=== PATIENT | female | born 1990 | race Caucasian/White ===

== ENCOUNTER → 2021-01-08 12:33 | Outpatient (BNVA) | payer MEDICAID, SELFPAY | PROVIDERS: PCP Internal Medicine; Visit Provider Physician Assistant | DX: E66.01 Morbid (severe) obesity due to excess calories (principal); Z68.43 Body mass index [BMI] 50.0-59.9, adult | CPT/HCPCS: 99202 ==

== ENCOUNTER 2021-01-19 07:32 | Outpatient (REF) | payer MEDICAID, SELFPAY ==
--- NOTE | ~2021-01-19 | XR_ITS ---
EXAMINATION: XR CHEST CLINICAL INFORMATION: Obesity COMPARISON: None TECHNIQUE: 2 views of the chest were obtained. FINDINGS: No significant abnormality is noted involving the heart, lungs, mediastinum, bony thorax or soft tissues. XR/XR chest 2V IMPRESSION: Unremarkable examination.
[2021-01-19 08:08] LABS: MANUAL DIFF FLAG NO
[2021-01-19 08:18] LABS: Basophils Percent Auto 0.5 % (0-2); Eosinophils Absolute Auto 0.2 X10*3/uL (0.0-0.4); Eosinophils Percent Auto 2.2 % (0-4); Hematocrit 38.5 % (37-47); Hemoglobin 13.9 g/dl (12.0-16.0); Imm Gran Abs Auto 0.05 X10*3/uL (0.00-0.03); Imm Gran Pct Auto 0.6 % (0.0-0.4); Lymphocytes Absolute Auto 2.1 X10*3/uL (1.2-4.9); Lymphocytes Percent Auto 26.3 % (20-40); Mean Corpuscular HGB Conc 36.1 g/dl (31.0-35.0); Mean Corpuscular Hemoglobin 31.6 pg (27.0-33.0); Mean Corpuscular Volume 87.5 fL (80-98); Mean Platelet Volume 10.3 fL (9.4-12.3); Monocytes Percent Auto 11.7 % (2-11); Neutrophils Absolute Auto 4.8 X10*3/uL (2.0-8.3); Neutrophils Percent Auto 58.7 % (45-73); Platelet Count 442 X10*3/uL (160-400); Red Cell Distribution Width 13.1 % (11.0-16.0); White Blood Count 8.1 X10*3/uL (4.8-10.8)
[2021-01-19 08:26] LABS: Estimated Average Glucose 91 mg/dL; Hemoglobin A1c % 4.8 %
[2021-01-19 08:37] LABS: Alanine Aminotransferase 14 U/L (0-31); Alkaline Phosphatase 85 U/L (39-117); Anion Gap 16 (12-20); Aspartate Amino Transferase 13 U/L (5-31); Bilirubin Total 1.4 mg/dL (0.0-1.0); Blood Urea Nitrogen 14 mg/dL (9-16); C Reactive Protein 1.35 mg/dL (< or = 0.50); Carbon Dioxide 22 mmol/L (22-29); Chloride 108 mmol/L (96-108); Cholesterol 129 mg/dL; Estimated Glomerular Filt Rate > 60; Glucose Fasting 99 mg/dL (60-99); HDL Cholesterol 38 mg/dL; Iron 68 mcg/dL (30-160); LDL Cholesterol Calculated 81 mg/dl; Percent Iron Saturation 30 % (15-50); Potassium 4.1 mmol/L (3.3-5.1); Sodium 142 mmol/L (135-145); Total Iron Binding Capacity 227 mcg/dL (228-428); Total Protein 7.1 g/dL (6.5-8.0); Triglycerides 50 mg/dL; Unsaturated Iron Binding 159 ug/dL
[2021-01-19 09:01] LABS: TSH reflex Free T4 1.23 uIU/mL (0.32-4.0); Vitamin D 25-OH Total 20.3 ng/mL (>30)
[2021-01-19 09:33] LABS: Ferritin 94 ng/mL (10-122)
[2021-01-21 09:37] LABS: Folate 14.4 ng/mL (> or = 4.0); Vitamin B12 738 pg/mL (200-900)
[2021-01-22 03:42] LABS: Zinc 88 mcg/dL (60-130)
[2021-01-22 10:27] LABS: Calcium (PTHI) 9.3 mg/dL (8.6-10.2); PTHI 17 pg/mL (14-64)
[2021-01-24 02:27] LABS: Vitamin A 26 mcg/dL (38-98)
[2021-01-24 17:47] LABS: Vitamin B1 8 nmol/L (8-30)
== END 2021-01-19 07:33 | disposition home or self-care (01) ==
LOC: HO.LAB 07:32
PROVIDERS: PCP Internal Medicine; Visit Provider Physician Assistant
DX: R06.02 Shortness of breath (principal); E66.01 Morbid (severe) obesity due to excess calories; Z68.43 Body mass index [BMI] 50.0-59.9, adult
CPT/HCPCS: 36415; 71046; 80053; 80061; 82306; 82607; 82728; 82746; 83036; 83525; 83540; 83970; 84425; 84443; 84590; 84630; 85025; 86140

== ENCOUNTER → 2021-01-31 13:53 | Outpatient (REF) | payer MEDICAID, SELFPAY ==
--- NOTE | 2021-01-31 14:03 | ECG_ITS ---
Test Reason : OBESITY Blood Pressure : / mmHG Vent. Rate : 082 BPM Atrial Rate : 082 BPM P-R Int : 150 ms QRS Dur : 086 ms QT Int : 360 ms P-R-T Axes : 044 048 021 degrees QTc Int : 420 ms Normal sinus rhythm Normal ECG No previous ECGs available Referred By: Zakiya Rendon Electronically Signed By:Dieudonne Kilgore
[2021-02-01 13:41] LABS: H Pylori Breath Test NOT DETECTED (NOT DETECTED)
== END ==
LOC: HO.CARD 13:53
PROVIDERS: PCP Internal Medicine; Visit Provider Physician Assistant
DX: Z01.818 Encounter for other preprocedural examination (principal); E66.01 Morbid (severe) obesity due to excess calories; R06.02 Shortness of breath; E55.9 Vitamin D deficiency, unspecified; Z68.42 Body mass index [BMI] 45.0-49.9, adult; Z71.3 Dietary counseling and surveillance; Z11.0 Encounter for screening for intestinal infectious diseases; Z87.891 Personal history of nicotine dependence; Z88.8 Allergy status to other drugs, medicaments and biological substances; Z79.899 Other long term (current) drug therapy
CPT/HCPCS: 83013; 93005; 99211; 99212

== ENCOUNTER → 2021-02-15 08:12 | Outpatient (BNVA) | payer MEDICAID, SELFPAY | PROVIDERS: PCP Internal Medicine; Visit Provider Dietitian, Registered | DX: E66.01 Morbid (severe) obesity due to excess calories (principal) | CPT/HCPCS: 97802 ==

== ENCOUNTER 2021-02-16 08:47 | Outpatient (REF) | payer MEDICAID, SELFPAY ==
[2021-02-16 10:16] LABS: Vitamin D 25-OH Total 36.1 ng/mL (>30)
[2021-02-20 09:31] LABS: Vitamin A 28 mcg/dL (38-98)
[2021-02-21 20:52] LABS: Cotinine, U <2 ng/mL; Nicotine, U <2 ng/mL
== END 2021-02-16 08:48 | disposition home or self-care (01) ==
LOC: HO.LAB 08:47
PROVIDERS: Physician Assistant; PCP Internal Medicine; Visit Provider Surgery
DX: E55.9 Vitamin D deficiency, unspecified (principal); E66.01 Morbid (severe) obesity due to excess calories; Z87.891 Personal history of nicotine dependence
CPT/HCPCS: 36415; 80323; 82306; 84590

== ENCOUNTER → 2021-02-22 08:01 | Outpatient (BNVA) | payer MEDICAID, SELFPAY | PROVIDERS: PCP Internal Medicine; Visit Provider Physician Assistant | DX: E66.01 Morbid (severe) obesity due to excess calories (principal); Z68.42 Body mass index [BMI] 45.0-49.9, adult; Z87.891 Personal history of nicotine dependence | CPT/HCPCS: 99212 ==

== ENCOUNTER → 2021-03-08 14:48 | Outpatient (BNVA) | payer MEDICAID, SELFPAY | PROVIDERS: PCP Internal Medicine; Visit Provider Surgery | DX: E66.01 Morbid (severe) obesity due to excess calories (principal); Z68.42 Body mass index [BMI] 45.0-49.9, adult | CPT/HCPCS: 99212 ==

== ENCOUNTER → 2021-04-01 13:45 | Outpatient (BNVA) | payer MEDICAID, SELFPAY | PROVIDERS: PCP Internal Medicine; Referring Provider Internal Medicine; Visit Provider Physician Assistant | DX: E66.01 Morbid (severe) obesity due to excess calories (principal); Z68.42 Body mass index [BMI] 45.0-49.9, adult | CPT/HCPCS: 99212 ==

== ENCOUNTER 2021-04-11 11:00 | Outpatient (REF) | payer MEDICAID, SELFPAY ==
--- NOTE | 2021-04-11 12:09 | ECG_ITS ---
Test Reason : R06.02 SOB Blood Pressure : / mmHG Vent. Rate : 073 BPM Atrial Rate : 073 BPM P-R Int : 154 ms QRS Dur : 086 ms QT Int : 388 ms P-R-T Axes : 032 061 025 degrees QTc Int : 427 ms Normal sinus rhythm with sinus arrhythmia Normal ECG When compared with ECG of 31-JAN-2021 14:20, No significant change was found Referred By: Charlene Pearson Electronically Signed By:KAROLINE TORIBIO MD
[2021-04-11 13:10] LABS: MANUAL DIFF FLAG NO
[2021-04-11 13:18] LABS: Prothrombin Time 11.9 SEC (9.9-13.0)
[2021-04-11 13:21] LABS: Basophils Absolute Auto 0.1 X10*3/uL (0.0-0.2); Basophils Percent Auto 0.4 % (0-2); Eosinophils Absolute Auto 0.3 X10*3/uL (0.0-0.4); Eosinophils Percent Auto 2.2 % (0-4); Hematocrit 43.4 % (37-47); Hemoglobin 15.2 g/dl (12.0-16.0); Imm Gran Abs Auto 0.07 X10*3/uL (0.00-0.03); Imm Gran Pct Auto 0.6 % (0.0-0.4); Lymphocytes Absolute Auto 3.3 X10*3/uL (1.2-4.9); Lymphocytes Percent Auto 27.6 % (20-40); Mean Corpuscular Hemoglobin 31.5 pg (27.0-33.0); Mean Corpuscular Volume 89.9 fL (80-98); Mean Platelet Volume 10.8 fL (9.4-12.3); Monocytes Absolute Auto 0.9 X10*3/uL (0.1-1.2); Monocytes Percent Auto 7.5 % (2-11); Neutrophils Absolute Auto 7.5 X10*3/uL (2.0-8.3); Neutrophils Percent Auto 61.7 % (45-73); Partial Thromboplastin Time 36.1 SEC (24.1-38.0); Platelet Count 386 X10*3/uL (160-400); Red Blood Count 4.83 X10*6/uL (4.20-5.50); Red Cell Distribution Width 12.7 % (11.0-16.0); White Blood Count 12.1 X10*3/uL (4.8-10.8)
[2021-04-11 13:32] LABS: Albumin Level 4.6 g/dL (3.5-5.0); Anion Gap 17 (12-20); Blood Urea Nitrogen 18 mg/dL (9-16); Calcium 9.9 mg/dL (8.4-10.2); Carbon Dioxide 21 mmol/L (22-29); Chloride 105 mmol/L (96-108); Estimated Glomerular Filt Rate > 60; Glucose Random 77 mg/dL (60-115); Potassium 4.1 mmol/L (3.3-5.1); Sodium 139 mmol/L (135-145)
[2021-04-11 13:48] LABS: UPreg QC Valid YES; Urine Pregnancy NEGATIVE (NEGATIVE)
[2021-04-11 13:49] LABS: Glucose Urine UA NEG (NEG); Leukocyte Esterase Urine 1+ (NEG); Nitrite Urine NEG (NEG); PH 5.5 (5.0-8.0); UACC Culture Trigger YES; Urine Blood 1+ (NEG); Urine Ketones NEG (NEG); Urine Protein NEG (NEG-TRACE)
[2021-04-11 13:52] LABS: Appearance Urine CLEAR; Color Urine YELLOW
[2021-04-11 13:59] LABS: Bacteria Urine 1+ /LPF; Squamous Epithelial Cell Urine 2+ /LPF
[2021-04-16 18:07] LABS: Vitamin A 42 mcg/dL (38-98)
== END 2021-04-11 11:01 | disposition home or self-care (01) ==
LOC: HO.LAB 11:00
PROVIDERS: PCP Internal Medicine; Visit Provider Surgery
DX: Z01.818 Encounter for other preprocedural examination (principal); E66.01 Morbid (severe) obesity due to excess calories; R06.02 Shortness of breath; E50.9 Vitamin A deficiency, unspecified; Z79.899 Other long term (current) drug therapy; Z87.891 Personal history of nicotine dependence; Z68.42 Body mass index [BMI] 45.0-49.9, adult
CPT/HCPCS: 36415; 80048; 81001; 81025; 82040; 84590; 85025; 85610; 85730; 87086; 93005; 99212

== ENCOUNTER → 2021-04-12 13:24 | Outpatient (BNVA) | payer MEDICAID, SELFPAY | PROVIDERS: PCP Internal Medicine; Visit Provider Physician Assistant ==

== ENCOUNTER 2021-04-19 07:33 | Inpatient (IN) | payer MEDICAID, SELFPAY ==
[2021-04-17 15:19] VITALS: BMI 45.4
--- NOTE | 2021-04-18 08:20 | P.CONAN_ITS ---
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 Hereditary spherocytosis PMFSH Active Problems Active Problems: All Active Problems (Updated 04/11/21 @ 08:52 by Charlene Pearson MD) Major depressive disorder in remission (Acute) Former smoker (Acute) BMI 45.0-49.9, adult (Acute) Vitamin A deficiency (Acute) Preoperative examination (Acute) Shortness of breath (Acute) Morbid obesity (Acute) Vitamin D deficiency (Acute) BMI 50.0-59.9, adult (Acute) Depression (Acute) Hereditary spherocytosis (Acute) Past Medical History Medical History BMI 50.0-59.9, adult Depression Hereditary spherocytosis Morbid obesity Vitamin D deficiency Family History Family History Mother Fibromyalgia Hypertension Migraine Depression Degenerative disk disease Sleep apnea Father Hypertension Sleep apnea Brother Spherocytosis Hyperlipidemia Son No problems noted. Daughter No problems noted. Surgical History Surgical History (Updated 04/17/21 @ 15:17 by Sara Mistry RN) Hx of splenectomy Hx of wisdom tooth extraction Social History Social History Are you a primary children's zoo caretaker to a significant other at home: Yes (2 minor children) Do you presently have visiting nurse or other home services: No Alcohol intake: current Alcohol intake frequency: holidays/special occasions only Patient Tobacco Use Status: Former Tobacco user Quit Date: 01/29/2021 Tobacco use type: Cigarette Have you been hit, kicked, punched, or otherwise hurt by someone within the past year? If so, by whom?: No Are you DNR?: No Advance Directives: No Advance Directives Information Provided: No Advance Directives on File: No Recently lost weight without trying: No Patient : No FDLMP: 04/05/2021 : No Poor oral hygiene: No (lower permanent retainer) Meds Allergies Allergy/AdvReac Type Severity Reaction Status Date / Time cefaclor [From Ceclor] Allergy Severe Rash Verified 04/17/21 15:14 dichloralphenazone Allergy Severe Shortness Verified 04/17/21 15:14 [From Midrin] of Breath isometheptene [From Midrin] Allergy Severe Shortness Verified 04/17/21 15:14 of Breath midodrine Allergy Severe Shortness Verified 04/17/21 15:16 of Breath Home Medications Medication Instructions Recorded Confirmed Last Taken Type vitamin A 10,000 unit capsule 20,000 unit PO DAILY 04/17/21 04/17/21 Unknown History Exam Exam Date and Time: April 18, 2021 0820 Height,Weight and Vital Signs: Height 5 ft 4 in Weight 120.202 kg Pertinent Lab Results Pertinent Lab Results: Laboratory Tests 04/11/21 12:20 Blood Type A Positive Antibody Screen NEGATIVE Laboratory Tests 04/11/21 04/11/21 04/11/21 12:20 12:20 12:20 WBC 12.1 H Hgb 15.2 Hct 43.4 Plt Count 386 PT 11.9 INR 1.0 APTT 36.1 Sodium 139 Potassium 4.1 Chloride 105 Carbon Dioxide 21 L BUN 18 H Creatinine 0.70 Estimated GFR > 60 Random Glucose 77 Calcium 9.9 D Albumin 4.6 Vitamin A 04/11/21 12:20 WBC Hgb Hct Plt Count PT INR APTT Sodium Potassium Chloride Carbon Dioxide BUN Creatinine Estimated GFR Random Glucose Calcium Albumin Vitamin A 42 Narrative Narrative: EKG 03/2021 Vent. Rate : 073 BPM ? ? Atrial Rate : 073 BPM ?? P-R Int : 154 ms? QRS Dur : 086 ms ? ? QT Int : 388 ms ? ? ? P-R-T Axes : 032 061 025 degrees ?? QTc Int : 427 ms ? Normal sinus rhythm with sinus arrhythmia Normal ECG When compared with ECG of 31-JAN-2021 14:20, No significant change was found Assessment and Plan Assessment Anesthesia Assessment: Chart Reviewed Documented by User: Jennie Corona MD 04/19/21 08:02 [facility] Past Medical History Medical History BMI 50.0-59.9, adult Depression Hereditary spherocytosis Morbid obesity Vitamin D deficiency Family History Family History Mother Fibromyalgia Hypertension Migraine Depression Degenerative disk disease Sleep apnea Father Hypertension Sleep apnea Brother Spherocytosis Hyperlipidemia Son No problems noted. Daughter No problems noted. Surgical History Surgical History (Updated 04/17/21 @ 15:17 by Sara Mistry RN) Hx of splenectomy Hx of wisdom tooth extraction Social History Social History Are you a primary children's zoo caretaker to a significant other at home: Yes (2 minor children) Do you presently have visiting nurse or other home services: No Alcohol intake: current Alcohol intake frequency: holidays/special occasions only Patient Tobacco Use Status: Former Tobacco user Quit Date: 01/29/2021 Tobacco use type: Cigarette Have you been hit, kicked, punched, or otherwise hurt by someone within the past year? If so, by whom?: No Are you DNR?: No Advance Directives: No Advance Directives Information Provided: No Advance Directives on File: No Recently lost weight without trying: No Patient : No FDLMP: 04/05/2021 : No Poor oral hygiene: No (lower permanent retainer) Meds Allergies Allergy/AdvReac Type Severity Reaction Status Date / Time cefaclor [From Ceclor] Allergy Severe Rash Verified 04/17/21 15:14 dichloralphenazone Allergy Severe Shortness Verified 04/17/21 15:14 [From Midrin] of Breath isometheptene [From Midrin] Allergy Severe Shortness Verified 04/17/21 15:14 of Breath midodrine Allergy Severe Shortness Verified 04/17/21 15:16 of Breath Home Medications Medication Instructions Recorded Confirmed Last Taken Type vitamin A 10,000 unit capsule 20,000 unit PO DAILY 04/17/21 04/17/21 Unknown History Exam Airway Mallampati Class: II TM Dist: >3cm Neck ROM: Full
[2021-04-19] VITALS (12 sets, daily range): BP systolic 123–161; BP diastolic 60–90; PULSE 68–100; RESP 12–20; TEMP 36.1–36.6; O2SAT 94–99
[2021-04-19 07:53] LABS: UPreg QC Valid YES; Urine Pregnancy NEGATIVE (NEGATIVE)
[2021-04-19 08:08] LABS: COVID-19 Test Negative (Negative)
--- NOTE | 2021-04-19 08:44 | MHC.SHP ---
Pre-Procedural Eval Section A Date of Service: 04/19/21 Section B Chief Complaint: s/p sleeve gastrectomy Allergies: Allergies Allergy/AdvReac Type Severity Reaction Status Date / Time cefaclor [From Ceclor] Allergy Severe Rash Verified 04/17/21 15:14 dichloralphenazone Allergy Severe Shortness Verified 04/17/21 15:14 [From Midrin] of Breath isometheptene [From Midrin] Allergy Severe Shortness Verified 04/17/21 15:14 of Breath midodrine Allergy Severe Shortness Verified 04/17/21 15:16 of Breath Plan I have reviewed the history and physical and performed a pertinent physical examination on my patient. No changes have occurred unless specified.
--- NOTE | 2021-04-19 10:39 | P.BOP_ITS ---
Brief Operative Note Date of Service: 04/19/21 Pre-op diagnosis: Morbid obesity, BMI 46.3 Post-op diagnosis: other (Same and hiatal hernia) Procedure: Laparoscopic sleeve gastrectomy, hiatal hernia repair, Mary block, and intraoperative endoscopy Implants: covidien tahira Surgeon: Charlene Pearson MD Anesthesia: GETA Was an Cdl Bulk Driver used for this Procedure?: Yes Cdl Bulk Driver: Kate Marina Estimated blood loss (mL): 10 Pathology: other Condition: stable Disposition: PACU
--- NOTE | 2021-04-19 10:40 | W.PM.OPN ---
Operative Note Operative Note Date of Service: 04/19/21 Narrative: Patient was brought into the operating room and placed on the operating room table in the supine position. General anesthesia was induced. Normal DVT prophylaxis was instituted and the patient received 900 mg of clindamycin preoperatively. The abdomen was then prepped and draped in the normal sterile fashion. A safety time-out was performed. A mixture of 1% lidocaine with epinephrine and ?% Marcaine plain was used to anesthetize the planned incision site in the left upper quadrant. A #11 scalpel was used to make a 5 mm left upper quadrant transverse incision through which a veress needle was placed. Three pops were heard going through the fascia. A saline drop test was used to confirm that the veress needle was intraabdominal. An optiview technique was then used to place a 5mm port in the left upper quadrant. A 5 mm 30 degree laproscope was then placed through this port and the abdominal cavity was surveyed there were omental adhesions to the left upper abdominal wall. We took these adhesions down with dissection using the LigaSure device. The patient was placed in reverse Trendelenburg positioning. A miesha liver retractor was then placed in the subxyphoid position and it was used to hold up the left lobe of the liver to the abdominal wall. This was secured to the bed using the liver retractor wang. A QUANG block was then performed for pain control on the right side of the abdomen. A 5 mm port was placed in the right upper quadrant near the falciform ligament. A 12 mm port was then placed in the mid epigastrium. One additional 5 mm port was placed in the left upper quadrant just to the left of the placement of the first port. I then performed a QUANG block on the left side of the abdomen. I then removed the epigastric fat pad; there was a small anterior hiatal hernia noted. I reapproximated the left and right crura with a total of 2 stitches of 2-0 ethibond and a laparoscopic knot pusher. There was no residual hiatal hernia. I then opened up the angle of His. We then gained entry into the lesser sac about 4-5 cm from the pylorus. I had anesthesia place a 34 [place] orogastric tube into the distal antrum to use as a sizing tool for gastric pouch size. I divided the short gastric vessels up to the angle of His. We then started the creation of the gastric pouch by firing a 60 mm purple load endostapler up the stomach about 4-5 cm from the pylorus. We completed the creation of the gastric pouch using a total of 4 firings of a 60 mm purple load stapler. We had anesthesia remove the orogastric tube, then we clamped across the distal antrum using a fired 60 mm endostapler. We flattened the patient and then instilled normal saline surrounding the newly created staple line. I then performed an on-table endoscopy. I passed the gastroscopy into the posterior oropharynx and down the esophagus evaluating the esophageal mucosa which was normal. There was no evidence of hiatal hernia. I passed the gastroscope into the gastric pouch and insufflated the gastric pouch. There was healthy pink mucosa and no evidence of active bleeding. There was no evidence of leak on laparoscopy. I desufflated the gastric pouch and removed the endoscope. I removed the endostapler from the abdomen and suctioned the fluid from the left upper quadrant. I then removed the partial gastrectomy specimen through the epigastric 12 mm port site. I reapproximated the 12 mm port using a 0 maxon suture with a laparoscopic suture passer. I instilled local anesthetic into the fascial closure site and tied the suture down at a pressure of 8-10 mm of Hg. There was no residual fascial defect. We removed the liver retractor and the left upper quadrant 5 mm ports under direct visualization. There was no evidence of any active bleeding. I desufflated the abdomen through the last remaining port and removed the laparoscope and 5 mm port. We reapproximated all incisions with a 4-0 monocryl subcuticular stitch. We cleaned and dried the abdominal skin and applied dermabond skin glue. All count were correct at the end of the case. The patient was awake and in stable condition prior to extubation and transfer to the recovery room.
--- NOTE | 2021-04-19 10:41 | PM.PNGS ---
Subjective Subjective Date of Service: 04/20/21 Interval history: This is a 30-year-old lady status post laparoscopic sleeve gastrectomy with hiatal hernia repair doing well on postoperative day 1. Patient is tolerating stage III diet without difficulty. Her vital signs and blood work are within normal limits for postoperative day 1. Patient has been up and ambulating using incentive spirometer. Physical Exam Vital Signs: Vital Signs: Last Vital Signs Temp 97.0 F 04/19/21 10:30 Pulse 100 04/19/21 10:40 Resp 20 04/19/21 10:40 BP 135/84 04/19/21 10:40 Pulse Ox 97 04/19/21 10:40 Body Mass Index 45.4 Const: General: cooperative, healthy appearing, comfortable and no acute distress GI: Other: Abdomen is soft, nondistended, mild appropriate incisional tenderness. Incisions are clean dry intact with Dermabond in place. There is no evidence of infection or drainage or erythema. Extrem: Other: Bilateral lower extremities are warm well-perfused without edema. There is no tenderness to palpation Procedures Date of Service Date of Service: 04/20/21 Progress Note: A&P Assessment and plan (1) Status post laparoscopic sleeve gastrectomy: Status: Acute Assessment and Plan: This is a 30-year-old lady on postoperative day 1. Status post laparoscopic sleeve gastrectomy and hiatal hernia repair doing well. Patient will be discharged home to follow up with me as an outpatient in 2 weeks time frame. (2) History of repair of hiatal hernia: Status: Acute Fall Risk Details Current Medications: Current Medications Generic Name Dose Route Start Last Admin Trade Name Freq PRN Reason Stop Dose Admin Fentanyl 50 mcg 04/19/21 08:02 Fentanyl Citrate/Pf 100 Mcg/2 Ml Vial IVPUSH Q5M PRN Pain, Severe (Pain Scale 7-10) Protocol Hydromorphone HCl 0.5 mg 04/19/21 10:39 Hydromorphone Hcl 0.5 Mg/0.5 Ml Syringe IVPUSH Q5M PRN Pain, Severe (Pain Scale 7-10) Protocol Lactated Ringer's 1,000 mls @ 100 mls/hr 04/19/21 07:45 Lr IVCONT .Q10H SERGE Ondansetron HCl 4 mg 04/19/21 08:02 Ondansetron Hcl 4 Mg/2 Ml Vial IVPUSH ONCE PRN Nausea and Vomiting Time Spent With Patient Time: Total time spent is greater than 50% in coordination of care (as documented) at patient's floor/unit and/or counseling patient: Time with patient: less than 15 minutes Quality Stroke Does the patient have a stroke diagnosis?: No VTE Prior VTE?: No VTE Risk Level:: Surgical - moderate VTE Device Contraindication: N/A - Device Ordered VTE Drug Contraindication: Treatment Not Indicated
--- NOTE | 2021-04-19 10:45 | P.DS_ITS ---
DS: Providers Provider Date of Service: 04/20/21 Date of admission: 04/19/21 07:33 Date of discharge: 04/20/21 Primary care physician: Shadi Vargas MD Admitting clinician: Charlene Pearson Attending physician on admission: Charlene Pearson Attending physician on discharge: Charlene Pearson Discharging clinician: Charlene Pearson DS: Diagnosis Discharge Diagnosis (1) Status post laparoscopic sleeve gastrectomy: Status: Acute (2) History of repair of hiatal hernia: Status: Acute DS: Medications Discharge Medications Home Medications: Previous Rx's Medication Instructions Recorded acetaminophen 500 mg tablet 1,000 mg PO Q6H PRN #30 tab 04/11/21 (Tylenol Extra Strength) docusate sodium 100 mg capsule 100 mg PO BID #30 cap 04/11/21 (Colace) famotidine 20 mg tablet (Pepcid AC) 20 mg PO DAILY #30 tab 04/11/21 ondansetron HCl 4 mg tablet 4 mg PO Q6H PRN #30 tab 04/11/21 (Zofran) simethicone 80 mg chewable tablet 80 mg PO TID-QID PRN #30 tab 04/11/21 (Gas Relief (simethicone)) DS: Summary Hospital Course Hospital Course: Patient was admitted through same day surgery to [facility] and underwent a laparoscopic sleeve gastrectomy with hiatal hernia repair for weight management. Patient did well following surgery and was sent to the surgical floor overnight. She was started on a stage II bariatric diet which she tolerated well. Patient was up and ambulating on day 0. Patient's pain was well controlled. On postoperative day 1. The patient was noted to be doing well, vital signs and laboratory work was within normal limits for postoperative day 1. Patient was advanced to stage III diet which she tolerated well and she was discharged home. Status at Discharge Functional status at discharge: independent ambulation Time Spent with Patient Time attestation: Total time spent providing and/or coordinating discharge services: Discharge coordination time: Less than 30 minutes Quality: Stroke Does the patient have a stroke diagnosis?: No Physical Exam Vital Signs: Vital Signs: Last Vital Signs Temp 97.0 F 04/19/21 10:30 Pulse 100 04/19/21 10:40 Resp 20 04/19/21 10:40 BP 135/84 04/19/21 10:40 Pulse Ox 97 08/20/21 10:40 Body Mass Index 45.4 DS: Data Data Completed and Pending Pending studies at discharge: Pending at discharge 04/19/21 09:42 Surgical [PTH] Routine Labs on day of discharge: Laboratory Results - last 24 hr 04/19/21 04/19/21 07:38 07:41 Urine Test NEGATIVE COVID-19 ([facility]) Negative COVID-19 Clin Com See Note Discharge Plan Discharge Patient Disposition: Home, Self-Care Discharge Diagnosis: Morbid obesity, status post sleeve gastrectomy and hiatal hernia repair Referrals: Shadi Vargas MD [Primary Care Provider] - 1 Week Discharge Medications: Continued acetaminophen [Tylenol Extra Strength] 500 mg tablet 1,000 mg PO Q6H PRN (Reason: pain) Qty: 30 RF: 1 famotidine [Pepcid AC] 20 mg tablet 20 mg PO DAILY Qty: 30 RF: 1 simethicone [Gas Relief (simethicone)] 80 mg tablet,chewable 80 mg PO TID-QID PRN (Reason: abdominal distention) Qty: 30 RF: 1 ondansetron HCl [Zofran] 4 mg tablet 4 mg PO Q6H PRN (Reason: nausea and vomiting) Qty: 30 RF: 1 docusate sodium [Colace] 100 mg capsule 100 mg PO BID Qty: 30 RF: 1 Discontinued vitamin A 10,000 unit capsule 20,000 unit PO DAILY RF: 0 No Action vitamin A 10,000 unit capsule 2 cap PO DAILY RF: 0 Discharge Orders: Discharge Order (Routine); Ordered 04/20/21 Ordered By: Charlene Pearson Diet: other Activity on Discharge: No heavy lifting Stand Alone Forms: Patient Portal Discharge page Activity Restrictions/Additional Instructions: No lifting greater than 5 lbs for the next 4 weeks. No driving within 24 hours of taking narcotic pain medications. If you do not move your bowels in the next 2 days, please take milk of magnesia over the counter or MiraLax. Please follow the post op diet and do not advance your diet until you are seen in the office in about 2 weeks. Please walk around your home every hour or two to prevent blood clots from forming in your legs. You do not need to wake from sleeping to walk. Please sleep in a bed or couch to prevent kinking at the hips and knees. Please take your incentive spirometer (your lung dairy processing equipment operator) home with you and use it for the next few days to prevent pneumonias. You may shower, no hot tubs, baths or swimming pools. Please call the office with any questions or concerns such as increasing abdominal pain, fever, chills, shortness of breath, chest pain, leg pain or swelling, or redness or drainage from your incisions. Please stay on stage 3 diet which includes sugar free clear liquids such as ice pops and jello and broth and crystal light. Avoid all carbonation. Please drink 2-3 protein shakes with at least 20-30 grams of protein daily or 2 of the celebrate 4:1 shakes which can be purchased in our office in addition to 1 other protein shake of your choice. celebrate shakes have all of the bariatric vitamins you need if you consume these shakes. If you are drinking other protein shakes, you will need to order the bariatric vitamin Opurity chewable online, or use the celebrate bariatric vitamin and an additional celebrate calcium daily which will provide all the vitamins you need. You may take the bariatric capsule vitamin in about 1 month. Please make sure you are consuming at least 40- 60 ounces of water in addition to your 2-3 protein shakes daily. You do not need to use the medicine cups to drink year shakes or water following discharge. Just drink slowly in order to ensure that she consume all of your liquids for the day. The medicine cups were only to teach you to drink slowly. They are not required at home. Do not hesitate to contact the office with any questions. Care Plan Goals: Weight loss with a goal of meeting a BMI of 25 Health Concerns: Morbid obesity Plan of Treatment: Patient is status post weight loss surgery Assessment: Patient is doing well status post weight loss surgery
[2021-04-19] MEDS: Famotidine/PF 20 MG/2 ML VIAL IVPUSH ×2 (11:21→20:45)
[2021-04-19] MEDS: Lactated Ringers 1,000 ML 100 ML IVCONT ×2 (11:32→20:45)
[2021-04-19] MEDS: Metoclopramide HCl 10 MG/2 ML VIAL IVPUSH (12:20)
--- NOTE | 2021-04-19 16:34 | PC.NURSE ---
PT ARRIVED ON UNTI AT 1245. ORIENTED TO UNIT. VSS. DROWSY, EASILY AROUSED.. ADB INCISION D&I. VOIDED 400 AT 1400. EDUCATED ON PHASE 2 DIET. PAIN 7/10 TYLENOL HUNG. PT DECLINED STRONGER PAIN.
[2021-04-19] MEDS: ondansetron HCL 4 MG/2 ML VIAL IVPUSH (17:34)
[2021-04-19] MEDS: Clindamycin Phosphate/D5W 900 MG/50 ML PIGGYBACK 50 MG IV (21:04)
[2021-04-19] MEDS: oxyCODONE HCl Immed Release 5 MG TABLET 10 MG PO (21:10)
[2021-04-20] VITALS: BP 147/87; PULSE 65; RESP 16; TEMP 36.4; O2SAT 98
[2021-04-20 04:00] VITALS: BP 153/72; PULSE 63; RESP 16; TEMP 36.8; O2SAT 98
[2021-04-20 06:51] LABS: Anion Gap 13 (12-20); Blood Urea Nitrogen 7 mg/dL (9-16); Carbon Dioxide 23 mmol/L (22-29); Chloride 106 mmol/L (96-108); Creatinine Clr Calc Pharmacy 170.6; Estimated Glomerular Filt Rate > 60; Glucose Random 106 mg/dL (60-115); Potassium 4.2 mmol/L (3.3-5.1); Sodium 138 mmol/L (135-145)
[2021-04-20 06:55] LABS: Hematocrit 36.1 % (37-47); Hemoglobin 12.6 g/dl (12.0-16.0); Mean Corpuscular HGB Conc 34.9 g/dl (31.0-35.0); Mean Corpuscular Hemoglobin 31.3 pg (27.0-33.0); Mean Corpuscular Volume 89.6 fL (80-98); Mean Platelet Volume 10.9 fL (9.4-12.3); Platelet Count 381 X10*3/uL (160-400); Red Blood Count 4.03 X10*6/uL (4.20-5.50); Red Cell Distribution Width 12.5 % (11.0-16.0)
[2021-04-20] MEDS: 0.9 % Sodium Chloride Flush 3 ML SYRINGE IVFLUSH (07:52)
[2021-04-20] MEDS: Famotidine/PF 20 MG/2 ML VIAL IVPUSH (07:52)
[2021-04-20 08:00] VITALS: BP 149/85; PULSE 57; RESP 20; TEMP 36.9; O2SAT 96
[2021-04-20] MEDS: ondansetron HCL 4 MG/2 ML VIAL IVPUSH (08:11)
[2021-04-20] MEDS: Lactated Ringers 1,000 ML 100 ML IVCONT (08:11)
--- NOTE | 2021-04-20 10:27 | MHC.CM.PN ---
PATIENT IS INDEPENDENT WITH ADLS. NO DME OR VNA AND NO NEED FOR SERVICES. PATIENT HAS SELF-ARRANGED FOR TRANSPORT HOME.
[2021-04-20 11:30] VITALS: BP 147/84; PULSE 57; RESP 18; TEMP 36.7; O2SAT 97
--- NOTE | 2021-04-20 19:13 | HO.POSTANES ---
Post Anesthesia Evaluation Post Anesthesia Evaluation Vital Signs: Vital Signs Temp Pulse Resp BP Pulse Ox 04/20/21 11:30 98.1 F 57 18 147/84 H 97 04/20/21 08:00 98.5 F 57 20 149/85 H 96 Anesthesia: General Endotracheal-GETA Mental Status: Awake Pain Control: Satisfactory Nausea/Vomiting: None Hydration: Adequate Anesthesia-Related Issues: No Anes. Related Issues
== END 2021-04-20 12:00 | disposition home or self-care (01) | DRG 403 ==
LOC: HO.SSSA 10:47 → HO.S3 11:44
PROVIDERS: Nurse Practitioner; Admitting Provider Surgery; PCP Internal Medicine; Visit Provider Surgery
PROC: 0DB64Z3 Excision of Stomach, Percutaneous Endoscopic Approach, Vertical (ICD-10-PCS; CPT 43845; principal; 2021-04-19 09:00)
DX: E66.01 Morbid (severe) obesity due to excess calories (principal); D58.0 Hereditary spherocytosis; F32.9 Major depressive disorder, single episode, unspecified; K44.9 Diaphragmatic hernia without obstruction or gangrene; Z20.822 Contact with and (suspected) exposure to COVID-19; Z68.42 Body mass index [BMI] 45.0-49.9, adult; Z87.891 Personal history of nicotine dependence; Z79.899 Other long term (current) drug therapy
CPT/HCPCS: 36415; 80048; 81001; 81025; 82040; 84590; 85025; 85027; 85610; 85730; 86850; 86900; 86901; 87086; 87635; 88307; 88342; 93005; 99024; 99212; C1776; J0131; J1100; J1170; J2250; J2405; J2550; J2765; J3010

== ENCOUNTER 2021-05-01 00:35 | Inpatient (IN) | payer MEDICAID, SELFPAY ==
[2021-05-01] VITALS (15 sets, daily range): BP systolic 124–183; BP diastolic 59–87; PULSE 82–120; RESP 16–20; TEMP 36.4–37.2; O2SAT 97–100; BMI 42.2
--- NOTE | ~2021-05-01 | CT_ITS ---
EXAMINATION: CT ABDOMEN WITHOUT AND WITH CONTRAST CLINICAL INFORMATION: Follow-up SMV thrombus COMPARISON: Previous CT scans most recent 05/02/2021 TECHNIQUE: Contiguous axial thin section helical images of the abdomen were performed before and after the administration of oral contrast and 85 mL of Omnipaque 350 intravenous contrast. The data set was reformatted in the coronal and sagittal planes and reviewed on an independent workstation. This CT examination was performed using dose optimization techniques as appropriate, variously including the following: *Automated exposure control *Adjustment of mA and/or kV according to patient size (this includes techniques or standardized protocols for targeted exams where dose is matched to indication/reason for exam; i.e. extremities or head) *Use of iterative reconstruction technique DLP: 1230 mGy-cm FINDINGS: LUNG BASES: There is minimal dependent atelectasis seen at the lung bases, left greater than right. There are trace pleural effusions. LIVER, GALLBLADDER, AND BILIARY TREE: Unremarkable PANCREAS: Unremarkable SPLEEN: Surgically removed ADRENAL GLANDS AND KIDNEYS: Unremarkable BOWEL LOOPS: There are postsurgical changes following gastric sleeve procedure. There is a small amount of fluid seen adjacent to the proximal stomach. There is no evidence of free air. There is interval improvement in the appearance of the small bowel. Small bowel loops in the left abdomen no longer demonstrate wall thickening and wall edema. No dilated loops of bowel are seen. There is interval decrease in ascites. There is interval decrease in edema in the small bowel mesentery. LYMPH NODES: There are small small bowel mesentery and retroperitoneal lymph nodes that appear unchanged. VASCULAR: There is still high attenuation seen in the portal vein and SMV on noncontrast exam. There is still nonenhancement of the SMV and portal vein following contrast enhancement. BONES: Unremarkable CT/CT abdomen wo/w con IMPRESSION: There is improved appearance of the small bowel. Small bowel wall thickening and edema is no longer seen. There is still increased attenuation on noncontrast sequences and lack of enhancement postcontrast of the SMV and portal veins suggestive of thrombus. Interval decrease in ascites. Postoperative changes following gastric sleeve procedure. There is a small amount of fluid seen surrounding the stomach. There is no free air.
--- NOTE | ~2021-05-01 | FL_ITS ---
EXAMINATION: LIMITED GASTROGRAFIN UPPER GI EXAMINATION. CLINICAL INFORMATION: Postop day 11 of the gastric sleeve biopsy. Intractable nausea and vomiting. Rule out leak. COMPARISON: None TECHNIQUE: Gastrografin examination. FINDINGS: Patient was only able to take two swallows of Gastrografin due to nausea and vomiting. No extravasation of Gastrografin was identified. Contrast filled the duodenum and small bowel. There is some narrowing in the region of the first portion of the duodenum but which is not causing dilatation of bowel proximal to this and for which no definite hematoma or other concentric mass causing narrowing seen on the recently done CT scan. FL/FL upper GI w gastrografin IMPRESSION: No definite extravasation of contrast identified. Region of narrowing involving the first and second portions of the duodenum which may be related to edema.
--- NOTE | ~2021-05-01 | CT_ITS ---
EXAMINATION: CTA CHEST CT ABDOMEN AND PELVIS WITH CONTRAST CLINICAL INFORMATION: Postoperative shortness of breath. Status post sleeve gastrectomy with abdomen pain. COMPARISON: None. TECHNIQUE: A noncontrast localizer was performed, followed by the administration of 65 mL Omnipaque [address] of the chest was then performed. Coronal and sagittal reformatted and 3-D technique MIP images of the chest were completed at the CT scanner and reviewed on the PACS workstation. No adverse effects were reported. Images were then performed through the abdomen and pelvis. Coronal and sagittal reformatted images performed at CT scanner by technologist. [This CT examination was performed using dose optimization techniques as appropriate, variously including the following: *Automated exposure control *Adjustment of mA and/or kV according to patient size (this includes techniques or standardized protocols for targeted exams where dose is matched to indication/reason for exam; i.e. extremities or head) *Use of iterative reconstruction technique] DLP: 1356 mGy-cm. FINDINGS: CTA CHEST Vascular: The main pulmonary artery, secondary and tertiary branches of the pulmonary artery are normally opacified with no evidence of pulmonary embolism. The aorta and great vessels are unremarkable. Mediastinum: No mediastinal mass. No significant lymphadenopathy. There is no pericardial effusion. Lungs: The lungs are clear. No nodule or infiltrate. Central bronchial airways open. Fluid: There is no pericardial effusion. There is no pleural effusion. Axilla: No significant lymphadenopathy. CT SCAN ABDOMEN/PELVIS: Liver, Gallbladder and Biliary Tree: The liver is normal in size, shape, and attenuation. No focal hepatic lesion or biliary ductal dilatation is present. The gallbladder is unremarkable with no evidence of radiopaque gallstones, gallbladder wall thickening, or obvious pericholecystic inflammatory changes. Pancreas: Unremarkable. Spleen: Spleen is absent. Adrenal Glands: Unremarkable. Kidneys and Ureters: The kidneys are normal in size, shape, and attenuation. No hydronephrosis, hydroureter, or calculi seen. No perinephric stranding. Bladder: Unremarkable. Gastrointestinal Tract: Status post sleeve gastrectomy. There is no acute abnormality of the bowel. No bowel obstruction. No bowel wall thickening or edema. Moderate volume of stool scattered throughout the colon. The appendix is nonvisualized. There is no inflammation the mesentery in the right lower quadrant. Abdominal Wall: No significant hernia is appreciated. MESENTERY/Lymph Nodes: Multiple small shotty lymph nodes in the retroperitoneum and root of mesentery but there is no bulky lymphadenopathy. There is mild haziness of the mid mesentery consistent with recent surgery. No abscess, no free air or free fluid. Vascular: Unremarkable. Pelvic Viscera: Unremarkable. Osseous Structures: Unremarkable. CT/CT angio chest PE protocol IMPRESSION: 1. No evidence of pulmonary embolism. No acute change of chest. 2. Status post sleeve gastrectomy. There is no acute abnormality of the bowel. 3. Mild haziness at the root of the mesentery with subcentimeter lymph nodes in the mesentery and retroperitoneum. No abscess or free fluid. 4. Spleen is absent.
--- NOTE | ~2021-05-01 | IR_ITS ---
PROCEDURE: IR INSERTION OF PICC IR ULTRASOUND-GUIDED VENOUS ACCESS CLINICAL INFORMATION: On heparin drip for SMV thrombus. Requires frequent blood draws. COMPARISON: None TECHNIQUE: Procedure and risks and benefits including bleeding, infection and blood clot were discussed with the patient, and informed consent was obtained. All elements of maximal sterile barrier technique followed including use of cap, mask, sterile gown, sterile gloves, a sterile full body drape and hand hygiene. Also followed skin preparation with 2% chlorhexidine for cutaneous antisepsis, and sterile ultrasound preparation with sterile gel and probe cover when applicable. The right upper arm was prepped and draped in the usual sterile fashion. The skin and soft tissues were anesthetized with 1% lidocaine plain. Using ultrasound guidance, right basilic vein access was obtained. Over an .018 wire and through a peel-away sheath, a 5-Tamazight double-lumen PICC line was positioned. Catheter length is 42 cm. Catheter tip projects over the SVC. Real-time ultrasound guidance was used to document vein patency and for needle entry. A formal ultrasound picture was recorded. Inadvertently, no fluoroscopic image was saved. Fluoroscopy time: 0.2 minutes. Patient dose: 105 cGy-cm2. FINDINGS: There is a right upper extremity PICC line with tip projecting over the cavoatrial junction. IR/IR us guide venous access IMPRESSION: Right upper extremity PICC line placement.
--- NOTE | ~2021-05-01 | US_ITS ---
EXAMINATION: US ABDOMEN LIMITED CLINICAL INFORMATION: Right upper quadrant abdominal pain. Postoperative day 11 status post sleeve gastrectomy.. COMPARISON: CT abdomen of May 01, 2021 TECHNIQUE: Real-time imaging of the right upper quadrant abdominal viscera. FINDINGS: PANCREAS: Obscured by overlying bowel gas. LIVER: Normal. The liver is normal in size. The liver contour is normal. Parenchymal echogenicity is normal. No focal hepatic lesion. There is no intrahepatic biliary duct dilatation seen. GALLBLADDER: There is layering sludge seen within the gallbladder. No gallbladder wall thickening is identified. No pericholecystic fluid is noted. No tenderness to palpation was elicited over the gallbladder fossa scanning. COMMON BILE DUCT: Normal in caliber measuring 0.6 cm in diameter. RIGHT KIDNEY: There is mild upper collecting system prominence but without definite hydronephrosis. No renal calculi or focal parenchymal lesions. The kidney measures 10.3 cm in maximum dimension. FREE FLUID: None. US/US abdomen limited IMPRESSION: Gallbladder sludge without evidence to suggest acute cholecystitis.
--- NOTE | ~2021-05-01 | CT_ITS ---
EXAMINATION: CT ABDOMEN AND PELVIS WITHOUT AND WITH CONTRAST CLINICAL INFORMATION: Abdominal pain. Rule out mesenteric venous thrombosis. COMPARISON: Previous CT scan of the abdomen and pelvis, upper GI and limited abdominal ultrasound from yesterday. TECHNIQUE: Multidetector volumetric imaging was performed of the abdomen and pelvis before and after the IV administration of 85 mL of Omnipaque 350 intravenous contrast. Sagittal and coronal reformatted images were obtained on the technologist's workstation. This CT examination was performed using dose optimization techniques as appropriate, variously including the following: *Automated exposure control *Adjustment of mA and/or kV according to patient size (this includes techniques or standardized protocols for targeted exams where dose is matched to indication/reason for exam; i.e. extremities or head) *Use of iterative reconstruction technique DLP: 1521 mGy-cm FINDINGS: LUNG BASES: The visualized lung bases are unremarkable. LIVER, GALLBLADDER, AND BILIARY TREE: The liver is normal in size, shape, and attenuation. No focal hepatic lesion or biliary ductal dilatation is present. The gallbladder is upper normal in size. No gallstones are seen. There is no biliary duct dilatation. PANCREAS: Unremarkable. SPLEEN: Absent and presumably surgically removed. ADRENAL GLANDS: Unremarkable. KIDNEYS AND URETERS: The kidneys are normal in size, shape, and attenuation. No hydronephrosis, hydroureter, or calculi seen. No perinephric stranding. BLADDER: Unremarkable. GASTROINTESTINAL TRACT: There are new thickened edematous loops of small bowel in the left mid abdomen. There is stranding or edema of the small bowel mesentery. There is new ascites. There are postsurgical changes to the stomach following gastric sleeve procedure. There is some increased fluid seen adjacent to the stomach. No intraluminal air, free air or extravasated contrast is seen. The appendix is not identified. ABDOMINAL WALL: There are postsurgical changes to the abdominal wall. No hernia is seen. LYMPH NODES: There is shotty retroperitoneal and small bowel mesentery lymphadenopathy. VASCULAR: There is decreased enhancement in the SMV and portal veins suggestive of thrombus. Vascular structures are otherwise unremarkable. The renal veins and IVC and IMV are patent. PELVIC VISCERA: Unremarkable. OSSEOUS STRUCTURES: Unremarkable. CT/CT abdomen pelvis wo/w con IMPRESSION: New small bowel wall thickening and edema in the left abdomen, edema or engorgement of the small bowel mesentery and [id number] amount of ascites. There is decreased enhancement of the SMV and portal veins compared to other venous structures suggestive of thrombus. Postoperative change following gastric sleeve procedure. There is new fluid seen adjacent to the stomach. No extraluminal air or contrast to confirm a leak, and this may be related to generalized ascites. Absent spleen. Findings were communicated to Johnnie Vasques by telephone on 05/02/2021 at 12:25pm
--- NOTE | ~2021-05-01 | IR_ITS ---
PROCEDURE: IR INSERTION OF PICC IR ULTRASOUND-GUIDED VENOUS ACCESS CLINICAL INFORMATION: On heparin drip for SMV thrombus. Requires frequent blood draws. COMPARISON: None TECHNIQUE: Procedure and risks and benefits including bleeding, infection and blood clot were discussed with the patient, and informed consent was obtained. All elements of maximal sterile barrier technique followed including use of cap, mask, sterile gown, sterile gloves, a sterile full body drape and hand hygiene. Also followed skin preparation with 2% chlorhexidine for cutaneous antisepsis, and sterile ultrasound preparation with sterile gel and probe cover when applicable. The right upper arm was prepped and draped in the usual sterile fashion. The skin and soft tissues were anesthetized with 1% lidocaine plain. Using ultrasound guidance, right basilic vein access was obtained. Over an .018 wire and through a peel-away sheath, a 5-Bulgarian double-lumen PICC line was positioned. Catheter length is 42 cm. Catheter tip projects over the SVC. Real-time ultrasound guidance was used to document vein patency and for needle entry. A formal ultrasound picture was recorded. Inadvertently, no fluoroscopic image was saved. Fluoroscopy time: 0.2 minutes. Patient dose: 105 cGy-cm2. FINDINGS: There is a right upper extremity PICC line with tip projecting over the cavoatrial junction. IR/IR cvc insert peripheral IMPRESSION: Right upper extremity PICC line placement.
--- NOTE | ~2021-05-01 | US_ITS ---
EXAMINATION: US VENOUS ULTRASOUND WITH DOPPLER LOWER EXTREMITY, BILATERAL CLINICAL INFORMATION: Elevated d-dimer COMPARISON: None TECHNIQUE: Ultrasound of the deep veins is performed from the hip to the calf with compression sonography and color and pulse Doppler assessment. Spectral analysis with color-flow imaging is performed. FINDINGS: RIGHT: There is normal venous compression and respiratory variation and augmented flow. The visualized common femoral vein, superficial femoral vein, profunda femoral vein, popliteal vein, and the trifurcation region shows no evidence of deep venous thrombosis. There is no significant popliteal fossa cyst. LEFT: There is normal venous compression and respiratory variation and augmented flow. The visualized common femoral vein, superficial femoral vein, profunda femoral vein, popliteal vein, and the trifurcation region shows no evidence of deep venous thrombosis. There is no significant popliteal fossa cyst. US/US venous duplex LE BI IMPRESSION: No DVT demonstrated in the bilateral lower extremities.
[2021-05-01] MEDS: 0.9 % Sodium Chloride 1,000 ML 999 ML IVCONT (01:15)
[2021-05-01 01:19] LABS: Hematocrit 39.4 % (37-47); Hemoglobin 14.1 g/dl (12.0-16.0); Mean Corpuscular HGB Conc 35.8 g/dl (31.0-35.0); Mean Corpuscular Hemoglobin 30.9 pg (27.0-33.0); Mean Corpuscular Volume 86.4 fL (80-98); Mean Platelet Volume 11.1 fL (9.4-12.3); Platelet Count 282 X10*3/uL (160-400); Red Blood Count 4.56 X10*6/uL (4.20-5.50); Red Cell Distribution Width 12.9 % (11.0-16.0); WBC ABN SCTR FOR CBC 1
--- NOTE | 2021-05-01 01:21 | ED.GENADULT ---
HPI - General Adult General Chief complaint: Nausea/Vomiting/Diarrhea Stated complaint: Abd pain Time Seen by Provider: 05/01/21 00:42 Source: patient Mode of arrival: ambulatory Limitations: no limitations History of Present Illness HPI narrative: 30-year-old female came in for evaluation of abdominal pain. Patient status post laparoscopic sleeve gastrectomy on 04/19/2021 with hiatal hernia repair for weight management. Patient was discharged home same day after surgery doing okay at home until 2 days ago when started to have intractable vomiting and upper abdominal pain, + normal bowel movement, + passing flatus. Patient also been having burning sensation over her right scapular area radiating down to the epigastric area, but declined shortness of breath or feeling palpitation. Related Data Previous Rx's Medication Instructions Recorded acetaminophen 500 mg tablet 1,000 mg PO Q6H PRN #30 tab 04/11/21 (Tylenol Extra Strength) docusate sodium 100 mg capsule 100 mg PO BID #30 cap 04/11/21 (Colace) famotidine 20 mg tablet (Pepcid AC) 20 mg PO DAILY #30 tab 04/11/21 ondansetron HCl 4 mg tablet 4 mg PO Q6H PRN #30 tab 04/11/21 (Zofran) simethicone 80 mg chewable tablet 80 mg PO TID-QID PRN #30 tab 04/11/21 (Gas Relief (simethicone)) Allergies Allergy/AdvReac Type Severity Reaction Status Date / Time cefaclor [From Ceclor] Allergy Severe Rash Verified 05/01/21 00:41 dichloralphenazone Allergy Severe Shortness Verified 05/01/21 00:41 [From Midrin] of Breath isometheptene [From Midrin] Allergy Severe Shortness Verified 05/01/21 00:41 of Breath midodrine Allergy Severe Shortness Verified 05/01/21 00:41 of Breath Review of Systems Review of Systems: All other systems are reviewed and are negative Constitutional: Reports as per HPI and Reports no additional constitutional complaints Eyes: Reports as per HPI and Reports no additional eye complaints Reports system reviewed and no additional complaints, except as documented Cardiovascular: Reports as per HPI and Reports no additional cardiovascular complaints Respiratory: Reports as per HPI and Reports no additional respiratory complaints Gastrointestinal: Reports as per HPI and Reports no additional gastrointestinal complaints Genitourinary: Reports no additional female genitourinary complaints Musculoskeletal: Reports no additional musculoskeletal complaints Skin/Breast: Reports system reviewed and no additional complaints, except as docu Psychiatric: Reports no additional psychiatric complaints Endocrine: Reports no additional endocrine complaints Hematologic/Lymphatic: Reports no additional hematologic/lymphatic complaints Allergic/Immunologic: Reports no additional allergic/immunologic complaints Reports system reviewed and no additional complaints, except as documented and Reports Abnormal speech present PMFSH Past Medical History Medical History BMI 50.0-59.9, adult Depression Hereditary spherocytosis Morbid obesity Vitamin D deficiency Surgical History History of repair of hiatal hernia Hx of splenectomy Hx of wisdom tooth extraction Status post laparoscopic sleeve gastrectomy Family History Family History Mother Fibromyalgia Hypertension Migraine Depression Degenerative disk disease Sleep apnea Father Hypertension Sleep apnea Brother Spherocytosis Hyperlipidemia Son No problems noted. Daughter No problems noted. 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 (2 minor children) Do you presently have visiting nurse or other home services: No Alcohol intake: never Patient Tobacco Use Status: Former Tobacco user Quit Date: 01/29/2021 Tobacco use type: Cigarette Use of substances other than those prescribed or required for medical reasons: No Advance Directives: No Advance Directives Information Provided: No service: No Current occupational status: employed Physical Exam Vital Signs: Vital Signs: Last Vital Signs Temp 97.8 F 05/01/21 00:41 Pulse 98 05/01/21 04:59 Resp 20 05/01/21 04:59 BP 135/73 05/01/21 04:59 Pulse Ox 99 05/01/21 04:59 Body Mass Index 42.2 Vital signs have been reviewed as appeared to be correct. Blood pressure normal. Heart rate elevated. Respiration rate normal. Temperature normal. Oxygen saturation normal. Appearance: Alert. Oriented X3. No acute distress. Head: Normal external exam. Normocephalic. Atraumatic. No Mcwilliams signs noted. No raccoon eyes noted Eyes: PERRLA. EOMI. Conjunctiva and sclera normal. Eyelids normal. ENT: TM's Normal. Pharynx normal. Uvula midline. Moist mucous membranes. No trismus noted. No drooling noted. No muffled voice noted. Neck: Normal inspection. Neck supple. FROM. No adenopathy. Thyroid Normal. No meningeal signs. No neck mass noted. CVS: Normal heart rate and rhythm. Heart sound normal. No murmurs noted. Pulses normal throughout. Respiratory: No respiratory distress. Painless inspiration. Breath sounds normal. No wheezes/rales/rhonchi noted. Chest nontender. No accessory muscle usage noted or decreased air movement noted. Abdomen: Soft, incision superior dry and clean and intact, mild tenderness in the epigastric area. No rebound tenderness, no guarding. Bowel sounds normal in all 4 quadrants. No distention noted. No organomegaly noted. No visible injury noted. Back: No CVA tenderness. Full range of motion noted. Skin: Skin warm and dry. Normal skin color. Normal skin turgor. No rashes/lesions/lacerations noted. Extremities: No lower extremity edema. Extremities exhibit normal range of motion. Extremities nontender. Neuro: Oriented X 3. Cranial nerve exam: II-XII are grossly intact No motor deficit. No sensory deficit. Reflexes normal. Course Course Course Narrative: Assessment and plan. 30-year-old female status post sleeve gastrectomy 10 days ago, patient presented today with severe abdominal pain and intractable vomiting. Because the elevated D-dimer patient had a CTA of the chest which showed no PE. CT of the abdomen and pelvis with contrast showed no complication from surgery. Improvement of leukocytosis. Patient with elevated anion gap and low bicarb patient will need IV hydration and anti emetic medication will admit the patient. Will consult bariatric surgery case discussed with Vu. Medical Decision Making Lab Data Lab results reviewed: Yes I reviewed the patient's lab results. Result diagrams: 05/01/21 01:12 05/01/21 01:11 Labs: Lab Results 05/01/21 05/01/21 05/01/21 Range/Units 01:11 01:12 02:37 WBC 16.8 H (4.8-10.8) X10*3/uL RBC 4.56 (4.20-5.50) X10*6/uL Hgb 14.1 (12.0-16.0) g/dl Hct 39.4 (37-47) % MCV 86.4 (80-98) fL MCH 30.9 (27.0-33.0) pg MCHC 35.8 H (31.0-35.0) g/dl RDW 12.9 (11.0-16.0) % Plt Count 282 D (160-400) X10*3/uL MPV 11.1 (9.4-12.3) fL Immature Gran % (Auto) Cancelled Neut % (Auto) Cancelled Lymph % (Auto) Cancelled [place] % (Auto) Cancelled Eos % (Auto) Cancelled Baso % (Auto) Cancelled Lymph # (Auto) Cancelled [place] # (Auto) Cancelled Eos # (Auto) Cancelled Baso # (Auto) Cancelled Abs Immat Gran (auto) Cancelled Absolute Neuts (auto) Cancelled Absolute Nucleated RBC 0.000 (0.0-0.012) X10*3/uL Nucleated RBC % (auto) 0.0 (0.0-0.2) /100WBC Neutrophils % (Manual) 74 H (45-73) % Band Neutrophils % 5 (3-5) % Lymphocytes % (Manual) 10 L (20-40) % Monocytes % (Manual) 11 (2-11) % Abs Neuts (Manual) 13.3 H (2.2-7.9) X10*3/uL Lymphocytes # (Manual) 1.7 (0.6-4.8) X10*3/uL Monocytes # (Manual) 1.8 H (0.0-1.2) X10*3/uL Platelet Estimate NORMAL (NORMAL) Large Platelets PRESENT Plt Morphology Comment NOTED RBC Morphology NOTED Spherocytes 3+ (>5) /OIF [place] Bodies PRESENT D-Dimer 4930 NG/ML Sodium 139 (135-145) mmol/L Potassium 3.6 (3.3-5.1) mmol/L Chloride 102 (96-108) mmol/L Carbon Dioxide 13 L (22-29) mmol/L Anion Gap 28 H (12-20) BUN 10 (9-16) mg/dL Creatinine 0.68 (0.5-1.4) mg/dL Estim Creat Clear Calc 146.5 Estimated GFR > 60 Random Glucose 99 (60-115) mg/dL Calcium 9.6 D (8.4-10.2) mg/dL Magnesium 2.1 (1.6-2.6) mg/dL Total Bilirubin 1.6 H (0.0-1.0) mg/dL Direct Bilirubin 0.6 H (0.0-0.5) mg/dL AST 15 (5-31) U/L ALT 13 (0-31) U/L Alkaline Phosphatase 103 D (39-117) U/L Total Protein 7.9 (6.5-8.0) g/dL Albumin 4.3 (3.5-5.0) g/dL Lipase 23 (8-78) U/L Urine Color Urine Appearance Urine pH (5.0-8.0) Ur Specific [place] (1.005-1.025) Urine Protein (NEG-TRACE) MG/DL Urine Glucose (UA) (NEG) MG/DL Urine Ketones (NEG) MG/DL Urine Blood (NEG) Urine Nitrite (NEG) Ur Leukocyte Esterase (NEG) Urine RBC (0) /HPF Urine WBC (0-4) /HPF Ur Squamous Epith Cells /LPF Amorphous Sediment /LPF Urine Bacteria /LPF Granular Casts /LPF Urine Mucus /LPF 05/01/21 Range/Units 02:39 WBC (4.8-10.8) X10*3/uL RBC (4.20-5.50) X10*6/uL Hgb (12.0-16.0) g/dl Hct (37-47) % MCV (80-98) fL MCH (27.0-33.0) pg MCHC (31.0-35.0) g/dl RDW (11.0-16.0) % Plt Count (160-400) X10*3/uL MPV (9.4-12.3) fL Immature Gran % (Auto) Neut % (Auto) Lymph % (Auto) Gibson % (Auto) Eos % (Auto) Baso % (Auto) Lymph # (Auto) [place] # (Auto) Eos # (Auto) Baso # (Auto) Abs Immat Gran (auto) Absolute Neuts (auto) Absolute Nucleated RBC (0.0-0.012) X10*3/uL Nucleated RBC % (auto) (0.0-0.2) /100WBC Neutrophils % (Manual) (45-73) % Band Neutrophils % (3-5) % Lymphocytes % (Manual) (20-40) % Monocytes % (Manual) (2-11) % Abs Neuts (Manual) (2.2-7.9) X10*3/uL Lymphocytes # (Manual) (0.6-4.8) X10*3/uL Monocytes # (Manual) (0.0-1.2) X10*3/uL Platelet Estimate (NORMAL) Large Platelets Plt Morphology Comment RBC Morphology Spherocytes /OIF [place] Bodies D-Dimer NG/ML Sodium (135-145) mmol/L Potassium (3.3-5.1) mmol/L Chloride (96-108) mmol/L Carbon Dioxide (22-29) mmol/L Anion Gap (12-20) BUN (9-16) mg/dL Creatinine (0.5-1.4) mg/dL Estim Creat Clear Calc Estimated GFR Random Glucose (60-115) mg/dL Calcium (8.4-10.2) mg/dL Magnesium (1.6-2.6) mg/dL Total Bilirubin (0.0-1.0) mg/dL Direct Bilirubin (0.0-0.5) mg/dL AST (5-31) U/L ALT (0-31) U/L Alkaline Phosphatase (39-117) U/L Total Protein (6.5-8.0) g/dL Albumin (3.5-5.0) g/dL Lipase (8-78) U/L Urine Color DARK YELLOW Urine Appearance CLEAR Urine pH 6.0 (5.0-8.0) Ur Specific [place] >= 1.030 H (1.005-1.025) Urine Protein 2+ H (NEG-TRACE) MG/DL Urine Glucose (UA) NEG (NEG) MG/DL Urine Ketones >=80 (NEG) MG/DL Urine Blood NEG (NEG) Urine Nitrite NEG (NEG) Ur Leukocyte Esterase NEG (NEG) Urine RBC 0-2 (0) /HPF Urine WBC 0-2 (0-4) /HPF Ur Squamous Epith Cells NONE /LPF Amorphous Sediment 1+ /LPF Urine Bacteria NONE /LPF Granular Casts 0-2 /LPF Urine Mucus 2+ /LPF Imaging Data CT angiogram of the chest/abdomen and pelvis.: Radiologist's impression: 1. No evidence of pulmonary embolism. No acute change of chest. 2. Status post sleeve gastrectomy. There is no acute abnormality of the bowel. 3. Mild haziness at the root of the mesentery with subcentimeter lymph nodes in the mesentery and retroperitoneum. No abscess or free fluid. 4. Spleen is absent. ? Discharge Plan Discharge Clinical Impression: Intractable vomiting, Abdominal pain Patient Disposition: Admitted As Inpatient
[2021-05-01 01:51] LABS: Alanine Aminotransferase 13 U/L (0-31); Albumin Level 4.3 g/dL (3.5-5.0); Alkaline Phosphatase 103 U/L (39-117); Anion Gap 28 (12-20); Aspartate Amino Transferase 15 U/L (5-31); Bilirubin Direct 0.6 mg/dL (0.0-0.5); Bilirubin Total 1.6 mg/dL (0.0-1.0); Blood Urea Nitrogen 10 mg/dL (9-16); Calcium 9.6 mg/dL (8.4-10.2); Carbon Dioxide 13 mmol/L (22-29); Chloride 102 mmol/L (96-108); Creatinine Clr Calc Pharmacy 146.5; Estimated Glomerular Filt Rate > 60; Glucose Random 99 mg/dL (60-115); Lipase 23 U/L (8-78); Magnesium 2.1 mg/dL (1.6-2.6); Potassium 3.6 mmol/L (3.3-5.1); Sodium 139 mmol/L (135-145); Total Protein 7.9 g/dL (6.5-8.0)
[2021-05-01 01:51] LABS: White Blood Count 16.8 X10*3/uL (4.8-10.8)
[2021-05-01 01:57] LABS: Band Neutrophils Percent 5 % (3-5); Howell Jolly Bodies PRESENT; Lymphocytes Absolute Manual 1.7 X10*3/uL (0.6-4.8); Lymphocytes Percent Manual 10 % (20-40); Monocytes Absolute Manual 1.8 X10*3/uL (0.0-1.2); Monocytes Percent Manual 11 % (2-11); Neutrophils Absolute Manual 13.3 X10*3/uL (2.2-7.9); Neutrophils Percent Manual 74 % (45-73); RBC Morphology NOTED
[2021-05-01 01:58] LABS: Spherocytes 3+ (>5) /OIF
[2021-05-01] MEDS: ondansetron HCL 4 MG/2 ML VIAL IVPUSH ×2 (01:58→04:55)
[2021-05-01 01:59] LABS: Large Platelet PRESENT; Platelet Estimate NORMAL (NORMAL); Platelet Morphology Comment NOTED
[2021-05-01 02:50] LABS: Glucose Urine UA NEG (NEG); Leukocyte Esterase Urine NEG (NEG); Nitrite Urine NEG (NEG); Specific Gravity - Urine >= 1.030 (1.005-1.025); UACC Culture Trigger NO; Urine Blood NEG (NEG); Urine Ketones >=80 MG/DL (NEG); Urine Protein 2+ MG/DL (NEG-TRACE)
[2021-05-01 02:52] LABS: Appearance Urine CLEAR; Color Urine DARK YELLOW
[2021-05-01 02:56] LABS: RBC Urine 0-2 /HPF (0); WBC Urine 0-2 /HPF (0-4)
[2021-05-01 02:57] LABS: Amorphous Sediment Urine 1+ /LPF; Granular Casts Urine 0-2 /LPF; Mucus Urine 2+ /LPF
[2021-05-01 03:03] LABS: D Dimer 4930 NG/ML
[2021-05-01] MEDS: iohexoL 350 MG/ML 100 ML INFUS..BTL 65 ML IV (03:54)
--- NOTE | 2021-05-01 04:53 | PM.IMHP ---
History of Present Illness Date of Service: 05/01/21 Chief Complaint: Nausea and vomiting 30-year-old female with a past medical history of anxiety, depression, head at rest parasite doses, obesity, vitamin-D deficiency, history hiatal hernia status post repair, history of laparoscopic gastric sleeve surgery presented to the hospital with a chief complaint nausea vomiting and abdominal discomfort. Patient reported of breath couple issues been having nausea and vomiting unable to keep anything down. Denies any diarrhea. Denies any chest pain palpitations lightheadedness or dizziness. Denies any fever chills cough. Denies any urinary symptoms. Denies any illicit drug use. Review of all other systems is negative except mentioned above ER course: Per ER team patient noted to have mildly dry, lab showed elevated anion gap; given IV fluid; D-dimer was elevated-CT chest showed no evidence of PE; CT abdomen showed no acute intra-abdominal pathology. As patient unable to tolerate p.o. admitted to the hospital for further management. FORMERLY [facility], [facility] Medical History BMI 50.0-59.9, adult Depression Hereditary spherocytosis Morbid obesity Vitamin D deficiency Family History Mother Fibromyalgia Hypertension Migraine Depression Degenerative disk disease Sleep apnea Father Hypertension Sleep apnea Brother Spherocytosis Hyperlipidemia Son No problems noted. Daughter No problems noted. 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 (2 minor children) Do you presently have visiting nurse or other home services: No Alcohol intake: never Patient Tobacco Use Status: Former Tobacco user Quit Date: 01/29/2021 Tobacco use type: Cigarette Use of substances other than those prescribed or required for medical reasons: No Advance Directives: No Advance Directives Information Provided: No service: No Current occupational status: employed Meds Allergies Allergy/AdvReac Type Severity Reaction Status Date / Time cefaclor [From Ceclor] Allergy Severe Rash Verified 05/01/21 00:41 dichloralphenazone Allergy Severe Shortness Verified 05/01/21 00:41 [From Midrin] of Breath isometheptene [From Midrin] Allergy Severe Shortness Verified 05/01/21 00:41 of Breath midodrine Allergy Severe Shortness Verified 05/01/21 00:41 of Breath Active Medications: Current Medications Generic Name Dose Route Start Last Admin Trade Name Freq PRN Reason Stop Dose Admin Acetaminophen 650 mg 05/01/21 04:50 Acetaminophen 325 Mg Tablet PO Q6H PRN Pain, Mild (Pain Scale 1-3) Hydromorphone HCl 0.5 mg 05/01/21 04:50 Hydromorphone Hcl 0.5 Mg/0.5 Ml Syringe IVPUSH Q4H PRN Pain, Severe (Pain Scale 7-10) Protocol Dextrose/Sodium Chloride 1,000 mls @ 100 mls/hr 05/01/21 05:00 D5ns IVCONT .Q10H [facility] Melatonin 6 mg 05/01/21 04:50 Melatonin 3 Mg Tablet PO BEDTIME PRN Insomnia Ondansetron HCl 4 mg 05/01/21 04:50 Ondansetron Hcl 4 Mg/2 Ml Vial IVPUSH Q8H PRN Nausea and Vomiting Sodium Chloride 3 ml 05/01/21 08:00 0.9 % Sodium Chloride Flush 3 Ml Syringe IVFLUSH QSHIFT [facility] Home Medications Medication Instructions Recorded Confirmed Last Taken Type vitamin A 10,000 unit capsule 2 cap PO DAILY 04/19/21 04/19/21 04/18/21 History Physical Exam Vital Signs and Narrative: Vital Signs: Last Vital Signs Temp 97.8 F 05/01/21 00:41 Pulse 103 H 05/01/21 04:00 Resp 20 05/01/21 04:00 BP 124/59 L 05/01/21 04:00 Pulse Ox 99 05/01/21 04:00 Body Mass Index 42.2 Gen: Appears be in no acute distress HEENT: NCAT, Moist mucosa. Pulmonary: Vesicular breath sounds, fair air entry CVS: Normal S1-S2 Abdomen: BS+, Soft, Nontender Extremities: Warm well perfused Neuro: Alert and awake. Results Labs CBC and Chem 7: 05/01/21 01:12 05/01/21 01:11 Labs: Laboratory Results - last 24 hr 05/01/21 05/01/21 05/01/21 01:11 01:12 02:37 MCV 86.4 MCH 30.9 MCHC 35.8 H RDW 12.9 Plt Count 282 D MPV 11.1 Immature Gran % (Auto) Cancelled Neut % (Auto) Cancelled Lymph % (Auto) Cancelled [place] % (Auto) Cancelled Eos % (Auto) Cancelled Baso % (Auto) Cancelled Lymph # (Auto) Cancelled [place] # (Auto) Cancelled Eos # (Auto) Cancelled Baso # (Auto) Cancelled Abs Immat Gran (auto) Cancelled Absolute Neuts (auto) Cancelled Absolute Nucleated RBC 0.000 Nucleated RBC % (auto) 0.0 Neutrophils % (Manual) 74 H Band Neutrophils % 5 Lymphocytes % (Manual) 10 L Monocytes % (Manual) 11 Abs Neuts (Manual) 13.3 H Lymphocytes # (Manual) 1.7 Monocytes # (Manual) 1.8 H Platelet Estimate NORMAL Large Platelets PRESENT Plt Morphology Comment NOTED RBC Morphology NOTED Spherocytes 3+ (>5) [place] Bodies PRESENT D-Dimer 4930 Anion Gap 28 H Estim Creat Clear Calc 146.5 Estimated GFR > 60 Random Glucose 99 Calcium 9.6 D Magnesium 2.1 Total Bilirubin 1.6 H Direct Bilirubin 0.6 H AST 15 ALT 13 Alkaline Phosphatase 103 D Total Protein 7.9 Albumin 4.3 Lipase 23 Urine Color Urine Appearance Urine pH Ur Specific [place] Urine Protein Urine Glucose (UA) Urine Ketones Urine Blood Urine Nitrite Ur Leukocyte Esterase Urine RBC Urine WBC Ur Squamous Epith Cells Amorphous Sediment Urine Bacteria Granular Casts Urine Mucus 05/01/21 02:39 MCV MCH MCHC RDW Plt Count MPV Immature Gran % (Auto) Neut % (Auto) Lymph % (Auto) [place] % (Auto) Eos % (Auto) Baso % (Auto) Lymph # (Auto) [place] # (Auto) Eos # (Auto) Baso # (Auto) Abs Immat Gran (auto) Absolute Neuts (auto) Absolute Nucleated RBC Nucleated RBC % (auto) Neutrophils % (Manual) Band Neutrophils % Lymphocytes % (Manual) Monocytes % (Manual) Abs Neuts (Manual) Lymphocytes # (Manual) Monocytes # (Manual) Platelet Estimate Large Platelets Plt Morphology Comment RBC Morphology Spherocytes [place] Bodies D-Dimer Anion Gap Estim Creat Clear Calc Estimated GFR Random Glucose Calcium Magnesium Total Bilirubin Direct Bilirubin AST ALT Alkaline Phosphatase Total Protein Albumin Lipase Urine Color DARK YELLOW Urine Appearance CLEAR Urine pH 6.0 Ur Specific [place] >= 1.030 H Urine Protein 2+ H Urine Glucose (UA) NEG Urine Ketones >=80 Urine Blood NEG Urine Nitrite NEG Ur Leukocyte Esterase NEG Urine RBC 0-2 Urine WBC 0-2 Ur Squamous Epith Cells NONE Amorphous Sediment 1+ Urine Bacteria NONE Granular Casts 0-2 Urine Mucus 2+ Imaging Radiologist's Impressions: Impressions Abdomen/Pelvis CT 05/01/21 00:50 IMPRESSION: 1. No evidence of pulmonary embolism. No acute change of chest. 2. Status post sleeve gastrectomy. There is no acute abnormality of the bowel. 3. Mild haziness at the root of the mesentery with subcentimeter lymph nodes in the mesentery and retroperitoneum. No abscess or free fluid. 4. Spleen is absent. Chest CTA 05/01/21 01:37 IMPRESSION: 1. No evidence of pulmonary embolism. No acute change of chest. 2. Status post sleeve gastrectomy. There is no acute abnormality of the bowel. 3. Mild haziness at the root of the mesentery with subcentimeter lymph nodes in the mesentery and retroperitoneum. No abscess or free fluid. 4. Spleen is absent. Assessment and Plan (1) Nausea & vomiting: Status: Acute 30-year-old female with a past medical history of anxiety, depression, obesity, vitamin-D deficiency, history of hiatal hernia status post repair, laparoscopic gastric sleeve surgery, former smoker , history of splenectomy presented to the hospital with a chief complaint of nausea vomiting and abdominal discomfort. Nausea/vomiting: Likely gastroenteritis. Patient denies any diarrhea. Passing gas. CT abdomen showed no acute intra-abdominal pathology. Supportive care. IV fluids. Zofran p.r.n.. Clear liquid diet-advanced diet as tolerated. U tox pending to check for cannabis. HCG qualitative pending to check for . Elevated D-dimer: CT chest showed no evidence of PE. Will also obtain venous duplex reviewed GI prophylaxis: Pepcid DVT prophylaxis: SCD boots Code status: Full code Quality Stroke Does the patient have a stroke diagnosis?: No VTE Prior VTE?: No VTE Risk Level:: Medical - moderate - high VTE Device Contraindication: N/A - Device Ordered VTE Drug Contraindication: Treatment Not Indicated
[2021-05-01] MEDS: Morphine Sulfate 2 MG/ML CARTRIDGE 1 MG IVPUSH ×2 (04:55→13:47)
--- NOTE | 2021-05-01 04:59 | PC.NURSE ---
pt medicated to abd pain and n/v. plan is to admit pt and pt is ok with this.
[2021-05-01 05:06] LABS: UPreg QC Valid YES; Urine Pregnancy NEGATIVE (NEGATIVE)
[2021-05-01 05:15] LABS: Amphetamine Screen Urine Not Detected (Not Detect); Barbiturates, Urine Not Detected (Not Detect); Benzodiazepines Screen Urine Not Detected (Not Detect); Cannabinoid Screen Urine Not Detected (Not Detect); Cocaine Screen Urine Not Detected (Not Detect); Fentanyl, urine Not Detected (Not Detect); Opiate Screen Urine Not Detected (Not Detect); Phencyclidine Screen Urine Not Detected (Not Detect)
[2021-05-01] MEDS: Dextrose 5 % and 0.9 % NaCl 1,000 ML 100 ML IVCONT ×2 (05:15→09:53)
[2021-05-01 07:02] LABS: COVID-19 Test Negative (Negative); IDNOW Serial# 9DD0AD1C
[2021-05-01 08:18] LABS: Hematocrit 39.1 % (37-47); Hemoglobin 14.2 g/dl (12.0-16.0); Mean Corpuscular HGB Conc 36.3 g/dl (31.0-35.0); Mean Corpuscular Hemoglobin 31.5 pg (27.0-33.0); Mean Corpuscular Volume 86.7 fL (80-98); Mean Platelet Volume 11.4 fL (9.4-12.3); Platelet Count 273 X10*3/uL (160-400); Red Blood Count 4.51 X10*6/uL (4.20-5.50)
--- NOTE | 2021-05-01 08:25 | PM.HPGS ---
History of Present Illness History of Present Illness Date of Service: 05/01/21 <MARTA Sosa - Last Filed: 05/01/21 16:46> 05/02/21 <Claudio Mcginnis MD - Last Filed: 05/02/21 20:26> Narrative: Alida Delgadillo is a 30 year old female, POD #12, S/P LSG and repair of hiatal hernia with Dr Pearson. Surgery was uneventful and she was progressing well until 3 days ago. She began to experience intolerance to her protein shakes as she felt full . She awoke early Thursday morning to pain in the right upper back and scapular area as well as right flank pain without associated urinary symptoms although she did report nausea without vomiting. She walked aropund and applied a heating pad with relief. Throughout Thursday and into Thursday her pain persisted despite tylenol. She began Zofran with intermittent relief of nausea. She reports her last bowel movement was yesterday at approximately 3:00 p.m. and it was normal. She continued intolerance to protein shakes although was able to tolerate some water. She called the office yesterday and encouraged to increase ambulation and continue zofran as well as to call if condition deteriorates. She called the service early this morning and was encouraged to go to the ER due to worsening condition with intractable vomiting and worsening pain in the right flank and RUQ of the abdomen. In the ER she was found to have elevated D Dimer (4930) and leukocytosis (16.8) with mild left shift. Chemistry significant for slightly elevated total and direct bili. Imaging negative for PE or intra-abdominal pathology by contrast enhancing CT. CXR negative and US of BLE ordered. She was additionally started on IVF and she is going to be admitted for further care and work-up. <MARTA Sosa - Last Filed: 05/01/21 16:46> Review of Systems Review of Systems: Yes all other systems are reviewed and are negative <MARTA Sosa - Last Filed: 05/01/21 16:46> Constitutional: Constitutional: Reports as per HPI, Reports anorexia and Reports poor appetite <MARTA Sosa - Last Filed: 05/01/21 16:46> Comments: Generally feeling unwell <MARTA Sosa - Last Filed: 05/01/21 16:46> Gastrointestinal: Gastrointestinal: Reports as per HPI, Reports abdominal pain (Right upper quadrant), Reports nausea and Reports vomiting <MARTA Sosa Last Filed: 05/01/21 16:46> Musculoskeletal: Musculoskeletal: Reports back pain (Right upper back and right flank) <MARTA Sosa Last Filed: 05/01/21 16:46> PMFSH Past Medical History Medical History: Medical History BMI 50.0-59.9, adult Depression Hereditary spherocytosis Morbid obesity Vitamin D deficiency <MARTA Sosa Last Filed: 05/01/21 16:46> Family History Family History: Family History Mother Fibromyalgia Hypertension Migraine Depression Degenerative disk disease Sleep apnea Father Hypertension Sleep apnea Brother Spherocytosis Hyperlipidemia Son No problems noted. Daughter No problems noted. <MARTA Sosa Last Filed: 05/01/21 16:46> Surgical History Surgical History: Surgical History History of repair of hiatal hernia Hx of splenectomy Hx of wisdom tooth extraction Status post laparoscopic sleeve gastrectomy <MARTA Sosa Last Filed: 05/01/21 16:46> Social History Social History: Social History Household Members: Family Housing: Apartment Are you a primary health care marketing specialist to a significant other at home: Yes (2 minor children) Do you presently have visiting nurse or other home services: No Alcohol intake: never Patient Tobacco Use Status: Former Tobacco user Quit Date: 01/29/2021 Tobacco use type: Cigarette Use of substances other than those prescribed or required for medical reasons: No Currently Displaying Signs/Symptoms of Drug Intoxication Withdrawal: No Have you been hit, kicked, punched, or otherwise hurt by someone within the past year? If so, by whom?: No Do you feel safe in your current relationship?: Yes Is there a partner from a previous relationship who is making you feel unsafe now?: No Are you made to feel afraid or neglected: No Advance Directives: No Advance Directives Information Provided: No Do you have thoughts of harming others: None Do you have a plan to hurt others: No Plan Recently lost weight without trying: No Eating poorly because of decreased appetite: Yes Patient : No : No Poor oral hygiene: No service: No Current occupational status: employed <MARTA Sosa - Last Filed: 05/01/21 16:46> Meds Allergies/Adverse reactions: Allergies Allergy/AdvReac Type Severity Reaction Status Date / Time cefaclor [From Ceclor] Allergy Severe Rash Verified 05/01/21 00:41 dichloralphenazone Allergy Severe Shortness Verified 05/01/21 00:41 [From Midrin] of Breath isometheptene [From Midrin] Allergy Severe Shortness Verified 05/01/21 00:41 of Breath midodrine Allergy Severe Shortness Verified 05/01/21 00:41 of Breath <MARTA Sosa - Last Filed: 05/01/21 16:46> Active Medications: Current Medications Generic Name Dose Route Start Last Admin Trade Name Freq PRN Reason Stop Dose Admin Acetaminophen 650 mg 05/01/21 04:50 Acetaminophen 325 Mg Tablet PO Q6H PRN Pain, Mild (Pain Scale 1-3) Famotidine 20 mg 05/01/21 09:00 Famotidine/Pf 20 Mg/2 Ml Vial IVPUSH BID SERGE Hydromorphone HCl 0.5 mg 05/01/21 04:50 Hydromorphone Hcl 0.5 Mg/0.5 Ml Syringe IVPUSH Q4H PRN Pain, Severe (Pain Scale 7-10) Protocol Dextrose/Sodium Chloride 1,000 mls @ 100 mls/hr 05/01/21 05:00 05/01/21 05:15 D5ns IVCONT 100 mls/hr .Q10H SERGE Administration Melatonin 6 mg 05/01/21 04:50 Melatonin 3 Mg Tablet PO BEDTIME PRN Insomnia Non-Formulary Medication 1,000 ml 05/01/21 09:00 Banana Bag IV DAILY SERGE Ondansetron HCl 4 mg 05/01/21 04:50 Ondansetron Hcl 4 Mg/2 Ml Vial IVPUSH Q8H PRN Nausea and Vomiting Sodium Chloride 3 ml 05/01/21 08:00 0.9 % Sodium Chloride Flush 3 Ml Syringe IVFLUSH QSHIFT SERGE Sodium Chloride 3 ml 05/01/21 08:00 0.9 % Sodium Chloride Flush 3 Ml Syringe IVFLUSH QSHIFT SERGE Sodium Chloride 3 ml 05/01/21 08:00 0.9 % Sodium Chloride Flush 3 Ml [facility] <MARTA Sosa Last Filed: 05/01/21 16:46> Home medications: Home Medications Medication Instructions Recorded Confirmed Last Taken Type vitamin A 10,000 unit capsule 2 cap PO DAILY 05/01/21 05/01/21 Unknown History <MARTA Sosa Last Filed: 05/01/21 16:46> Physical Exam Vital Signs: Vital Signs: Last Vital Signs Temp 97.8 F 05/01/21 00:41 Pulse 96 05/01/21 05:51 Resp 16 05/01/21 05:51 BP 146/86 H 05/01/21 05:51 Pulse Ox 99 05/01/21 04:59 Body Mass Index 42.2 <MARTA Sosa Last Filed: 05/01/21 16:46> Const: General: cooperative, well developed, alert, awake and ill appearing (In obvious discomfort) <MARTA Sosa Last Filed: 05/01/21 16:46> Nutritional Appearance: obese <MARTA Sosa Last Filed: 05/01/21 16:46> Orientation/consciousness: patient oriented x3 <MARTA Sosa Last Filed: 05/01/21 16:46> Limitations: no limitations <MARTA Sosa Last Filed: 05/01/21 16:46> HENMT: Head: Yes normal to inspection <MARTA Sosa Last Filed: 05/01/21 16:46> Neck: Neck: Yes normal visual inspection and Yes full ROM <MARTA Sosa Last Filed: 05/01/21 16:46> Resp: Effort & Inspection: abnormal respiratory pattern (And expiratory pain in abdomen) <MARTA Sosa Last Filed: 05/01/21 16:46> Auscultation: clear to auscultation bilaterally <MARTA Sosa Last Filed: 05/01/21 16:46> Cardio: Rate: regular rate <MARTA Sosa Last Filed: 05/01/21 16:46> Rhythm: regular rhythm <MARTA Sosa Last Filed: 05/01/21 16:46> Heart sounds: S1 normal heart sound present and S2 normal heart sound present <MARTA Sosa Last Filed: 05/01/21 16:46> GI: Inspection: Yes incision (Normal healing, glue intact. No evidence of infection.) and Yes Abdominal panniculus present <MARTA Sosa Last Filed: 05/01/21 16:46> Palpation (GI): Soft to palpation and Tenderness to palpation present (GI) (Right upper quadrant) Bassett's sign positive <MARTA Sosa Last Filed: 05/01/21 16:46> Auscultation: Hypoactive bowel sounds present <Johnnie Vasques MARTA Orourke Filed: 05/01/21 16:46> Skin: General skin exam: no rashes or lesions noted <MARTA Sosa Last Filed: 05/01/21 16:46> Neuro: General: patient oriented x3 <Johnnie Vasques MARTA Filed: 05/01/21 16:46> Cognition (Neuro): normal cognition <MARTA Sosa Last Filed: 05/01/21 16:46> Extrem: General: Yes normal to inspection, Yes no pedal edema and Yes no calf tenderness <MARTA Sosa Filed: 05/01/21 16:46> Psych: Appearance: grossly normal <MARTA Sosa Filed: 05/01/21 16:46> Mental Status: mental status grossly normal <Johnnie Vasques MARTA Orourke Last Filed: 05/01/21 16:46> Speech and movement: Normal speech and movement present <Johnnie Vasques MARTA Orourke Last Filed: 05/01/21 16:46> Results Results Labs: Short CBC 05/01/21 Range/Units 01:12 WBC 16.8 H (4.8-10.8) X10*3/uL Hgb 14.1 (12.0-16.0) g/dl Hct 39.4 (37-47) % Plt Count 282 D (160-400) X10*3/uL BMP 05/01/21 01:11 Sodium 139 Potassium 3.6 Chloride 102 Carbon Dioxide 13 L BUN 10 Creatinine 0.68 Calcium 9.6 D Liver Function 05/01/21 Range/Units 01:11 Total Bilirubin 1.6 H (0.0-1.0) mg/dL Direct Bilirubin 0.6 H (0.0-0.5) mg/dL AST 15 (5-31) U/L ALT 13 (0-31) U/L Alkaline Phosphatase 103 D (39-117) U/L Albumin 4.3 (3.5-5.0) g/dL Urine 05/01/21 05/01/21 Range/Units 02:39 02:39 Urine Color DARK YELLOW Urine Appearance CLEAR Urine pH 6.0 (5.0-8.0) Ur Specific [place] >= 1.030 H (1.005-1.025) Urine Protein 2+ H (NEG-TRACE) MG/DL Urine Glucose (UA) NEG (NEG) MG/DL Urine Test NEGATIVE (NEGATIVE) Impressions Abdomen/Pelvis CT 05/01/21 00:50 IMPRESSION: 1. No evidence of pulmonary embolism. No acute change of chest. 2. Status post sleeve gastrectomy. There is no acute abnormality of the bowel. 3. Mild haziness at the root of the mesentery with subcentimeter lymph nodes in the mesentery and retroperitoneum. No abscess or free fluid. 4. Spleen is absent. Chest CTA 05/01/21 01:37 IMPRESSION: 1. No evidence of pulmonary embolism. No acute change of chest. 2. Status post sleeve gastrectomy. There is no acute abnormality of the bowel. 3. Mild haziness at the root of the mesentery with subcentimeter lymph nodes in the mesentery and retroperitoneum. No abscess or free fluid. 4. Spleen is absent. Venous Duplex 05/01/21 08:30 IMPRESSION: No DVT demonstrated in the bilateral lower extremities. Gastrografin Study 05/01/21 09:35 IMPRESSION: No definite extravasation of contrast identified. Region of narrowing involving the first and second portions of the duodenum which may be related to edema. Last Vital Signs Temp 97.8 F 05/01/21 00:41 Pulse 96 05/01/21 05:51 Resp 16 05/01/21 05:51 BP 146/86 H 05/01/21 05:51 Pulse Ox 99 05/01/21 04:59 Allergies cefaclor [From Ceclor] Allergy (Severe, Verified 05/01/21 00:41) Rash full body rash as a a child dichloralphenazone [From Midrin] Allergy (Severe, Verified 05/01/21 00:41) Shortness of Breath SOB, heart palpitations isometheptene [From Midrin] Allergy (Severe, Verified 05/01/21 00:41) Shortness of Breath SOB, heart palpitations midodrine Allergy (Severe, Verified 05/01/21 00:41) Shortness of Breath Active Medications Acetaminophen (Acetaminophen 325 Mg Tablet) 650 mg PO Q6H PRN PRN Reason: Pain, Mild (Pain Scale 1-3) Famotidine (Famotidine/Pf 20 Mg/2 Ml Vial) 20 mg IVPUSH BID SERGE Hydromorphone HCl (Hydromorphone Hcl 0.5 Mg/0.5 Ml Syringe) 0.5 mg IVPUSH Q4H PRN; Protocol PRN Reason: Pain, Severe (Pain Scale 7-10) Dextrose/Sodium Chloride (D5ns) 1,000 mls @ 100 mls/hr IVCONT .Q10H [facility] Last Admin: 05/01/21 05:15 Dose: 100 mls/hr Documented by: Melatonin (Melatonin 3 Mg Tablet) 6 mg PO BEDTIME PRN PRN Reason: Insomnia Ondansetron HCl (Ondansetron Hcl 4 Mg/2 Ml Vial) 4 mg IVPUSH Q8H PRN PRN Reason: Nausea and Vomiting Sodium Chloride (0.9 % Sodium Chloride Flush 3 Ml Syringe) 3 ml IVFLUSH QSHIFT [facility] Sodium Chloride (0.9 % Sodium Chloride Flush 3 Ml Syringe) 3 ml IVFLUSH QSHIFT [facility] Sodium Chloride (0.9 % Sodium Chloride Flush 3 Ml Syringe) 3 ml IVFLUSH QSHIFT [facility] Intake & Output 05/01/21 05/02/21 06:59 06:59 Intake Total 1000 / 1000 Balance 1000 / 1000 Weight 246 lb Orders 05/01/21 FL upper GI series Stat <MARTA Sosa - Last Filed: 05/01/21 16:46> Assessment and Plan (1) History of repair of hiatal hernia: Status: Acute <MARTA Sosa - Last Filed: 05/01/21 16:46> 30-year-old female, postop day 12., status post laparoscopic sleeve gastrectomy and hiatal hernia repair, with additional 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 <MARTA Sosa - Last Filed: 05/01/21 16:46> (2) Status post laparoscopic sleeve gastrectomy: Status: Acute <MARTA Sosa Last Filed: 05/01/21 16:46> Upper GI series ordered to rule out leak. Continue NPO. <MARTA Sosa - Last Filed: 05/01/21 16:46> (3) Nausea & vomiting: Status: Acute <MARTA Sosa Last Filed: 05/01/21 16:46> Continue supportive care with IV fluids, IV antiemetics. Follow labs and adjust fluids as needed. Continue NPO until resolved. <MARTA Sosa - Last Filed: 05/01/21 16:46> (4) D-dimer, elevated: Status: Acute <MARTA Sosa Last Filed: 05/01/21 16:46> Unclear etiology. Ruled out for PE by CTA and lower extremity DVT by bilateral venous duplex ultrasound. <MARTA Sosa - Last Filed: 05/01/21 16:46> (5) RUQ abdominal pain: Status: Acute <MARTA Sosa Last Filed: 05/01/21 16:46> Differential would include gallbladder pathology given slight elevation in bilirubin, will order right upper quadrant abdominal ultrasound to rule out cholecystitis. <MARTA Sosa Last Filed: 05/01/21 16:46> Discussed with attending physician Dr Mcginnis <MARTA Sosa - Last Filed: 05/01/21 16:46> Discussed with attending physician Dr Mcignnis Patient was seen and examined. Above note was reviewed and I agree with its content. <Claudio Mcginnis MD - Last Filed: 05/02/21 20:26> Quality Stroke Does the patient have a stroke diagnosis?: No <MARTA Sosa Last Filed: 05/01/21 16:46> VTE Prior VTE?: No <MARTA Sosa Last Filed: 05/01/21 16:46> VTE Risk Level:: Medical - moderate - high <MARTA Sosa Last Filed: 05/01/21 16:46> VTE Device Contraindication: N/A - Device Ordered <MARTA Sosa - Last Filed: 05/01/21 16:46> VTE Drug Contraindication: Treatment Not Indicated <MARTA Sosa - Last Filed: 05/01/21 16:46> Procedures Date of Service Date of Service: 05/01/21 <MARTA Sosa - Last Filed: 05/01/21 16:46>
[2021-05-01 08:43] LABS: WBC ABN SCTR FOR CBC 1
[2021-05-01 08:49] LABS: Band Neutrophils Percent 7 % (3-5); Basophils Percent Manual 1 % (0-1); Lymphocytes Percent Manual 4 % (20-40); Monocytes Percent Manual 11 % (2-11); Neutrophils Percent Manual 77 % (45-73)
[2021-05-01 08:52] LABS: Acanthocytes 1+ (0-2) /OIF; Burr Cells 2+ (3-5) /OIF; Howell Jolly Bodies PRESENT; RBC Morphology NOTED; Spherocytes 2+ (3-5) /OIF
[2021-05-01 08:53] LABS: Basophils Abs Manual 0.2 X10*3/uL (0.0-0.3); Large Platelet PRESENT; Lymphocytes Absolute Manual 0.7 X10*3/uL (0.6-4.8); Neutrophils Absolute Manual 15.2 X10*3/uL (2.2-7.9); Platelet Estimate NORMAL (NORMAL); Platelet Morphology Comment NOTED; White Blood Count 18.1 X10*3/uL (4.8-10.8)
[2021-05-01 08:54] LABS: Anion Gap 24 (12-20); Blood Urea Nitrogen 7 mg/dL (9-16); Calcium 9.2 mg/dL (8.4-10.2); Carbon Dioxide 13 mmol/L (22-29); Chloride 106 mmol/L (96-108); Estimated Glomerular Filt Rate > 60; Glucose Random 124 mg/dL (60-115); Magnesium 2.1 mg/dL (1.6-2.6); Potassium 3.5 mmol/L (3.3-5.1); Sodium 139 mmol/L (135-145)
[2021-05-01] MEDS: Diatrizoate Meglumine, Sodium 120 ML SOLUTION PO (09:41)
[2021-05-01] MEDS: Famotidine/PF 20 MG/2 ML VIAL IVPUSH (10:15)
[2021-05-01] MEDS: HYDROmorphone HCl 0.5 MG/0.5 ML SYRINGE IVPUSH (10:15)
--- NOTE | 2021-05-01 10:28 | PC.NURSE ---
report given to raghav jones
[2021-05-01 11:16] LABS: Bilirubin Direct 0.5 mg/dL (0.0-0.5); Bilirubin Total 1.3 mg/dL (0.0-1.0)
[2021-05-01] MEDS: Pantoprazole Sodium 40 MG/10 ML VIAL IVPUSH ×2 (11:55→17:17)
[2021-05-01] MEDS: Folic Acid 1 MG in 0.9 % Sodium Chloride 50 ML 100.4 MG IV (11:58)
[2021-05-01] MEDS: Thiamine HCL 100 MG in 0.9 % Sodium Chloride 100 ML 202 MG IV (12:03)
[2021-05-01 12:19] LABS: D Dimer 3234 NG/ML
[2021-05-01] MEDS: Lactated Ringers 1,000 ML 125 ML IVCONT ×2 (12:39→20:10)
[2021-05-01 14:09] LABS: Lactic Acid 1.1 mmol/L (0.5-2.0)
[2021-05-01] MEDS: Metoclopramide HCl 10 MG/2 ML VIAL IVPUSH ×2 (15:04→20:57)
[2021-05-01] MEDS: Morphine Sulfate 2 MG/ML CARTRIDGE IVPUSH ×2 (17:19→21:03)
[2021-05-01] MEDS: Lactated Ringers 1,000 ML 999 ML IV (19:10)
[2021-05-01] MEDS: 0.9 % Sodium Chloride Flush 3 ML SYRINGE IVFLUSH (21:04)
[2021-05-02] VITALS (8 sets, daily range): BP systolic 140–165; BP diastolic 73–87; PULSE 78–125; RESP 16–22; TEMP 36.4–37.2; O2SAT 93–99
[2021-05-02] MEDS: Morphine Sulfate 2 MG/ML CARTRIDGE IVPUSH ×5 (00:01→17:19)
[2021-05-02] MEDS: Metoclopramide HCl 10 MG/2 ML VIAL IVPUSH ×3 (02:35→19:12)
[2021-05-02] MEDS: Lactated Ringers 1,000 ML 150 ML IVCONT ×2 (02:37→22:11)
[2021-05-02] MEDS: ondansetron HCL 4 MG/2 ML VIAL IVPUSH ×2 (03:32→20:17)
[2021-05-02] MEDS: Pantoprazole Sodium 40 MG/10 ML VIAL IVPUSH ×2 (06:05→15:41)
[2021-05-02] MEDS: HYDROmorphone HCl 0.5 MG/0.5 ML SYRINGE 0.25 MG IVPUSH ×3 (06:05→22:22)
[2021-05-02] MEDS: Folic Acid 1 MG in 0.9 % Sodium Chloride 50 ML 100.4 MG IV (07:03)
[2021-05-02] MEDS: Thiamine HCL 100 MG in 0.9 % Sodium Chloride 100 ML 202 MG IV (07:03)
--- NOTE | 2021-05-02 07:49 | PM.PNGS ---
Subjective Subjective Date of Service: 05/02/21 <MARTA Sosa - Last Filed: 05/02/21 12:55> 05/02/21 <Claudio Mcginnis MD - Last Filed: 05/02/21 20:29> Patient reports: still having pain, voiding w/o difficulty, no flatus, nausea and other (New pain developed overnight in the left upper abdomen as well as left pleuritic pain. She reports that she is urinating more and the urine is less concentrated. She denies any abnormal urinary symptoms) <MARTA Sosa - Last Filed: 05/02/21 12:55> Interval history: 30 yo female POD 13 S/P LSG with hiatal hernia repair, admitted yesterday with RUQ abd pain, nausea and vomiting. W/U thus far inconclusive. Started on Arixtra yesterday due to elevated D Dimer as a precaution for mesenteric venous thrombus. Ruled out for PE and DVT. No obvious staple line leak although could only tolerate 2 sips of gastrograffin. <MARTA Sosa Last Filed: 05/02/21 12:55> Physical Exam Vital Signs: Vital Signs: Last Vital Signs Temp 97.7 F 05/02/21 07:40 Pulse 78 05/02/21 07:40 Resp 19 05/02/21 07:40 BP 140/76 H 05/02/21 07:40 Pulse Ox 98 05/02/21 07:40 Body Mass Index 42.2 <MARTA Sosa Last Filed: 05/02/21 12:55> Const: General: alert, awake and ill appearing <MARTA Sosa Last Filed: 05/02/21 12:55> Orientation/consciousness: patient oriented x3 <MARTA Sosa Last Filed: 05/02/21 12:55> Resp: Effort & Inspection: normal respiratory effort <MARTA Sosa Last Filed: 05/02/21 12:55> Auscultation: clear to auscultation bilaterally <MARTA Sosa Last Filed: 05/02/21 12:55> Cardio: Rate: regular rate <MARTA Sosa Last Filed: 05/02/21 12:55> Rhythm: regular rhythm <MARTA Sosa Last Filed: 05/02/21 12:55> GI: Inspection: Yes normal to inspection and Yes incision (C/D/I) <MARTA Sosa - Last Filed: 05/02/21 12:55> Palpation (GI): Soft to palpation and Tenderness to palpation present (GI) (upper abdomen, R=L) <MARTA Sosa - Last Filed: 05/02/21 12:55> Auscultation: Hypoactive bowel sounds present <MARTA Sosa - Last Filed: 05/02/21 12:55> Neuro: General: patient oriented x3 <MARTA Sosa - Last Filed: 05/02/21 12:55> Extrem: General: Yes normal to inspection and Yes no calf tenderness <AMRTA Sosa Sharad Last Filed: 05/02/21 12:55> Procedures Date of Service Date of Service: 05/02/21 <MARTA Sosa - Last Filed: 05/02/21 12:55> Progress Note: A&P Assessment and plan (1) RUQ abdominal pain: Status: Acute <MARTA Sosa - Last Filed: 05/02/21 12:55> Assessment and Plan: Now with LUQ pain as well, Repeat of CT+ today with specific attention to the portal venous phase r/o mesentary thrombus. Additionally will look again at GB. AM labs pending, No clear indication for abx. <MARTA Sosa - Last Filed: 05/02/21 12:55> (2) Abdominal pain, left upper quadrant: Status: Acute <MARTA Sosa Last Filed: 05/02/21 12:55> Assessment and Plan: Added on ABELINO/LIP r/o any pancreatic involvement as well as plan as above. <MARTA Sosa - Last Filed: 05/02/21 12:55> (3) Nausea & vomiting: Status: Acute <MARTA Sosa Last Filed: 05/02/21 12:55> Assessment and Plan: No clear pathology identified yet. Continue NPO, IVF, supportive care, anti-emetics, analgesics <MARTA Sosa Last Filed: 05/02/21 12:55> (4) D-dimer, elevated: Status: Acute <MARTA Sosa - Last Filed: 05/02/21 12:55> Assessment and Plan: labs today pending. Remains on precautionary arixtra. CT(+) portal venous phase eval for mesentary thrombus <MARTA Sosa - Last Filed: 05/02/21 12:55> (5) Status post laparoscopic sleeve gastrectomy: Status: Acute <MARTA oSsa - Last Filed: 05/02/21 12:55> Assessment and Plan: POD 13 LSG with hiatal hernia repair. Incisions clean and dry. No clear evidence of leak. Continue supportive care <MARTA Sosa - Last Filed: 05/02/21 12:55> (6) History of repair of hiatal hernia: Status: Acute <MARTA Sosa - Last Filed: 05/02/21 12:55> Assessment and Plan: as above <MARTA Sosa - Last Filed: 05/02/21 12:55> Patient was seen and examined. Above note was reviewed and I agree with its content. SMV and Portal vein thrombosis. Start IV heparin protocol. Lactate 1.0 to 1.5 Serial lactate levels GI/Hematology input appreciated. <Claudio Mcginnis MD - Last Filed: 05/02/21 20:29> Fall Risk Details Current Medications: Current Medications Generic Name Dose Route Start Last Admin Trade Name Tomasq PRN Reason Stop Dose Admin Fondaparinux 5 mg 05/01/21 15:00 05/01/21 17:45 Fondaparinux Sodium 5 Mg/0.4 Ml Syringe SUBCUT 5 mg Q24H SERGE Administration Folic Acid 1 mg/ Sodium 50.2 mls @ 100.4 mls/hr 05/01/21 11:00 05/02/21 07:44 Chloride IV 05/03/21 09:29 Infused DAILY SERGE Infusion Thiamine HCl 100 mg/ Sodium 101 mls @ 202 mls/hr 05/01/21 11:00 05/02/21 07:44 Chloride IV Infused DAILY SERGE Infusion Multivitamins 10 ml/ Sodium 1,010 mls @ 42.083 mls/hr 05/01/21 11:00 05/01/21 12:25 Chloride IV 05/04/21 10:16 42.08 mls/hr .Q24H SERGE Administration Lactated Ringer's 1,000 mls @ 150 mls/hr 05/01/21 10:30 05/02/21 02:37 Lr IVCONT 150 mls/hr .Q6H40M SERGE Administration Metoclopramide HCl 10 mg 05/01/21 11:09 05/02/21 02:35 Metoclopramide Hcl 10 Mg/2 Ml Vial IVPUSH 10 mg Q6H PRN Administration Nausea Morphine Sulfate 2 mg 05/01/21 16:34 05/02/21 03:31 Morphine Sulfate 2 Mg/Ml Cartridge IVPUSH 2 mg Q3H PRN Administration Pain, Moderate (Pain Scale 4-6 Protocol Ondansetron HCl 4 mg 05/02/21 03:27 05/02/21 03:32 Ondansetron Hcl 4 Mg/2 Ml Vial IVPUSH 4 mg Q8H PRN Administration Nausea Pantoprazole Sodium 40 mg 05/01/21 11:30 05/02/21 06:05 Pantoprazole Sodium 40 Mg/10 Ml Vial IVPUSH 40 mg BID@0630,1630 SERGE Administration Sodium Chloride 3 ml 05/01/21 11:09 05/02/21 06:59 0.9 % Sodium Chloride Flush 3 Ml Syringe IVFLUSH Not Given QSHIFT SERGE <MARTA Sosa - Last Filed: 05/02/21 12:55> Time Spent With Patient Time: Total time spent is greater than 50% in coordination of care (as documented) at patient's floor/unit and/or counseling patient: <MARTA Sosa - Last Filed: 05/02/21 12:55> Time with patient: 15 - 24 minutes <MARTA Ssoa - Last Filed: 05/02/21 12:55> Quality Stroke Does the patient have a stroke diagnosis?: No <MARTA Sosa - Last Filed: 05/02/21 12:55> VTE Prior VTE?: No <MARTA Sosa Last Filed: 05/02/21 12:55> VTE Risk Level:: Medical - moderate - high <MARTA Sosa Last Filed: 05/02/21 12:55> VTE Device Contraindication: N/A - Device Ordered <MARTA Sosa Last Filed: 05/02/21 12:55> VTE Drug Contraindication: Treatment Not Indicated <MARTA Sosa Last Filed: 05/02/21 12:55>
[2021-05-02 07:58] LABS: Hematocrit 35.9 % (37-47); Hemoglobin 12.9 g/dl (12.0-16.0); Mean Corpuscular HGB Conc 35.9 g/dl (31.0-35.0); Mean Corpuscular Hemoglobin 31.2 pg (27.0-33.0); Mean Corpuscular Volume 86.9 fL (80-98); Mean Platelet Volume 11.5 fL (9.4-12.3); Platelet Count 239 X10*3/uL (160-400); Red Blood Count 4.13 X10*6/uL (4.20-5.50)
[2021-05-02 07:59] LABS: WBC ABN SCTR FOR CBC 1
[2021-05-02 08:15] LABS: D Dimer 1786 NG/ML
[2021-05-02 08:18] LABS: Band Neutrophils Percent 8 % (3-5); Lymphocytes Percent Manual 9 % (20-40); Monocytes Percent Manual 5 % (2-11); Neutrophils Percent Manual 78 % (45-73); Platelet Estimate NORMAL (NORMAL); Platelet Morphology Comment NORMAL; RBC Morphology NORMAL
[2021-05-02 08:19] LABS: Lymphocytes Absolute Manual 2.4 X10*3/uL (0.6-4.8); Monocytes Absolute Manual 1.3 X10*3/uL (0.0-1.2); White Blood Count 26.7 X10*3/uL (4.8-10.8)
[2021-05-02 08:34] LABS: Alanine Aminotransferase 11 U/L (0-31); Albumin Level 3.4 g/dL (3.5-5.0); Alkaline Phosphatase 89 U/L (39-117); Amylase 21 U/L (28-100); Anion Gap 14 (12-20); Aspartate Amino Transferase 9 U/L (5-31); Bilirubin Direct 0.6 mg/dL (0.0-0.5); Bilirubin Total 1.5 mg/dL (0.0-1.0); Blood Urea Nitrogen 4 mg/dL (9-16); Calcium 8.9 mg/dL (8.4-10.2); Carbon Dioxide 17 mmol/L (22-29); Chloride 111 mmol/L (96-108); Creatinine Clr Calc Pharmacy 171.8; Estimated Glomerular Filt Rate > 60; Glucose Random 123 mg/dL (60-115); Lipase 9 U/L (8-78); Potassium 3.3 mmol/L (3.3-5.1); Sodium 139 mmol/L (135-145); Total Protein 6.3 g/dL (6.5-8.0)
[2021-05-02] MEDS: LORazepam 2 MG/ML VIAL 0.25 MG IVPUSH ×2 (09:15→16:14)
[2021-05-02] MEDS: Potassium Chloride/H20 10 MEQ/100 ML PIGGYBACK 100 MEQ IV ×2 (09:20→10:12)
[2021-05-02] MEDS: metroNIDAZOLE/NS 500 MG/100 ML PIGGYBACK 100 MG IV ×2 (09:46→16:07)
[2021-05-02] MEDS: levoFLOXacin/D5W 750 MG/150 ML PIGGYBACK 100 MG IV (10:47)
--- NOTE | 2021-05-02 11:41 | MHC.CM.PN ---
EMR REVIEWED, PT ADMITTED W/VOMITNG S/P SLEEVE GASRECTOMY LAST MONTH, PER RECORD 04/19/21, CM MET W/PT WHO REPORTS SHE LIVES W/ AND CHILDREN, PT INDEPENDENT, NO DME AND NO HOME SERVICES, PT VERIFIES PCP MIK NEGRO AND HER JEAN MARIE [phone] MARKY HER HCP, COPY REQUESTED. D/C PLAN: HOME SELF-CARE, [facility] TRANSPORT.
[2021-05-02] MEDS: iohexoL 350 MG/ML 100 ML INFUS..BTL IV (11:59)
[2021-05-02 13:23] LABS: INTERNATIONAL NORM RATIO 1.4 (0.9-1.1); Prothrombin Time 15.7 SEC (9.9-13.0)
[2021-05-02 13:26] LABS: PTT Heparin Drip 30.8 SEC (53-77.9)
[2021-05-02] MEDS: Heparin Sodium,Porcine/1/2NS 25,000 UNIT/250 ML IV.SOLN 15.62 UNIT IVCONT (13:33)
[2021-05-02] MEDS: Heparin Sodium,Porcine 5,000 UNIT/ML VIAL 8900 UNIT IVPUSH (13:34)
--- NOTE | 2021-05-02 15:35 | PM.HEMONCCN ---
Subjective - Subjective Chief complaint: Abdominal pain, nausea and emesis Consult date: 05/02/21 Requesting Physician: Dr. Mcginnis Primary Care Provider: Shadi Vargas MD HPI - Consult Narrative Reason for consult: SMV/portal vein thrombosis Narrative: Alida Delgadillo is a 30 year old female who is admitted with complaints of right upper quadrant abdominal pain, nausea and emesis a few days postoperatively. She underwent sleeve gastrectomy about 10 days ago, she did well in the immediate postoperative period and was discharged home. However from the start of this week she experienced abdominal pain, nausea and emesis. Evaluation in the ED on 05/01/2021 revealed elevated D-dimer and leukocytosis. She was started empirically on Arixtra. CT abdomen and pelvis with contrast revealed SMV and portal vein thrombus. She was started on unfractionated heparin for anticoagulation. 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 She has no prior history of thrombosis or family history of thromboembolism. She did have 3 miscarriages before her 1st . Review of Systems - Constitutional Reports as per HPI, Reports no additional constitutional complaints PMFSH Medical History: Medical History (Last Reviewed 05/01/21 @ 01:24 by Laura Barney MD) BMI 50.0-59.9, adult Depression Hereditary spherocytosis Morbid obesity Vitamin D deficiency Family History: Family History (Last Reviewed 05/01/21 @ 01:24 by Laura Barney MD) Mother Fibromyalgia Hypertension Migraine Depression Degenerative disk disease Sleep apnea Father Hypertension Sleep apnea Brother Spherocytosis Hyperlipidemia Son No problems noted. Daughter No problems noted. Surgical History: Surgical History (Last Reviewed 05/01/21 @ 01:24 by Laura Barney MD) History of repair of hiatal hernia Hx of splenectomy Hx of wisdom tooth extraction Status post laparoscopic sleeve gastrectomy Social History: Social History (Last Reviewed 05/01/21 @ 01:24 by Laura Barney MD) Living Situation History: Household Members: Family Housing: Apartment Are you a primary nursing care partner to a significant other at home: Yes Are you a primary nursing care partner to a significant other at home comment: 2 minor children Do you presently have visiting nurse or other home services: No Alcohol History: Alcohol intake: never Alcohol History Details: Alcohol intake frequency: holiday/special occasion Tobacco History: Patient Tobacco Use Status: Former Tobacco user Tobacco use type: Cigarette Smoke Quit Date: 01/29/2021 Substance Use History: Use of substances other than those prescribed or required for medical reasons: No Currently Displaying Signs/Symptoms of Drug Intoxication Withdrawal: No Domestic Abuse History: Have you been hit, kicked, punched, or otherwise hurt by someone within the past year? If so, by whom?: No Do you feel safe in your current relationship?: Yes Is there a partner from a previous relationship who is making you feel unsafe now?: No Are you made to feel afraid or neglected: No Advance Directives: Advance Directives: No Advance Directives Information Provided: No Homicidal Assessment: Do you have thoughts of harming others: None Do you have a plan to hurt others: No Plan Nutrition Assessment: Recently lost weight without trying: No Eating poorly because of decreased appetite: Yes Patient : No : No Poor oral hygiene: No Occupation Assessmet: service: No Current occupational status: employed Home Medications and Allergies Current Medications: Current Medications Generic Name Dose Route Start Last Admin Trade Name Freq PRN Reason Stop Dose Admin Heparin Sodium (Porcine) 4,500 unit 05/02/21 12:47 Heparin Sodium,Porcine 5,000 Unit/Ml Vial 40 unit/kg (4500 unit) IVPUSH PROTOCOL BOLUS PRN 40 unit/kg - Heparin Protocol Protocol Heparin Sodium (Porcine) 8,900 unit 05/02/21 12:47 Heparin Sodium,Porcine 5,000 Unit/Ml Vial 80 unit/kg (8900 unit) IVPUSH PROTOCOL BOLUS PRN 80 unit/kg - Heparin Protocol Protocol Folic Acid 1 mg/ Sodium 50.2 mls @ 100.4 mls/hr 05/01/21 11:00 05/02/21 07:44 Chloride IV 05/03/21 09:29 Infused DAILY SERGE Infusion Thiamine HCl 100 mg/ Sodium 101 mls @ 202 mls/hr 05/01/21 11:00 05/02/21 07:44 Chloride IV Infused DAILY SERGE Infusion Multivitamins 10 ml/ Sodium 1,010 mls @ 42.083 mls/hr 05/01/21 11:00 05/02/21 12:37 Chloride IV 05/04/21 10:16 42.08 mls/hr .Q24H SERGE Administration Lactated Ringer's 1,000 mls @ 150 mls/hr 05/01/21 10:30 05/02/21 14:22 Lr IVCONT Not Given .Q6H40M SERGE Levofloxacin 750 mg in 150 mls @ 100 mls/hr 05/02/21 09:00 05/02/21 12:37 Levaquin IV Infused Q24H SERGE Infusion Metronidazole 500 mg in 100 mls @ 100 mls/hr 05/02/21 09:00 05/02/21 10:51 Flagyl IV Infused Q8H SERGE Infusion Heparin Sodium/Sodium Chloride 25,000 unit in 250 mls @ 0 mls/hr 05/02/21 13:00 05/02/21 13:33 IVCONT 14 units/kg/hr .Q0M SERGE 15.62 mls/hr Administration Protocol Per Protocol Lorazepam 0.25 mg 05/02/21 09:08 05/02/21 09:15 Lorazepam 2 Mg/Ml Vial IVPUSH 0.25 mg Q6H PRN Administration Anxiety Metoclopramide HCl 10 mg 05/01/21 11:09 05/02/21 08:49 Metoclopramide Hcl 10 Mg/2 Ml Vial IVPUSH 10 mg Q6H PRN Administration Nausea Morphine Sulfate 2 mg 05/01/21 16:34 05/02/21 13:39 Morphine Sulfate 2 Mg/Ml Cartridge IVPUSH 2 mg Q3H PRN Administration Pain, Moderate (Pain Scale 4-6 Protocol Pantoprazole Sodium 40 mg 05/01/21 11:30 05/02/21 06:05 Pantoprazole Sodium 40 Mg/10 Ml Vial IVPUSH 40 mg BID@0630,1630 [facility] Administration Sodium Chloride 3 ml 05/01/21 11:09 05/02/21 15:12 0.9 % Sodium Chloride Flush 3 Ml Syringe IVFLUSH Not Given QSHIFT [facility] Home Medications Medication Instructions Recorded Confirmed Type vitamin A 10,000 unit capsule 2 cap PO DAILY 05/01/21 05/01/21 History Allergies Allergy/AdvReac Type Severity Reaction Status Date / Time cefaclor [From Ceclor] Allergy Severe Rash Verified 05/01/21 00:41 dichloralphenazone Allergy Severe Shortness Verified 05/01/21 00:41 [From Midrin] of Breath isometheptene [From Midrin] Allergy Severe Shortness Verified 05/01/21 00:41 of Breath midodrine Allergy Severe Shortness Verified 05/01/21 00:41 of Breath Physical Exam Vital signs: Vital Signs Temp 98.9 F 05/02/21 11:51 Pulse 81 05/02/21 11:51 Resp 18 05/02/21 11:51 BP 149/76 H 05/02/21 11:51 Pulse Ox 98 05/02/21 11:51 Intake & Output 05/01/21 05/02/21 05/02/21 18:59 06:59 18:59 Intake Total 847.866 / 3593.699 2745.833 / 3593.699 2597.867 / 2597.867 Output Total 300 / 1150 850 / 1150 550 / 550 Balance 547.866 / 2443.699 1895.833 / 2443.699 2047.867 / 2047.867 Urine Output (Average ml/kg/hr) 0.22 0.63 0.41 Intake: Intake, IV Amount 847.866 / 3593.699 2745.833 / 3593.699 2597.867 / 2597.867 Folic Acid 1 mg In 0.9 % Sodium 50.2 / 50.2 50.2 / 50.2 Chloride 50 ml @ 100.4 mls/hr IV DAILY SERGE Rx#:[id number] Lactated Ringers 1,000 ml @ 999 1000 / 1000 mls/hr IV .Q1H1M SERGE Rx#: [id number] MVI, Adult 10 ml In 0.9 % 1010 / 1010 Sodium Chloride 1,000 ml @ 42. 083 mls/hr IV .Q24H SERGE Rx#: [id number] Potassium Chloride/H20 10 meq 186.667 / 186.667 In 100 ml @ 100 mls/hr IV Q1H SERGE Rx#:[id number] Thiamine HCL 100 mg In 0.9 % 101 / 101 101 / 101 Sodium Chloride 100 ml @ 202 mls/hr IV DAILY SERGE Rx#: [id number] levoFLOXacin/D5W 750 mg In 150 150 / 150 ml @ 100 mls/hr IV Q24H SERGE Rx# :[id number] metroNIDAZOLE/NS 500 mg In 100 100 / 100 ml @ 100 mls/hr IV Q8H SERGE Rx#: [id number] Dextrose 5 % and 0.9 % NaCl 1, 696.666 / 696.666 000 ml @ 100 mls/hr IVCONT . Q10H SERGE Rx#:[id number] Lactated Ringers 1,000 ml @ 150 1745.833 / 1355.889 7407 / 1000 mls/hr IVCONT .Q6H40M SERGE Rx#: [id number] Output: Output, Urine Amount 300 / 1150 850 / 1150 550 / 550 Other: Meal Refused No NPO Yes Number of Unmeasured Voids 1 Urine Bathroom Bathroom Bathroom Urine Color Concentrated Concentrated Yellow Last Bowel Movement 04/30/21 04/30/21 04/30/21 Weight 111.584 kg - Constitutional Present: mild distress - Routine HEENT Exam Eye: Present: EOMI, conjunctivae pale - Routine Neck Exam Present: supple - Routine Respiratory Exam Present: decreased breath sounds. Absent: accessory muscle use - Routine Cardiovascular Exam Cardiovascular: Present: S1, S2, tachycardia - Routine Abdominal Exam Present: tenderness - Routine Extremities Exam Absent: pedal edema Hem/Onc Consult Result - Labs CBC & Chem 7: 05/02/21 07:40 05/02/21 07:40 Labs: Short CBC 05/02/21 Range/Units 07:40 WBC 26.7 H (4.8-10.8) X10*3/uL Hgb 12.9 (12.0-16.0) g/dl Hct 35.9 L (37-47) % Plt Count 239 (160-400) X10*3/uL BMP 05/02/21 07:40 Sodium 139 Potassium 3.3 Chloride 111 H Carbon Dioxide 17 L BUN 4 L Creatinine 0.58 Calcium 8.9 Liver Function 05/02/21 Range/Units 07:40 Total Bilirubin 1.5 H (0.0-1.0) mg/dL Direct Bilirubin 0.6 H (0.0-0.5) mg/dL AST 9 (5-31) U/L ALT 11 (0-31) U/L Alkaline Phosphatase 89 (39-117) U/L Albumin 3.4 L D (3.5-5.0) g/dL Assessment and Plan Patient Active problem list reviewed?: Yes (1) Portal vein thrombosis Status: Acute Assessment and plan: 1. This is a 30-year-old woman who developed SMV and portal vein thrombosis after laparoscopic gastric sleeve surgery. Her significant past medical history is splenectomy for Hereditary spherocytosis which is a hypercoagulable state. Venous thromboembolic complications including pulmonary emboli, splenic, portal vein thrombosis and thrombosis of unusual sites is common in patients with HS who undergo splenectomy rather than those patients who do not. However, there is no specific recommendation for thromboprophylaxis for such patients other than standard prophylaxis depending on surgery. Other causes for portal vein thrombosis such as infection/abdominal sepsis should be ruled out. Since there is no family history and this is patient's 1st episode of thrombosis, tests for inherited thrombophilia will be deferred at this time. I agree with starting patient on unfractionated heparin. I would keep the patient on warfarin for extended anticoagulation for at least 6 months. Goal INR between 2-3. DOAC's may also be used but given the patient's weight it is perhaps prudent to use warfarin at this time. I thank you very much for this consultation. - Time Spent With Patient Time Spent with Patient (in minutes): 25
--- NOTE | 2021-05-02 16:17 | PC.NURSE ---
Heparin drip started , Dr. 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
[2021-05-02 16:44] LABS: PTT Heparin Drip 144.8 SEC (53-77.9)
--- NOTE | 2021-05-02 18:30 | PC.NURSE ---
1600 PTT HD 144.8 2 hours post start of infusion , aware of result , will await 1930 result of PTT HD .
--- NOTE | 2021-05-02 18:42 | PC.NURSE ---
pt noted to have increased pain at this time , pt states pain in all of abdomen , bp 165/87 HR 125 temp 98.8 o2 99 room air , RR 22. DR Laura made aware of pt condition , dr. carson at bedside for constult .
--- NOTE | 2021-05-02 19:09 | PM.EVENT ---
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 She appears to have small bowel wall edema with some intraabdominal fluid on this AM's CT which was new compared to a CT scan from 10 hours prior. She is having ongoing significant abdominal pain despite analgesics, has a diffuse abdominal tenderness despite a fairly soft abdomen, diminished bowel sounds, and a new leukocytosis as compared to admission labs. She was started on IV Heparin infusion earlier today after Hematology consultation. My main concern is that of continued vascular compromise of the mesnteric circulation with risk for bowel ischemia and infarct. Rec: Agree with anticoagulation as per Dr. Toure. Follow abdominal exam closely, low threshold for repeat CT in AM 05/03, follow for any signs of worsening bowel ischemia with Lactate levels/Amylase/WBC count. Vascular surgery consult. Low threshold for transfer to tertiary center for advanced IR capabilities to allow for thrombolytic therapy if the situation persists or worsens. D/W MARTA Chicas and MARTA Hugo over the course of the past 6 hours. They have communicated my concerns to Dr. Mcginnis. Thanks
[2021-05-02 19:30] LABS: Lactic Acid 1.5 mmol/L (0.5-2.0)
[2021-05-02 19:41] LABS: PTT Heparin Drip 117.5 SEC (53-77.9)
--- NOTE | 2021-05-02 20:10 | PC.NURSE ---
ptt-hd came back at 117.5, spoke with Dr. Zelaya and he wants to keep the heparin drip running and to check the ptt-hd again at 2200, he also wants another lactic acid at 2200.
[2021-05-02 22:06] LABS: PTT Heparin Drip 93.4 SEC (53-77.9)
[2021-05-02] MEDS: 0.9 % Sodium Chloride Flush 3 ML SYRINGE IVFLUSH (22:22)
[2021-05-02 22:36] LABS: Lactic Acid 1.2 mmol/L (0.5-2.0)
--- NOTE | 2021-05-02 22:45 | PC.NURSE ---
ptt-hd at 2200 was 93.4, spoke with Dr. Mcginnis and he ordered to increase the drip from 14/unit/kg/hr to 15 units/kg/hr. Increased heparin rate with Annalise Glover RN. Dr. Mcginnis wants the next ptt-hd to be drawn at 0500 on 05/03/21.
[2021-05-03] MEDS: LORazepam 2 MG/ML VIAL 0.25 MG IVPUSH ×2 (00:06→17:47)
[2021-05-03] MEDS: HYDROmorphone HCl 0.5 MG/0.5 ML SYRINGE 0.25 MG IVPUSH ×4 (00:37→17:41)
[2021-05-03] MEDS: metroNIDAZOLE/NS 500 MG/100 ML PIGGYBACK 100 MG IV ×3 (00:42→16:54)
--- NOTE | 2021-05-03 01:41 | CONS_ITS ---
DATE OF SERVICE: 05/02/2021 REASON FOR CONSULTATION: Abdominal pain and mesenteric venous thrombosis. HISTORY OF PRESENT ILLNESS: The patient is a 30-year-old female, who underwent a bariatric surgery with Dr. Pearson on April 19 consisting of laparoscopic sleeve gastrectomy and hiatal hernia repair. This apparently went uneventfully and she was discharged the following day. She reports that she was doing fairly well at home up until about 4 days ago. Since then, she has had some progressive pain, which initially began in her back and radiated to the right shoulder, but eventually has become predominantly involving her abdomen rather diffusely. She did have some nausea and vomiting, but without any bleeding. She denies any diarrhea. There is no hematochezia nor melena. She did not notice any jaundice nor any definitive fevers. Due to the ongoing and worsening pain, she came to the ER for evaluation and was admitted to the hospital. Since admission, her abdominal pain has persisted and at times has worsened despite treatment with analgesics. She has been afebrile here in the hospital. She denies any preceding history of similar pain in the past. She denies any chronic GI complaints in general. She denies any known family history of ulcer disease or GI malignancy. MEDICATIONS: At home included acetaminophen, Colace, Zofran, simethicone, vitamin A. Medications here in the hospital include folic acid, IV heparin, Dilaudid p.r.n., levofloxacin q.24 hours, lorazepam p.r.n., IV Flagyl q.8 hours, IV pantoprazole, and thiamine. PAST MEDICAL HISTORY: Hereditary spherocytosis, status post splenectomy. Appendectomy. Laparoscopic gastric sleeve surgery and hiatal hernia repair on April 19, 2021. She denies any history of ND, diabetes, stroke, lung disease, nor kidney disease. SOCIAL HISTORY: She does not smoke nor use any significant amounts of alcohol. FAMILY HISTORY: Noncontributory. REVIEW OF SYSTEMS: Up until the past several days, she was recuperating home from the surgery and was doing fairly well in that regard. SKIN: No rash. No pruritus. CARDIAC: No chest pain. PULMONARY: No cough. No hemoptysis. GASTROINTESTINAL: As above. PHYSICAL EXAMINATION: GENERAL: The patient is a young, healthy appearing female, but in some moderate distress in relation to abdominal pain. SKIN: Warm and dry. HEENT: Anicteric sclerae. NECK: Supple. ABDOMEN: Soft and not particularly distended. Bowel sounds were diminished. She does have diffuse tenderness with some guarding. There was no definitive rebound. DIAGNOSTIC DATA: Her initial CAT scan when she got to the ER at around midnight yesterday revealed postoperative changes in relation to the sleeve gastrectomy without any acute abnormalities involving the bowel. There did not appear to be any inflammation in the mesentery. There were some minimal lymph nodes in the mesentery and retroperitoneum. A CT angiogram of the chest was negative for pulmonary embolism. She had a followup CT scan of the abdomen today that now describes new changes with thickened and edematous loops of small bowel in the left mid abdomen with some stranding in the small bowel mesentery. There is also some new ascites. There was decreased enhancement of the superior mesenteric vein and portal veins compared to the surrounding venous structures and this has raised a suspicion of thrombosis in those vessels. There was no sign of any free air nor any sign of leaking contrast from the intestine. Her notable laboratories have included a rising white count from 16.8 on admission to 26.7 this morning. Hemoglobin 12.9, platelets 239,000. PT was 15.7 this morning with INR of 1.4. Sodium 139, potassium 3.3, chloride 111, CO2 of 17, BUN 4, creatinine 0.6, total bilirubin is 1.5, AST 9, ALT 11, alkaline phosphatase 89, albumin 3.4, amylase 21. Lactic acid levels have been in the normal range between 1.1 to the most recent one at 1.2 this evening. Maximal lactic acid level is 1.5 earlier this evening as well. COVID test was negative. 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 At this time, she continues with significant pain and some abdominal tenderness to palpation. However, she is not showing any signs of rebound. However, of concern is the significantly elevated white blood cell count. At this point, she was started on heparin earlier today after being seen by Dr. Toure from Hematology. However, thus far, she is still having the same pain as she was earlier. It is concerning that she is having ongoing pain in an association with some significant leukocytosis as compared to the admission labs. The main concern at the present time is that of continued vascular compromise of the mesenteric circulation with potential risk of bowel ischemia and infarct. At this point, I would agree with anticoagulation as per Dr. Toure. Her abdominal exam will need to be followed very closely and I would have a low threshold for another CT scan tomorrow morning for further assessment. I would continue to follow the laboratories including lactate levels, amylase, lipase, and white blood cell count in regard to potential bowel ischemia and infarct. I would recommend a vascular surgery consult to get their opinion regarding the mesenteric vein thrombosis involving the superior mesenteric vein and portal vein. I would have a low threshold for transfer to a tertiary center where advanced Interventional Radiology would be available to allow for other potential treatments of this issue with directed thrombolysis or other IR modalities. However, hopefully if the situation stabilizes and improves with the heparin, she would not need to be transferred. However, this will need to be carefully watched for. I have communicated all of my concerns and thoughts to physician assistants Johnnie Vasques and Jessica Womack. I have communicated my concerns and thoughts to Dr. Mcginnis as well via his PA staff.. Thank you for this consultation. MD MITRA Natarajan/FAM / [id number] MTDDeshawn
[2021-05-03] MEDS: ondansetron HCL 4 MG/2 ML VIAL IVPUSH ×4 (01:58→20:01)
[2021-05-03 04:00] VITALS: BP 140/72; PULSE 95; RESP 16; TEMP 36.6; O2SAT 96
[2021-05-03 05:09] LABS: Hematocrit 32.1 % (37-47); Hemoglobin 11.6 g/dl (12.0-16.0); Mean Corpuscular HGB Conc 36.1 g/dl (31.0-35.0); Mean Corpuscular Hemoglobin 31.4 pg (27.0-33.0); Mean Corpuscular Volume 86.8 fL (80-98); Mean Platelet Volume 11.6 fL (9.4-12.3); Platelet Count 240 X10*3/uL (160-400); Red Cell Distribution Width 13.2 % (11.0-16.0)
[2021-05-03] MEDS: Heparin Sodium,Porcine/1/2NS 25,000 UNIT/250 ML IV.SOLN 16.74 UNIT IVCONT ×2 (05:13→19:59)
[2021-05-03 05:15] LABS: INTERNATIONAL NORM RATIO 1.6 (0.9-1.1); Prothrombin Time 17.9 SEC (9.9-13.0)
[2021-05-03 05:17] LABS: PTT Heparin Drip 100.4 SEC (53-77.9)
[2021-05-03 05:18] LABS: WBC ABN SCTR FOR CBC 1
--- NOTE | 2021-05-03 05:19 | PC.NURSE ---
heparin bag changed at 0513 with Annalise Glover RN.
[2021-05-03 06:10] LABS: Alanine Aminotransferase 6 U/L (0-31); Albumin Level 2.9 g/dL (3.5-5.0); Alkaline Phosphatase 84 U/L (39-117); Amylase 18 U/L (28-100); Anion Gap 14 (12-20); Aspartate Amino Transferase 10 U/L (5-31); Bilirubin Direct 0.6 mg/dL (0.0-0.5); Bilirubin Total 1.5 mg/dL (0.0-1.0); Blood Urea Nitrogen 4 mg/dL (9-16); Calcium 7.5 mg/dL (8.4-10.2); Carbon Dioxide 20 mmol/L (22-29); Chloride 110 mmol/L (96-108); Creatinine Clr Calc Pharmacy 199.3; Estimated Glomerular Filt Rate > 60; Glucose Random 111 mg/dL (60-115); Lipase 83 U/L (8-78); Sodium 141 mmol/L (135-145); Total Protein 5.4 g/dL (6.5-8.0)
[2021-05-03] MEDS: Lactated Ringers 1,000 ML 150 ML IVCONT (06:26)
[2021-05-03] MEDS: Pantoprazole Sodium 40 MG/10 ML VIAL IVPUSH ×2 (06:26→16:23)
--- NOTE | 2021-05-03 07:19 | PC.NURSE ---
pt's PTT-HD was 100.4 at 0500. I spoke with MARTA Chicas and he stated to keep the rate of the heparin drip at 15 units/kg/hr.
[2021-05-03 07:40] VITALS: BP 125/73; PULSE 81; RESP 17; TEMP 36.8; O2SAT 98
--- NOTE | 2021-05-03 08:25 | PM.PNGS ---
Subjective Subjective Date of Service: 05/03/21 <MARTA Sosa - Last Filed: 05/03/21 15:16> 05/07/21 <Claudio Mcginnis MD - Last Filed: 05/07/21 10:19> Patient reports: feels better, still having pain, pain is less, voiding w/o difficulty, no flatus and no bowel movement <MARTA Sosa - Last Filed: 05/03/21 15:16> Interval history: 30-year-old female, postop day 14, status post LSG. Found to have smv and portal vein thrombosis on CT scan yesterday. Started on heparin drip, seen by hematomatology and GI. Subjective in objective data this morning indicates improvement with decreasing white blood cell count, normal lactate, and less pain. No fevers overnight although remains intermittently tachycardic with activity. <MARTA Sosa Last Filed: 05/03/21 15:16> Physical Exam Vital Signs: Vital Signs: Last Vital Signs Temp 98.3 F 05/03/21 07:40 Pulse 81 05/03/21 07:40 Resp 17 05/03/21 07:40 BP 125/73 05/03/21 07:40 Pulse Ox 98 05/03/21 07:40 Body Mass Index 42.2 <MARTA Sosa Last Filed: 05/03/21 15:16> Const: General: cooperative, comfortable and no acute distress <MARTA Sosa - Last Filed: 05/03/21 15:16> Orientation/consciousness: patient oriented x3 <MARTA Sosa Last Filed: 05/03/21 15:16> Resp: Effort & Inspection: normal respiratory effort <MARTA Sosa Last Filed: 05/03/21 15:16> Auscultation: clear to auscultation bilaterally <MARTA Sosa Last Filed: 05/03/21 15:16> Cardio: Rate: regular rate <MARTA Sosa Last Filed: 05/03/21 15:16> Rhythm: regular rhythm <MARTA Sosa Last Filed: 05/03/21 15:16> Heart sounds: S1 normal heart sound present and S2 normal heart sound present <MARTA Sosa Last Filed: 05/03/21 15:16> GI: Inspection: Yes incision (Healing well) <MARTA Sosa - Last Filed: 05/03/21 15:16> Palpation (GI): Soft to palpation and Tenderness to palpation present (GI) (Less than yesterday) <MARTA Sosa - Last Filed: 05/03/21 15:16> Auscultation: Hypoactive bowel sounds present <MARTA Sosa - Last Filed: 05/03/21 15:16> Neuro: Other: Somewhat anxious however improved after further explanation of ongoing medical issues <MARTA Sosa - Last Filed: 05/03/21 15:16> General: patient oriented x3 <MARTA Sosa Last Filed: 05/03/21 15:16> Procedures Date of Service Date of Service: 05/03/21 <MARTA Sosa - Last Filed: 05/03/21 15:16> Progress Note: A&P Assessment and plan (1) Portal vein thrombosis: Status: Acute <MARTA Sosa Last Filed: 05/03/21 15:16> Assessment and Plan: Continue heparin drip with high goals given severity of thrombosis. Repeat PTT at noon and again at 6:00 p.m. adjusting dosage is accordingly. Consult with hematology and GI appreciated. Condition remains tenuous however objective data is reassuring. Repeat CT of the abdomen possibly Thursday, sooner and urgently should there be any clinical decline. Diagnosis, prognosis and plan of care discussed in depth with the patient. She expressed understanding and had no further questions. Will need 6 months of anticoagulation orally upon discharge and followup with hematology as an outpt. Follows serial labs and clinical assessments. PICC line ordered and she will remain NPO. May require TPN. Change IV fluids to D 5 normal saline. <MARTA Sosa - Last Filed: 05/03/21 15:16> Continue heparin drip with high goals given severity of thrombosis. Repeat PTT at noon and again at 6:00 p.m. adjusting dosage is accordingly. Consult with hematology and GI appreciated. Condition remains tenuous however objective data is reassuring. Repeat CT of the abdomen possibly Thursday, sooner and urgently should there be any clinical decline. Diagnosis, prognosis and plan of care discussed in depth with the patient. She expressed understanding and had no further questions. Will need 6 months of anticoagulation orally upon discharge and followup with hematology as an outpt. Follows serial labs and clinical assessments. PICC line ordered and she will remain NPO. May require TPN. Change IV fluids to D 5 normal saline. Note reviewed. All work-up was reviewed. PTT and heparin protocol was managed by nd <Claudio Mcginnis MD - Last Filed: 05/07/21 10:19> (2) Superior mesenteric vein thrombosis: Status: Acute <MARTA Sosa - Last Filed: 05/03/21 15:16> Assessment and Plan: Treatment plan as above. <MARTA Sosa - Last Filed: 05/03/21 15:16> (3) Nausea & vomiting: Status: Acute <MARTA Sosa - Last Filed: 05/03/21 15:16> Assessment and Plan: Overall improving. No further vomiting. Continue Zofran. <MARTA Sosa - Last Filed: 05/03/21 15:16> (4) Status post laparoscopic sleeve gastrectomy: Status: Acute <MARTA Sosa - Last Filed: 05/03/21 15:16> Assessment and Plan: Postop day 14. No evidence of gastrectomy leak. Continue NPO for the above diagnosis of thrombosis and to rest the bowels. <MARTA Sosa - Last Filed: 05/03/21 15:16> (5) Hypokalemia: Status: Acute <MARTA Sosa - Last Filed: 05/03/21 15:16> Assessment and Plan: Replace with IV potassium chloride, followup labs in the morning. <MARTA Sosa - Last Filed: 05/03/21 15:16> (6) Abdominal pain, left upper quadrant: Status: Acute <MARTA Sosa Last Filed: 05/03/21 15:16> Assessment and Plan: Responding well to IV analgesics. Continue p.r.n. Dilaudid. <MARTA Sosa - Last Filed: 05/03/21 15:16> Assessment and Plan: Patient examined with and case discussed in its entirety with attending physician, Dr Mcginnis <MARTA Sosa Last Filed: 05/03/21 15:16> Fall Risk Details Current Medications: Current Medications Generic Name Dose Route Start Last Admin Trade Name Freq PRN Reason Stop Dose Admin Heparin Sodium (Porcine) 4,500 unit 05/02/21 12:47 Heparin Sodium,Porcine 5,000 Unit/Ml Vial 40 unit/kg (4500 unit) IVPUSH PROTOCOL BOLUS PRN 40 unit/kg - Heparin Protocol Protocol Heparin Sodium (Porcine) 8,900 unit 05/02/21 12:47 Heparin Sodium,Porcine 5,000 Unit/Ml Vial 80 unit/kg (8900 unit) IVPUSH PROTOCOL BOLUS PRN 80 unit/kg - Heparin Protocol Protocol Hydromorphone HCl 0.25 mg 05/02/21 20:02 05/03/21 05:18 Hydromorphone Hcl 0.5 Mg/0.5 Ml Syringe IVPUSH 0.25 mg Q2H PRN Administration Pain, Severe (Pain Scale 7-10) Protocol Folic Acid 1 mg/ Sodium 50.2 mls @ 100.4 mls/hr 05/01/21 11:00 05/02/21 07:44 Chloride IV 05/03/21 09:29 Infused DAILY SERGE Infusion Thiamine HCl 100 mg/ Sodium 101 mls @ 202 mls/hr 05/01/21 11:00 05/02/21 07:44 Chloride IV Infused DAILY SERGE Infusion Multivitamins 10 ml/ Sodium 1,010 mls @ 42.083 mls/hr 05/01/21 11:00 05/02/21 12:37 Chloride IV 05/04/21 10:16 42.08 mls/hr .Q24H SERGE Administration Levofloxacin 750 mg in 150 mls @ 100 mls/hr 05/02/21 09:00 05/02/21 12:37 Levaquin IV Infused Q24H SERGE Infusion Metronidazole 500 mg in 100 mls @ 100 mls/hr 05/02/21 09:00 05/03/21 01:44 Flagyl IV Infused Q8H SERGE Infusion Heparin Sodium/Sodium Chloride 25,000 unit in 250 mls @ 0 mls/hr 05/02/21 13:00 05/03/21 05:13 IVCONT 15 units/kg/hr .Q0M SERGE 16.74 mls/hr Administration Protocol Per Protocol Dextrose/Sodium Chloride 1,000 mls @ 125 mls/hr 05/03/21 08:30 D5ns IVCONT .Q8H SERGE Lorazepam 0.25 mg 05/02/21 09:08 05/03/21 00:06 Lorazepam 2 Mg/Ml Vial IVPUSH 0.25 mg Q6H PRN Administration Anxiety Metoclopramide HCl 10 mg 05/01/21 11:09 05/02/21 19:12 Metoclopramide Hcl 10 Mg/2 Ml Vial IVPUSH 10 mg Q6H PRN Administration Nausea Ondansetron HCl 4 mg 05/02/21 20:00 05/03/21 01:58 Ondansetron Hcl 4 Mg/2 Ml Vial IVPUSH 4 mg Q6H SERGE Administration Pantoprazole Sodium 40 mg 05/01/21 11:30 05/03/21 06:26 Pantoprazole Sodium 40 Mg/10 Ml Vial IVPUSH 40 mg BID@0630,1630 SERGE Administration Sodium Chloride 3 ml 05/01/21 11:09 05/03/21 08:19 0.9 % Sodium Chloride Flush 3 Ml Syringe IVFLUSH Not Given QSHIFT SERGE <MARTA Sosa - Last Filed: 05/03/21 15:16> Time Spent With Patient Time: Total time spent is greater than 50% in coordination of care (as documented) at patient's floor/unit and/or counseling patient: <MARTA Sosa Last Filed: 05/03/21 15:16> Time with patient: 25 - 35 minutes <MARTA Sosa - Last Filed: 05/03/21 15:16> Quality Stroke Does the patient have a stroke diagnosis?: No <MARTA Sosa Last Filed: 05/03/21 15:16> VTE Prior VTE?: No <MARTA Sosa Last Filed: 05/03/21 15:16> VTE Risk Level:: Medical - moderate - high <AMRTA Sosa Last Filed: 05/03/21 15:16> VTE Device Contraindication: N/A - Device Ordered <MARTA Sosa Last Filed: 05/03/21 15:16> VTE Drug Contraindication: Treatment Not Indicated <MARTA Sosa Last Filed: 05/03/21 15:16> Results Laboratory Findings 24 Hour Meds: : 05/07/21 04:43 05/07/21 04:42 <MARTA Sosa Last Filed: 05/03/21 15:16> Labs: Laboratory Results - last 24 hr 05/02/21 05/02/21 05/02/21 13:10 15:50 19:13 WBC RBC Hgb Hct MCV MCH MCHC RDW Plt Count MPV Absolute Nucleated RBC Nucleated RBC % (auto) PT 15.7 H D INR 1.4 H PTT (Heparin Protocol) 30.8 L 144.8 H* D 117.5 H* Sodium Potassium Chloride Carbon Dioxide Anion Gap BUN Creatinine Estim Creat Clear Calc Estimated GFR Random Glucose Lactic Acid Calcium Total Bilirubin Direct Bilirubin AST ALT Alkaline Phosphatase Total Protein Albumin Amylase Lipase 05/02/21 05/02/21 05/02/21 19:13 21:52 21:52 WBC RBC Hgb Hct MCV MCH MCHC RDW Plt Count MPV Absolute Nucleated RBC Nucleated RBC % (auto) PT INR PTT (Heparin Protocol) 93.4 H D Sodium Potassium Chloride Carbon Dioxide Anion Gap BUN Creatinine Estim Creat Clear Calc Estimated GFR Random Glucose Lactic Acid 1.5 1.2 Calcium Total Bilirubin Direct Bilirubin AST ALT Alkaline Phosphatase Total Protein Albumin Amylase Lipase 05/03/21 05/03/21 05/03/21 04:57 04:57 04:57 WBC RBC Hgb Hct MCV MCH MCHC RDW Plt Count MPV Absolute Nucleated RBC Nucleated RBC % (auto) PT 17.9 H INR 1.6 H PTT (Heparin Protocol) 100.4 H Sodium 141 Potassium 3.0 L Chloride 110 H Carbon Dioxide 20 L Anion Gap 14 BUN 4 L Creatinine 0.50 Estim Creat Clear Calc 199.3 Estimated GFR > 60 Random Glucose 111 Lactic Acid 1.0 Calcium 7.5 L D Total Bilirubin 1.5 H Direct Bilirubin 0.6 H AST 10 ALT 6 Alkaline Phosphatase 84 Total Protein 5.4 L Albumin 2.9 L Amylase 18 L Lipase 83 H 05/03/21 04:57 WBC 21.0 H RBC 3.70 L Hgb 11.6 L Hct 32.1 L MCV 86.8 MCH 31.4 MCHC 36.1 H RDW 13.2 Plt Count 240 MPV 11.6 Absolute Nucleated RBC 0.000 Nucleated RBC % (auto) 0.0 PT INR PTT (Heparin Protocol) Sodium Potassium Chloride Carbon Dioxide Anion Gap BUN Creatinine Estim Creat Clear Calc Estimated GFR Random Glucose Lactic Acid Calcium Total Bilirubin Direct Bilirubin AST ALT Alkaline Phosphatase Total Protein Albumin Amylase Lipase <Johnnie L MARTA Vasques - Last Filed: 05/03/21 15:16>
[2021-05-03] MEDS: Dextrose 5 % and 0.9 % NaCl 1,000 ML 125 ML IVCONT (08:36)
[2021-05-03] MEDS: Thiamine HCL 100 MG in 0.9 % Sodium Chloride 100 ML 202 MG IV (08:46)
[2021-05-03] MEDS: levoFLOXacin/D5W 750 MG/150 ML PIGGYBACK 100 MG IV (08:49)
--- NOTE | 2021-05-03 09:06 | P.PNHO_ITS ---
Medical Summary - Medical Summary Date of Service: 05/03/21 Chief complaint: Abdominal pain Interval History Interval history: Patient is sitting up in bed. Feeling better this morning. No nausea or emesis and abdominal pain has improved since yesterday. Review of Systems - Constitutional Denies chills, Denies fever(s) [facility] Medical History: Medical History (Last Reviewed 05/01/21 @ 01:24 by Laura Barney MD) BMI 50.0-59.9, adult Depression Hereditary spherocytosis Morbid obesity Vitamin D deficiency Family History: Family History (Last Reviewed 05/01/21 @ 01:24 by Laura Barney MD) Mother Fibromyalgia Hypertension Migraine Depression Degenerative disk disease Sleep apnea Father Hypertension Sleep apnea Brother Spherocytosis Hyperlipidemia Son No problems noted. Daughter No problems noted. Surgical History: Surgical History (Last Reviewed 05/01/21 @ 01:24 by Laura Barney MD) History of repair of hiatal hernia Hx of splenectomy Hx of wisdom tooth extraction Status post laparoscopic sleeve gastrectomy Social History: Social History (Last Reviewed 05/01/21 @ 01:24 by Laura Barney MD) Living Situation History: Household Members: Family Housing: Apartment Are you a primary care director rn to a significant other at home: Yes Are you a primary care director rn to a significant other at home comment: 2 minor children Do you presently have visiting nurse or other home services: No Alcohol History: Alcohol intake: never Alcohol History Details: Alcohol intake frequency: holiday/special occasion Tobacco History: Patient Tobacco Use Status: Former Tobacco user Tobacco use type: Cigarette Smoke Quit Date: 01/29/2021 Substance Use History: Use of substances other than those prescribed or required for medical reasons : No Currently Displaying Signs/Symptoms of Drug Intoxication Withdrawal: No Domestic Abuse History: Have you been hit, kicked, punched, or otherwise hurt by someone within the past year? If so, by whom?: No Do you feel safe in your current relationship?: Yes Is there a partner from a previous relationship who is making you feel unsafe now?: No Are you made to feel afraid or neglected: No Advance Directives: Advance Directives: No Advance Directives Information Provided: No Homicidal Assessment: Do you have thoughts of harming others: None Do you have a plan to hurt others: No Plan Nutrition Assessment: Recently lost weight without trying: No Eating poorly because of decreased appetite: Yes Patient : No : No Poor oral hygiene: No Occupation Assessmet: service: No Current occupational status: employed Home Medications and Allergies Current Medications: Current Medications Generic Name Dose Route Start Last Admin Trade Name Freq PRN Reason Stop Dose Admin Heparin Sodium (Porcine) 4,500 unit 05/02/21 12:47 Heparin Sodium,Porcine 5,000 Unit/Ml Vial 40 unit/kg (4500 unit) IVPUSH PROTOCOL BOLUS PRN 40 unit/kg - Heparin Protocol Protocol Heparin Sodium (Porcine) 8,900 unit 05/02/21 12:47 Heparin Sodium,Porcine 5,000 Unit/Ml Vial 80 unit/kg (8900 unit) IVPUSH PROTOCOL BOLUS PRN 80 unit/kg - Heparin Protocol Protocol Hydromorphone HCl 0.25 mg 05/02/21 20:02 05/03/21 05:18 Hydromorphone Hcl 0.5 Mg/0.5 Ml Syringe IVPUSH 0.25 mg Q2H PRN Administration Pain, Severe (Pain Scale 7-10) Protocol Folic Acid 1 mg/ Sodium 50.2 mls @ 100.4 mls/hr 05/01/21 11:00 05/02/21 07:44 Chloride IV 05/03/21 09:29 Infused DAILY SERGE Infusion Thiamine HCl 100 mg/ Sodium 101 mls @ 202 mls/hr 05/01/21 11:00 05/03/21 0 8:46 Chloride IV 202 mls/hr DAILY SERGE Administration Multivitamins 10 ml/ Sodium 1,010 mls @ 42.083 mls/hr 05/01/21 11:00 05/02/21 12:37 Chloride IV 05/04/21 10:16 42.08 mls/hr .Q24H SERGE Administration Levofloxacin 750 mg in 150 mls @ 100 mls/hr 05/02/21 09:00 05/03/21 08:49 Levaquin IV 100 mls/hr Q24H SERGE Administration Metronidazole 500 mg in 100 mls @ 100 mls/hr 05/02/21 09:00 05/03/21 01:44 Flagyl IV Infused Q8H SERGE Infusion Heparin Sodium/Sodium Chloride 25,000 unit in 250 mls @ 0 mls/hr 05/02/21 13:00 05/03/21 05:13 IVCONT 15 units/kg/hr .Q0M SERGE 16.74 mls/hr Administration Protocol Per Protocol Dextrose/Sodium Chloride 1,000 mls @ 125 mls/hr 05/03/21 08:30 05/03/21 08:36 D5ns IVCONT 125 mls/hr .Q8H SERGE Administration Lorazepam 0.25 mg 05/02/21 09:08 05/03/21 00:06 Lorazepam 2 Mg/Ml Vial IVPUSH 0.25 mg Q6H PRN Administration Anxiety Metoclopramide HCl 10 mg 05/01/21 11:09 05/02/21 19:12 Metoclopramide Hcl 10 Mg/2 Ml Vial IVPUSH 10 mg Q6H PRN Administration Nausea Ondansetron HCl 4 mg 05/02/21 20:00 05/03/21 08:44 Ondansetron Hcl 4 Mg/2 Ml Vial IVPUSH 4 mg Q6H SERGE Administration Pantoprazole Sodium 40 mg 05/01/21 11:30 05/03/21 06:26 Pantoprazole Sodium 40 Mg/10 Ml Vial IVPUSH 40 mg BID@0630,1630 [facility] Administration Sodium Chloride 3 ml 05/01/21 11:09 05/03/21 08:19 0.9 % Sodium Chloride Flush 3 Ml Syringe IVFLUSH Not Given QSHIFT [facility] Home Medications Medication Instructions Recorded Confirmed Type vitamin A 10,000 unit capsule 2 cap PO DAILY 05/01/21 05/01/21 History Allergies Allergy/AdvReac Type Severity Reaction Status Date / Time cefaclor [From [facility]] Allergy Severe Rash Verified 05/01/21 00:41 dichloralphenazone Allergy Severe Shortness Verified 05/01/21 00:41 [From Midrin] of Breath isometheptene [From Midrin] Allergy Severe Shortness Verified 05/01/21 00:41 of Breath midodrine Allergy Severe Shortness Verified 05/01/21 00:41 of Breath Exam Vital signs: Vital Signs Temp 98.3 F 05/03/21 07:40 Pulse 81 05/03/21 07:40 Resp 17 05/03/21 07:40 BP 125/73 05/03/21 07:40 Pulse Ox 98 05/03/21 07:40 Intake & Output 05/02/21 05/03/21 05/03/21 18:59 06:59 18:59 Intake Total 2697.867 / 4047.867 1350.000 / 4047.867 372.5 / 372.5 Output Total 550 / 1500 950 / 1500 Balance 2147.867 / 2547.867 400.000 / 2547.867 372.5 / 372.5 Urine Output (Average ml/kg/hr) 0.41 0.71 0.71 Intake: Intake, Oral Amount 0 / 0 Intake, IV Amount 2697.867 / 4047.867 1350.000 / 4047.867 372.5 / 372.5 Folic Acid 1 mg In 0.9 % Sodium 50.2 / 50.2 Chloride 50 ml @ 100.4 mls/hr IV DAILY SERGE Rx#:[id number] MVI, Adult 10 ml In 0.9 % 1010 / 1010 Sodium Chloride 1,000 ml @ 42. 083 mls/hr IV .Q24H SERGE Rx#: [id number] Potassium Chloride/H20 10 meq 186.667 / 186.667 In 100 ml @ 100 mls/hr IV Q1H SERGE Rx#:[id number] Thiamine HCL 100 mg In 0.9 % 101 / 101 Sodium Chloride 100 ml @ 202 mls/hr IV DAILY SERGE Rx#: [id number] levoFLOXacin/D5W 750 mg In 150 150 / 150 ml @ 100 mls/hr IV Q24H SERGE Rx# :[id number] metroNIDAZOLE/NS 500 mg In 100 200 / 300 100 / 300 ml @ 100 mls/hr IV Q8H SERGE Rx#: [id number] Heparin Sodium,Porcine/1/2NS 25 250.000 / 250.000 ,000 unit In 250 ml @ Per Protocol IVCONT .Q0M SERGE Rx#: [id number] Lactated Ringers 1,000 ml @ 150 1000 / 2000 1000 / 2000 372.5 / 372.5 mls/hr IVCONT .Q6H40M SERGE Rx#: [id number] Output: Output, Urine Amount 550 / 1500 950 / 1500 Other: Meal Refused No NPO Yes Yes Urine Bathroom Bathroom Urine Color Yellow Concentrated Last Bowel Movement 04/30/21 04/30/21 Weight 111.584 kg Body Mass Index 42.2 Narrative: Appears comfortable today. - Constitutional Present: no acute distress - Routine Respiratory Exam Present: decreased breath sounds. Absent: accessory muscle use - Routine Cardiovascular Exam Cardiovascular: Present: S1, S2, tachycardia - Routine Abdominal Exam Present: tenderness - Routine Extremities Exam Absent: pedal edema Data - Labs CBC & Chem 7: 05/03/21 04:57 05/03/21 04:57 Labs: 05/01/21 [place] upper GI w gastrografin Stat US venous duplex LE BI Routine 05/01/21 00:50 CT abdomen pelvis w con Stat 05/01/21 01:00 0.9 % Sodium Chloride [Ns] 1,000 ml IVCONT 999 mls/hr 05/01/21 01:11 Basic Metabolic Panel Stat Lipase Stat Liver Panel Stat Magnesium Stat 05/01/21 01:12 Complete Blood Count Man Dif Stat 05/01/21 01:37 CT angio chest PE protocol Stat 05/01/21 01:52 ondansetron HCL [Zofran] 4 mg IVPUSH ONCE ONE 05/01/21 02:37 D Dimer Stat 05/01/21 02:39 Drug Screen Urine Stat Ur Preg Test Stat 05/01/21 03:54 iohexoL 350 MG/ML [Omnipaque 350 MG/ML] 65 ml IV ONCE ONE 05/01/21 04:46 Morphine Sulfate 1 mg IVPUSH ONCE ONE ondansetron HCL [Zofran] 4 mg IVPUSH ONCE ONE 05/01/21 04:50 HYDROmorphone HCl [Dilaudid] 0.5 mg IVPUSH Q4H PRN 05/01/21 04:51 NPO Diet 05/01/21 04:56 Add Laboratory Test Stat 05/01/21 05:00 Dextrose 5 % and 0.9 % NaCl [D5ns] 1,000 ml IVCONT 100 mls/hr 05/01/21 05:01 Add Laboratory Test Stat 05/01/21 05:20 Transfer Order Routine 05/01/21 06:43 COVID-19 ID NOW (Aggarwal) Stat 05/01/21 08:00 Basic Metabolic Panel AM Bilirubin Direct Routine Bilirubin Total Routine Complete Blood Count Man Dif Routine Magnesium Routine 0.9 % Sodium Chloride Flush [NS Flush] 3 ml IVFLUSH QSHIFT 0.9 % Sodium Chloride Flush [NS Flush] 3 ml IVFLUSH QSHIFT 0.9 % Sodium Chloride Flush [NS Flush] 3 ml IVFLUSH QSHIFT 05/01/21 09:00 Famotidine/PF [Pepcid/PF] 20 mg IVPUSH BID 05/01/21 09:39 Diatrizoate Meglumine, Sodium [Gastrografin 66-10] 120 ml PO ONCE ONE 05/01/21 10:30 Lactated Ringers [Lr] 1,000 ml IVCONT 150 mls/hr 05/01/21 10:51 Add Laboratory Test Urgent 05/01/21 11:09 Compression Therapy QSHIFT US abdomen limited Urgent 05/01/21 11:30 D Dimer Urgent 05/01/21 13:30 Morphine Sulfate 1 mg IVPUSH Q3H PRN 05/01/21 13:48 Lactic Acid Stat 05/01/21 15:00 Fondaparinux Sodium [Arixtra] 5 mg SUBCUT Q24H 05/01/21 16:34 Morphine Sulfate 2 mg IVPUSH Q3H PRN 05/01/21 18:45 Lactated Ringers [Lr] 1,000 ml IV 999 mls/hr 05/02/21 03:27 ondansetron HCL [Zofran] 4 mg IVPUSH Q8H PRN 05/02/21 03:29 ondansetron HCL [Zofran] 4 mg .ROUTE .STK-MED ONE 05/02/21 05:48 HYDROmorphone HCl [Dilaudid] 0.25 mg IVPUSH ONCE ONE 05/02/21 07:40 Amylase Routine Basic Metabolic Panel DAILY@0500 Complete Blood Count Man Dif Routine D Dimer Routine Lactic Acid Routine Lipase Routine Liver Panel Routine 05/02/21 08:05 Add Laboratory Test Stat 05/02/21 09:00 Potassium Chloride/H20 10 meq in 100 ml IV Q1H 05/02/21 10:42 CT abdomen pelvis wo/w con Stat 05/02/21 11:58 iohexoL 350 MG/ML [Omnipaque 350 MG/ML] 100 ml IV ONCE ONE 05/02/21 12:47 Heparin Sodium,Porcine 8,900 unit IVPUSH ONCE ONE 05/02/21 13:10 PTT Heparin Drip Stat Prothrombin Time INR Stat 05/02/21 15:50 PTT Heparin Drip Stat 05/02/21 19:13 Lactic Acid Stat PTT Heparin Drip Stat 05/02/21 21:52 Lactic Acid Stat PTT Heparin Drip Stat 05/03/21 04:57 Amylase Routine Basic Metabolic Panel Routine Complete Blood Count no Diff Routine Lactic Acid Routine Lipase Routine Liver Panel Routine PTT Heparin Drip Stat Prothrombin Time INR Stat 05/03/21 08:25 Thiamine HCL 200 mg .ROUTE .STK-MED ONE Laboratory Last Values WBC 21.0 X10*3/uL (4.8-10.8) H 05/03/21 04:57 RBC 3.70 X10*6/uL (4.20-5.50) L 05/03/21 04:57 Hgb 11.6 g/dl (12.0-16.0) L 05/03/21 04:57 Hct 32.1 % (37-47) L 05/03/21 04:57 MCV 86.8 fL (80-98) 05/03/21 04:57 MCH 31.4 pg (27.0-33.0) 05/03/21 04:57 MCHC 36.1 g/dl (31.0-35.0) H 05/03/21 04:57 RDW 13.2 % (11.0-16.0) 05/03/21 04:57 Plt Count 240 X10*3/uL (160-400) 05/03/21 04:57 MPV 11.6 fL (9.4-12.3) 05/03/21 04:57 Immature Gran % (Auto) Cancelled 05/02/21 07:40 Neut % (Auto) Cancelled 05/02/21 07:40 Lymph % (Auto) Cancelled 05/02/21 07:40 [place] % (Auto) Cancelled 05/02/21 07:40 Eos % (Auto) Cancelled 05/02/21 07:40 Baso % (Auto) Cancelled 05/02/21 07:40 Lymph # (Auto) Cancelled 05/02/21 07:40 [place] # (Auto) Cancelled 05/02/21 07:40 Eos # (Auto) Cancelled 05/02/21 07:40 Baso # (Auto) Cancelled 05/02/21 07:40 Abs Immat Gran (auto) Cancelled 05/02/21 07:40 Absolute Neuts (auto) Cancelled 05/02/21 07:40 Absolute Nucleated RBC 0.000 X10*3/uL (0.0-0.012) 05/03/21 04:57 Nucleated RBC % (auto) 0.0 /100WBC (0.0-0.2) 05/03/21 04:57 Neutrophils % (Manual) 78 % (45-73) H 05/02/21 07:40 Band Neutrophils % 8 % (3-5) H 05/02/21 07:40 Lymphocytes % (Manual) 9 % (20-40) L 05/02/21 07:40 Monocytes % (Manual) 5 % (2-11) 05/02/21 07:40 Basophils % (Manual) 1 % (0-1) 05/01/21 08:00 Abs Neuts (Manual) 23.0 X10*3/uL (2.2-7.9) H 05/02/21 07:40 Lymphocytes # (Manual) 2.4 X10*3/uL (0.6-4.8) 05/02/21 07:40 Monocytes # (Manual) 1.3 X10*3/uL (0.0-1.2) H 05/02/21 07:40 Basophils # (Manual) 0.2 X10*3/uL (0.0-0.3) 05/01/21 08:00 Platelet Estimate NORMAL (NORMAL) 05/02/21 07:40 Large Platelets PRESENT 05/01/21 08:00 Plt Morphology Comment NORMAL 05/02/21 07:40 RBC Morphology NORMAL 05/02/21 07:40 Spherocytes 2+ (3-5) /OIF 05/01/21 08:00 [place] Bodies PRESENT 05/01/21 08:00 [place] Cells 2+ (3-5) /OIF 05/01/21 08:00 Acanthocytes (Spur) 1+ (0-2) /OIF 05/01/21 08:00 PT 17.9 SEC (9.9-13.0) H 05/03/21 04:57 INR 1.6 (0.9-1.1) H 05/03/21 04:57 PTT (Heparin Protocol) 100.4 SEC (53-77.9) H 05/03/21 04:57 D-Dimer 1786 NG/ML 05/02/21 07:40 Sodium 141 mmol/L (135-145) 05/03/21 04:57 Potassium 3.0 mmol/L (3.3-5.1) L 05/03/21 04:57 Chloride 110 mmol/L (96-108) H 05/03/21 04:57 Carbon Dioxide 20 mmol/L (22-29) L 05/03/21 04:57 Anion Gap 14 (12-20) 05/03/21 04:57 BUN 4 mg/dL (9-16) L 05/03/21 04:57 Creatinine 0.50 mg/dL (0.5-1.4) 05/03/21 04:57 Estim Creat Clear Calc 199.3 05/03/21 04:57 Estimated GFR > 60 05/03/21 04:57 Random Glucose 111 mg/dL (60-115) 05/03/21 04:57 Lactic Acid 1.0 mmol/L (0.5-2.0) 05/03/21 04:57 Calcium 7.5 mg/dL (8.4-10.2) L D 05/03/21 04:57 Magnesium 2.1 mg/dL (1.6-2.6) 05/01/21 08:00 Total Bilirubin 1.5 mg/dL (0.0-1.0) H 05/03/21 04:57 Direct Bilirubin 0.6 mg/dL (0.0-0.5) H 05/03/21 04:57 AST 10 U/L (5-31) 05/03/21 04:57 ALT 6 U/L (0-31) 05/03/21 04:57 Alkaline Phosphatase 84 U/L (39-117) 05/03/21 04:57 Total Protein 5.4 g/dL (6.5-8.0) L 05/03/21 04:57 Albumin 2.9 g/dL (3.5-5.0) L 05/03/21 04:57 Amylase 18 U/L (28-100) L 05/03/21 04:57 Lipase 83 U/L (8-78) H 05/03/21 04:57 Urine Color DARK YELLOW 05/01/21 02:39 Urine Appearance CLEAR 05/01/21 02:39 Urine pH 6.0 (5.0-8.0) 05/01/21 02:39 Ur Specific [place] >= 1.030 (1.005-1.025) H 05/01/21 02:39 Urine Protein 2+ MG/DL (NEG-TRACE) H 05/01/21 02:39 Urine Glucose (UA) NEG MG/DL (NEG) 05/01/21 02:39 Urine Ketones >=80 MG/DL (NEG) 05/01/21 02:39 Urine Blood NEG (NEG) 05/01/21 02:39 Urine Nitrite NEG (NEG) 05/01/21 02:39 Ur Leukocyte Esterase NEG (NEG) 05/01/21 02:39 Urine RBC 0-2 /HPF (0) 05/01/21 02:39 Urine WBC 0-2 /HPF (0-4) 05/01/21 02:39 Ur Squamous Epith Cells NONE /LPF 05/01/21 02:39 Amorphous Sediment 1+ /LPF 05/01/21 02:39 Urine Bacteria NONE /LPF 05/01/21 02:39 Granular Casts 0-2 /LPF 05/01/21 02:39 Urine Mucus 2+ /LPF 05/01/21 02:39 Urine Test NEGATIVE (NEGATIVE) 05/01/21 02:39 Urine Opiates Screen Not Detected (Not Detect) 05/01/21 02:39 Urine Fentanyl Screen Not Detected (Not Detect) 05/01/21 02:39 Ur Barbiturates Screen Not Detected (Not Detect) 05/01/21 02:39 Ur Phencyclidine Scrn Not Detected (Not Detect) 05/01/21 02:39 Ur Amphetamines Screen Not Detected (Not Detect) 05/01/21 02:39 U Benzodiazepines Scrn Not Detected (Not Detect) 05/01/21 02:39 Urine Cocaine Screen Not Detected (Not Detect) 05/01/21 02:39 U Marijuana (THC) Screen Not Detected (Not Detect) 05/01/21 02:39 COVID-19 ([place]) Negative (Negative) 05/01/21 06:43 COVID-19 Clin Com See Note 05/01/21 06:43 - Imaging Radiologist's impression: ITS Impressions Abdomen/Pelvis CT 05/01/21 00:50 IMPRESSION: 1. No evidence of pulmonary embolism. No acute change of chest. 2. Status post sleeve gastrectomy. There is no acute abnormality of the bowel. 3. Mild haziness at the root of the mesentery with subcentimeter lymph nodes in the mesentery and retroperitoneum. No abscess or free fluid. 4. Spleen is absent. Chest CTA 05/01/21 01:37 IMPRESSION: 1. No evidence of pulmonary embolism. No acute change of chest. 2. Status post sleeve gastrectomy. There is no acute abnormality of the bowel. 3. Mild haziness at the root of the mesentery with subcentimeter lymph nodes in the mesentery and retroperitoneum. No abscess or free fluid. 4. Spleen is absent. Venous Duplex 05/01/21 08:30 IMPRESSION: No DVT demonstrated in the bilateral lower extremities. Gastrografin Study 05/01/21 09:35 IMPRESSION: No definite extravasation of contrast identified. Region of narrowing involving the first and second portions of the duodenum which may be related to edema. Abdomen Ultrasound 05/01/21 11:09 IMPRESSION: Gallbladder sludge without evidence to suggest acute cholecystitis. Abdomen/Pelvis CT 05/02/21 10:42 IMPRESSION: New small bowel wall thickening and edema in the left abdomen, edema or engorgement of the small bowel mesentery and [id number] amount of ascites. There is decreased enhancement of the SMV and portal veins compared to other venous structures suggestive of thrombus. Postoperative change following gastric sleeve procedure. There is new fluid seen adjacent to the stomach. No extraluminal air or contrast to confirm a leak, and this may be related to generalized ascites. Absent spleen. Findings were communicated to Johnnie Vasques by telephone on 05/02/2021 at 12:25pm Assessment and Plan Patient Active problem list reviewed?: Yes (1) Portal vein thrombosis Status: Acute Assessment and plan: 1. This is a 30-year-old woman who developed SMV and portal vein thrombosis after laparoscopic gastric sleeve surgery. Her significant past medical history is splenectomy for Hereditary spherocytosis which is a hypercoagulable state. Venous thromboembolic complications including pulmonary emboli, splenic, portal vein thrombosis and thrombosis of unusual sites is common in patients with HS who undergo splenectomy rather than those patients who do not. However, there is no specific recommendation for thromboprophylaxis for such patients other than standard prophylaxis depending on surgery. Today patient is feeling better. Her abdominal pain has improved. Leukocytosis is coming down. She is therapeutic on heparin. I do not see an indication for thrombolysis at this time. Thank you. - Time Spent With Patient Time Spent with Patient (in minutes): 10
[2021-05-03] MEDS: Folic Acid 1 MG in 0.9 % Sodium Chloride 50 ML 100 MG IV (09:46)
--- NOTE | 2021-05-03 09:56 | PC.NURSE ---
Per Dr Mcginnis, Heparin drip is not to be changed unless order by himself. Heparinn currently infusing at 15u/kg/hr (16.72 ml/hr) Next PTT-HD to be drawn at noon today.
[2021-05-03] MEDS: KCl 40 mEq in 5% Dex/0.9% Sod 40 MEQ/1,000 ML IV.SOLN 125 MEQ IVCONT (10:03)
--- NOTE | 2021-05-03 10:04 | MHC.CLN ---
NUTRITION CONSULT FOR POSSIBLE TPN IF PICC PLACED AND TPN STARTED, RECOMMEND D15AA5% AT MAX GOAL RATE OF 50 ML/HOUR. ESTIMATED ENERGY MVWJJ=2338 KCAL (23 KCAL/KG IBW). ESTIMATED PROTEIN NEEDS=60 G (1.1 G/KG IBW). DAY 1: D15AA5% AT 30 ML/HOUR; 720 KCAL, 36 G PROTEIN REPLETE LYTES NEEDED. DAY 2: D15AA5% AT 50 ML/HOUR MAX GOAL RATE; 1200 KCAL, 60 G PROTEIN REPLETE LYTES NEEDED. MAX GOAL RATE MEETS 100% OF ESTIMATED ENERGY AND PROTEIN NEEDS. RD TO FOLLOW PLAN FOR PICC/TPN.
[2021-05-03 13:02] LABS: PTT Heparin Drip 94.9 SEC (53-77.9)
[2021-05-03 13:25] LABS: Magnesium 1.7 mg/dL (1.6-2.6)
[2021-05-03] MEDS: bisacodyL 10 MG SUPP.RECT PR (13:39)
[2021-05-03] MEDS: Magnesium Sulfate/D5W 1 GM/100 ML PIGGYBACK IV (13:55)
[2021-05-03] MEDS: 0.9 % Sodium Chloride Flush 3 ML SYRINGE IVFLUSH (13:56)
--- NOTE | 2021-05-03 14:12 | MHC.CLN ---
NUTRITION CONSULT PER CONVERSATION WITH MD MARTA WOULD LIKE TPN WITH 100 G PROTEIN, 2138-7849 KCAL AND LOWER CARBOHYDRATES. IF PICC LINE PLACED, RECOMMEND TPN D15AA5% WITH MAX GOAL RATE OF 83.33 ML PER HOUR. PROVIDES 100 G PROTEIN (1.83 G/KG IBW), 1420 KCAL (26 KCAL/KG IBW) DAY 1: D15AA5% AT 45 ML PER HOUR; 54 G PROTEIN, 767 KCAL REPLETE LYTES NEEDED. DAY 2: D15AA5% AT 65 ML PER HOUR; 78 G PROTEIN, 1108 KCAL REPLETE LYTES NEEDED. DAY 3: D15AA5% AT MAX GOAL RATE 83.33 ML PER HOUR; 100 G PROTEIN; 1420 KCAL REPLETE LYTES NEEDED.
[2021-05-03 15:30] VITALS: BP 124/72; PULSE 82; RESP 18; TEMP 36.8; O2SAT 98
--- NOTE | 2021-05-03 16:23 | MHC.CM.PN ---
PER EMR, PT WILL BE STARTED ON TPN THIS EVENING. REFERRAL MADE TO [facility] IN THE EVENT PT IS DISCHARGED ON THIS. REFERRAL ALSO MADE TO MULTIPLE VN AGENCIES MANY ARE NOT ABLE TO MANAGE TPN.
[2021-05-03 18:21] LABS: PTT Heparin Drip 96.2 SEC (53-77.9)
[2021-05-03 18:24] LABS: Lactic Acid 1.4 mmol/L (0.5-2.0)
--- NOTE | 2021-05-03 18:25 | PC.NURSE ---
Late entry Tiger[employer] received from Una Smith at 0943 regarding PICC insertion, heparin infusion and WBC. Message forwarded to Johnnie Vasques. Johnnie Vasques informed this nurse that he would call IR. Pt down for PICC via stretcher at approximatley 1025. Pt returned from PICC insertion at 1210. Phlebotomy called to come draw stat PTT-HD. Talon Vasques notified at 1230 that lab draw was late due to pt not on uit. PTT-HD 94.9 and reported to Johnnie Vasques at 1310. Also reported to him, pt started her menses. Per Johnnie Vasques, continue Heparin at current rate of 15u/kg/hr and recheck at 1800. Pt instructed tonote if menses heavier than usual, pt verbalized understanding and stated it is photo colorer than usual. Dulcolax suppository given to pt per order with pending effect. Pt allowed to take shower with heparin and tele monitor dcd for 20 minutes only. Staff assisted with shower and did not leave pt unaccompanied. Pt placed back on tele monitor and heparin resumed per previous rate. Pt ambulated in li.
--- NOTE | 2021-05-03 18:40 | PC.NURSE ---
PTT-HD 96.2 reported to Johnnie Vasques. Instructed to continue Heparin at current rate of 15u/kg/hr. Will repeat PTT-HD at 0500 tomorrow
[2021-05-03 19:21] VITALS: BP 119/65; PULSE 93; RESP 18; TEMP 37.2; O2SAT 96
[2021-05-03 23:02] VITALS: BP 128/67; PULSE 94; RESP 16; TEMP 36.8; O2SAT 96
[2021-05-04] MEDS: metroNIDAZOLE/NS 500 MG/100 ML PIGGYBACK 100 MG IV ×3 (00:44→18:33)
[2021-05-04] MEDS: HYDROmorphone HCl 0.5 MG/0.5 ML SYRINGE 0.25 MG IVPUSH (01:04)
[2021-05-04] MEDS: ondansetron HCL 4 MG/2 ML VIAL IVPUSH ×4 (02:04→19:54)
[2021-05-04 04:00] VITALS: BP 107/59; PULSE 86; RESP 16; TEMP 36.3; O2SAT 94
[2021-05-04] MEDS: KCl 40 mEq in 5% Dex/0.9% Sod 40 MEQ/1,000 ML IV.SOLN 75 MEQ IVCONT ×2 (04:51→19:47)
[2021-05-04 04:54] LABS: Hematocrit 28.6 % (37-47); Hemoglobin 10.4 g/dl (12.0-16.0); Mean Corpuscular HGB Conc 36.4 g/dl (31.0-35.0); Mean Corpuscular Hemoglobin 31.4 pg (27.0-33.0); Mean Corpuscular Volume 86.4 fL (80-98); Mean Platelet Volume 11.6 fL (9.4-12.3); Platelet Count 251 X10*3/uL (160-400); Red Blood Count 3.31 X10*6/uL (4.20-5.50); Red Cell Distribution Width 13.2 % (11.0-16.0); WBC ABN SCTR FOR CBC 1
[2021-05-04 04:58] LABS: White Blood Count 13.3 X10*3/uL (4.8-10.8)
[2021-05-04 05:07] LABS: Lactic Acid 1.1 mmol/L (0.5-2.0)
[2021-05-04 05:19] LABS: PTT Heparin Drip 125.9 SEC (53-77.9)
[2021-05-04 05:21] LABS: Magnesium 2.1 mg/dL (1.6-2.6); Triglycerides 58 mg/dL
[2021-05-04 05:26] LABS: Anion Gap 10 (12-20); Blood Urea Nitrogen 5 mg/dL (9-16); Calcium 7.5 mg/dL (8.4-10.2); Carbon Dioxide 27 mmol/L (22-29); Chloride 109 mmol/L (96-108); Creatinine Clr Calc Pharmacy 199.3; Estimated Glomerular Filt Rate > 60; Glucose Random 132 mg/dL (60-115); Phosphorus 1.5 mg/dL (2.7-4.5); Potassium 2.7 mmol/L (3.3-5.1); Sodium 143 mmol/L (135-145)
[2021-05-04 05:28] LABS: Band Neutrophils Percent 2 % (3-5); Basophils Abs Manual 0.1 X10*3/uL (0.0-0.3); Basophils Percent Manual 1 % (0-1); Burr Cells 3+ (>5) /OIF; Eosinophils Absolute Manual 0.5 X10*3/UL (0.0-0.8); Eosinophils Percent Manual 4 % (0-4); Howell Jolly Bodies PRESENT; Large Platelet PRESENT; Lymphocytes Percent Manual 30 % (20-40); Monocytes Absolute Manual 1.5 X10*3/uL (0.0-1.2); Monocytes Percent Manual 11 % (2-11); Neutrophils Absolute Manual 7.2 X10*3/uL (2.2-7.9); Neutrophils Percent Manual 52 % (45-73); Platelet Estimate NORMAL (NORMAL); Platelet Morphology Comment NOTED; RBC Morphology NOTED; Spherocytes 3+ (>5) /OIF
[2021-05-04] MEDS: Pantoprazole Sodium 40 MG/10 ML VIAL IVPUSH ×2 (06:14→16:12)
[2021-05-04 07:59] VITALS: BP 116/59; PULSE 82; RESP 18; TEMP 37; O2SAT 95
[2021-05-04] MEDS: Potassium Phosphate 30 MMOL in 0.9 % Sodium Chloride 500 ML 85 MMOL IV (09:05)
[2021-05-04 09:07] LABS: Albumin Level 2.6 g/dL (3.5-5.0)
[2021-05-04] MEDS: 0.9 % Sodium Chloride Flush 3 ML SYRINGE IVFLUSH (09:08)
--- NOTE | 2021-05-04 09:29 | P.PNGS_ITS ---
Subjective Subjective Date of Service: 05/04/21 <MARTA Sosa - Last Filed: 05/04/21 19:45> 05/07/21 <Claudio Mcginnis MD - Last Filed: 05/07/21 10:19> Patient reports: feels better, pain is less, bowel movement and afebrile <MARTA Sosa Last Filed: 05/04/21 19:45> Interval history: 30 yo female, POD #15 LSG 04/19/21, HD #4, ABX day 3, (levofloxacin 750 mg daily and Metronidazole 500mg q 8). Remains on heparin gtt without adverse effects. Overnight reports doing well. Only required Dilaudid x 1. Walked in the li yesterday and + small BM. Reports feeling some abdominal soreness but not significantly painful. No further nausea and no vomiting. In good spirits this morning. <MARTA Sosa Last Filed: 05/04/21 19:45> Physical Exam Vital Signs: Vital Signs: Last Vital Signs Temp 98.6 F 05/04/21 07:59 Pulse 82 05/04/21 07:59 Resp 18 05/04/21 07:59 BP 116/59 L 05/04/21 07:59 Pulse Ox 95 05/04/21 07:59 Body Mass Index 42.2 <MARTA Sosa Last Filed: 05/04/21 19:45> Const: General: cooperative, comfortable and no acute distress <MARTA Sosa Last Filed: 05/04/21 19:45> Orientation/consciousness: patient oriented x3 <MARTA Sosa Last Filed: 05/04/21 19:45> Resp: Auscultation: clear to auscultation bilaterally <MARTA Sosa Last Filed: 05/04/21 19:45> Cardio: Other: No longer tachycardic <MARTA Sosa Last Filed: 05/04/21 19:45> Rate: regular rate <MARTA Sosa Last Filed: 05/04/21 19:45> Rhythm: regular rhythm <MARTA Sosa Last Filed: 05/04/21 19:45> Heart sounds: S1 normal heart sound present and S2 normal heart sound present <MARTA Sosa Last Filed: 05/04/21 19:45> GI: Inspection: Yes incision (C/D/I, healing well) <MARTA Sosa Last Filed: 05/04/21 19:45> Palpation (GI): Soft to palpation and Other GI palpation findings present (no further tenderness to palpation) <MARTA Sosa Last Filed: 05/04/21 19:45> Auscultation: Hypoactive bowel sounds present (improved from yesterday) <MARTA Sosa Last Filed: 05/04/21 19:45> Neuro: General: patient oriented x3 <MARTA Sosa Last Filed: 05/04/21 19:45> Extrem: General: Yes no pedal edema and Yes no calf tenderness <MARTA Sosa Last Filed: 05/04/21 19:45> Procedures Date of Service Date of Service: 05/04/21 <MARTA Sosa - Last Filed: 05/04/21 19:45> Progress Note: A&P Assessment and plan (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 PTT elevated this morning and heparin held x 1 hr and dose then reduced from 15 u/kg/hr to 13 u/kg/hr. Repeat PTT at 0930 hrs pending with goal 90-100. Futher PTT testing TBD based on value at 0930 hrs. Leukocytosis improving significantly. Continue current abx. Overall clini valarie improving. Will continue NPO and IVF, TPN to allow bowel rest. Repeat CT + Thursday or Thursday to track previously noted small bowel edema. Continues to be at risk for bowel ischemia and potential stricture as well as portal HTN given location of thrombus. Heme consult appreciated and she will need 6 months of anticoagulation. Recommendation is for coumadin with goal INR 2-3 and lovenox bridge 1 mg/kg q 12 hrs if subtherapeutic. Discusssed current medical issues and prognosis and potential risks. All questions answered to her satisfaction. Encouraged to continue to ambulate as she is able. <MARTA Sosa Last Filed: 05/04/21 19:45> Remains on heparin gtt. PTT elevated this morning and heparin held x 1 hr and dose then reduced from 15 u/kg/hr to 13 u/kg/hr. Repeat PTT at 0930 hrs pending with goal 90-100. Futher PTT testing TBD based on value at 0930 hrs. Leukocytosis improving significantly. Continue current abx. Overall clinically improving. Will continue NPO and IVF, TPN to allow bowel rest. Repeat CT + Thursday or Thursday to track previously noted small bowel edema. Cont inues to be at risk for bowel ischemia and potential stricture as well as portal HTN given location of thrombus. Heme consult appreciated and she will need 6 months of anticoagulation. Recommendation is for coumadin with goal INR 2-3 and lovenox bridge 1 mg/kg q 12 hrs if subtherapeutic. Discusssed current medical issues and prognosis and potential risks. All questions answered to her satisfaction. Encouraged to continue to ambulate as she is able. Note reviewed. All work-up was reviewed. PTT and heparin protocol was managed by [place] <Claudio Mcginnis MD - Last Filed: 05/07/21 10:19> (2) Portal vein thrombosis: Status: Acute <MARTA Sosa - Last Filed: 05/04/21 19:45> Assessment and Plan: Treatment plan as above <MARTA Sosa - Last Filed: 05/04/21 19:45> (3) Hypokalemia: Status: Acute <MARTA Sosa - Last Filed: 05/04/21 19:45> Assessment and Plan: K+ remains low. Continues D5 with 40 KCl. K+ in TPN. Should get approx 47 MEQ from TPN, 44 from KPhos and 72 from IVF. Should increase by 1.7 tomorrow. Follow labs in AM <MARTA Sosa - Last Filed: 05/04/21 19:45> (4) Hypophosphatemia: Status: Acute <MARTA Sosa Last Filed: 05/04/21 19:45> Assessment and Plan: Phos low. Added KPhos 30 mmol, TPN will provide another 15 mmol, repeat labs in AM Mag normal <MARTA Sosa Last Filed: 05/04/21 19:45> (5) Abdominal pain, left upper quadrant: Status: Acute <MARTA Sosa - Last Filed: 05/04/21 19:45> Assessment and Plan: Significantly improved. This morning complained of some soreness although more likely attributable to increased activity and not worsening mesenteric thrombosis based on all other measures. <MARTA Sosa - Last Filed: 05/04/21 19:45> (6) Status post laparoscopic sleeve gastrectomy: Status: Acute <MARTA Sosa - Last Filed: 05/04/21 19:45> Assessment and Plan: POD #15. Continue supportive care. Previously scheduled f/u with Dr Pearson this week will be rescheduled and she will continued to be followed daily while hospitalized. <MARTA Sosa - Last Filed: 05/04/21 19:45> Assessment and Plan: Case discussed in full with attending physician, Dr. Mcginnis <MARTA Jang - Last Filed: 05/04/21 19:45> Fall Risk Details Current Medications: Current Medications Generic Name Dose Route Start Last Admin Trade Name Freq PRN Reason Stop Dose Admin Bisacodyl 10 mg 05/03/21 13:11 Bisacodyl 10 Mg Supp.Rect HI DAILY PRN Constipation Heparin Sodium (Porcine) 4,500 unit 05/02/21 12:47 Heparin Sodium,Porcine 5,000 Unit/Ml Vial 40 unit/kg (4500 unit) IVPUSH PROTOCOL BOLUS PRN 40 unit/kg - Heparin Protocol Protocol Heparin Sodium (Porcine) 8,900 unit 05/02/21 12:47 Heparin Sodium,Porcine 5,000 Unit/Ml Vial 80 unit/kg (8900 unit) IVPUSH PROTOCOL BOLUS PRN 80 unit/kg - Heparin Protocol Protocol Hydromorphone HCl 0.25 mg 05/02/21 20:02 05/04/21 01:04 Hydromorphone Hcl 0.5 Mg/0.5 Ml Syringe IVPUSH 0.25 mg Q2H PRN Administration Pain, Severe (Pain Scale 7-10) Protocol Thiamine HCl 100 mg/ Sodium 101 mls @ 202 mls/hr 05/01/21 11:00 05/03/21 09:16 Chloride IV Infused DAILY SERGE Infusion Levofloxacin 750 mg in 150 mls @ 100 mls/hr 05/02/21 09:00 05/03/21 10:19 Levaquin IV Infused Q24H SERGE Infusion Metronidazole 500 mg in 100 mls @ 100 mls/hr 05/02/21 09:00 05/04/21 09:06 Flagyl IV 100 mls/hr Q8H SERGE Administration Heparin Sodium/Sodium Chloride 25,000 unit in 250 mls @ 0 mls/hr 05/02/21 13:00 05/04/21 06:31 IVCONT 13 units/kg/hr .Q0M SERGE 14.51 mls/hr Titration Protocol Per Protocol Potassium Chloride/Dextrose/Sod Cl 40 meq in 1,000 mls @ 75 mls/hr 05/03/21 09:45 05/04/21 09:08 IVCONT Not Given .[id number] SERGE Folic Acid 1 mg/ Sodium 50.2 mls @ 100.4 mls/hr 05/04/21 09:00 Chloride IV DAILY SERGE Multivitamins 17 ml/ Trace 1,200 mls @ 50 mls/hr 05/03/21 18:15 05/03/21 18:17 Metals 1.7 ml/ Amino Acids/ IV 05/04/21 17:59 50 mls/hr Electrolytes DAILY@1800 SERGE Administration Potassium Phosphate 30 mmol/ 510 mls @ 85 mls/hr 05/04/21 07:19 05/04/21 09:05 Sodium Chloride IV 05/04/21 13:18 85 mls/hr ONCE ONE Administration Lorazepam 0.25 mg 05/02/21 09:08 05/03/21 17:47 Lorazepam 2 Mg/Ml Vial IVPUSH 0.25 mg Q6H PRN Administration Anxiety Metoclopramide HCl 10 mg 05/01/21 11:09 05/02/21 19:12 Metoclopramide Hcl 10 Mg/2 Ml Vial IVPUSH 10 mg Q6H PRN Administration Nausea Ondansetron HCl 4 mg 05/02/21 20:00 05/04/21 09:07 Ondansetron Hcl 4 Mg/2 Ml Vial IVPUSH 4 mg Q6H SERGE Administration Pantoprazole Sodium 40 mg 05/01/21 11:30 05/04/21 06:14 Pantoprazole Sodium 40 Mg/10 Ml Vial IVPUSH 40 mg BID@0630,1630 SERGE Administration Sodium Chloride 3 ml 05/01/21 11:09 05/04/21 09:08 0.9 % Sodium Chloride Flush 3 Ml Syringe IVFLUSH 3 ml QSHIFT SERGE Administration <MARTA Sosa - Last Filed: 05/04/21 19:45> Time Spent With Patient Time: Total time spent is greater than 50% in coordination of care (as documented) at patient's floor/unit and/or counseling patient: <MARTA Sosa - Last Filed: 05/04/21 19:45> Time with patient: 15 - 24 minutes <MARTA Sosa - Last Filed: 05/04/21 19:45> Quality Stroke Does the patient have a stroke diagnosis?: No <MARTA Sosa - Last Filed: 05/04/21 19:45> VTE Prior VTE?: No <MARTA Sosa - Last Filed: 05/04/21 19:45> VTE Risk Level:: Medical - moderate - high <MARTA Sosa - Last Filed: 05/04/21 19:45> VTE Device Contraindication: N/A - Device Ordered <MARTA Sosa - Last Filed: 05/04/21 19:45> VTE Drug Contraindication: Treatment Not Indicated <MARTA Sosa - Last Filed: 05/04/21 19:45> Results Laboratory Findings 24 Hour Meds: : 05/07/21 04:43 05/07/21 04:42 <MARTA Sosa - Last Filed: 05/04/21 19:45> Labs: Laboratory Results - last 24 hr 05/03/21 05/03/21 05/03/21 12:40 12:40 18:04 WBC RBC Hgb Hct MCV MCH MCHC RDW Plt Count MPV Immature Gran % (Auto) Neut % (Auto) Lymph % (Auto) [place] % (Auto) Eos % (Auto) Baso % (Auto) Lymph # (Auto) [place] # (Auto) Eos # (Auto) Baso # (Auto) Abs Immat Gran (auto) Absolute Neuts (auto) Absolute Nucleated RBC Nucleated RBC % (auto) Neutrophils % (Manual) Band Neutrophils % Lymphocytes % (Manual) Monocytes % (Manual) Eosinophils % (Manual) Basophils % (Manual) Abs Neuts (Manual) Lymphocytes # (Manual) Monocytes # (Manual) Eosinophils # (Manual) Basophils # (Manual) Platelet Estimate Large Platelets Plt Morphology Comment RBC Morphology Spherocytes [place] Bodies [place] Cells PTT (Heparin Protocol) 94.9 H 96.2 H Sodium Potassium Chloride Carbon Dioxide Anion Gap BUN Creatinine Estim Creat Clear Calc Estimated GFR Random Glucose Lactic Acid Calcium Phosphorus Magnesium 1.7 Albumin Triglycerides 05/03/21 05/04/21 05/04/21 18:04 04:45 04:46 WBC 13.3 H RBC 3.31 L Hgb 10.4 L Hct 28.6 L MCV 86.4 MCH 31.4 MCHC 36.4 H RDW 13.2 Plt Count 251 MPV 11.6 Immature Gran % (Auto) Cancelled Neut % (Auto) Cancelled Lymph % (Auto) Cancelled [place] % (Auto) Cancelled Eos % (Auto) Cancelled Baso % (Auto) Cancelled Lymph # (Auto) Cancelled [place] # (Auto) Cancelled Eos # (Auto) Cancelled Baso # (Auto) Cancelled Abs Immat Gran (auto) Cancelled Absolute Neuts (auto) Cancelled Absolute Nucleated RBC 0.000 Nucleated RBC % (auto) 0.0 Neutrophils % (Manual) 52 Band Neutrophils % 2 L Lymphocytes % (Manual) 30 Monocytes % (Manual) 11 Eosinophils % (Manual) 4 Basophils % (Manual) 1 Abs Neuts (Manual) 7.2 Lymphocytes # (Manual) 4.0 Monocytes # (Manual) 1.5 H Eosinophils # (Manual) 0.5 Basophils # (Manual) 0.1 Platelet Estimate NORMAL Large Platelets PRESENT Plt Morphology Comment NOTED RBC Morphology NOTED Spherocytes 3+ (>5) [place] Bodies PRESENT [place] Cells 3+ (>5) PTT (Heparin Protocol) Sodium Potassium Chloride Carbon Dioxide Anion Gap BUN Creatinine Estim Creat Clear Calc Estimated GFR Random Glucose Lactic Acid 1.4 1.1 Calcium Phosphorus Magnesium Albumin Triglycerides 05/04/21 05/04/21 05/04/21 04:46 04:46 04:46 WBC RBC Hgb Hct MCV MCH MCHC RDW Plt Count MPV Immature Gran % (Auto) Neut % (Auto) Lymph % (Auto) [place] % (Auto) Eos % (Auto) Baso % (Auto) Lymph # (Auto) [place] # (Auto) Eos # (Auto) Baso # (Auto) Abs Immat Gran (auto) Absolute Neuts (auto) Absolute Nucleated RBC Nucleated RBC % (auto) Neutrophils % (Manual) Band Neutrophils % Lymphocytes % (Manual) Monocytes % (Manual) Eosinophils % (Manual) Basophils % (Manual) Abs Neuts (Manual) Lymphocytes # (Manual) Monocytes # (Manual) Eosinophils # (Manual) Basophils # (Manual) Platelet Estimate Large Platelets Plt Morphology Comment RBC Morphology Spherocytes [place] Bodies [place] Cells PTT (Heparin Protocol) 125.9 H* D Sodium 143 Potassium 2.7 L Chloride 109 H Carbon Dioxide 27 Anion Gap 10 L BUN 5 L Creatinine 0.50 Estim Creat Clear Calc 199.3 Estimated GFR > 60 Random Glucose 132 H Lactic Acid Calcium 7.5 L Phosphorus 1.5 L Magnesium 2.1 Albumin 2.6 L Triglycerides 58 <Johnnie L MARTA Vasques - Last Filed: 05/04/21 19:45>
[2021-05-04 09:47] LABS: PTT Heparin Drip 71.1 SEC (53-77.9)
[2021-05-04] MEDS: Thiamine HCL 100 MG in 0.9 % Sodium Chloride 100 ML 202 MG IV (10:55)
[2021-05-04] MEDS: Folic Acid 1 MG in 0.9 % Sodium Chloride 50 ML 100.4 MG IV (10:56)
[2021-05-04 11:36] VITALS: BP 122/70; PULSE 82; RESP 16; TEMP 36.6; O2SAT 97
[2021-05-04] MEDS: Heparin Sodium,Porcine/1/2NS 25,000 UNIT/250 ML IV.SOLN 14.51 UNIT IVCONT (12:18)
--- NOTE | 2021-05-04 12:24 | PC.NURSE ---
Per pharmacy flagyl compatible with K Phos, Thiamine compatible with KCl 40 mEq D5 NS, folic acid compatible with heparin.
[2021-05-04 13:15] LABS: PTT Heparin Drip 51.8 SEC (53-77.9)
[2021-05-04] MEDS: Heparin Sodium,Porcine 5,000 UNIT/ML VIAL 3000 UNIT IVPUSH (14:12)
[2021-05-04 15:10] VITALS: BP 133/77; PULSE 98; RESP 16; TEMP 37.1; O2SAT 97
[2021-05-04] MEDS: levoFLOXacin/D5W 750 MG/150 ML PIGGYBACK 100 MG IV (15:14)
[2021-05-04 18:52] LABS: PTT Heparin Drip 117.3 SEC (53-77.9)
[2021-05-04 19:09] VITALS: BP 113/59; PULSE 77; RESP 15; TEMP 36.5; O2SAT 97
[2021-05-04 23:35] VITALS: BP 116/64; PULSE 76; RESP 16; TEMP 36.1; O2SAT 95
[2021-05-05] MEDS: Metoclopramide HCl 10 MG/2 ML VIAL IVPUSH (00:16)
[2021-05-05] MEDS: metroNIDAZOLE/NS 500 MG/100 ML PIGGYBACK 100 MG IV ×3 (01:13→17:04)
[2021-05-05] MEDS: ondansetron HCL 4 MG/2 ML VIAL IVPUSH ×4 (02:09→19:55)
[2021-05-05 04:00] VITALS: BP 109/75; PULSE 98; RESP 16; TEMP 36.8; O2SAT 97
[2021-05-05] MEDS: Heparin Sodium,Porcine/1/2NS 25,000 UNIT/250 ML IV.SOLN 15.62 UNIT IVCONT ×2 (04:31→20:18)
[2021-05-05 05:11] LABS: Lactic Acid 1.3 mmol/L (0.5-2.0)
[2021-05-05 05:12] LABS: Hematocrit 30.3 % (37-47); Hemoglobin 10.7 g/dl (12.0-16.0); Mean Corpuscular HGB Conc 35.3 g/dl (31.0-35.0); Mean Corpuscular Hemoglobin 30.8 pg (27.0-33.0); Mean Corpuscular Volume 87.3 fL (80-98); Mean Platelet Volume 11.7 fL (9.4-12.3); Platelet Count 290 X10*3/uL (160-400); Red Blood Count 3.47 X10*6/uL (4.20-5.50); Red Cell Distribution Width 13.5 % (11.0-16.0)
[2021-05-05 05:14] LABS: WBC ABN SCTR FOR CBC 1; White Blood Count 12.4 X10*3/uL (4.8-10.8)
[2021-05-05 05:22] LABS: PTT Heparin Drip 89.9 SEC (53-77.9)
[2021-05-05 05:23] LABS: Anion Gap 12 (12-20); Blood Urea Nitrogen 3 mg/dL (9-16); Calcium 7.9 mg/dL (8.4-10.2); Carbon Dioxide 27 mmol/L (22-29); Chloride 107 mmol/L (96-108); Creatinine Clr Calc Pharmacy 199.3; Estimated Glomerular Filt Rate > 60; Glucose Random 114 mg/dL (60-115); Magnesium 1.9 mg/dL (1.6-2.6); Phosphorus 2.9 mg/dL (2.7-4.5); Potassium 2.9 mmol/L (3.3-5.1); Sodium 143 mmol/L (135-145)
[2021-05-05 05:31] LABS: Band Neutrophils Percent 3 % (3-5); Basophils Abs Manual 0.1 X10*3/uL (0.0-0.3); Basophils Percent Manual 1 % (0-1); Eosinophils Absolute Manual 0.4 X10*3/UL (0.0-0.8); Eosinophils Percent Manual 3 % (0-4); Lymphocytes Absolute Manual 4.2 X10*3/uL (0.6-4.8); Lymphocytes Percent Manual 34 % (20-40); Monocytes Absolute Manual 1.7 X10*3/uL (0.0-1.2); Monocytes Percent Manual 14 % (2-11); Neutrophils Percent Manual 45 % (45-73)
[2021-05-05 05:33] LABS: Acanthocytes 1+ (0-2) /OIF; Burr Cells 1+ (0-2) /OIF; Spherocytes 1+ (0-2) /OIF
[2021-05-05 05:34] LABS: Howell Jolly Bodies PRESENT; Polychromasia 1+ (0-2) /OIF; Toxic Vacuolation PRESENT
[2021-05-05 05:35] LABS: Large Platelet PRESENT; Platelet Estimate NORMAL (NORMAL); Platelet Morphology Comment NORMAL; RBC Morphology NOTED
[2021-05-05] MEDS: Pantoprazole Sodium 40 MG/10 ML VIAL IVPUSH ×2 (06:06→15:34)
[2021-05-05 07:44] VITALS: BP 121/61; PULSE 90; RESP 18; TEMP 36.7; O2SAT 95
[2021-05-05] MEDS: 0.9 % Sodium Chloride Flush 3 ML SYRINGE IVFLUSH ×2 (07:55→15:34)
[2021-05-05] MEDS: Folic Acid 1 MG in 0.9 % Sodium Chloride 50 ML 100.4 MG IV (07:56)
[2021-05-05] MEDS: KCl 40 mEq in 5% Dex/0.9% Sod 40 MEQ/1,000 ML IV.SOLN 75 MEQ IVCONT (08:05)
--- NOTE | 2021-05-05 09:35 | PM.PNGS ---
Subjective Subjective Date of Service: 05/05/21 <MARTA Sosa - Last Filed: 05/05/21 18:26> 05/07/21 <Claudio Mcginnis MD - Last Filed: 05/07/21 10:18> Patient reports: feels better, pain is less and flatus <MARTA Ssoa - Last Filed: 05/05/21 18:26> Interval history: 30 yo female continue to undergo treatment for mesenteric thrombosis. POD # 16, HD # 4, ABX day 4. Mild transient RUQ pain last evening and 1 episode of nausea. Pain did not require IV analgesia and nausea resolved with 1 dose of reglan. Feeling well this morning. <MARTA Sosa Last Filed: 05/05/21 18:26> Physical Exam Vital Signs: Vital Signs: Last Vital Signs Temp 98.1 F 05/05/21 07:44 Pulse 90 05/05/21 07:44 Resp 18 05/05/21 07:44 BP 121/61 05/05/21 07:44 Pulse Ox 95 05/05/21 07:44 Body Mass Index 42.2 <MARTA Sosa - Last Filed: 05/05/21 18:26> Const: General: healthy appearing, comfortable and no acute distress <MARTA Sosa Last Filed: 05/05/21 18:26> Orientation/consciousness: patient oriented x3 <MARTA Sosa - Last Filed: 05/05/21 18:26> Resp: Auscultation: clear to auscultation bilaterally <MARTA Sosa Last Filed: 05/05/21 18:26> Cardio: Rate: regular rate <MARTA Sosa Last Filed: 05/05/21 18:26> Rhythm: regular rhythm <MARTA Sosa Last Filed: 05/05/21 18:26> Heart sounds: S1 normal heart sound present and S2 normal heart sound present <MARTA Sosa Last Filed: 05/05/21 18:26> GI: Inspection: No distended <MARTA Sosa Last Filed: 05/05/21 18:26> Palpation (GI): Soft to palpation and nontender <MARTA Sosa Last Filed: 05/05/21 18:26> Auscultation: normal bowel sounds <MARTA Sosa - Last Filed: 05/05/21 18:26> Neuro: General: patient oriented x3 <MARTA Sosa - Last Filed: 05/05/21 18:26> Extrem: General: Yes no pedal edema <MARTA Sosa - Last Filed: 05/05/21 18:26> Procedures Date of Service Date of Service: 05/05/21 <MARTA Sosa - Last Filed: 05/05/21 18:26> Progress Note: A&P Assessment and plan (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 PTT 89.9. linette increase dose to 15 u/kg/hr from 14 given significant drop from last evenings value of 117.3. Repeat PTT at 1700 hrs[address] Will order repeat CT+ of abdomen tomorrow (venous phase) for followup. Continue IVF, TPN, NPO, supportive care. Follow labs in AM tomorrow. Encourage ambulation. Pt demonstrated good use of incentive spirometry and encouraged to continue. Again discussed ongoing medical treatment plans and goals. All questions answered to her satisfaction. <MARTA Sosa - Last Filed: 05/05/21 18:26> (2) Portal vein thrombosis: Status: Acute <MARTA Sosa - Last Filed: 05/05/21 18:26> Assessment and Plan: Tx plan as above <MARTA Sosa Last Filed: 05/05/21 18:26> (3) Hypokalemia: Status: Acute <MARTA Sosa - Last Filed: 05/05/21 18:26> Assessment and Plan: Trending upward, slight increase in IV that has K added (incr in K by 24 meq), also now goal of TPN at 83.33 ml/hr will give her an additional 60 meq today. Discussed with pharmacy as well. Will repeat C7 in am <MARTA Sosa Last Filed: 05/05/21 18:26> (4) Hypophosphatemia: Status: Acute <MARTA Sosa Last Filed: 05/05/21 18:26> Assessment and Plan: Resolved <MARTA Sosa Last Filed: 05/05/21 18:26> (5) Status post laparoscopic sleeve gastrectomy: Status: Acute <MARTA Sosa - Last Filed: 05/05/21 18:26> Assessment and Plan: POD #16, remains NPO due to above dx. Continue TPN, providing 100 gm of protein and 1420 evelyne/day. Continue IVF, D5NS w 40 meq KCl. <MARTA Sosa - Last Filed: 05/05/21 18:26> Assessment and Plan: Case discussed in full with attending physician, Dr. Mcginnis <MARTA Sosa - Last Filed: 05/05/21 18:26> Fall Risk Details Current Medications: Current Medications Generic Name Dose Route Start Last Admin Trade Name Freq PRN Reason Stop Dose Admin Bisacodyl 10 mg 05/03/21 13:11 Bisacodyl 10 Mg Supp.Rect [place] DAILY PRN Constipation Heparin Sodium (Porcine) 4,500 unit 05/02/21 12:47 Heparin Sodium,Porcine 5,000 Unit/Ml Vial 40 unit/kg (4500 unit) IVPUSH PROTOCOL BOLUS PRN 40 unit/kg - Heparin Protocol Protocol Heparin Sodium (Porcine) 8,900 unit 05/02/21 12:47 Heparin Sodium,Porcine 5,000 Unit/Ml Vial 80 unit/kg (8900 unit) IVPUSH PROTOCOL BOLUS PRN 80 unit/kg - Heparin Protocol Protocol Hydromorphone HCl 0.25 mg 05/02/21 20:02 05/04/21 01:04 Hydromorphone Hcl 0.5 Mg/0.5 Ml Syringe IVPUSH 0.25 mg Q2H PRN Administration Pain, Severe (Pain Scale 7-10) Protocol Thiamine HCl 100 mg/ Sodium 101 mls @ 202 mls/hr 05/01/21 11:00 05/04/21 12:10 Chloride IV Infused DAILY SERGE Infusion Metronidazole 500 mg in 100 mls @ 100 mls/hr 05/02/21 09:00 05/05/21 08:35 Flagyl IV 100 mls/hr Q8H SERGE Administration Heparin Sodium/Sodium Chloride 25,000 unit in 250 mls @ 0 mls/hr 05/02/21 13:00 05/05/21 04:31 IVCONT 14 units/kg/hr .Q0M SERGE 15.62 mls/hr Administration Protocol Per Protocol Potassium Chloride/Dextrose/Sod Cl 40 meq in 1,000 mls @ 100 mls/hr 05/03/21 09:45 05/05/21 08:05 IVCONT 75 mls/hr .Q10H SERGE Administration Folic Acid 1 mg/ Sodium 50.2 mls @ 100.4 mls/hr 05/04/21 09:00 05/05/21 08:26 Chloride IV Infused DAILY SERGE Infusion Levofloxacin 750 mg in 150 mls @ 100 mls/hr 05/04/21 14:00 05/04/21 17:31 Levaquin IV Infused Q24H SERGE Infusion Multivitamins 12.8 ml/ Trace 1,560 mls @ 65 mls/hr 05/04/21 18:00 05/04/21 19:13 Metals 1.3 ml/ Amino Acids/ IV 05/05/21 17:59 65 mls/hr Electrolytes DAILY@1800 SERGE Administration Lorazepam 0.25 mg 05/02/21 09:08 05/03/21 17:47 Lorazepam 2 Mg/Ml Vial IVPUSH 0.25 mg Q6H PRN Administration Anxiety Metoclopramide HCl 10 mg 05/01/21 11:09 05/05/21 00:16 Metoclopramide Hcl 10 Mg/2 Ml Vial IVPUSH 10 mg Q6H PRN Administration Nausea Ondansetron HCl 4 mg 05/02/21 20:00 05/05/21 07:55 Ondansetron Hcl 4 Mg/2 Ml Vial IVPUSH 4 mg Q6H SERGE Administration Pantoprazole Sodium 40 mg 05/01/21 11:30 05/05/21 06:06 Pantoprazole Sodium 40 Mg/10 Ml Vial IVPUSH 40 mg BID@0630,1630 ESRGE Administration Sodium Chloride 3 ml 05/01/21 11:09 05/05/21 07:55 0.9 % Sodium Chloride Flush 3 Ml Syringe IVFLUSH 3 ml QSHIFT SERGE Administration <MARTA Sosa - Last Filed: 05/05/21 18:26> Time Spent With Patient Time: Total time spent is greater than 50% in coordination of care (as documented) at patient's floor/unit and/or counseling patient: <MARTA Sosa - Last Filed: 05/05/21 18:26> Time with patient: 15 - 24 minutes <MARTA Sosa - Last Filed: 05/05/21 18:26> Quality Stroke Does the patient have a stroke diagnosis?: No <MARTA Sosa - Last Filed: 05/05/21 18:26> VTE Prior VTE?: No <MARTA Sosa - Last Filed: 05/05/21 18:26> VTE Risk Level:: Medical - moderate - high <MARTA Sosa - Last Filed: 05/05/21 18:26> VTE Device Contraindication: N/A - Device Ordered <MARTA Sosa - Last Filed: 05/05/21 18:26> VTE Drug Contraindication: Treatment Not Indicated <MARTA Sosa - Last Filed: 05/05/21 18:26> Results Labs Result diagrams: : 05/07/21 04:43 05/07/21 04:42 <MARTA Sosa - Last Filed: 05/05/21 18:26> Labs: Abnormal lab results 05/04/21 05/04/21 05/05/21 Range/Units 12:44 17:59 04:44 WBC (4.8-10.8) X10*3/uL RBC (4.20-5.50) X10*6/uL Hgb (12.0-16.0) g/dl Hct (37-47) % MCHC (31.0-35.0) g/dl Monocytes % (Manual) (2-11) % Monocytes # (Manual) (0.0-1.2) X10*3/uL PTT (Heparin Protocol) 51.8 L D 117.3 H* D 89.9 H D (53-77.9) SEC Potassium (3.3-5.1) mmol/L BUN (9-16) mg/dL Calcium (8.4-10.2) mg/dL 05/05/21 05/05/21 Range/Units 04:44 04:45 WBC 12.4 H (4.8-10.8) X10*3/uL RBC 3.47 L (4.20-5.50) X10*6/uL Hgb 10.7 L (12.0-16.0) g/dl Hct 30.3 L (37-47) % MCHC 35.3 H (31.0-35.0) g/dl Monocytes % (Manual) 14 H (2-11) % Monocytes # (Manual) 1.7 H (0.0-1.2) X10*3/uL PTT (Heparin Protocol) (53-77.9) SEC Potassium 2.9 L (3.3-5.1) mmol/L BUN 3 L (9-16) mg/dL Calcium 7.9 L (8.4-10.2) mg/dL Short CBC 05/05/21 Range/Units 04:45 WBC 12.4 H (4.8-10.8) X10*3/uL Hgb 10.7 L (12.0-16.0) g/dl Hct 30.3 L (37-47) % Plt Count 290 (160-400) X10*3/uL BMP 05/05/21 04:44 Sodium 143 Potassium 2.9 L Chloride 107 Carbon Dioxide 27 BUN 3 L Creatinine 0.50 Calcium 7.9 L All other labs normal. <Johnnie L MARTA Vasques - Last Filed: 05/05/21 18:26>
[2021-05-05 11:27] VITALS: BP 135/84; PULSE 87; RESP 17; TEMP 36.9; O2SAT 99
[2021-05-05] MEDS: Thiamine HCL 100 MG in 0.9 % Sodium Chloride 100 ML 202 MG IV (11:53)
[2021-05-05] MEDS: levoFLOXacin/D5W 750 MG/150 ML PIGGYBACK 100 MG IV (13:35)
[2021-05-05 15:40] VITALS: BP 129/71; PULSE 76; RESP 16; TEMP 36.5; O2SAT 98
[2021-05-05 17:47] LABS: PTT Heparin Drip 126.4 SEC (53-77.9)
[2021-05-05] MEDS: KCl 40 mEq in 5% Dex/0.9% Sod 40 MEQ/1,000 ML IV.SOLN 100 MEQ IVCONT (18:21)
[2021-05-05 19:28] VITALS: BP 127/72; PULSE 70; RESP 16; TEMP 36.3; O2SAT 100
[2021-05-05 23:30] LABS: PTT Heparin Drip 99.7 SEC (53-77.9)
[2021-05-05 23:54] VITALS: BP 120/67; PULSE 84; RESP 16; TEMP 36.4; O2SAT 97
[2021-05-06] MEDS: metroNIDAZOLE/NS 500 MG/100 ML PIGGYBACK 100 MG IV ×3 (01:04→17:28)
[2021-05-06] MEDS: ondansetron HCL 4 MG/2 ML VIAL IVPUSH ×4 (02:04→19:49)
[2021-05-06] MEDS: KCl 40 mEq in 5% Dex/0.9% Sod 40 MEQ/1,000 ML IV.SOLN 100 MEQ IVCONT (03:49)
[2021-05-06 04:00] VITALS: BP 115/70; PULSE 82; RESP 16; TEMP 36.2; O2SAT 97
[2021-05-06] MEDS: Pantoprazole Sodium 40 MG/10 ML VIAL IVPUSH (06:14)
[2021-05-06 06:18] LABS: Hematocrit 31.6 % (37-47); Mean Corpuscular HGB Conc 34.8 g/dl (31.0-35.0); Mean Corpuscular Hemoglobin 31.1 pg (27.0-33.0); Mean Corpuscular Volume 89.3 fL (80-98); Mean Platelet Volume 11.1 fL (9.4-12.3); Platelet Count 335 X10*3/uL (160-400); Red Blood Count 3.54 X10*6/uL (4.20-5.50); Red Cell Distribution Width 13.8 % (11.0-16.0)
[2021-05-06 06:22] LABS: WBC ABN SCTR FOR CBC 1; White Blood Count 10.2 X10*3/uL (4.8-10.8)
[2021-05-06 06:37] LABS: Anion Gap 11 (12-20); Blood Urea Nitrogen 5 mg/dL (9-16); Calcium 8.2 mg/dL (8.4-10.2); Carbon Dioxide 25 mmol/L (22-29); Chloride 109 mmol/L (96-108); Creatinine Clr Calc Pharmacy 184.5; Estimated Glomerular Filt Rate > 60; Glucose Random 135 mg/dL (60-115); Potassium 3.6 mmol/L (3.3-5.1); Sodium 141 mmol/L (135-145)
[2021-05-06 06:56] LABS: PTT Heparin Drip 138.3 SEC (53-77.9)
[2021-05-06 07:24] VITALS: BP 131/74; PULSE 83; RESP 17; TEMP 36.7; O2SAT 98
[2021-05-06] MEDS: Folic Acid 1 MG in 0.9 % Sodium Chloride 50 ML 100.4 MG IV (08:30)
[2021-05-06] MEDS: KCl 20 mEq in 0.45% Sod 20 MEQ/1,000 ML IV.SOLN 100 MEQ IVCONT (09:20)
[2021-05-06] MEDS: Thiamine HCL 100 MG in 0.9 % Sodium Chloride 100 ML 202 MG IV (09:20)
[2021-05-06] MEDS: iohexoL 350 MG/ML 100 ML INFUS..BTL IV (09:46)
--- NOTE | 2021-05-06 11:04 | PM.PNGS ---
Subjective Subjective Date of Service: 05/06/21 Patient reports: no new complaints, feels better and flatus Interval history: 30 yo female continue to undergo treatment for mesenteric thrombosis.? POD # 17, HD # 5, ABX day 5.? No further abdominal pain. Continues with flatus, no BM. No nausea. CT this morning. Continues to ambulate in the hallway. Physical Exam Vital Signs: Vital Signs: Last Vital Signs Temp 98.1 F 05/06/21 07:24 Pulse 83 05/06/21 07:24 Resp 17 05/06/21 07:24 BP 131/74 05/06/21 07:24 Pulse Ox 98 05/06/21 07:24 Body Mass Index 42.2 Const: General: healthy appearing, comfortable and no acute distress Orientation/consciousness: patient oriented x3 Resp: Effort & Inspection: normal respiratory effort Auscultation: clear to auscultation bilaterally Cardio: Rate: regular rate Rhythm: regular rhythm Heart sounds: S1 normal heart sound present and S2 normal heart sound present GI: Inspection: Yes normal to inspection Palpation (GI): Soft to palpation and nontender Auscultation: normal bowel sounds Neuro: General: patient oriented x3 Extrem: General: Yes other (mild general edema) Procedures Date of Service Date of Service: 05/06/21 Progress Note: A&P Assessment and plan (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 PTT last evening 99.7, continued at 15 u/kg/hr and this morning elevated at 138.3. Rate reduced to 14 u/kg/hr and will recheck this afternoon at 1700 hrs. No adverse effect from elevated PTT.? CT+ of abdomen with interval improvement in bowel. Clot burden still noted.? Continue IVF, TPN, NPO, supportive care.? Follow labs in AM tomorrow.? D/C tele. Encourage ambulation.? Will discuss with hematology about transition to coumadin. Also if continues improvement, consider trial of sips of clears possibly tomorrow. Pt demonstrated good use of incentive spirometry and encouraged to continue.? Again discussed ongoing medical treatment plans and goals.? All questions answered to her satisfaction. (2) Portal vein thrombosis: Status: Acute Assessment and Plan: treatment plan as above (3) Hypokalemia: Status: Acute Assessment and Plan: Normalized. Change IVF to 1/2NS with 20 KCl at 75 mL/hr. Repeat C7 in am. (4) Hypophosphatemia: Status: Acute Assessment and Plan: Resolved with Phos repletion. Repeat Phos and Mg today normal. Continue current TPN Assessment and Plan: Case discussed in full with attending physician, Dr. Mcginnis Fall Risk Details Current Medications: Current Medications Generic Name Dose Route Start Last Admin Trade Name Freq PRN Reason Stop Dose Admin Bisacodyl 10 mg 05/03/21 13:11 Bisacodyl 10 Mg Supp.Rect OH DAILY PRN Constipation Heparin Sodium (Porcine) 4,500 unit 05/02/21 12:47 Heparin Sodium,Porcine 5,000 Unit/Ml Vial 40 unit/kg (4500 unit) IVPUSH PROTOCOL BOLUS PRN 40 unit/kg - Heparin Protocol Protocol Heparin Sodium (Porcine) 8,900 unit 05/02/21 12:47 Heparin Sodium,Porcine 5,000 Unit/Ml Vial 80 unit/kg (8900 unit) IVPUSH PROTOCOL BOLUS PRN 80 unit/kg - Heparin Protocol Protocol Hydromorphone HCl 0.25 mg 05/02/21 20:02 05/04/21 01:04 Hydromorphone Hcl 0.5 Mg/0.5 Ml Syringe IVPUSH 0.25 mg Q2H PRN Administration Pain, Severe (Pain Scale 7-10) Protocol Metronidazole 500 mg in 100 mls @ 100 mls/hr 05/02/21 09:00 05/06/21 10:33 Flagyl IV Infused Q8H SERGE Infusion Heparin Sodium/Sodium Chloride 25,000 unit in 250 mls @ 0 mls/hr 05/02/21 13:00 05/06/21 06:59 IVCONT 14 units/kg/hr .Q0M SERGE 15.62 mls/hr Titration Protocol Per Protocol Folic Acid 1 mg/ Sodium 50.2 mls @ 100.4 mls/hr 05/04/21 09:00 05/06/21 09:19 Chloride IV Infused DAILY SERGE Infusion Levofloxacin 750 mg in 150 mls @ 100 mls/hr 05/04/21 14:00 05/05/21 15:05 Levaquin IV Infused Q24H SERGE Infusion Thiamine HCl 100 mg/ Sodium 101 mls @ 202 mls/hr 05/05/21 11:00 05/06/21 09:56 Chloride IV Infused DAILY SERGE Infusion Multivitamins 10 ml/ Trace 1,999.92 mls @ 83.33 mls/hr 05/05/21 18:00 05/05/21 18:21 Metals 1 ml/ Amino Acids/ IV 05/06/21 17:59 83.33 mls/hr Electrolytes DAILY@1800 SERGE Administration Potassium Chloride/Sodium Chloride 20 meq in 1,000 mls @ 75 mls/hr 05/06/21 09:00 05/06/21 09:20 IVCONT 100 mls/hr .[id number] SERGE Administration Lorazepam 0.25 mg 05/02/21 09:08 05/03/21 17:47 Lorazepam 2 Mg/Ml Vial IVPUSH 0.25 mg Q6H PRN Administration Anxiety Metoclopramide HCl 10 mg 05/01/21 11:09 05/05/21 00:16 Metoclopramide Hcl 10 Mg/2 Ml Vial IVPUSH 10 mg Q6H PRN Administration Nausea Ondansetron HCl 4 mg 05/02/21 20:00 05/06/21 08:35 Ondansetron Hcl 4 Mg/2 Ml Vial IVPUSH 4 mg Q6H SERGE Administration Pantoprazole Sodium 40 mg 05/01/21 11:30 05/06/21 06:14 Pantoprazole Sodium 40 Mg/10 Ml Vial IVPUSH 40 mg BID@0630,1630 SERGE Administration Sodium Chloride 3 ml 05/01/21 11:09 05/06/21 08:30 0.9 % Sodium Chloride Flush 3 Ml Syringe IVFLUSH Not Given QSHIFT SERGE Time Spent With Patient Time: Total time spent is greater than 50% in coordination of care (as documented) at patient's floor/unit and/or counseling patient: Time with patient: 25 - 35 minutes Quality Stroke Does the patient have a stroke diagnosis?: No VTE Prior VTE?: No VTE Risk Level:: Medical - moderate - high VTE Device Contraindication: N/A - Device Ordered VTE Drug Contraindication: Treatment Not Indicated
[2021-05-06 11:13] LABS: Albumin Level 2.7 g/dL (3.5-5.0); Magnesium 2.1 mg/dL (1.6-2.6); Phosphorus 3.5 mg/dL (2.7-4.5)
[2021-05-06 11:18] VITALS: BP 121/78; PULSE 69; RESP 18; TEMP 36.3; O2SAT 99
[2021-05-06] MEDS: Heparin Sodium,Porcine/1/2NS 25,000 UNIT/250 ML IV.SOLN 15.62 UNIT IVCONT (11:52)
[2021-05-06] MEDS: levoFLOXacin/D5W 750 MG/150 ML PIGGYBACK 100 MG IV (14:13)
[2021-05-06 15:29] VITALS: BP 122/80; PULSE 80; RESP 18; TEMP 36.4; O2SAT 98
[2021-05-06] MEDS: 0.9 % Sodium Chloride Flush 3 ML SYRINGE IVFLUSH ×2 (17:28→19:51)
[2021-05-06 18:15] LABS: PTT Heparin Drip 137.6 SEC (53-77.9)
--- NOTE | 2021-05-06 18:47 | PC.NURSE ---
PTT HD 137.6 , Johnnie LOZANO was notified . Keep heparin drip at 14 units and will check PTT HD at 22:00 today
[2021-05-06] MEDS: KCl 20 mEq in 0.45% Sod 20 MEQ/1,000 ML IV.SOLN 75 MEQ IVCONT (19:28)
[2021-05-06 19:40] VITALS: BP 122/68; PULSE 88; RESP 15; TEMP 36.1; O2SAT 100
[2021-05-06 22:13] LABS: PTT Heparin Drip 107.4 SEC (53-77.9)
[2021-05-06 23:48] VITALS: BP 96/50; PULSE 82; RESP 16; TEMP 36.5; O2SAT 97
[2021-05-07] MEDS: ondansetron HCL 4 MG/2 ML VIAL IVPUSH ×4 (00:26→19:40)
[2021-05-07] MEDS: metroNIDAZOLE/NS 500 MG/100 ML PIGGYBACK 100 MG IV ×4 (00:26→23:08)
[2021-05-07] MEDS: 0.9 % Sodium Chloride Flush 3 ML SYRINGE IVFLUSH ×4 (00:30→23:08)
[2021-05-07] MEDS: Heparin Sodium,Porcine/1/2NS 25,000 UNIT/250 ML IV.SOLN 15.62 UNIT IVCONT (03:09)
[2021-05-07 03:14] VITALS: BP 123/77; PULSE 81; RESP 16; TEMP 37; O2SAT 95
[2021-05-07 04:53] LABS: Hematocrit 31.3 % (37-47); Hemoglobin 10.9 g/dl (12.0-16.0); Mean Corpuscular HGB Conc 34.8 g/dl (31.0-35.0); Mean Corpuscular Hemoglobin 31.8 pg (27.0-33.0); Mean Corpuscular Volume 91.3 fL (80-98); Mean Platelet Volume 11.2 fL (9.4-12.3); Platelet Count 334 X10*3/uL (160-400); Red Blood Count 3.43 X10*6/uL (4.20-5.50)
[2021-05-07 04:54] LABS: WBC ABN SCTR FOR CBC 1
[2021-05-07 05:15] LABS: Anion Gap 11 (12-20); Blood Urea Nitrogen 7 mg/dL (9-16); Calcium 8.3 mg/dL (8.4-10.2); Carbon Dioxide 24 mmol/L (22-29); Chloride 110 mmol/L (96-108); Creatinine Clr Calc Pharmacy 181.1; Estimated Glomerular Filt Rate > 60; Glucose Random 110 mg/dL (60-115); Potassium 4.1 mmol/L (3.3-5.1); Sodium 141 mmol/L (135-145)
[2021-05-07 05:24] LABS: White Blood Count 12.1 X10*3/uL (4.8-10.8)
[2021-05-07 05:46] LABS: PTT Heparin Drip 139.6 SEC (53-77.9)
[2021-05-07 07:43] VITALS: BP 124/74; PULSE 78; RESP 17; TEMP 36.3; O2SAT 96
--- NOTE | 2021-05-07 07:46 | PM.PNGS ---
Subjective Subjective Date of Service: 05/07/21 <MARTA Sosa - Last Filed: 05/07/21 09:43> 05/07/21 <Charlene Saba MD - Last Filed: 05/07/21 17:17> Patient reports: no new complaints, feels better, flatus and no bowel movement <MARTA Sosa - Last Filed: 05/07/21 09:43> Interval history: 30 yo female continue to undergo treatment for mesenteric thrombosis.? POD # 18, HD # 6, ABX day 6 (Levofloxacin 750 mg and Metronidazole 500 mg q 8 h).? Slept well overnight and generally feels better than yesterday. Remains NPO. Continues IVF and TPN. PTT resulted this morning at 139.6 despite a constant rate of 14 for approximately 36 hrs. Rate decreased to 13. <MARTA Sosa - Last Filed: 05/07/21 09:43> 30 yo female continue to undergo treatment for mesenteric thrombosis.? POD # 18, HD # 6, ABX day 6 (Levofloxacin 750 mg and Metronidazole 500 mg q 8 h).? Slept well overnight and generally feels better than yesterday. Remains NPO. Continues IVF and TPN. PTT resulted this morning at 139.6 despite a constant rate of 14 for approximately 36 hrs. Rate decreased to 13. Patient seen with the physician pharmacy technician assistant and agree with his assessment and plan. I appreciate hematology consultation and input. I have reviewed all CT scans and radiologic studies since patient was admitted 05/01/2021. Most recent CT scan performed yesterday showed significant improvement in mesenteric stranding an almost complete resolution small bowel wall thickening. Patient clinically feels better and denies any abdominal pain nausea or vomiting. White blood cell count is 12.1 which is up from 10 yesterday but down from 12.4 2 days ago. All other laboratory values are within normal limits. On the most recent CT scan of the abdomen and pelvis there appears to still be a small fluid collection near the GE junction although there has been no documentation of extravasation of contrast or evidence of air within this fluid collection. On exam patient is well appearing she is in no apparent distress vital signs are within normal limits. Examination abdomen shows a soft nondistended nontender abdomen. Laparoscopic incisions are well healing without any evidence of erythema or drainage. <Charlene Saba MD - Last Filed: 05/07/21 17:17> Physical Exam Vital Signs: Vital Signs: Last Vital Signs Temp 97.4 F 05/07/21 07:43 Pulse 78 05/07/21 07:43 Resp 17 05/07/21 07:43 BP 124/74 05/07/21 07:43 Pulse Ox 96 05/07/21 07:43 Body Mass Index 42.2 <MARTA Sosa - Last Filed: 05/07/21 09:43> Const: General: healthy appearing and no acute distress <MARTA Sosa - Last Filed: 05/07/21 09:43> Orientation/consciousness: patient oriented x3 <MARTA Sosa - Last Filed: 05/07/21 09:43> Resp: Auscultation: clear to auscultation bilaterally <MARTA Sosa - Last Filed: 05/07/21 09:43> Cardio: Rate: regular rate <MARTA Sosa - Last Filed: 05/07/21 09:43> Rhythm: regular rhythm <MARTA Sosa - Last Filed: 05/07/21 09:43> Heart sounds: S1 normal heart sound present and S2 normal heart sound present <MARTA Sosa - Last Filed: 05/07/21 09:43> GI: Inspection: No distended <MARTA Sosa - Last Filed: 05/07/21 09:43> Palpation (GI): Soft to palpation and nontender <MARTA Sosa - Last Filed: 05/07/21 09:43> Auscultation: normal bowel sounds <MARTA Sosa - Last Filed: 05/07/21 09:43> Neuro: General: patient oriented x3 <MARTA Sosa - Last Filed: 05/07/21 09:43> Extrem: General: Yes edema (less than yesterday) <MARTA Sosa - Last Filed: 05/07/21 09:43> Psych: Mental Status: mental status grossly normal <MARTA Sosa - Last Filed: 05/07/21 09:43> Procedures Date of Service Date of Service: 05/07/21 <MARTA Sosa - Last Filed: 05/07/21 09:43> Progress Note: A&P Assessment and plan (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 PTT last evening 137.6 and repea at 2200 hrs was 107.4, continued at 14 u/kg/hr and this morning elevated at 139.6.? Rate reduced to 13 u/kg/hr and will recheck this afternoon at 1700 hrs.? No adverse effect from elevated PTT.? CT+ of abdomen yesterday with interval improvement in bowel.? Clot burden still noted.? Mild fluid around stomach. Continue IVF, TPN, NPO, supportive care.? CBC with mild leukocytosis (12.1) up from 10.2 yesterday although [facility] has no evidence of clinical deterioration. She does state that she has had fluctuating WBC in the past due to her spherocytosis, this may also account for the fluctuating PTT.? Encourage ambulation.? Discussed with hematology about transition to coumadin/Lovenox, recommend transition today to Lovenox 1 mg/kg BID and Warfarin 5 mg po daily. Will discuss with Dr Saba if ok for any PO intake (Coumadin w sip of water)?? Pt demonstrated good use of incentive spirometry and encouraged to continue.? Again discussed ongoing medical treatment plans and goals. <MARTA Sosa - Last Filed: 05/07/21 09:43> Remains on heparing gtt.? PTT last evening 137.6 and repea at 2200 hrs was 107.4, continued at 14 u/kg/hr and this morning elevated at 139.6.? Rate reduced to 13 u/kg/hr and will recheck this afternoon at 1700 hrs.? No adverse effect from elevated PTT.? CT+ of abdomen yesterday with interval improvement in bowel.? Clot burden still noted.? Mild fluid around stomach. Continue IVF, TPN, NPO, supportive care.? CBC with mild leukocytosis (12.1) up from 10.2 yesterday although miguel has no evidence of clinical deterioration. She does state that she has had fluctuating WBC in the past due to her spherocytosis, this may also account for the fluctuating PTT.? Encourage ambulation.? Discussed with hematology about transition to coumadin/Lovenox, recommend transition today to Lovenox 1 mg/kg BID and Warfarin 5 mg po daily. Will discuss with Dr Saba if ok for any PO intake (Coumadin w sip of water)?? Pt demonstrated good use of incentive spirometry and encouraged to continue.? Again discussed ongoing medical treatment plans and goals. As recommended by a hematology we will discontinue the heparin drip and start the patient on full dose Lovenox which will be 110 mg subcutaneously twice daily. Given that the patient has a diagnosis of mesenteric thrombosis and there is a possibility that there is a small gastric given the fluid collection at the GE junction although 1 has not been documented I will avoid starting the patient on a p.o. diet. We will continue with Lovenox b.i.d. subcutaneously only for now without adding Coumadin in order to allow the stomach to heal from the edema that it likely experienced related to the mesenteric thrombosis. Patient will continue on TPN for another 2 weeks. We will plan to perform a CT scan abdomen pelvis with p.o. and IV contrast in about 2 weeks time frame and all hopes of documenting that the mesenteric vessels are patent. Once the mesenteric vessels are documented as being patent we will likely start the patient on a p.o. diet. I have discussed this at length with the patient. The plan will likely be to discharge the patient home at the end of the week on TPN with a plan to follow up with a outpatient CT scan in 2 weeks from now. <Charlene Saba MD - Last Filed: 05/07/21 17:17> (2) Portal vein thrombosis: Status: Acute <MARTA Sosa - Last Filed: 05/07/21 09:43> Assessment and Plan: treatment plans as above <MARTA Sosa - Last Filed: 05/07/21 09:43> (3) Hypokalemia: Status: Acute <MARTA Sosa - Last Filed: 05/07/21 09:43> Assessment and Plan: K now normal x 2 days, Will d/c additional K supplement in IVF, continue TPN <MARTA Sosa - Last Filed: 05/07/21 09:43> Assessment and Plan: Case discussed in full with attending physician, Dr. Saba <MARTA Sosa - Last Filed: 05/07/21 09:43> Fall Risk Details Current Medications: Current Medications Generic Name Dose Route Start Last Admin Trade Name Freq PRN Reason Stop Dose Admin Bisacodyl 10 mg 05/03/21 13:11 Bisacodyl 10 Mg Supp.Rect [place] DAILY PRN Constipation Heparin Sodium (Porcine) 4,500 unit 05/02/21 12:47 Heparin Sodium,Porcine 5,000 Unit/Ml Vial 40 unit/kg (4500 unit) IVPUSH PROTOCOL BOLUS PRN 40 unit/kg - Heparin Protocol Protocol Heparin Sodium (Porcine) 8,900 unit 05/02/21 12:47 Heparin Sodium,Porcine 5,000 Unit/Ml Vial 80 unit/kg (8900 unit) IVPUSH PROTOCOL BOLUS PRN 80 unit/kg - Heparin Protocol Protocol Hydromorphone HCl 0.25 mg 05/06/21 12:15 Hydromorphone Hcl 1 Mg/Ml Syringe IVPUSH Q2H PRN Pain, Severe (Pain Scale 7-10) Protocol Metronidazole 500 mg in 100 mls @ 100 mls/hr 05/02/21 09:00 05/07/21 01:31 Flagyl IV Infused Q8H SERGE Infusion Heparin Sodium/Sodium Chloride 25,000 unit in 250 mls @ 0 mls/hr 05/02/21 13:00 05/07/21 05:56 IVCONT 13 units/kg/hr .Q0M SERGE 14.51 mls/hr Titration Protocol Per Protocol Folic Acid 1 mg/ Sodium 50.2 mls @ 100.4 mls/hr 05/04/21 09:00 05/06/21 09:19 Chloride IV Infused DAILY SERGE Infusion Levofloxacin 750 mg in 150 mls @ 100 mls/hr 05/04/21 14:00 05/06/21 16:23 Levaquin IV Infused Q24H SERGE Infusion Thiamine HCl 100 mg/ Sodium 101 mls @ 202 mls/hr 05/05/21 11:00 05/06/21 09:56 Chloride IV Infused DAILY SERGE Infusion Potassium Chloride/Sodium Chloride 20 meq in 1,000 mls @ 75 mls/hr 05/06/21 09:00 05/06/21 19:28 IVCONT 75 mls/hr .[id number] SERGE Administration Multivitamins 10 ml/ Trace 1,999.92 mls @ 83.33 mls/hr 05/06/21 18:00 05/06/21 19:04 Metals 1 ml/ Amino Acids/ IV 05/07/21 17:59 83.33 mls/hr Electrolytes DAILY@1800 SERGE Administration Lorazepam 0.25 mg 05/02/21 09:08 05/03/21 17:47 Lorazepam 2 Mg/Ml Vial IVPUSH 0.25 mg Q6H PRN Administration Anxiety Metoclopramide HCl 10 mg 05/01/21 11:09 05/05/21 00:16 Metoclopramide Hcl 10 Mg/2 Ml Vial IVPUSH 10 mg Q6H PRN Administration Nausea Ondansetron HCl 4 mg 05/02/21 20:00 05/07/21 00:26 Ondansetron Hcl 4 Mg/2 Ml Vial IVPUSH 4 mg Q6H SERGE Administration Sodium Chloride 3 ml 05/01/21 11:09 05/07/21 00:30 0.9 % Sodium Chloride Flush 3 Ml Syringe IVFLUSH 3 ml QSHIFT SERGE Administration <MARTA Sosa - Last Filed: 05/07/21 09:43> Time Spent With Patient Time: Total time spent is greater than 50% in coordination of care (as documented) at patient's floor/unit and/or counseling patient: <MARTA Sosa - Last Filed: 05/07/21 09:43> Time with patient: 15 - 24 minutes <MARTA Sosa - Last Filed: 05/07/21 09:43> Quality Stroke Does the patient have a stroke diagnosis?: No <MARTA Sosa - Last Filed: 05/07/21 09:43> VTE Prior VTE?: No <MARTA Sosa Last Filed: 05/07/21 09:43> VTE Risk Level:: Medical - moderate - high <MARTA Sosa Last Filed: 05/07/21 09:43> VTE Device Contraindication: N/A - Device Ordered <MARTA Sosa Last Filed: 05/07/21 09:43> VTE Drug Contraindication: Treatment Not Indicated <MARTA Sosa Last Filed: 05/07/21 09:43> Results Laboratory Findings 24 Hour Meds: : 05/07/21 10:12 05/07/21 04:42 <MARTA Sosa Last Filed: 05/07/21 09:43> Labs: Laboratory Results - last 24 hr 05/06/21 05/06/21 05/06/21 06:07 17:39 21:55 WBC RBC Hgb Hct MCV MCH MCHC RDW Plt Count MPV Absolute Nucleated RBC Nucleated RBC % (auto) PTT (Heparin Protocol) 137.6 H* 107.4 H* D Sodium Potassium Chloride Carbon Dioxide Anion Gap BUN Creatinine Estim Creat Clear Calc Estimated GFR Random Glucose Calcium Phosphorus 3.5 Magnesium 2.1 Albumin 2.7 L 05/07/21 05/07/21 05/07/21 04:42 04:42 04:43 WBC 12.1 H RBC 3.43 L Hgb 10.9 L Hct 31.3 L MCV 91.3 MCH 31.8 MCHC 34.8 RDW 14.0 Plt Count 334 MPV 11.2 Absolute Nucleated RBC 0.000 Nucleated RBC % (auto) 0.0 PTT (Heparin Protocol) 139.6 H* D Sodium 141 Potassium 4.1 Chloride 110 H Carbon Dioxide 24 Anion Gap 11 L BUN 7 L Creatinine 0.55 Estim Creat Clear Calc 181.1 Estimated GFR > 60 Random Glucose 110 Calcium 8.3 L Phosphorus Magnesium Albumin <Johnnie L MARTA Vasques - Last Filed: 05/07/21 09:43>
[2021-05-07] MEDS: Folic Acid 1 MG in 0.9 % Sodium Chloride 50 ML 100.4 MG IV (08:37)
[2021-05-07 08:40] LABS: Albumin Level 2.8 g/dL (3.5-5.0); Magnesium 2.2 mg/dL (1.6-2.6); Phosphorus 4.2 mg/dL (2.7-4.5)
[2021-05-07] MEDS: Thiamine HCL 100 MG in 0.9 % Sodium Chloride 100 ML 202 MG IV (09:48)
[2021-05-07] MEDS: Sodium Chloride 0.45 % 1,000 ML 75 ML IVCONT ×2 (09:49→19:43)
--- NOTE | 2021-05-07 09:52 | MHC.CM.PN ---
CM MET W/SURGICAL REGARDING PT AND REPORTED SHE WILL NEED TO GO HOME ON TPN, REFERRAL TO [facility] PREVIOUSLY DONE, CM SPOKE W/[facility] LIAISON AT 9:35AM AND LIAISON REPORTED SHE WILL BE IN TODAY TO DO A TEACH WITH PT, CM STILL ATTEMPTING TO OBTAIN [facility] FOR PT, [facility] REPORTS THEY ARE AT FULL CAPACITY, CM STILL WAITING ON [facility] OTHER [facility] IS KNOWN TO DO TPN, PT ALSO WILL BE DISCHARGING HOME ON LOVENOX AND WILL BE RECEIVING TEACHING FROM [facility] AND [facility] ONCE HOME. D/C PLAN: HOME W/[facility] AND [facility] FOR TPN, FAMILY FOR TRANSPORT.
--- NOTE | 2021-05-07 09:59 | P.PNHO_ITS ---
Medical Summary - Medical Summary Date of Service: 05/07/21 Chief complaint: None today Interval History Interval history: Patient is doing well. Her abdominal pain has resolved. She had a bowel movement on Thursday and is moving gas. She has not eaten anything by mouth yet. Review of Systems - Constitutional Reports as per HPI, Reports no additional constitutional complaints [facility] Medical History: Medical History (Last Reviewed 05/01/21 @ 01:24 by Laura Barney MD) BMI 50.0-59.9, adult Depression Hereditary spherocytosis Morbid obesity Vitamin D deficiency Family History: Family History (Last Reviewed 05/01/21 @ 01:24 by Laura Barney MD) Mother Fibromyalgia Hypertension Migraine Depression Degenerative disk disease Sleep apnea Father Hypertension Sleep apnea Brother Spherocytosis Hyperlipidemia Son No problems noted. Daughter No problems noted. 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: Yes Are you a primary critical care transport nurse to a significant other at home comment: 2 minor children Do you presently have visiting nurse or other home services: No Alcohol History: Alcohol intake: never Alcohol History Details: Alcohol intake frequency: holiday/special occasion Tobacco History: Patient Tobacco Use Status: Former Tobacco user Tobacco use type: Cigarette Smoke Quit Date: 01/29/2021 Substance Use History: Use of substances other than those prescribed or required for medical reasons : No Currently Displaying Signs/Symptoms of Drug Intoxication Withdrawal: No Domestic Abuse History: Have you been hit, kicked, punched, or otherwise hurt by someone within the past year? If so, by whom?: No Do you feel safe in your current relationship?: Yes Is there a partner from a previous relationship who is making you feel unsafe now?: No Are you made to feel afraid or neglected: No Advance Directives: Advance Directives: No Advance Directives Information Provided: No Homicidal Assessment: Do you have thoughts of harming others: None Do you have a plan to hurt others: No Plan Nutrition Assessment: Recently lost weight without trying: No Eating poorly because of decreased appetite: Yes Patient : No : No Poor oral hygiene: No Occupation Assessmet: service: No Current occupational status: employed Home Medications and Allergies Current Medications: Current Medications Generic Name Dose Route Start Last Admin Trade Name Freq PRN Reason Stop Dose Admin Bisacodyl 10 mg 05/03/21 13:11 Bisacodyl 10 Mg Supp.Rect ID DAILY PRN Constipation Enoxaparin Sodium 110 mg 05/07/21 09:45 Enoxaparin Sodium 120 Mg/0.8 Ml Syringe 1 mg/kg (110 mg) SUBCUT Q12H SERGE Hydromorphone HCl 0.25 mg 05/06/21 12:15 Hydromorphone Hcl 1 Mg/Ml Syringe IVPUSH Q2H PRN Pain, Severe (Pain Scale 7-10) Protocol Metronidazole 500 mg in 100 mls @ 100 mls/hr 05/02/21 09:00 05/07/21 08:37 Flagyl IV 100 mls/hr Q8H SERGE Administration Folic Acid 1 mg/ Sodium 50.2 mls @ 100.4 mls/hr 05/04/21 09:00 05/07/21 09:16 Chloride IV Infused DAILY SERGE Infusion Levofloxacin 750 mg in 150 mls @ 100 mls/hr 05/04/21 14:00 05/06/21 16:23 Levaquin IV Infused Q24H SERGE Infusion Thiamine HCl 100 mg/ Sodium 101 mls @ 202 mls/hr 05/05/21 11:00 05/07/21 09:48 Chloride IV 202 mls/hr DAILY SERGE Administration Multivitamins 10 ml/ Trace 1,999.92 mls @ 83.33 mls/hr 05/06/21 18:00 05/06/21 19:04 Metals 1 ml/ Amino Acids/ IV 05/07/21 17:59 83.33 mls/hr Electrolytes DAILY@1800 SERGE Administration Sodium Chloride 1,000 mls @ 75 mls/hr 05/07/21 08:15 05/07/21 09:49 IVCONT 75 mls/hr .[id number] SERGE Administration Lorazepam 0.25 mg 05/02/21 09:08 05/03/21 17:47 Lorazepam 2 Mg/Ml Vial IVPUSH 0.25 mg Q6H PRN Administration Anxiety Metoclopramide HCl 10 mg 05/01/21 11:09 05/05/21 00:16 Metoclopramide Hcl 10 Mg/2 Ml Vial IVPUSH 10 mg Q6H PRN Administration Nausea Ondansetron HCl 4 mg 05/02/21 20:00 05/07/21 08:37 Ondansetron Hcl 4 Mg/2 Ml Vial IVPUSH 4 mg Q6H SERGE Administration Sodium Chloride 3 ml 05/01/21 11:09 05/07/21 08:37 0.9 % Sodium Chloride Flush 3 Ml Syringe IVFLUSH 3 ml QSHIFT SERGE Administration Home Medications Medication Instructions Recorded Confirmed Type vitamin A 10,000 unit capsule 2 cap PO DAILY 05/01/21 05/01/21 History Allergies Allergy/AdvReac Type Severity Reaction Status Date / Time cefaclor [From Ceclor] Allergy Severe Rash Verified 05/01/21 00:41 dichloralphenazone Allergy Severe Shortness Verified 05/01/21 00:41 [From Midrin] of Breath isometheptene [From Midrin] Allergy Severe Shortness Verified 05/01/21 00:41 of Breath midodrine Allergy Severe Shortness Verified 05/01/21 00:41 of Breath Exam Vital signs: Vital Signs Temp 97.4 F 05/07/21 07:43 Pulse 78 05/07/21 07:43 Resp 17 05/07/21 07:43 BP 124/74 05/07/21 07:43 Pulse Ox 96 05/07/21 07:43 Intake & Output 05/06/21 05/07/21 05/07/21 18:59 06:59 18:59 Intake Total 1104.735 / 4479.599 3374.864 / 4479.599 1089.854 / 1089.854 Output Total 600 / 1500 900 / 1500 700 / 700 Balance 504.735 / 2979.599 2474.864 / 2979.599 389.854 / 389.854 Urine Output (Average ml/kg/hr) 0.45 0.67 0.52 Intake: Intake, Oral Amount 0 / 0 Intake, IV Amount 1104.735 / 4479.599 3374.864 / 4479.599 1089.854 / 1089.854 Folic Acid 1 mg In 0.9 % Sodium 50.2 / 50.2 50.2 / 50.2 Chloride 50 ml @ 100.4 mls/hr IV DAILY [facility] Rx#:[id number] AA 5 %/Calcium/Lytes/Dext 15 % / 2,000 ml @ 83.33 mls/hr IV DAILY@1800 SERGE with MVI, Adult 10 ml with Trace Elements w/o chromium 1 ml Rx#:[id number] Thiamine HCL 100 mg In 0.9 % 101 / 101 Sodium Chloride 100 ml @ 202 mls/hr IV DAILY [facility] Rx#: [id number] levoFLOXacin/D5W 750 mg In 150 150 / 150 ml @ 100 mls/hr IV Q24H [facility] Rx# :[id number] metroNIDAZOLE/NS 500 mg In 100 100 / 300 200 / 300 ml @ 100 mls/hr IV Q8H [facility] Rx#: [id number] Heparin Sodium,Porcine/1/2NS 25 183.535 / 358.479 174.944 / 358.479 54.654 / 54.654 ,000 unit In 250 ml @ Per Protocol IVCONT .Q0M [facility] Rx#: [id number] KCl 20 mEq in 0.45% Sod 20 meq 1000.000 / 1000.000 985 / 985 In 1,000 ml @ 75 mls/hr IVCONT .[id number] [facility] Rx#:[id number] KCl 40 mEq in 5% Dex/0.9% Sod 520 / 520 40 meq In 1,000 ml @ 100 mls/hr IVCONT .Q10H [facility] Rx#: [id number] Output: Output, Urine Amount 600 / 1500 900 / 1500 700 / 700 Other: Meal Refused No NPO Yes Yes Yes Urine Bathroom Bathroom Bathroom Urine Color Yellow Tea Yellow Weight 111.584 kg Body Mass Index 42.2 - Constitutional Present: no acute distress - Routine Respiratory Exam Present: decreased breath sounds. Absent: accessory muscle use - Routine Cardiovascular Exam Cardiovascular: Present: S1, S2, tachycardia - Routine Abdominal Exam Present: tenderness - Routine Extremities Exam Absent: pedal edema Data - Labs CBC & Chem 7: 05/07/21 04:43 05/07/21 04:42 Labs: 05/01/21 [place] upper GI w gastrografin Stat US venous duplex LE BI Routine 05/01/21 00:50 CT abdomen pelvis w con Stat 05/01/21 01:00 0.9 % Sodium Chloride [Ns] 1,000 ml IVCONT 999 mls/hr 05/01/21 01:11 Basic Metabolic Panel Stat Lipase Stat Liver Panel Stat Magnesium Stat 05/01/21 01:12 Complete Blood Count Man Dif Stat 05/01/21 01:37 CT angio chest PE protocol Stat 05/01/21 01:52 ondansetron HCL [Zofran] 4 mg IVPUSH ONCE ONE 05/01/21 02:37 D Dimer Stat 05/01/21 02:39 Drug Screen Urine Stat Ur Preg Test Stat 05/01/21 03:54 iohexoL 350 MG/ML [Omnipaque 350 MG/ML] 65 ml IV ONCE ONE 05/01/21 04:46 Morphine Sulfate 1 mg IVPUSH ONCE ONE ondansetron HCL [Zofran] 4 mg IVPUSH ONCE ONE 05/01/21 04:50 HYDROmorphone HCl [Dilaudid] 0.5 mg IVPUSH Q4H PRN 05/01/21 04:51 NPO Diet 05/01/21 04:56 Add Laboratory Test Stat 05/01/21 05:00 Dextrose 5 % and 0.9 % NaCl [D5ns] 1,000 ml IVCONT 100 mls/hr 05/01/21 05:01 Add Laboratory Test Stat 05/01/21 05:20 Transfer Order Routine 05/01/21 06:43 COVID-19 ID NOW (Aggarwal) Stat 05/01/21 08:00 Basic Metabolic Panel AM Bilirubin Direct Routine Bilirubin Total Routine Complete Blood Count Man Dif Routine Magnesium Routine 0.9 % Sodium Chloride Flush [NS Flush] 3 ml IVFLUSH QSHIFT 0.9 % Sodium Chloride Flush [NS Flush] 3 ml IVFLUSH QSHIFT 0.9 % Sodium Chloride Flush [NS Flush] 3 ml IVFLUSH QSHIFT 05/01/21 09:00 Famotidine/PF [Pepcid/PF] 20 mg IVPUSH BID 05/01/21 09:39 Diatrizoate Meglumine, Sodium [Gastrografin 66-10] 120 ml PO ONCE ONE 05/01/21 10:30 Lactated Ringers [Lr] 1,000 ml IVCONT 150 mls/hr 05/01/21 10:51 Add Laboratory Test Urgent 05/01/21 11:09 Compression Therapy QSHIFT US abdomen limited Urgent 05/01/21 11:30 D Dimer Urgent 05/01/21 13:30 Morphine Sulfate 1 mg IVPUSH Q3H PRN 05/01/21 13:48 Lactic Acid Stat 05/01/21 15:00 Fondaparinux Sodium [Arixtra] 5 mg SUBCUT Q24H 05/01/21 16:34 Morphine Sulfate 2 mg IVPUSH Q3H PRN 05/01/21 18:45 Lactated Ringers [Lr] 1,000 ml IV 999 mls/hr 05/02/21 03:27 ondansetron HCL [Zofran] 4 mg IVPUSH Q8H PRN 05/02/21 03:29 ondansetron HCL [Zofran] 4 mg .ROUTE .STK-MED ONE 05/02/21 05:48 HYDROmorphone HCl [Dilaudid] 0.25 mg IVPUSH ONCE ONE 05/02/21 07:40 Amylase Routine Basic Metabolic Panel DAILY@0500 Complete Blood Count Man Dif Routine D Dimer Routine Lactic Acid Routine Lipase Routine Liver Panel Routine 05/02/21 08:05 Add Laboratory Test Stat 05/02/21 09:00 Potassium Chloride/H20 10 meq in 100 ml IV Q1H 05/02/21 10:42 CT abdomen pelvis wo/w con Stat 05/02/21 11:58 iohexoL 350 MG/ML [Omnipaque 350 MG/ML] 100 ml IV ONCE ONE 05/02/21 12:47 Heparin Sodium,Porcine 8,900 unit IVPUSH ONCE ONE 05/02/21 13:10 PTT Heparin Drip Stat Prothrombin Time INR Stat 05/02/21 15:50 PTT Heparin Drip Stat 05/02/21 19:13 Lactic Acid Stat PTT Heparin Drip Stat 05/02/21 21:52 Lactic Acid Stat PTT Heparin Drip Stat 05/03/21 04:57 Amylase Routine Basic Metabolic Panel Routine Complete Blood Count no Diff Routine Lactic Acid Routine Lipase Routine Liver Panel Routine PTT Heparin Drip Stat Prothrombin Time INR Stat 05/03/21 08:25 Thiamine HCL 200 mg .ROUTE .STK-MED ONE Laboratory Last Values WBC 21.0 X10*3/uL (4.8-10.8) H 05/03/21 04:57 RBC 3.70 X10*6/uL (4.20-5.50) L 05/03/21 04:57 Hgb 11.6 g/dl (12.0-16.0) L 05/03/21 04:57 Hct 32.1 % (37-47) L 05/03/21 04:57 MCV 86.8 fL (80-98) 05/03/21 04:57 MCH 31.4 pg (27.0-33.0) 05/03/21 04:57 MCHC 36.1 g/dl (31.0-35.0) H 05/03/21 04:57 RDW 13.2 % (11.0-16.0) 05/03/21 04:57 Plt Count 240 X10*3/uL (160-400) 05/03/21 04:57 MPV 11.6 fL (9.4-12.3) 05/03/21 04:57 Immature Gran % (Auto) Cancelled 05/02/21 07:40 Neut % (Auto) Cancelled 05/02/21 07:40 Lymph % (Auto) Cancelled 05/02/21 07:40 [place] % (Auto) Cancelled 05/02/21 07:40 Eos % (Auto) Cancelled 05/02/21 07:40 Baso % (Auto) Cancelled 05/02/21 07:40 Lymph # (Auto) Cancelled 05/02/21 07:40 [place] # (Auto) Cancelled 05/02/21 07:40 Eos # (Auto) Cancelled 05/02/21 07:40 Baso # (Auto) Cancelled 05/02/21 07:40 Abs Immat Gran (auto) Cancelled 05/02/21 07:40 Absolute Neuts (auto) Cancelled 05/02/21 07:40 Absolute Nucleated RBC 0.000 X10*3/uL (0.0-0.012) 05/03/21 04:57 Nucleated RBC % (auto) 0.0 /100WBC (0.0-0.2) 05/03/21 04:57 Neutrophils % (Manual) 78 % (45-73) H 05/02/21 07:40 Band Neutrophils % 8 % (3-5) H 05/02/21 07:40 Lymphocytes % (Manual) 9 % (20-40) L 05/02/21 07:40 Monocytes % (Manual) 5 % (2-11) 05/02/21 07:40 Basophils % (Manual) 1 % (0-1) 05/01/21 08:00 Abs Neuts (Manual) 23.0 X10*3/uL (2.2-7.9) H 05/02/21 07:40 Lymphocytes # (Manual) 2.4 X10*3/uL (0.6-4.8) 05/02/21 07:40 Monocytes # (Manual) 1.3 X10*3/uL (0.0-1.2) H 05/02/21 07:40 Basophils # (Manual) 0.2 X10*3/uL (0.0-0.3) 05/01/21 08:00 Platelet Estimate NORMAL (NORMAL) 05/02/21 07:40 Large Platelets PRESENT 05/01/21 08:00 Plt Morphology Comment NORMAL 05/02/21 07:40 RBC Morphology NORMAL 05/02/21 07:40 Spherocytes 2+ (3-5) /OIF 05/01/21 08:00 [place]-Tiro Bodies PRESENT 05/01/21 08:00 [place] Cells 2+ (3-5) /OIF 05/01/21 08:00 Acanthocytes (Spur) 1+ (0-2) /OIF 05/01/21 08:00 PT 17.9 SEC (9.9-13.0) H 05/03/21 04:57 INR 1.6 (0.9-1.1) H 05/03/21 04:57 PTT (Heparin Protocol) 100.4 SEC (53-77.9) H 05/03/21 04:57 D-Dimer 1786 NG/ML 05/02/21 07:40 Sodium 141 mmol/L (135-145) 05/03/21 04:57 Potassium 3.0 mmol/L (3.3-5.1) L 05/03/21 04:57 Chloride 110 mmol/L (96-108) H 05/03/21 04:57 Carbon Dioxide 20 mmol/L (22-29) L 05/03/21 04:57 Anion Gap 14 (12-20) 05/03/21 04:57 BUN 4 mg/dL (9-16) L 05/03/21 04:57 Creatinine 0.50 mg/dL (0.5-1.4) 05/03/21 04:57 Estim Creat Clear Calc 199.3 05/03/21 04:57 Estimated GFR > 60 05/03/21 04:57 Random Glucose 111 mg/dL (60-115) 05/03/21 04:57 Lactic Acid 1.0 mmol/L (0.5-2.0) 05/03/21 04:57 Calcium 7.5 mg/dL (8.4-10.2) L D 05/03/21 04:57 Magnesium 2.1 mg/dL (1.6-2.6) 05/01/21 08:00 Total Bilirubin 1.5 mg/dL (0.0-1.0) H 05/03/21 04:57 Direct Bilirubin 0.6 mg/dL (0.0-0.5) H 05/03/21 04:57 AST 10 U/L (5-31) 05/03/21 04:57 ALT 6 U/L (0-31) 05/03/21 04:57 Alkaline Phosphatase 84 U/L (39-117) 05/03/21 04:57 Total Protein 5.4 g/dL (6.5-8.0) L 05/03/21 04:57 Albumin 2.9 g/dL (3.5-5.0) L 05/03/21 04:57 Amylase 18 U/L (28-100) L 05/03/21 04:57 Lipase 83 U/L (8-78) H 05/03/21 04:57 Urine Color DARK YELLOW 05/01/21 02:39 Urine Appearance CLEAR 05/01/21 02:39 Urine pH 6.0 (5.0-8.0) 05/01/21 02:39 Ur Specific [place] >= 1.030 (1.005-1.025) H 05/01/21 02:39 Urine Protein 2+ MG/DL (NEG-TRACE) H 05/01/21 02:39 Urine Glucose (UA) NEG MG/DL (NEG) 05/01/21 02:39 Urine Ketones >=80 MG/DL (NEG) 05/01/21 02:39 Urine Blood NEG (NEG) 05/01/21 02:39 Urine Nitrite NEG (NEG) 05/01/21 02:39 Ur Leukocyte Esterase NEG (NEG) 05/01/21 02:39 Urine RBC 0-2 /HPF (0) 05/01/21 02:39 Urine WBC 0-2 /HPF (0-4) 05/01/21 02:39 Ur Squamous Epith Cells NONE /LPF 05/01/21 02:39 Amorphous Sediment 1+ /LPF 05/01/21 02:39 Urine Bacteria NONE /LPF 05/01/21 02:39 Granular Casts 0-2 /LPF 05/01/21 02:39 Urine Mucus 2+ /LPF 05/01/21 02:39 Urine Test NEGATIVE (NEGATIVE) 05/01/21 02:39 Urine Opiates Screen Not Detected (Not Detect) 05/01/21 02:39 Urine Fentanyl Screen Not Detected (Not Detect) 05/01/21 02:39 Ur Barbiturates Screen Not Detected (Not Detect) 05/01/21 02:39 Ur Phencyclidine Scrn Not Detected (Not Detect) 05/01/21 02:39 Ur Amphetamines Screen Not Detected (Not Detect) 05/01/21 02:39 U Benzodiazepines Scrn Not Detected (Not Detect) 05/01/21 02:39 Urine Cocaine Screen Not Detected (Not Detect) 05/01/21 02:39 U Marijuana (THC) Screen Not Detected (Not Detect) 05/01/21 02:39 COVID-19 ([facility]) Negative (Negative) 05/01/21 06:43 COVID-19 Clin Com See Note 05/01/21 06:43 - Imaging Radiologist's impression: ITS Impressions Abdomen/Pelvis CT 05/01/21 00:50 IMPRESSION: 1. No evidence of pulmonary embolism. No acute change of chest. 2. Status post sleeve gastrectomy. There is no acute abnormality of the bowel. 3. Mild haziness at the root of the mesentery with subcentimeter lymph nodes in the mesentery and retroperitoneum. No abscess or free fluid. 4. Spleen is absent. Chest CTA 05/01/21 01:37 IMPRESSION: 1. No evidence of pulmonary embolism. No acute change of chest. 2. Status post sleeve gastrectomy. There is no acute abnormality of the bowel. 3. Mild haziness at the root of the mesentery with subcentimeter lymph nodes in the mesentery and retroperitoneum. No abscess or free fluid. 4. Spleen is absent. Venous Duplex 05/01/21 08:30 IMPRESSION: No DVT demonstrated in the bilateral lower extremities. Gastrografin Study 05/01/21 09:35 IMPRESSION: No definite extravasation of contrast identified. Region of narrowing involving the first and second portions of the duodenum which may be related to edema. Abdomen Ultrasound 05/01/21 11:09 IMPRESSION: Gallbladder sludge without evidence to suggest acute cholecystitis. Abdomen/Pelvis CT 05/02/21 10:42 IMPRESSION: New small bowel wall thickening and edema in the left abdomen, edema or engorgement of the small bowel mesentery and [id number] amount of ascites. There is decreased enhancement of the SMV and portal veins compared to other venous structures suggestive of thrombus. Postoperative change following gastric sleeve procedure. There is new fluid seen adjacent to the stomach. No extraluminal air or contrast to confirm a leak, and this may be related to generalized ascites. Absent spleen. Findings were communicated to Johnnie Vasques by telephone on 05/02/2021 at 12:25pm PICC Line Insertion 05/02/21 12:15 IMPRESSION: Right upper extremity PICC line placement. Guidance Ultrasound 05/03/21 12:15 IMPRESSION: Right upper extremity PICC line placement. Abdomen CT 05/06/21 08:00 IMPRESSION: There is improved appearance of the small bowel. Small bowel wall thickening and edema is no longer seen. There is still increased attenuation on noncontrast sequences and lack of enhancement postcontrast of the SMV and portal veins suggestive of thrombus. Interval decrease in ascites. Postoperative changes following gastric sleeve procedure. There is a small amount of fluid seen surrounding the stomach. There is no free air. Assessment and Plan Patient Active problem list reviewed?: Yes (1) Portal vein thrombosis Status: Acute Assessment and plan: 1. This is a 30-year-old woman who developed SMV and portal vein thrombosis after laparoscopic gastric sleeve surgery. Her significant past medical history is splenectomy for Hereditary spherocytosis which is a hypercoagulable state. Venous thromboembolic complications including pulmonary emboli, splenic, portal vein thrombosis and thrombosis of unusual sites is common in patients with HS who undergo splenectomy rather than those patients who do not. However, there is no specific recommendation for thromboprophylaxis for such patients other than standard prophylaxis depending on surgery. Today patient is feeling better. Her abdominal pain has improved. Leukocytosis is coming down. She is on heparin. She can be switched to Lovenox 1 mg/kg b.i.d.. Start warfarin when cleared by surgery. Follow-up with [facility] for INR monitoring and hematology clinic. Thank you. - Time Spent With Patient Time Spent with Patient (in minutes): 10
[2021-05-07 10:37] LABS: Hematocrit 34.5 % (37-47); Hemoglobin 11.7 g/dl (12.0-16.0); Mean Corpuscular HGB Conc 33.9 g/dl (31.0-35.0); Mean Corpuscular Hemoglobin 31.2 pg (27.0-33.0); Mean Platelet Volume 11.4 fL (9.4-12.3); Platelet Count 363 X10*3/uL (160-400); Red Blood Count 3.75 X10*6/uL (4.20-5.50); Red Cell Distribution Width 14.1 % (11.0-16.0); White Blood Count 11.6 X10*3/uL (4.8-10.8)
[2021-05-07 10:43] LABS: INTERNATIONAL NORM RATIO 1.4 (0.9-1.1); Prothrombin Time 16.5 SEC (9.9-13.0)
[2021-05-07 10:59] LABS: Partial Thromboplastin Time 72.7 SEC (24.1-38.0)
[2021-05-07 11:30] VITALS: BP 125/74; PULSE 84; RESP 18; TEMP 36.1; O2SAT 98
[2021-05-07 11:33] VITALS: BMI 42.2
[2021-05-07] MEDS: Enoxaparin Sodium 120 MG/0.8 ML SYRINGE 110 MG SUBCUT ×2 (11:38→23:04)
[2021-05-07] MEDS: levoFLOXacin/D5W 750 MG/150 ML PIGGYBACK 100 MG IV (13:46)
--- NOTE | 2021-05-07 15:12 | MHC.CM.PN ---
CM CONTACTED [facility] TO OBTAIN INFO REGARDING VNA'S WHO WORK WITH TPN DUE TO [facility] AND [facility] NOT BEING ABLE TO ACCEPT PT, PER [facility] THEY ARE CURRENTLY NOT WORKING W/TPN PT'S D/T STAFFING SHORTAGE, 24 REFERRALS PLACED AND NO OFFERS TO ACCEPT PT, PER [facility]IA[facility] CHRISTEN SHE WILL ASSIST W/OBTAINNG VNA FOR PT AND WILL BE IN TOMORROW MORNING FOR TEACH NO TODAY.
[2021-05-07 15:48] VITALS: BP 126/77; PULSE 88; RESP 17; TEMP 36.2; O2SAT 100
[2021-05-07 19:44] VITALS: BP 112/60; PULSE 75; RESP 17; TEMP 36.1; O2SAT 99
[2021-05-07 23:38] VITALS: BP 112/61; PULSE 72; RESP 16; TEMP 36.4; O2SAT 98
[2021-05-08] MEDS: ondansetron HCL 4 MG/2 ML VIAL IVPUSH ×4 (00:16→21:16)
[2021-05-08] MEDS: HYDROmorphone HCl 1 MG/ML SYRINGE 0.25 MG IVPUSH (02:34)
--- NOTE | 2021-05-08 02:40 | MHC.PIE ---
p; pt c/o pain to upper abd, knot like discomfort. note; pt has been c/o this discomfort since 9 am shift. i; prn dilaudid given e; will cont to monitor
[2021-05-08 04:00] VITALS: BP 115/58; PULSE 68; RESP 16; TEMP 36.3; O2SAT 98
[2021-05-08 06:52] LABS: Hematocrit 31.1 % (37-47); Hemoglobin 10.4 g/dl (12.0-16.0); Mean Corpuscular HGB Conc 33.4 g/dl (31.0-35.0); Mean Corpuscular Hemoglobin 31.4 pg (27.0-33.0); Mean Platelet Volume 11.8 fL (9.4-12.3); Platelet Count 339 X10*3/uL (160-400); Red Blood Count 3.31 X10*6/uL (4.20-5.50); Red Cell Distribution Width 14.4 % (11.0-16.0); White Blood Count 11.7 X10*3/uL (4.8-10.8)
[2021-05-08 07:44] VITALS: BP 109/67; PULSE 78; RESP 20; TEMP 36.9; O2SAT 95
[2021-05-08] MEDS: Enoxaparin Sodium 120 MG/0.8 ML SYRINGE 110 MG SUBCUT ×2 (08:57→21:16)
[2021-05-08] MEDS: Sodium Chloride 0.45 % 1,000 ML 75 ML IVCONT ×2 (08:58→21:16)
[2021-05-08] MEDS: 0.9 % Sodium Chloride Flush 3 ML SYRINGE IVFLUSH ×2 (08:58→14:58)
[2021-05-08] MEDS: metroNIDAZOLE/NS 500 MG/100 ML PIGGYBACK 100 MG IV ×2 (08:58→18:15)
[2021-05-08 10:21] LABS: Albumin Level 2.7 g/dL (3.5-5.0); Anion Gap 9 (12-20); Blood Urea Nitrogen 10 mg/dL (9-16); Calcium 8.2 mg/dL (8.4-10.2); Carbon Dioxide 25 mmol/L (22-29); Chloride 109 mmol/L (96-108); Creatinine Clr Calc Pharmacy 168.9; Estimated Glomerular Filt Rate > 60; Glucose Random 114 mg/dL (60-115); Magnesium 2.4 mg/dL (1.6-2.6); Phosphorus 4.6 mg/dL (2.7-4.5); Potassium 4.3 mmol/L (3.3-5.1); Sodium 139 mmol/L (135-145); Triglycerides 43 mg/dL
--- NOTE | 2021-05-08 10:21 | PM.PNGS ---
Subjective Subjective Date of Service: 05/08/21 Interval history: HD # 6 for 30 yo woman with portal vein thrombosis after LSG and remote history of splenectomy. Pt states she is feeling very well now. No nausea or emesis. Last night had a tender area in RUQ which has resolved. SHe is asking about plan for discharge and states that she is giving herself lovenox injectiions without any issues. She wants to know if her home TPN can be cycled so she can move freely during the day. No new complaints. No labs drawn today. 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 She will transition to coumadin therapy once she is able to restart po diet. She will have outpatient CT abd 2 weeks from last study. (2) Portal vein thrombosis: Status: Acute Assessment and Plan: As above (3) Status post laparoscopic sleeve gastrectomy: Status: Acute Assessment and Plan: Pt to remain NPO utnil thrombi resolved. Continue TPN per RD recommendations. Will order nutrition labs for tomorrow morning and discuss changing to 12 hour TPN infusion with XIAO and Dr Pearson. Fall Risk Details Current Medications: Current Medications Generic Name Dose Route Start Last Admin Trade Name Freq PRN Reason Stop Dose Admin Bisacodyl 10 mg 05/03/21 13:11 Bisacodyl 10 Mg Supp.Rect OH DAILY PRN Constipation Enoxaparin Sodium 110 mg 05/07/21 09:45 05/08/21 08:57 Enoxaparin Sodium 120 Mg/0.8 Ml Syringe 1 mg/kg (110 mg) 110 mg SUBCUT Administration Q12H SERGE Hydromorphone HCl 0.25 mg 05/06/21 12:15 05/08/21 02:34 Hydromorphone Hcl 1 Mg/Ml Syringe IVPUSH 0.25 mg Q2H PRN Administration Pain, Severe (Pain Scale 7-10) Protocol Metronidazole 500 mg in 100 mls @ 100 mls/hr 05/02/21 09:00 05/08/21 10:14 Flagyl IV Infused Q8H SERGE Infusion Levofloxacin 750 mg in 150 mls @ 100 mls/hr 05/04/21 14:00 05/07/21 15:36 Levaquin IV Infused Q24H SERGE Infusion Sodium Chloride 1,000 mls @ 75 mls/hr 05/07/21 08:15 05/08/21 08:58 IVCONT 75 mls/hr .[id number] SERGE Administration Multivitamins 10 ml/ Trace 1,999 mls @ 83.33 mls/hr 05/07/21 18:00 05/07/21 18:28 Metals 1 ml/ Amino Acids/ IV 05/08/21 17:59 83.33 mls/hr Electrolytes DAILY@1800 SERGE Administration Lorazepam 0.25 mg 05/02/21 09:08 05/03/21 17:47 Lorazepam 2 Mg/Ml Vial IVPUSH 0.25 mg Q6H PRN Administration Anxiety Metoclopramide HCl 10 mg 05/01/21 11:09 05/05/21 00:16 Metoclopramide Hcl 10 Mg/2 Ml Vial IVPUSH 10 mg Q6H PRN Administration Nausea Ondansetron HCl 4 mg 05/02/21 20:00 05/08/21 08:58 Ondansetron Hcl 4 Mg/2 Ml Vial IVPUSH 4 mg Q6H SERGE Administration Sodium Chloride 3 ml 05/01/21 11:09 05/08/21 08:58 0.9 % Sodium Chloride Flush 3 Ml Syringe IVFLUSH 3 ml QSHIFT SERGE Administration Time Spent With Patient Time: Total time spent is greater than 50% in coordination of care (as documented) at patient's floor/unit and/or counseling patient: Time with patient: 15 - 24 minutes No Severe Sepsis: No Severe Sepsis Quality Stroke Does the patient have a stroke diagnosis?: No VTE Prior VTE?: No VTE Risk Level:: Medical - moderate - high VTE Device Contraindication: N/A - Device Ordered VTE Drug Contraindication: Treatment Not Indicated
[2021-05-08 10:55] LABS: INTERNATIONAL NORM RATIO 1.4 (0.9-1.1); Prothrombin Time 16.4 SEC (9.9-13.0)
--- NOTE | 2021-05-08 11:16 | MHC.CLN ---
F/U TOLERATING CURRENT TPN AT 83.33 ML PER HOUR X 24 HOURS. CONTINUE CURRENT TPN ORDER WITH NO LIPIDS.
[2021-05-08 11:28] VITALS: BP 111/70; PULSE 70; RESP 18; TEMP 37.2; O2SAT 98
--- NOTE | 2021-05-08 12:21 | MHC.CM.PN ---
Addendum entered by Shilpa Clifford RN 05/08/21 14:52: CM CONTACTED [facility]IA[facility] TO RECONSIDER PT WE HAVE HAD NO LUCK OBTAINING A VNA FOR PT, LIAISON WILL CHECK W/DIRECTOR TO SEE OF THEY COULD ACCEPT PT FOR A FEW VISITS AND PT WOULD COME TO [facility] [place] FOR WEEKLY LABS PER CONVERSATION. Original Note: PER SURGICAL PLAN IS TO KEEP PT NPO UNTIL THROMBI RESOLVED, NUTRITION LABS TO BE ORDERED FOR AM, PLAN TO CHANGE TPN TO 12-16HRS, PT WILL NEED TO COME IN TO LAB FOR [facility] LABS, PT MTG W/[facility] FOR TPN TEACH, HOPEFUL THAT PT WILL DO WELL WE HAVE NOT BEEN ABLE TO OBTAIN VNA, PER PT'S NURSE IS DOING WELL W/LOVENOX INJECTIONS. D/C PLAN: ANTICIPATE THURSDAY HOME W/[facility] FOR TPN, [facility] [place] LAB FOR [facility] LABS ON THURSDAYS, REPEAT IMAGING IN 2 WKS, FAMILY FOR TRANSPORT.
--- NOTE | 2021-05-08 12:46 | PM.DS ---
DS: Providers Provider Date of Service: 05/10/21 Date of admission: 05/01/21 05:20 Primary care physician: Shadi Vargas MD Consults: 05/02/21 12:50 Consult to Gastroenterology Stat Consulting Provider: Sukhdeep Morales Reason for consultation: new onset SMV/portal vein thrombosis, sig sm bowel POD 13 sleeve gastretomy Has provider been notified: No Consult to Hematology / Oncology Stat Consulting Provider: Sheri Toure Reason for consultation: new onset SMV/portal vein thrombosis, POD 13 sleeve gastretomy Has provider been notified: No DS: Diagnosis Discharge Diagnosis (1) Superior mesenteric vein thrombosis: Status: Acute (2) Portal vein thrombosis: Status: Acute (3) Status post laparoscopic sleeve gastrectomy: Status: Acute DS: Summary Hospital Course Hospital Course: 30 yo woman underwent LSG and HH repair on 04/19/[address] Cordova at [facility]. 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 Pt was admitted through the ED on 05/01/21 with initial complaints of nausea, emesis and abdominal pain. D Dimer ws > [address] abd/CTA chest were negative for PE and anastomotic leak. CT with vascular contrast on 05/02 revealed portal vein and SMV vein thrombi. Pt was immediately placed on heparin drip. GI and Hematology consults were appreciated. Patient had a PICC placed and TPN was started. Patient had repeat CT which showed no further clot formation. Patient was transitioned to therapeutic lovenox on HD #6 and remained asymptomatic until discharge. She will be discharged home on TPN, with [facility] following her. She will remain NPO until no further thrombi seen on CT. She is scheduled for outpatient CT abd in 2 weeks. She will continue on therapeutic lovenox bbid. Time Spent with Patient Time attestation: Total time spent providing and/or coordinating discharge services: Discharge coordination time: Greater than 30 minutes Quality: Stroke Does the patient have a stroke diagnosis?: No Physical Exam Vital Signs: Vital Signs: Last Vital Signs Temp 98.9 F 05/08/21 11:28 Pulse 70 05/08/21 11:28 Resp 18 05/08/21 11:28 BP 111/70 05/08/21 11:28 Pulse Ox 98 05/08/21 11:28 Body Mass Index 42.2 DS: Data Data Completed and Pending Completed studies during hospitalization [Text1]: Procedures Excision of Stomach, Percutaneous Endoscopic Approach, Vertical (04/19/21) Repair Diaphragm, Percutaneous Endoscopic Approach (04/19/21) Labs on day of discharge: Laboratory Results - last 24 hr 05/08/21 05/08/21 05/08/21 06:12 06:12 07:59 WBC 11.7 H RBC 3.31 L Hgb 10.4 L Hct 31.1 L MCV 94.0 MCH 31.4 MCHC 33.4 RDW 14.4 Plt Count 339 MPV 11.8 Absolute Nucleated RBC 0.000 Nucleated RBC % (auto) 0.0 PT 16.4 H INR 1.4 H Sodium 139 Potassium 4.3 Chloride 109 H Carbon Dioxide 25 Anion Gap 9 L BUN 10 Creatinine 0.59 Estim Creat Clear Calc 168.9 Estimated GFR > 60 Random Glucose 114 Calcium 8.2 L Phosphorus 4.6 H Magnesium 2.4 Albumin 2.7 L Triglycerides 43 Discharge Plan Discharge Anticipated Discharge Date/Time: 05/10/21 12:00 Patient Disposition: Home Health Service Discharge Diagnosis: portal vein and SMV thrombi s/p sleeve gastrectomy Referrals: [facility] [Other] - 1 Day (TPN DELIVERY ) Jennifer [facility]ON[facility] [Outside] - 1 Day (NURSE WILL START TODAY AT 4PM FOR MANAGEMENT OF TPN AND WEEKLY LABS EVERY THURSDAY ) Shadi Vargas MD [Primary Care Provider] - 1 Week Discharge Medications: New enoxaparin 120 mg/0.8 mL Syringe 110 mg subcut Q12H Qty: 30 RF: 0 enoxaparin [Lovenox] 100 mg/mL syringe 110 mg subcut Q12H Qty: 30 RF: 2 heparin flush(porcine)-0.9NaCl 100 unit/mL kit 10 unit IV DAILY Qty: 10 RF: 3 Discontinued vitamin A 10,000 unit capsule 2 cap PO DAILY RF: 0 acetaminophen [Tylenol Extra Strength] 500 mg tablet 1,000 mg PO Q6H PRN (Reason: pain) Qty: 30 RF: 1 famotidine [Pepcid AC] 20 mg tablet 20 mg PO DAILY Qty: 30 RF: 1 simethicone [Gas Relief (simethicone)] 80 mg tablet,chewable 80 mg PO TID-QID PRN (Reason: abdominal distention) Qty: 30 RF: 1 ondansetron HCl [Zofran] 4 mg tablet 4 mg PO Q6H PRN (Reason: nausea and vomiting) Qty: 30 RF: 1 docusate sodium [Colace] 100 mg capsule 100 mg PO BID Qty: 30 RF: 1 Discharge Orders: Discharge Order (Routine); Ordered 05/10/21 Ordered By: Jessica Womack Diet: other Activity on Discharge: No heavy lifting Stand Alone Forms: Patient Portal Discharge page Care Plan Goals: weight loss and resolution of thrombi Health Concerns: portal vein and SMV thrombi Plan of Treatment: Pt being discharged NPO (ice chips OK), with cycled TPN. Will continue loveneox injections q 12h. Will have repeat abd CT in 2 weeks and office visit with Dr Pearson on the same day. [place] labs to be drawn weekly, next se on 05/15/21. Assessment: stable with thrombi, s/p LSG
[2021-05-08] MEDS: levoFLOXacin/D5W 750 MG/150 ML PIGGYBACK 100 MG IV (14:58)
--- NOTE | 2021-05-08 15:14 | MHC.CM.PN ---
Addendum entered by Shilpa Clifford RN 05/08/21 16:08: CM CONTACTED [facility] LIAISON CHRISTEN AT 1600 , PER CHRISTEN THEY DO NOT HAVE A NURSE AVAILABLE AT THIS TIME EITHER HOWEVER WILL STILL BE IN TOMORROW MORNING FOR TEACH AND TO ASSESS IF PT CAN BE INDEPENDENT W/TPN. Addendum entered by Shilpa Clifford RN 05/08/21 15:59: CM CONTACTED LICHA FROM [facility] AND THEY ARE NOT ABLE TO ACCEPT PT, [facility] NOTIFIED VIA [employer]. Original Note: CM CONTACTED [facility] LIAISON AT 3:10PM [phone], AFTER PT REPORTED SHE HADN'T SEEN HER YET, PER LIAISON SHE WILL BE HERE IN AM W/PLAN TO DISCHARGE TOMORROW, PER LIAISON HER LINE CAMERA OPERATOR IS IN [place] AND ARE DISCUSSING PT'S CASE AND THERE IS A POSSIBILITY THEY MAY BE ABLE TO USE AN [facility] NURSE FROM [place] FOR PT IF [facility] IS UNABLE TO SEE PT. PLEASE FAX 05/09 LABS AND NEW TPN ORDERS FOR 12HRS-16HRS NOT 24HRS IN AM AND [facility] WILL POPULATE FORM FOR PROVIDER TO SIGN.
[2021-05-08 15:30] VITALS: BP 121/71; PULSE 73; RESP 18; TEMP 36.7; O2SAT 98
[2021-05-08 19:42] VITALS: BP 131/83; PULSE 88; RESP 18; TEMP 36.3; O2SAT 99
[2021-05-08 23:54] VITALS: BP 96/60; PULSE 76; RESP 18; TEMP 36.4; O2SAT 97
[2021-05-09] MEDS: metroNIDAZOLE/NS 500 MG/100 ML PIGGYBACK 100 MG IV ×3 (00:52→17:26)
[2021-05-09] MEDS: ondansetron HCL 4 MG/2 ML VIAL IVPUSH ×4 (00:52→19:57)
[2021-05-09 03:48] VITALS: BP 108/65; PULSE 87; RESP 18; TEMP 36.2; O2SAT 98
[2021-05-09 06:51] LABS: Basophils Percent Auto 0.5 % (0-2); Eosinophils Absolute Auto 0.4 X10*3/uL (0.0-0.4); Eosinophils Percent Auto 4.2 % (0-4); Hematocrit 33.5 % (37-47); Hemoglobin 11.1 g/dl (12.0-16.0); Imm Gran Abs Auto 0.23 X10*3/uL (0.00-0.03); Imm Gran Pct Auto 2.7 % (0.0-0.4); Lymphocytes Absolute Auto 2.7 X10*3/uL (1.2-4.9); Lymphocytes Percent Auto 31.2 % (20-40); MANUAL DIFF FLAG SCAN; Mean Corpuscular HGB Conc 33.1 g/dl (31.0-35.0); Mean Corpuscular Hemoglobin 31.2 pg (27.0-33.0); Mean Corpuscular Volume 94.1 fL (80-98); Mean Platelet Volume 11.9 fL (9.4-12.3); Monocytes Absolute Auto 1.6 X10*3/uL (0.1-1.2); Monocytes Percent Auto 18.4 % (2-11); Neutrophils Absolute Auto 3.7 X10*3/uL (2.0-8.3); Platelet Count 358 X10*3/uL (160-400); Red Blood Count 3.56 X10*6/uL (4.20-5.50); Red Cell Distribution Width 14.4 % (11.0-16.0); SCAN SMEAR FLAG 1; White Blood Count 8.7 X10*3/uL (4.8-10.8)
[2021-05-09 07:14] LABS: SLIDE REVIEW VERIFIED
[2021-05-09 07:18] LABS: Alanine Aminotransferase 12 U/L (0-31); Albumin Level 2.7 g/dL (3.5-5.0); Alkaline Phosphatase 65 U/L (39-117); Anion Gap 10 (12-20); Aspartate Amino Transferase 30 U/L (5-31); Bilirubin Total 1.3 mg/dL (0.0-1.0); Blood Urea Nitrogen 10 mg/dL (9-16); Calcium 8.3 mg/dL (8.4-10.2); Carbon Dioxide 26 mmol/L (22-29); Chloride 108 mmol/L (96-108); Creatinine Clr Calc Pharmacy 166.1; Estimated Glomerular Filt Rate > 60; Glucose Random 111 mg/dL (60-115); Magnesium 2.6 mg/dL (1.6-2.6); Phosphorus 4.4 mg/dL (2.7-4.5); Potassium 4.6 mmol/L (3.3-5.1); Sodium 139 mmol/L (135-145); Total Protein 5.5 g/dL (6.5-8.0)
[2021-05-09 07:30] LABS: Cholesterol 74 mg/dL; HDL Cholesterol 20 mg/dL; LDL Cholesterol Calculated 44 mg/dl; Triglycerides 50 mg/dL
[2021-05-09 07:44] VITALS: BP 115/64; PULSE 75; RESP 20; TEMP 36.2
[2021-05-09] MEDS: 0.9 % Sodium Chloride Flush 3 ML SYRINGE IVFLUSH ×3 (07:58→19:57)
--- NOTE | 2021-05-09 08:55 | MHC.CM.PN ---
Addendum entered by Carmella Fishman 05/09/21 14:33: CM INFORMED [facility] WILL ACCEPT REFERRAL HOWEVER THEY ARE UNABLE TO SEE PT TOMORROW SO SHE WILL NEED TO BE HELD. PT WILL BE DISCHARGED TOMORROW MORNING @ 0700 HOURS WITH [facility] AND [facility]. Addendum entered by Carmella Fishman 05/09/21 13:51: CM CALLED [facility] ([phone]) AND INFORMED THEM PT WOULD LIKELY ONLY NEED A COUPLE OF TEACHINGS AND FOLLOW UP LABS SHE WILL LIKELY BE ABLE TO MANAGE TPN ON HER OWN. CM SPOKE TO GA WHO REQUESTED PTS CLINICALS BE SENT VIA FAX FOR HER REVIEW. SHE WILL CALL CM BACK ONCE SHE HAS DETERMINED THEIR ABILITY TO PROVIDE SERVICES. SUJATHA ALSO FAXED A REFERRAL TO [facility] AND WILL FAX REFERRALS TO [facility] AND ALLIED IF THE FIRST TWO CANNOT ACCEPT. Addendum entered by Carmella Fishman 05/09/21 12:27: CM SPOKE TO [facility] LIAISON. PHARMACIST WILL NOT FILL PTS TPN ORDERS UNLESS SHE HAS A VNA IN PLACE FOR TEACHINGS AND FOLLOW UP LABS. PTS REFERRAL HAS BEEN SENT TO 26 VN AGENCIES AND NONE ARE ABLE TO ACCEPT MOST DO NOT PROVIDE TPN SERVICES AND OTHERS ARE AT CAPACITY. [facility] LIAISON INDICATED SHE WOULD CONTACT SOME OF THE AGENCIES THEY WORK WITH TO DETERMINE IF ANY ARE ABLE TO RECONSIDER. CM ALSO RESENT REFERRAL TO ALL AREA AGENCIES CONTRACTED WITH PTS INSURANCE. Original Note: UPDATES SENT TO [facility]. PER SUJATHA NOTES, [facility] NURSE WILL BE IN THIS MORNING TO PROVIDE A TEACHING TO THE PT. SUJATHA HAS NOT BEEN ABLE TO SECURE VNA SERVICES FOR THE PT MOST TO NOT MANAGE TPN AND OTHERS ARE AT CAPACITY. ONCE TEACHING IS PROVIDED, IT WILL BE DETERMINED IF THE PT WILL BE ABLE TO SELF MANAGE THE TPN. PT WILL ALSO BE DISCHARGED ON LOVENOX. LOVENOX ADMINISTRATION WILL ALSO BE TAUGHT TO PT PRIOR TO DC. CURRENT DC PLAN IS HOME WITH [facility] FOR TPN DELIVERY.
[2021-05-09] MEDS: Sodium Chloride 0.45 % 1,000 ML 75 ML IVCONT ×2 (09:03→21:44)
[2021-05-09] MEDS: Enoxaparin Sodium 120 MG/0.8 ML SYRINGE 110 MG SUBCUT ×2 (09:04→21:41)
--- NOTE | 2021-05-09 09:22 | PM.PNGS ---
Subjective Subjective Date of Service: 05/09/21 Interval history: This is a 30-year-old lady being treated with anticoagulation for mesenteric vein thrombosis status post sleeve gastrectomy 20 days ago. Patient clinically has improved she has no nausea no vomiting. She has mild right upper quadrant soreness when she walks or turns over in bed which is a sign of a musculoskeletal etiology. Patient has had laboratory values today that are within normal limits including a normal white blood cell count. Patient's bilirubin is at baseline. There are no overnight events. Patient received teaching to administer her TPN for when she is discharged home today. Physical Exam Vital Signs: Vital Signs: Last Vital Signs Temp 97.1 F 05/09/21 07:44 Pulse 75 05/09/21 07:44 Resp 20 05/09/21 07:44 BP 115/64 05/09/21 07:44 Pulse Ox 98 05/09/21 03:48 Body Mass Index 42.2 Const: General: cooperative, healthy appearing, comfortable and no acute distress Resp: Effort & Inspection: normal respiratory effort and able to speak in complete sentences GI: Inspection: Yes normal to inspection and Yes incision (Well-healed) Palpation (GI): Soft to palpation, Tenderness to palpation present (GI) (Minimal point tenderness in the right upper quadrant), no guarding and not rigid Extrem: Other: Bilateral lower extremities are soft nontender no edema. Procedures Date of Service Date of Service: 05/09/21 Progress Note: A&P Assessment and plan (1) Superior mesenteric vein thrombosis: Status: Acute Assessment and Plan: This is a 30-year-old lady on postoperative day 20. Status post laparoscopic sleeve gastrectomy after which she developed a superior messing vein thrombosis greater than a week later. Patient has clinically improved since admission. Patient is tolerating Lovenox shots for anticoagulation. She remains NPO because there is a small fluid collection at the GE junction although there has not been any documentation of a leak. Patient will continue to be NPO for at least the next couple of weeks and to we can document reconstitution of the mesenteric veins on CT scan. The patient will be discharged home today to have cycle TPN at night for 12 hours time frame. Patient will continue being NPO and will receive Lovenox shots 110 mg subcutaneously twice daily. Patient will have weekly lab values so that we can adjust TPN as needed for nutritional support. Patient will follow-up with our office in 2 weeks time frame to have an outpatient CT scan to evaluate the mesenteric vessels at this point. Patient be discharged home today. Fall Risk Details Current Medications: Current Medications Generic Name Dose Route Start Last Admin Trade Name Freq PRN Reason Stop Dose Admin Bisacodyl 10 mg 05/03/21 13:11 Bisacodyl 10 Mg Supp.Rect NC DAILY PRN Constipation Enoxaparin Sodium 110 mg 05/07/21 09:45 05/09/21 09:04 Enoxaparin Sodium 120 Mg/0.8 Ml Syringe 1 mg/kg (110 mg) 110 mg SUBCUT Administration Q12H SERGE Hydromorphone HCl 0.25 mg 05/06/21 12:15 05/08/21 02:34 Hydromorphone Hcl 1 Mg/Ml Syringe IVPUSH 0.25 mg Q2H PRN Administration Pain, Severe (Pain Scale 7-10) Protocol Metronidazole 500 mg in 100 mls @ 100 mls/hr 05/02/21 09:00 05/09/21 08:59 Flagyl IV Infused Q8H SERGE Infusion Levofloxacin 750 mg in 150 mls @ 100 mls/hr 05/04/21 14:00 05/08/21 17:12 Levaquin IV Infused Q24H SEGRE Infusion Sodium Chloride 1,000 mls @ 75 mls/hr 05/07/21 08:15 05/09/21 09:03 IVCONT 75 mls/hr .[id number] SERGE Administration Multivitamins 10 ml/ Trace 2,000 mls @ 83.333 mls/hr 05/08/21 18:00 05/08/21 18:15 Metals 1 ml/ Amino Acids/ IV 05/09/21 17:59 83.33 mls/hr Electrolytes DAILY@1800 SERGE Administration Lorazepam 0.25 mg 05/02/21 09:08 05/03/21 17:47 Lorazepam 2 Mg/Ml Vial IVPUSH 0.25 mg Q6H PRN Administration Anxiety Metoclopramide HCl 10 mg 05/01/21 11:09 05/05/21 00:16 Metoclopramide Hcl 10 Mg/2 Ml Vial IVPUSH 10 mg Q6H PRN Administration Nausea Ondansetron HCl 4 mg 05/02/21 20:00 05/09/21 07:58 Ondansetron Hcl 4 Mg/2 Ml Vial IVPUSH 4 mg Q6H SERGE Administration Sodium Chloride 3 ml 05/01/21 11:09 05/09/21 07:58 0.9 % Sodium Chloride Flush 3 Ml Syringe IVFLUSH 3 ml QSHIFT SERGE Administration Time Spent With Patient Time: Total time spent is greater than 50% in coordination of care (as documented) at patient's floor/unit and/or counseling patient: Time with patient: less than 15 minutes Quality Stroke Does the patient have a stroke diagnosis?: No VTE Prior VTE?: No VTE Risk Level:: Medical - moderate - high VTE Device Contraindication: N/A - Device Ordered VTE Drug Contraindication: Treatment Not Indicated
--- NOTE | 2021-05-09 11:14 | MHC.CLN ---
F/U TOLERATING CURRENT TPN AT 83.33 ML PER HOUR X 24 HOURS PROVIDES 1420KCALS (26KCALS/KG)BASED ON IBW, 100G PROTEIN (1.83G/KG BASED ON IBW). DISCUSSED WITH PHARMACY CONTINUE CURRENT TPN ORDER WITH NO LIPIDS REPLETE LYTES NEEDED
[2021-05-09 11:20] VITALS: BP 113/71; PULSE 80; RESP 18; TEMP 36.2; O2SAT 99
[2021-05-09] MEDS: levoFLOXacin/D5W 750 MG/150 ML PIGGYBACK 100 MG IV (13:17)
[2021-05-09 16:00] VITALS: BP 123/73; PULSE 65; RESP 14; TEMP 36.3; O2SAT 100
[2021-05-09 19:46] VITALS: BP 120/81; PULSE 81; RESP 14; TEMP 36.8; O2SAT 99
[2021-05-09 23:49] VITALS: BP 106/52; PULSE 87; RESP 16; TEMP 37.1; O2SAT 96
[2021-05-10] MEDS: ondansetron HCL 4 MG/2 ML VIAL IVPUSH ×2 (01:30→09:43)
[2021-05-10] MEDS: metroNIDAZOLE/NS 500 MG/100 ML PIGGYBACK 100 MG IV ×2 (01:30→09:42)
--- NOTE | 2021-05-10 03:02 | PC.NURSE ---
Late entry 05/09/21 1800: [facility] in to review TPN for home discharge. Reviewed with Teresita how to administer TPN via PICC per our hospital policy. Checklist given by education and training completed by this RN and Teresita. Pt teaching in TPN administration process done as well at the same time. Teresita able to complete steps of the process. Pt able to self administer lovenox injections earlier in the day
[2021-05-10 03:28] VITALS: BP 106/56; PULSE 61; RESP 16; TEMP 37.1; O2SAT 94
[2021-05-10 07:44] VITALS: BP 107/62; PULSE 71; RESP 18; TEMP 37.6; O2SAT 96
--- NOTE | 2021-05-10 08:32 | PM.PNGS ---
Subjective Subjective Date of Service: 05/10/21 Patient reports: no new complaints Interval history: Pt is HD #9 for portal and SMV thrombois, has been stalbe on heparin gtt and has transitioned to lovenox bid. Pt is receiving TPN and has no new complaints. No abdominal pain, nausea or emesis. 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 Patient is stable and will be dischargged home today. She will continue lovenox bid until CT scan reveals complete resolution of the thrombi. Then she will transition to termination clerk coumadin. CT abd been scheduled outpaitne for 2 weeks from last study and patient will be seen in office with Dr Pearson that day. She will remain NPO with ice chips for comfort only, and will continue TPN. Nutrition labs to be drawn at home weekly on . (2) Portal vein thrombosis: Status: Acute Assessment and Plan: see above (3) Status post laparoscopic sleeve gastrectomy: Status: Acute Assessment and Plan: see above (4) History of repair of hiatal hernia: Status: Acute Fall Risk Details Current Medications: Current Medications Generic Name Dose Route Start Last Admin Trade Name Freq PRN Reason Stop Dose Admin Bisacodyl 10 mg 05/03/21 13:11 Bisacodyl 10 Mg Supp.Rect NV DAILY PRN Constipation Enoxaparin Sodium 110 mg 05/07/21 09:45 05/09/21 21:41 Enoxaparin Sodium 120 Mg/0.8 Ml Syringe 1 mg/kg (110 mg) 110 mg SUBCUT Administration Q12H SERGE Hydromorphone HCl 0.25 mg 05/06/21 12:15 05/08/21 02:34 Hydromorphone Hcl 1 Mg/Ml Syringe IVPUSH 0.25 mg Q2H PRN Administration Pain, Severe (Pain Scale 7-10) Protocol Metronidazole 500 mg in 100 mls @ 100 mls/hr 05/02/21 09:00 05/10/21 02:40 Flagyl IV Infused Q8H SERGE Infusion Levofloxacin 750 mg in 150 mls @ 100 mls/hr 05/04/21 14:00 05/09/21 14:49 Levaquin IV Infused Q24H SERGE Infusion Multivitamins 10 ml/ Trace 2,000 mls @ 83.333 mls/hr 05/09/21 18:00 05/09/21 18:04 Metals 1 ml/ Amino Acids/ IV 05/10/21 17:59 83.33 mls/hr Electrolytes DAILY@1800 SERGE Administration Lorazepam 0.25 mg 05/02/21 09:08 05/03/21 17:47 Lorazepam 2 Mg/Ml Vial IVPUSH 0.25 mg Q6H PRN Administration Anxiety Metoclopramide HCl 10 mg 05/01/21 11:09 05/05/21 00:16 Metoclopramide Hcl 10 Mg/2 Ml Vial IVPUSH 10 mg Q6H PRN Administration Nausea Ondansetron HCl 4 mg 05/02/21 20:00 05/10/21 01:30 Ondansetron Hcl 4 Mg/2 Ml Vial IVPUSH 4 mg Q6H SERGE Administration Sodium Chloride 3 ml 05/01/21 11:09 05/09/21 19:57 0.9 % Sodium Chloride Flush 3 Ml Syringe IVFLUSH 3 ml QSHIFT SERGE Administration Time Spent With Patient Time: Total time spent is greater than 50% in coordination of care (as documented) at patient's floor/unit and/or counseling patient: Time with patient: 15 - 24 minutes Quality Stroke Does the patient have a stroke diagnosis?: No VTE Prior VTE?: No VTE Risk Level:: Medical - moderate - high VTE Device Contraindication: N/A - Device Ordered VTE Drug Contraindication: Treatment Not Indicated
--- NOTE | 2021-05-10 08:42 | W.MHC.F2F ---
Service Date Service Date: 05/10/21 Encounter Date of encounter: 05/10/21 Reasons for Services Signs and symptoms assessed: Portal vein and SMV thrombi Reason for residential: other (TPN and lovenox) Overseeing Care: Charlene Pearson Homebound: Leaving the home is medically contraindicated at this time without the asist of a device and/or another person due th the listed conditions above and below. Reason homebound: other (TPN infusion) Certification: Based on the above findings, I certify that this patient is confined to the home and needs intermittent residential care, physical therapy and/or speech therapy, or continues to need occupational therapy. The patient is under my care, and I have initiated the establishment of the plan of care. The patient will be followed by a physician who will periodically review the plan of care.
--- NOTE | 2021-05-10 09:09 | MHC.CM.PN ---
PT DISCHARGING TODAY AFTER 10AM W/[facility] FOR TPN MANAGEMENT & WEEKLY LABS AND [facility] FOR TPN DELIVERY, PT DISCHARGING ON LOVENOX Q12HRS AND PT HAS HAD TEACHING AND HAS BEEN SELF ADMINISTERING SINCE 05/08/21, PT WILL CALL TO ARRANGE TRANSPORT.
[2021-05-10] MEDS: Enoxaparin Sodium 120 MG/0.8 ML SYRINGE 110 MG SUBCUT (09:43)
[2021-05-10] MEDS: 0.9 % Sodium Chloride Flush 3 ML SYRINGE IVFLUSH (09:47)
--- NOTE | 2021-05-10 10:23 | MHC.INPTTRAN ---
1000 Home with PICC line. Getting TPN Understands basics if administration Understands to remain NPO. Getting lovenox injections, able to administer herself. Denies significant pain. Ambulating. Lungs clear.
--- NOTE | 2021-05-10 14:11 | MHC.CM.PN ---
SUJATHA received call that [facility] nurse(s) were concerned because they expected another teach from [facility] in pt's home, CM contacted [facility] Liaison to follow-up and suggest a virtual/tele teach. Mariela from [facility] called CM back at 1:59pm and reported she spoke w/pt's intake nurse from [facility] and reported Teresita reports she felt great about the teach she had at bedside on 05/09, Teresita and Pt had teach/review together and both were confident. Teresita did not feel another teach was necessary and has contact for for [facility] nursing support if any issues arise. Mariela did report there would be 2 other nurses at pt's home today and Teresita was fine w/teaching/reviewing TPN with them. [facility] was also provided w/extensive educational information from [facility] pharmacy.
== END 2021-05-10 12:52 | disposition home health service (06) | DRG 206 ==
LOC: HO.ED 05:00 → HO.EDOVER 06:00 → HO.S3 09:09
PROVIDERS: Hospitalist; Internal Medicine; Physician Assistant Surgical; Surgery; Admitting Provider Physician Assistant; Emergency Provider Emergency Medicine; PCP Internal Medicine; Visit Provider Surgery
DX: I97.89 Other postprocedural complications and disorders of the circulatory system, not elsewhere classified (principal); K55.059 Acute (reversible) ischemia of intestine, part and extent unspecified; I81 Portal vein thrombosis; D58.0 Hereditary spherocytosis; D72.829 Elevated white blood cell count, unspecified; Z87.891 Personal history of nicotine dependence; R18.8 Other ascites; Z98.84 Bariatric surgery status; Z20.822 Contact with and (suspected) exposure to COVID-19; Z79.899 Other long term (current) drug therapy
CPT/HCPCS: 36415; 36573; 71275; 74170; 74177; 74178; 74240; 76705; 76937; 80048; 80053; 80061; 80076; 80307; 81001; 81025; 82040; 82150; 82247; 82248; 83605; 83690; 83735; 84100; 84478; 85007; 85025; 85027; 85379; 85610; 85730; 87635; 93970; 96361; 96374; 96375; 96376; 99285; C1751; J1170; J1642; J1650; J1652; J1956; J2060; J2270; J2405; J2765; J3411; J3475; Q9967

== ENCOUNTER 2021-05-15 16:57 | Outpatient (REF) | payer MEDICAID, SELFPAY ==
[2021-05-15 17:01] LABS: MANUAL DIFF FLAG NO
[2021-05-15 17:10] LABS: Basophils Absolute Auto 0.1 X10*3/uL (0.0-0.2); Basophils Percent Auto 0.5 % (0-2); Eosinophils Absolute Auto 0.3 X10*3/uL (0.0-0.4); Eosinophils Percent Auto 2.6 % (0-4); Hematocrit 36.2 % (37-47); Hemoglobin 12.1 g/dl (12.0-16.0); Imm Gran Abs Auto 0.03 X10*3/uL (0.00-0.03); Imm Gran Pct Auto 0.3 % (0.0-0.4); Lymphocytes Percent Auto 39.3 % (20-40); Mean Corpuscular HGB Conc 33.4 g/dl (31.0-35.0); Mean Corpuscular Hemoglobin 31.4 pg (27.0-33.0); Mean Platelet Volume 12.5 fL (9.4-12.3); Monocytes Absolute Auto 0.8 X10*3/uL (0.1-1.2); Monocytes Percent Auto 8.3 % (2-11); Platelet Count 316 X10*3/uL (160-400); Red Blood Count 3.85 X10*6/uL (4.20-5.50); Red Cell Distribution Width 14.4 % (11.0-16.0); White Blood Count 10.1 X10*3/uL (4.8-10.8)
[2021-05-15 17:26] LABS: Alanine Aminotransferase 24 U/L (0-31); Albumin Level 3.5 g/dL (3.5-5.0); Alkaline Phosphatase 91 U/L (39-117); Anion Gap 12 (12-20); Aspartate Amino Transferase 26 U/L (5-31); Bilirubin Direct 0.9 mg/dL (0.0-0.5); Bilirubin Total 2.4 mg/dL (0.0-1.0); Blood Urea Nitrogen 13 mg/dL (9-16); Calcium 8.8 mg/dL (8.4-10.2); Carbon Dioxide 23 mmol/L (22-29); Chloride 109 mmol/L (96-108); Estimated Glomerular Filt Rate > 60; Glucose Random 79 mg/dL (60-115); Magnesium 2.2 mg/dL (1.6-2.6); Phosphorus 3.8 mg/dL (2.7-4.5); Potassium 4.1 mmol/L (3.3-5.1); Sodium 140 mmol/L (135-145); Total Protein 6.9 g/dL (6.5-8.0); Triglycerides 97 mg/dL
== END 2021-05-15 16:58 | disposition home or self-care (01) ==
LOC: HO.HVNA 16:57
PROVIDERS: Visit Provider Surgery
DX: K55.069 Acute infarction of intestine, part and extent unspecified (principal)
CPT/HCPCS: 36415; 80053; 82248; 83735; 84100; 84478; 85025

== ENCOUNTER 2021-05-20 14:20 | Outpatient (REF) | payer MEDICAID, SELFPAY ==
[2021-05-20 14:32] LABS: MANUAL DIFF FLAG NO
[2021-05-20 14:37] LABS: Basophils Percent Auto 0.5 % (0-2); Eosinophils Absolute Auto 0.2 X10*3/uL (0.0-0.4); Eosinophils Percent Auto 2.1 % (0-4); Hemoglobin 11.7 g/dl (12.0-16.0); Imm Gran Abs Auto 0.03 X10*3/uL (0.00-0.03); Imm Gran Pct Auto 0.4 % (0.0-0.4); Lymphocytes Absolute Auto 3.5 X10*3/uL (1.2-4.9); Lymphocytes Percent Auto 42.7 % (20-40); Mean Corpuscular HGB Conc 33.4 g/dl (31.0-35.0); Mean Corpuscular Hemoglobin 31.5 pg (27.0-33.0); Mean Corpuscular Volume 94.3 fL (80-98); Mean Platelet Volume 12.7 fL (9.4-12.3); Monocytes Absolute Auto 0.6 X10*3/uL (0.1-1.2); Monocytes Percent Auto 7.9 % (2-11); Neutrophils Absolute Auto 3.8 X10*3/uL (2.0-8.3); Neutrophils Percent Auto 46.4 % (45-73); Platelet Count 304 X10*3/uL (160-400); Red Blood Count 3.71 X10*6/uL (4.20-5.50); Red Cell Distribution Width 14.4 % (11.0-16.0); White Blood Count 8.1 X10*3/uL (4.8-10.8)
[2021-05-20 18:22] LABS: Alanine Aminotransferase 26 U/L (0-31); Albumin Level 3.4 g/dL (3.5-5.0); Alkaline Phosphatase 94 U/L (39-117); Anion Gap 15 (12-20); Aspartate Amino Transferase 24 U/L (5-31); Bilirubin Direct 0.8 mg/dL (0.0-0.5); Bilirubin Total 2.6 mg/dL (0.0-1.0); Blood Urea Nitrogen 14 mg/dL (9-16); Calcium 8.6 mg/dL (8.4-10.2); Carbon Dioxide 20 mmol/L (22-29); Chloride 109 mmol/L (96-108); Estimated Glomerular Filt Rate > 60; Glucose Random 81 mg/dL (60-115); Magnesium 2.2 mg/dL (1.6-2.6); Phosphorus 3.8 mg/dL (2.7-4.5); Potassium 4.2 mmol/L (3.3-5.1); Sodium 140 mmol/L (135-145); Total Protein 6.8 g/dL (6.5-8.0); Triglycerides 68 mg/dL
== END 2021-05-20 14:21 | disposition home or self-care (01) ==
LOC: HO.HVNA 14:20
PROVIDERS: Visit Provider Surgery
DX: K55.069 Acute infarction of intestine, part and extent unspecified (principal)
CPT/HCPCS: 36415; 80053; 82248; 83735; 84100; 84478; 85025

== ENCOUNTER 2021-05-24 10:14 | Outpatient (REF) | payer MEDICAID, SELFPAY ==
--- NOTE | ~2021-05-24 | CT_ITS ---
EXAMINATION: CT ABDOMEN AND PELVIS WITH CONTRAST CLINICAL INFORMATION: Acute infarction of intestine COMPARISON: Previous CT study of the abdomen and pelvis most recent 05/06/2021 TECHNIQUE: Multidetector volumetric images were obtained from the superior aspect of the liver through the pubic symphysis following administration 85 mL of Omnipaque 350 intravenous contrast. Sagittal and coronal reformatted images were obtained on the technologist's workstation. Oral contrast: Yes This CT examination was performed using dose optimization techniques as appropriate, variously including the following: *Automated exposure control *Adjustment of mA and/or kV according to patient size (this includes techniques or standardized protocols for targeted exams where dose is matched to indication/reason for exam; i.e. extremities or head) *Use of iterative reconstruction technique DLP: 631 mGy-cm FINDINGS: LUNG BASES: The visualized lung bases are unremarkable. LIVER, GALLBLADDER, AND BILIARY TREE: The liver is normal in size, shape, and attenuation. No focal hepatic lesion or biliary ductal dilatation is present. There is heterogeneous attenuation in the gallbladder, question representing sludge or possibly vicarious excretion of contrast. No definite gallstones are seen. PANCREAS: Unremarkable. SPLEEN: Absent ADRENAL GLANDS: Unremarkable. KIDNEYS AND URETERS: The kidneys are normal in size, shape, and attenuation. No hydronephrosis, hydroureter, or calculi seen. No perinephric stranding. BLADDER: Unremarkable. GASTROINTESTINAL TRACT: There is diverticulosis of the colon. No evidence of diverticulitis is seen. There is improvement in fat stranding and edema of the small bowel mesentery. Small bowel wall thickening, edema and dilatation appear improved. Bowel is otherwise unremarkable. The appendix is not seen. There are postoperative changes from gastric sleeve procedure. ABDOMINAL WALL: There are postoperative changes to the anterior abdominal wall. There are containing a solid nodules, question related to cutaneous injections. LYMPH NODES: There are small retroperitoneal and small bowel mesentery lymph nodes. There is no ascites. VASCULAR: The SMV and main portal vein are occluded. 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 There are small varices seen PELVIC VISCERA: Unremarkable. OSSEOUS STRUCTURES: Unremarkable. CT/CT abdomen pelvis w con IMPRESSION: Improved small bowel wall thickening, edema and dilatation from prior exams. No evidence of bowel ischemia. 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
[2021-05-24] MEDS: iohexoL 350 MG/ML 100 ML INFUS..BTL IV (10:55)
== END 2021-05-24 10:15 | disposition home or self-care (01) ==
LOC: HO.CT 10:14
PROVIDERS: PCP Internal Medicine; Visit Provider Physician Assistant Surgical
DX: R10.11 Right upper quadrant pain (principal); I81 Portal vein thrombosis; K55.069 Acute infarction of intestine, part and extent unspecified; Z98.84 Bariatric surgery status
CPT/HCPCS: 74177; 99212; Q9967

== ENCOUNTER → 2021-05-27 08:16 | Outpatient (BNVA) | payer MEDICAID, SELFPAY | PROVIDERS: PCP Internal Medicine; Visit Provider Physician Assistant Surgical ==

== ENCOUNTER 2021-05-27 11:42 | Outpatient (REF) | payer MEDICAID, SELFPAY ==
[2021-05-27 11:53] LABS: Basophils Percent Auto 0.5 % (0-2); Eosinophils Absolute Auto 0.2 X10*3/uL (0.0-0.4); Eosinophils Percent Auto 3.6 % (0-4); Hematocrit 33.8 % (37-47); Hemoglobin 11.7 g/dl (12.0-16.0); Imm Gran Abs Auto 0.02 X10*3/uL (0.00-0.03); Imm Gran Pct Auto 0.3 % (0.0-0.4); Lymphocytes Absolute Auto 2.5 X10*3/uL (1.2-4.9); MANUAL DIFF FLAG SCAN; Mean Corpuscular HGB Conc 34.6 g/dl (31.0-35.0); Mean Corpuscular Hemoglobin 32.8 pg (27.0-33.0); Mean Corpuscular Volume 94.7 fL (80-98); Monocytes Absolute Auto 0.6 X10*3/uL (0.1-1.2); Monocytes Percent Auto 9.5 % (2-11); Neutrophils Absolute Auto 3.3 X10*3/uL (2.0-8.3); Neutrophils Percent Auto 49.1 % (45-73); PLT CLUMP 1; Red Blood Count 3.57 X10*6/uL (4.20-5.50); Red Cell Distribution Width 14.6 % (11.0-16.0); SCAN SMEAR FLAG 1
[2021-05-27 12:41] LABS: Alanine Aminotransferase 25 U/L (0-31); Albumin Level 3.4 g/dL (3.5-5.0); Alkaline Phosphatase 92 U/L (39-117); Anion Gap 13 (12-20); Aspartate Amino Transferase 25 U/L (5-31); Bilirubin Direct 0.6 mg/dL (0.0-0.5); Bilirubin Total 1.5 mg/dL (0.0-1.0); Blood Urea Nitrogen 17 mg/dL (9-16); Calcium 8.4 mg/dL (8.4-10.2); Carbon Dioxide 21 mmol/L (22-29); Chloride 108 mmol/L (96-108); Estimated Glomerular Filt Rate > 60; Glucose Random 94 mg/dL (60-115); Magnesium 2.2 mg/dL (1.6-2.6); Phosphorus 4.4 mg/dL (2.7-4.5); Potassium 4.4 mmol/L (3.3-5.1); Sodium 138 mmol/L (135-145); Triglycerides 54 mg/dL
[2021-05-27 14:31] LABS: White Blood Count 6.6 X10*3/uL (4.8-10.8)
[2021-05-27 14:32] LABS: Platelet Count 165 X10*3/uL (160-400)
[2021-05-27 14:35] LABS: SLIDE REVIEW VERIFIED
== END 2021-05-27 11:43 | disposition home or self-care (01) ==
LOC: HO.HVNA 11:42
PROVIDERS: Visit Provider Surgery
DX: K55.069 Acute infarction of intestine, part and extent unspecified (principal)
CPT/HCPCS: 36415; 80053; 82248; 83735; 84100; 84478; 85025

== ENCOUNTER 2021-05-30 09:01 | Outpatient (REF) | payer MEDICAID, SELFPAY ==
[2021-05-30 09:11] LABS: MANUAL DIFF FLAG NO
[2021-05-30 09:25] LABS: Basophils Percent Auto 0.4 % (0-2); Eosinophils Absolute Auto 0.2 X10*3/uL (0.0-0.4); Eosinophils Percent Auto 2.2 % (0-4); Hematocrit 35.3 % (37-47); Hemoglobin 12.1 g/dl (12.0-16.0); Imm Gran Abs Auto 0.03 X10*3/uL (0.00-0.03); Imm Gran Pct Auto 0.4 % (0.0-0.4); Lymphocytes Absolute Auto 2.2 X10*3/uL (1.2-4.9); Lymphocytes Percent Auto 32.3 % (20-40); Mean Corpuscular HGB Conc 34.3 g/dl (31.0-35.0); Mean Corpuscular Hemoglobin 32.2 pg (27.0-33.0); Mean Corpuscular Volume 93.9 fL (80-98); Mean Platelet Volume 11.1 fL (9.4-12.3); Monocytes Absolute Auto 0.9 X10*3/uL (0.1-1.2); Monocytes Percent Auto 12.6 % (2-11); NRBC Pct Auto 0.3 /100WBC (0.0-0.2); Neutrophils Absolute Auto 3.6 X10*3/uL (2.0-8.3); Neutrophils Percent Auto 52.1 % (45-73); Platelet Count 309 X10*3/uL (160-400); Red Blood Count 3.76 X10*6/uL (4.20-5.50); Red Cell Distribution Width 14.6 % (11.0-16.0); White Blood Count 6.8 X10*3/uL (4.8-10.8)
[2021-05-30 09:56] LABS: Appearance Urine CLEAR; Color Urine YELLOW; Glucose Urine UA NEG (NEG); Leukocyte Esterase Urine NEG (NEG); Nitrite Urine NEG (NEG); Specific Gravity - Urine 1.025 (1.005-1.025); Urine Blood NEG (NEG); Urine Ketones >=80 MG/DL (NEG); Urine Protein NEG (NEG-TRACE)
[2021-05-30 10:03] LABS: Alanine Aminotransferase 31 U/L (0-31); Albumin Level 3.5 g/dL (3.5-5.0); Alkaline Phosphatase 107 U/L (39-117); Anion Gap 15 (12-20); Aspartate Amino Transferase 29 U/L (5-31); Bilirubin Total 1.4 mg/dL (0.0-1.0); Blood Urea Nitrogen 11 mg/dL (9-16); Calcium 8.8 mg/dL (8.4-10.2); Carbon Dioxide 21 mmol/L (22-29); Chloride 106 mmol/L (96-108); Cholesterol 126 mg/dL; Estimated Glomerular Filt Rate > 60; Glucose Random 88 mg/dL (60-115); HDL Cholesterol 26 mg/dL; LDL Cholesterol Calculated 86 mg/dl; Magnesium 2.2 mg/dL (1.6-2.6); Phosphorus 3.8 mg/dL (2.7-4.5); Sodium 138 mmol/L (135-145); Total Protein 7.1 g/dL (6.5-8.0); Triglycerides 72 mg/dL
== END 2021-05-30 09:02 | disposition home or self-care (01) ==
LOC: HO.LAB 09:01
PROVIDERS: Physician Assistant; PCP Internal Medicine; Visit Provider Surgery
DX: Z01.818 Encounter for other preprocedural examination (principal); K55.069 Acute infarction of intestine, part and extent unspecified; E66.3 Overweight; Z78.9 Other specified health status; Z98.84 Bariatric surgery status
CPT/HCPCS: 36415; 80053; 80061; 81003; 83735; 84100; 85025

== ENCOUNTER 2021-06-01 07:09 | Outpatient (REF) | payer MEDICAID, SELFPAY ==
[2021-06-01 07:21] LABS: MANUAL DIFF FLAG NO
[2021-06-01 08:01] LABS: Basophils Percent Auto 0.5 % (0-2); Eosinophils Absolute Auto 0.2 X10*3/uL (0.0-0.4); Eosinophils Percent Auto 2.9 % (0-4); Hematocrit 36.1 % (37-47); Hemoglobin 12.4 g/dl (12.0-16.0); Imm Gran Abs Auto 0.02 X10*3/uL (0.00-0.03); Imm Gran Pct Auto 0.3 % (0.0-0.4); Lymphocytes Absolute Auto 1.6 X10*3/uL (1.2-4.9); Lymphocytes Percent Auto 27.7 % (20-40); Mean Corpuscular HGB Conc 34.3 g/dl (31.0-35.0); Mean Platelet Volume 11.7 fL (9.4-12.3); Monocytes Absolute Auto 0.9 X10*3/uL (0.1-1.2); Monocytes Percent Auto 15.8 % (2-11); Neutrophils Absolute Auto 3.1 X10*3/uL (2.0-8.3); Neutrophils Percent Auto 52.8 % (45-73); Platelet Count 341 X10*3/uL (160-400); Red Blood Count 3.88 X10*6/uL (4.20-5.50); Red Cell Distribution Width 14.6 % (11.0-16.0); White Blood Count 5.8 X10*3/uL (4.8-10.8)
[2021-06-01 08:07] LABS: Prothrombin Time 65.4 SEC (9.9-13.0)
[2021-06-01 08:15] LABS: Alanine Aminotransferase 34 U/L (0-31); Albumin Level 3.7 g/dL (3.5-5.0); Alkaline Phosphatase 102 U/L (39-117); Anion Gap 15 (12-20); Aspartate Amino Transferase 37 U/L (5-31); Bilirubin Total 1.1 mg/dL (0.0-1.0); Blood Urea Nitrogen 10 mg/dL (9-16); Calcium 9.2 mg/dL (8.4-10.2); Carbon Dioxide 24 mmol/L (22-29); Chloride 105 mmol/L (96-108); Estimated Glomerular Filt Rate > 60; Glucose Fasting 81 mg/dL (60-99); Magnesium 2.3 mg/dL (1.6-2.6); Phosphorus 3.8 mg/dL (2.7-4.5); Potassium 4.5 mmol/L (3.3-5.1); Sodium 139 mmol/L (135-145); Total Protein 7.3 g/dL (6.5-8.0)
[2021-06-01 08:26] LABS: INTERNATIONAL NORM RATIO 5.5 (0.9-1.1)
== END 2021-06-01 07:10 | disposition home or self-care (01) ==
LOC: HO.LAB 07:09
PROVIDERS: Surgery; PCP Internal Medicine; Visit Provider Physician Assistant Surgical
DX: I81 Portal vein thrombosis (principal); K55.069 Acute infarction of intestine, part and extent unspecified; Z78.9 Other specified health status
CPT/HCPCS: 36415; 80053; 83735; 84100; 85025; 85610

== ENCOUNTER → 2021-06-03 08:04 | Outpatient (BNVA) | payer MEDICAID, SELFPAY | PROVIDERS: PCP Internal Medicine; Visit Provider Physician Assistant Surgical | DX: K55.069 Acute infarction of intestine, part and extent unspecified (principal); I81 Portal vein thrombosis ==

== ENCOUNTER → 2021-06-06 09:08 | Outpatient (BNVA) | payer MEDICAID, SELFPAY | PROVIDERS: PCP Internal Medicine; Visit Provider Surgery | DX: I81 Portal vein thrombosis (principal); K55.069 Acute infarction of intestine, part and extent unspecified; Z98.84 Bariatric surgery status; Z98.890 Other specified postprocedural states; Z87.19 Personal history of other diseases of the digestive system | CPT/HCPCS: 99212 ==

== ENCOUNTER → 2021-06-11 09:53 | Outpatient (BNVA) | payer MEDICAID, SELFPAY | PROVIDERS: PCP Internal Medicine; Visit Provider Internal Medicine | DX: I81 Portal vein thrombosis (principal); K55.069 Acute infarction of intestine, part and extent unspecified; Z51.81 Encounter for therapeutic drug level monitoring; Z79.01 Long term (current) use of anticoagulants | CPT/HCPCS: 85610; 99202 ==

== ENCOUNTER → 2021-06-14 09:09 | Outpatient (BNVA) | payer MEDICAID, SELFPAY | PROVIDERS: PCP Internal Medicine; Visit Provider Internal Medicine | DX: I81 Portal vein thrombosis (principal); K55.069 Acute infarction of intestine, part and extent unspecified; Z51.81 Encounter for therapeutic drug level monitoring; Z79.01 Long term (current) use of anticoagulants | CPT/HCPCS: 85610; 99211 ==

== ENCOUNTER → 2021-06-18 15:31 | Outpatient (BNVA) | payer MEDICAID, SELFPAY | PROVIDERS: PCP Internal Medicine; Visit Provider Internal Medicine | DX: I81 Portal vein thrombosis (principal); K55.069 Acute infarction of intestine, part and extent unspecified; Z51.81 Encounter for therapeutic drug level monitoring; Z79.01 Long term (current) use of anticoagulants | CPT/HCPCS: 85610; 99211 ==

== ENCOUNTER → 2021-06-21 15:43 | Outpatient (BNVA) | payer MEDICAID, SELFPAY | PROVIDERS: PCP Internal Medicine; Visit Provider Internal Medicine | DX: I81 Portal vein thrombosis (principal); K55.069 Acute infarction of intestine, part and extent unspecified; Z51.81 Encounter for therapeutic drug level monitoring; Z79.01 Long term (current) use of anticoagulants | CPT/HCPCS: 85610; 99211 ==

== ENCOUNTER → 2021-06-27 13:21 | Outpatient (BNVA) | payer MEDICAID, SELFPAY | PROVIDERS: PCP Internal Medicine; Visit Provider Internal Medicine | DX: I81 Portal vein thrombosis (principal); K55.069 Acute infarction of intestine, part and extent unspecified; Z51.81 Encounter for therapeutic drug level monitoring; Z79.01 Long term (current) use of anticoagulants | CPT/HCPCS: 85610; 99211 ==

== ENCOUNTER → 2021-07-02 08:04 | Outpatient (BNVA) | payer MEDICAID, SELFPAY | PROVIDERS: PCP Internal Medicine; Visit Provider Dietitian, Registered | DX: E66.01 Morbid (severe) obesity due to excess calories (principal); Z68.41 Body mass index [BMI] 40.0-44.9, adult | CPT/HCPCS: 97803 ==

== ENCOUNTER → 2021-07-03 13:18 | Outpatient (BNVA) | payer MEDICAID, SELFPAY | PROVIDERS: PCP Internal Medicine; Visit Provider Internal Medicine | DX: I81 Portal vein thrombosis (principal); K55.069 Acute infarction of intestine, part and extent unspecified; Z51.81 Encounter for therapeutic drug level monitoring; Z79.01 Long term (current) use of anticoagulants | CPT/HCPCS: 85610; 99211 ==

== ENCOUNTER 2021-07-07 10:06 | Emergency (ER) | payer MEDICAID, SELFPAY ==
--- NOTE | ~2021-07-07 | CT_ITS ---
EXAMINATION: CT ABDOMEN AND PELVIS WITH CONTRAST CLINICAL INFORMATION: Right upper quadrant pain. Portal vein thrombosis. COMPARISON: Multiple prior exams. Most recent CT scan abdomen and pelvis May 24, 2021 TECHNIQUE: Multidetector volumetric images were obtained from the superior aspect of the liver through the pubic symphysis following administration 85 mL of Omnipaque 350 intravenous contrast. Sagittal and coronal reformatted images were obtained on the technologist's workstation. Oral contrast: Administered This CT examination was performed using dose optimization techniques as appropriate, variously including the following: *Automated exposure control *Adjustment of mA and/or kV according to patient size (this includes techniques or standardized protocols for targeted exams where dose is matched to indication/reason for exam; i.e. extremities or head) *Use of iterative reconstruction technique DLP: 828 mGy-cm FINDINGS: LUNG BASES: The visualized lung bases are unremarkable. LIVER, GALLBLADDER, AND BILIARY TREE: The liver is normal in size, shape, and attenuation. No focal hepatic lesion or biliary ductal dilatation is present. The gallbladder is unremarkable with no evidence of radiopaque gallstones, gallbladder wall thickening, or obvious pericholecystic inflammatory changes. PANCREAS: Unremarkable. SPLEEN: Unremarkable. ADRENAL GLANDS: Unremarkable. KIDNEYS AND URETERS: The kidneys are normal in size, shape, and attenuation. No hydronephrosis, hydroureter, or calculi seen. No perinephric stranding. BLADDER: Unremarkable. GASTROINTESTINAL TRACT: Status post gastric surgery. Edema in the mesentery in the upper abdomen and left upper quadrant is continued to improve since prior studies of May 2021. There is still some subtle stranding remaining however around the root of mesentery and the third portion of the duodenum. No acute change of the bowel. No bowel obstruction. No bowel wall thickening or edema. Moderate volume of stool in the colon. The appendix is not visualized. There is no edema in the mesentery. ABDOMINAL WALL: No significant hernia is appreciated. LYMPH NODES: Shotty subcentimeter lymph nodes at the root of the mesentery and a few small lymph nodes in the retroperitoneum adjacent to the aorta and IVC. No bulky lymphadenopathy. VASCULAR: Portal vein thrombosis redemonstrated similar to prior CAT scan of May 24, 2021. 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 PELVIC VISCERA: Unremarkable. OSSEOUS STRUCTURES: Unremarkable. CT/CT abdomen pelvis w con IMPRESSION: 1. Status post gastric sleeve surgery. Continued diminishing edema at the root of the mesentery around the third portion of duodenum compared with prior CAT scans of May 2021. No acute change of the bowel wall. 2. Redemonstration of portal vein thrombosis. Cavernous transformation of the portal vein.
[2021-07-07 10:22] VITALS: BP 121/79; PULSE 75; RESP 18; TEMP 36.1; O2SAT 99; BMI 39.4
--- NOTE | 2021-07-07 10:34 | ED.ABDPAIN ---
HPI - Abdominal Pain General Chief Complaint: Abdominal Pain Stated Complaint: back pain Time Seen by Provider: 07/07/21 10:18 Source: patient Mode of arrival: ambulatory Limitations: no limitations History of Present Illness HPI narrative: Patient has a history of portal vein thrombosis and mesenteric vein thrombosis. Patient had bariatric sleeve surgery in March. The thrombosis developed 05/01. Patient was placed on coumadin and lovenox, patient is still on coumadin. She is concerned that she might have the same. Dr. Prince was her surgeon. Her pain started this morning and has since decreased MD elicited complaint: abdominal pain Pertinent past history: other (Bariatric surgery and blood clots) Onset (ago): hour(s) Pain Consistency: constant Location: RUQ Severity: mild Quality: sharp Migration to: no migration Exacerbating factors: nothing Associated symptoms: denies other symptoms Related Data Home Medications Medication Instructions Recorded Confirmed [id number] 45 mg-folic 1 cap PO DAILY 06/04/21 06/27/21 acid 800 mcg-vit K 120 mcg capsule (Bariatric Multivitamins) calcium carbonate 500 mg calcium 500 mg PO DAILY 07/03/21 07/03/21 (1,250 mg) tablet (Calcium 500) Previous Rx's Medication Instructions Recorded warfarin 2.5 mg tablet 2 tab PO DAILY #60 tab 06/24/21 Allergies Allergy/AdvReac Type Severity Reaction Status Date / Time cefaclor [From Ceclor] Allergy Severe Rash Verified 06/27/21 13:30 dichloralphenazone Allergy Severe Shortness Verified 06/27/21 13:30 [From Midrin] of Breath isometheptene [From Midrin] Allergy Severe Shortness Verified 06/27/21 13:30 of Breath midodrine Allergy Severe Shortness Verified 06/27/21 13:30 of Breath Review of Systems Constitutional: Reports no additional constitutional complaints Eyes: Reports no additional eye complaints Denies dizziness Cardiovascular: Reports no additional cardiovascular complaints Respiratory: Reports as per HPI Gastrointestinal: Reports no additional gastrointestinal complaints Genitourinary: Reports no additional female genitourinary complaints Musculoskeletal: Reports no additional musculoskeletal complaints Skin/Breast: Denies rash Reports system reviewed and no additional complaints, except as documented, Denies dizziness and Denies Sensory deficit (Neuro) Psychiatric: Denies anxiety Physical Exam Vital Signs: Vital Signs: Last Vital Signs Temp 98.5 F 07/07/21 13:39 Pulse 70 07/07/21 13:39 Resp 15 07/07/21 13:39 BP 110/65 07/07/21 13:39 Pulse Ox 98 07/07/21 13:39 Body Mass Index 39.4 Const: General: healthy appearing Nutritional Appearance: average body habitus Orientation/consciousness: oriented to person and patient oriented x3 Limitations: no limitations HENMT: Head: Yes normal to inspection Ears: external ears normal General nose exam: Normal external nose present Mouth: Normal oral and palatal mucosa present and oropharynx normal Throat: Yes posterior oropharynx normal Eyes: General: appearance normal, both eyes and all related structures Neck: Other: supple Neck: Yes normal visual inspection Chest: Chest palpation & inspection: normal inspection of the chest Resp: Auscultation: clear to auscultation bilaterally Cardio: Jugular venous distension: no JVD Rate: regular rate Rhythm: regular rhythm Heart sounds: S1 normal heart sound present and S2 normal heart sound present GI: Other: mild right upper quadrant tenderness Palpation (GI): Tenderness to palpation present (GI) Auscultation: normal bowel sounds : General: Yes no CVA tenderness Back/Spine/Pelvis: Back: no CVA tenderness Skin: General skin exam: no rashes or lesions noted Neuro: General: oriented to person and patient oriented x3 Cranial nerves: Yes CN's II-XII intact bilaterally Motor exam (neuro): 5/5 motor strength present throughout Sensory Exam: No Sensory deficit (Neuro) Extrem: General: Yes normal to inspection Psych: Appearance: grossly normal Course Reevaluation(s) Reevaluation #1: patient with improvement of abd/pelvis CT over time. LFTs with nonobstructive pattern. no evidence of acute event will dc home Time: 15:20 MDM - Abdominal Pain Lab Data Result diagrams: 07/07/21 11:21 07/07/21 11:21 Labs: Lab Results 07/07/21 07/07/21 07/07/21 Range/Units 11:21 11:21 11:21 WBC 11.4 H (4.8-10.8) X10*3/uL RBC 4.72 (4.20-5.50) X10*6/uL Hgb 15.1 (12.0-16.0) g/dl Hct 44.3 (37.0-47.0) % MCV 93.9 (80.0-98.0) fL MCH 32.0 (27.0-33.0) pg MCHC 34.1 (31.0-35.0) g/dl RDW 13.1 (11.0-16.0) % Plt Count 367 (160-400) X10*3/uL MPV 10.7 (9.4-12.3) fL Immature Gran % (Auto) Cancelled Neut % (Auto) Cancelled Lymph % (Auto) Cancelled [place] % (Auto) Cancelled Eos % (Auto) Cancelled Baso % (Auto) Cancelled Lymph # (Auto) Cancelled [place] # (Auto) Cancelled Eos # (Auto) Cancelled Baso # (Auto) Cancelled Abs Immat Gran (auto) Cancelled Absolute Neuts (auto) Cancelled Absolute Nucleated RBC 0.000 (0.0-0.012) X10*3/uL Nucleated RBC % (auto) 0.0 (0.0-0.2) /100WBC Neutrophils % (Manual) 81 H (45-73) % Band Neutrophils % 2 L (3-5) % Lymphocytes % (Manual) 11 L (20-40) % Monocytes % (Manual) 4 (2-11) % Eosinophils % (Manual) 2 (0-4) % Abs Neuts (Manual) 9.5 H (2.0-8.3) X10*3/uL Lymphocytes # (Manual) 1.3 (1.2-4.9) X10*3/uL Monocytes # (Manual) 0.5 (0.1-1.2) X10*3/uL Eosinophils # (Manual) 0.2 (0.0-0.4) X10*3/uL Toxic Vacuolation PRESENT Platelet Estimate NORMAL (NORMAL) Large Platelets PRESENT Plt Morphology Comment NOTED RBC Morphology NOTED Pappenheimer Bodies PRESENT [place] Bodies PRESENT [place] Cells 2+ (3-5) /OIF Acanthocytes (Spur) 1+ (0-2) /OIF PT 30.3 H (9.9-13.0) SEC INR 2.6 H (0.9-1.1) Sodium 141 (135-145) mmol/L Potassium 4.0 (3.3-5.1) mmol/L Chloride 106 (96-108) mmol/L Carbon Dioxide 27 (22-29) mmol/L Anion Gap 12 (12-20) BUN 9 (9-16) mg/dL Creatinine 0.68 (0.5-1.4) mg/dL Estim Creat Clear Calc 141.0 Estimated GFR > 60 Random Glucose 92 (60-115) mg/dL Calcium 9.6 (8.4-10.2) mg/dL Magnesium 2.4 (1.6-2.6) mg/dL Total Bilirubin 1.9 H (0.0-1.0) mg/dL Direct Bilirubin 0.7 H (0.0-0.5) mg/dL AST 38 H (5-31) U/L ALT 34 H (0-31) U/L Alkaline Phosphatase 95 (39-117) U/L Total Protein 8.1 H (6.5-8.0) g/dL Albumin 4.3 (3.5-5.0) g/dL Lipase 21 (8-78) U/L Urine Color Urine Appearance Urine pH (5.0-8.0) Ur Specific [place] (1.005-1.025) Urine Protein (NEG-TRACE) MG/DL Urine Glucose (UA) (NEG) MG/DL Urine Ketones (NEG) MG/DL Urine Blood (NEG) Urine Nitrite (NEG) Ur Leukocyte Esterase (NEG) Urine RBC (0) /HPF Urine WBC (0-4) /HPF Ur Squamous Epith Cells /LPF Urine Bacteria /LPF Urine Test (NEGATIVE) 07/07/21 07/07/21 Range/Units 11:22 11:22 WBC (4.8-10.8) X10*3/uL RBC (4.20-5.50) X10*6/uL Hgb (12.0-16.0) g/dl Hct (37.0-47.0) % MCV (80.0-98.0) fL MCH (27.0-33.0) pg MCHC (31.0-35.0) g/dl RDW (11.0-16.0) % Plt Count (160-400) X10*3/uL MPV (9.4-12.3) fL Immature Gran % (Auto) Neut % (Auto) Lymph % (Auto) [place] % (Auto) Eos % (Auto) Baso % (Auto) Lymph # (Auto) [place] # (Auto) Eos # (Auto) Baso # (Auto) Abs Immat Gran (auto) Absolute Neuts (auto) Absolute Nucleated RBC (0.0-0.012) X10*3/uL Nucleated RBC % (auto) (0.0-0.2) /100WBC Neutrophils % (Manual) (45-73) % Band Neutrophils % (3-5) % Lymphocytes % (Manual) (20-40) % Monocytes % (Manual) (2-11) % Eosinophils % (Manual) (0-4) % Abs Neuts (Manual) (2.0-8.3) X10*3/uL Lymphocytes # (Manual) (1.2-4.9) X10*3/uL Monocytes # (Manual) (0.1-1.2) X10*3/uL Eosinophils # (Manual) (0.0-0.4) X10*3/uL Toxic Vacuolation Platelet Estimate (NORMAL) Large Platelets Plt Morphology Comment RBC Morphology [place] Bodies [place] Bodies Jeff Cells /OIF Acanthocytes (Spur) /OIF PT (9.9-13.0) SEC INR (0.9-1.1) Sodium (135-145) mmol/L Potassium (3.3-5.1) mmol/L Chloride (96-108) mmol/L Carbon Dioxide (22-29) mmol/L Anion Gap (12-20) BUN (9-16) mg/dL Creatinine (0.5-1.4) mg/dL Estim Creat Clear Calc Estimated GFR Random Glucose (60-115) mg/dL Calcium (8.4-10.2) mg/dL Magnesium (1.6-2.6) mg/dL Total Bilirubin (0.0-1.0) mg/dL Direct Bilirubin (0.0-0.5) mg/dL AST (5-31) U/L ALT (0-31) U/L Alkaline Phosphatase (39-117) U/L Total Protein (6.5-8.0) g/dL Albumin (3.5-5.0) g/dL Lipase (8-78) U/L Urine Color YELLOW Urine Appearance CLEAR Urine pH 6.5 (5.0-8.0) Ur Specific [place] 1.010 (1.005-1.025) Urine Protein NEG (NEG-TRACE) MG/DL Urine Glucose (UA) NEG (NEG) MG/DL Urine Ketones 15 (NEG) MG/DL Urine Blood NEG (NEG) Urine Nitrite NEG (NEG) Ur Leukocyte Esterase TRACE H (NEG) Urine RBC 0 (0) /HPF Urine WBC 0-2 (0-4) /HPF Ur Squamous Epith Cells 1+ /LPF Urine Bacteria TRACE /LPF Urine Test NEGATIVE (NEGATIVE) Imaging Data CT scan - abdomen: Radiologist's impression: IMPRESSION: 1. Status post gastric sleeve surgery. Continued diminishing edema at the root of the mesentery around the third portion of duodenum compared with prior CAT scans of May 2021. No acute change of the bowel wall. 2. Redemonstration of portal vein thrombosis. Cavernous transformation of the portal vein.? Discharge Plan Discharge Clinical Impression: Portal vein thrombosis, Superior mesenteric vein thrombosis Abdominal pain Qualifiers: Abdominal location: right upper quadrant Qualified Code(s): R10.11 - Right upper quadrant pain Patient Disposition: Home, Self-Care Instructions: Abdominal Pain (ED) Prescriptions: No Action Bariatric Multivitamins 45 mg iron- 800 mcg-120 mcg Capsule 1 cap PO DAILY RF: 0 warfarin 2.5 mg tablet 2 tab PO DAILY Qty: 60 RF: 3 calcium carbonate [Calcium 500] 500 mg calcium (1,250 mg) tablet 500 mg PO DAILY RF: 0 Referrals: Claudio Mcginnis MD [Physician] - 3 days PMF Past Medical History Medical History BMI 50.0-59.9, adult Depression Hereditary spherocytosis Morbid obesity Portal vein thrombosis Vitamin D deficiency Surgical History History of repair of hiatal hernia Hx of splenectomy Hx of wisdom tooth extraction Status post laparoscopic sleeve gastrectomy Family History Family History Mother Fibromyalgia Hypertension Migraine Depression Degenerative disk disease Sleep apnea Father Hypertension Sleep apnea Brother Spherocytosis Hyperlipidemia Son No problems noted. Daughter No problems noted. Social History Social History Household Members: Family Housing: Apartment Are you a primary respiratory care faculty to a significant other at home: Yes (2 minor children) Do you presently have visiting nurse or other home services: No Unable to assess alcohol history related to: Unknown and Refusing to respond Alcohol intake: former Patient Tobacco Use Status: Former Tobacco user Quit Date: 01/29/2021 Tobacco use type: Cigarette Advance Directives: No Advance Directives Information Provided: No Patient : No service: No Current occupational status: employed
[2021-07-07 11:33] LABS: Hematocrit 44.3 % (37.0-47.0); Hemoglobin 15.1 g/dl (12.0-16.0); Mean Corpuscular HGB Conc 34.1 g/dl (31.0-35.0); Mean Corpuscular Volume 93.9 fL (80.0-98.0); Mean Platelet Volume 10.7 fL (9.4-12.3); Platelet Count 367 X10*3/uL (160-400); Red Blood Count 4.72 X10*6/uL (4.20-5.50); Red Cell Distribution Width 13.1 % (11.0-16.0)
[2021-07-07 11:34] LABS: Appearance Urine CLEAR; Color Urine YELLOW; Glucose Urine UA NEG (NEG); Leukocyte Esterase Urine TRACE (NEG); Nitrite Urine NEG (NEG); PH 6.5 (5.0-8.0); UACC Culture Trigger YES; Urine Blood NEG (NEG); Urine Ketones 15 MG/DL (NEG); Urine Protein NEG (NEG-TRACE)
[2021-07-07 11:35] LABS: WBC ABN SCTR FOR CBC 1
[2021-07-07 11:36] LABS: UPreg QC Valid YES; Urine Pregnancy NEGATIVE (NEGATIVE)
[2021-07-07 11:40] LABS: INTERNATIONAL NORM RATIO 2.6 (0.9-1.1); Prothrombin Time 30.3 SEC (9.9-13.0)
--- NOTE | 2021-07-07 11:45 | PC.NURSE ---
pt was given po contrast by radiology and has started drinking it in preparation for her CTA. pt aware of plan of care. no complaints at this time.
[2021-07-07 11:54] LABS: Alanine Aminotransferase 34 U/L (0-31); Albumin Level 4.3 g/dL (3.5-5.0); Alkaline Phosphatase 95 U/L (39-117); Anion Gap 12 (12-20); Aspartate Amino Transferase 38 U/L (5-31); Bilirubin Direct 0.7 mg/dL (0.0-0.5); Bilirubin Total 1.9 mg/dL (0.0-1.0); Blood Urea Nitrogen 9 mg/dL (9-16); Calcium 9.6 mg/dL (8.4-10.2); Carbon Dioxide 27 mmol/L (22-29); Chloride 106 mmol/L (96-108); Estimated Glomerular Filt Rate > 60; Glucose Random 92 mg/dL (60-115); Lipase 21 U/L (8-78); Magnesium 2.4 mg/dL (1.6-2.6); Sodium 141 mmol/L (135-145); Total Protein 8.1 g/dL (6.5-8.0)
[2021-07-07 11:54] LABS: Bacteria Urine TRACE /LPF; RBC Urine 0 /HPF (0); WBC Urine 0-2 /HPF (0-4)
[2021-07-07 11:55] LABS: Squamous Epithelial Cell Urine 1+ /LPF
[2021-07-07 12:06] LABS: Band Neutrophils Percent 2 % (3-5); Eosinophils Percent Manual 2 % (0-4); Lymphocytes Percent Manual 11 % (20-40); Monocytes Percent Manual 4 % (2-11); Neutrophils Percent Manual 81 % (45-73)
[2021-07-07 12:10] LABS: Acanthocytes 1+ (0-2) /OIF; Burr Cells 2+ (3-5) /OIF; Howell Jolly Bodies PRESENT; Pappenheimer Bodies PRESENT; RBC Morphology NOTED; Toxic Vacuolation PRESENT
[2021-07-07 12:11] LABS: Eosinophils Absolute Manual 0.2 X10*3/uL (0.0-0.4); Large Platelet PRESENT; Lymphocytes Absolute Manual 1.3 X10*3/uL (1.2-4.9); Monocytes Absolute Manual 0.5 X10*3/uL (0.1-1.2); Neutrophils Absolute Manual 9.5 X10*3/uL (2.0-8.3); Platelet Estimate NORMAL (NORMAL); Platelet Morphology Comment NOTED; White Blood Count 11.4 X10*3/uL (4.8-10.8)
--- NOTE | 2021-07-07 12:50 | PC.NURSE ---
pt c/o abdominal pain that started this morning. She stated that the pain has gotten a little better since then. pt reported that she had bariatric sleeve surgery in March, on 05/01 she developed thrombosis. She was placed on lovenox and coumadin, pt still on coumadin. She is concerned that she might have the same problem based on similar symptoms. pt alert and oriented, her vss.
[2021-07-07 13:39] VITALS: BP 110/65; PULSE 70; RESP 15; TEMP 36.9; O2SAT 98
[2021-07-07] MEDS: Barium Sulfate Oral (Vanilla) 450 ML ORAL.SUSP 900 ML PO (13:52)
[2021-07-07] MEDS: iohexoL 350 MG/ML 100 ML INFUS..BTL IV (13:52)
== END 2021-07-07 15:32 | disposition home or self-care (01) ==
PROVIDERS: Emergency Medicine; Emergency Provider Emergency Medicine; PCP Internal Medicine
DX: I81 Portal vein thrombosis (principal); K55.059 Acute (reversible) ischemia of intestine, part and extent unspecified; R10.11 Right upper quadrant pain; Z98.84 Bariatric surgery status; Z79.01 Long term (current) use of anticoagulants
CPT/HCPCS: 36415; 74177; 80048; 80076; 81001; 81025; 83690; 83735; 85007; 85027; 85610; 87086; 99284; Q9967

== ENCOUNTER → 2021-07-09 15:24 | Outpatient (BNVA) | payer MEDICAID, SELFPAY | PROVIDERS: PCP Internal Medicine; Referring Provider Internal Medicine; Visit Provider Physician Assistant Surgical | DX: E66.9 Obesity, unspecified (principal); I81 Portal vein thrombosis; Z68.38 Body mass index [BMI] 38.0-38.9, adult | CPT/HCPCS: 99212 ==

== ENCOUNTER → 2021-07-10 11:29 | Outpatient (BNVA) | payer MEDICAID, SELFPAY | PROVIDERS: PCP Internal Medicine; Visit Provider Internal Medicine | DX: I81 Portal vein thrombosis (principal); K55.069 Acute infarction of intestine, part and extent unspecified; Z51.81 Encounter for therapeutic drug level monitoring; Z79.01 Long term (current) use of anticoagulants | CPT/HCPCS: 85610; 99211 ==

== ENCOUNTER → 2021-07-16 13:07 | Outpatient (BNVA) | payer MEDICAID, SELFPAY | PROVIDERS: PCP Internal Medicine; Visit Provider Internal Medicine | DX: I81 Portal vein thrombosis (principal); K55.069 Acute infarction of intestine, part and extent unspecified; Z51.81 Encounter for therapeutic drug level monitoring; Z79.01 Long term (current) use of anticoagulants | CPT/HCPCS: 85610; 99211 ==

== ENCOUNTER 2021-07-22 07:56 | Outpatient (REF) | payer MEDICAID, SELFPAY ==
--- NOTE | ~2021-07-22 | CT_ITS ---
EXAMINATION: CT ABDOMEN AND PELVIS WITH CONTRAST CLINICAL INFORMATION: Portal vein thrombus. COMPARISON: Previous CT scans most recent July 2021. TECHNIQUE: Multidetector volumetric images were obtained from the superior aspect of the liver through the pubic symphysis following administration 85 mL of Omnipaque 350 intravenous contrast. Sagittal and coronal reformatted images were obtained on the technologist's workstation. Oral contrast: Yes This CT examination was performed using dose optimization techniques as appropriate, variously including the following: *Automated exposure control *Adjustment of mA and/or kV according to patient size (this includes techniques or standardized protocols for targeted exams where dose is matched to indication/reason for exam; i.e. extremities or head) *Use of iterative reconstruction technique DLP: 578 mGy-cm FINDINGS: LUNG BASES: The visualized lung bases are unremarkable. LIVER, GALLBLADDER, AND BILIARY TREE: The liver is normal in size, shape, and attenuation. No focal hepatic lesion or biliary ductal dilatation is present. The gallbladder is unremarkable with no evidence of radiopaque gallstones, gallbladder wall thickening, or obvious pericholecystic inflammatory changes. PANCREAS: Unremarkable. SPLEEN: Surgically removed. ADRENAL GLANDS: Unremarkable. KIDNEYS AND URETERS: The kidneys are normal in size, shape, and attenuation. No hydronephrosis, hydroureter, or calculi seen. No perinephric stranding. BLADDER: Unremarkable. GASTROINTESTINAL TRACT: There is diverticulosis of the colon. Small and large bowel is otherwise unremarkable. There is stranding of the fat in the small bowel mesentery and collateral vessels. This appears unchanged. No bowel wall thickening is seen. The appendix is not seen. There are postsurgical changes from gastric sleeve procedure. No ascites is seen. ABDOMINAL WALL: No significant hernia is appreciated. LYMPH NODES: There are small retroperitoneal and small bowel mesentery lymph nodes. No enlarged lymph nodes are seen. VASCULAR: The main portal vein is occluded with cavernous transformation. The SMV is occluded with small collateral vessels. This is similar to previous exam. Vascular structures are otherwise unremarkable. PELVIC VISCERA: Unremarkable. OSSEOUS STRUCTURES: Unremarkable. CT/CT abdomen pelvis w con IMPRESSION: Stable stranding of the small bowel mesentery. No small bowel wall thickening seen. Occluded main portal vein with cavernous transformation and occluded SMV with collaterals. Postoperative changes from gastric sleeve procedure. Diverticulosis. Absent spleen. Fleischner guidelines were followed.
[2021-07-22] MEDS: iohexoL 350 MG/ML 100 ML INFUS..BTL IV (08:49)
== END 2021-07-22 07:57 | disposition home or self-care (01) ==
LOC: HO.CT 07:56
PROVIDERS: PCP Internal Medicine; Visit Provider Physician Assistant Surgical
DX: I81 Portal vein thrombosis (principal)
CPT/HCPCS: 74177; Q9967

== ENCOUNTER → 2021-07-24 14:13 | Outpatient (BNVA) | payer MEDICAID, SELFPAY | PROVIDERS: PCP Internal Medicine; Visit Provider Internal Medicine | DX: I81 Portal vein thrombosis (principal); K55.069 Acute infarction of intestine, part and extent unspecified; Z51.81 Encounter for therapeutic drug level monitoring; Z79.01 Long term (current) use of anticoagulants | CPT/HCPCS: 85610; 99211 ==

== ENCOUNTER → 2021-08-06 13:11 | Outpatient (BNVA) | payer MEDICAID, SELFPAY | PROVIDERS: PCP Internal Medicine; Visit Provider Internal Medicine | DX: I81 Portal vein thrombosis (principal); K55.069 Acute infarction of intestine, part and extent unspecified; Z51.81 Encounter for therapeutic drug level monitoring; Z79.01 Long term (current) use of anticoagulants | CPT/HCPCS: 85610; 99211 ==

== ENCOUNTER 2021-08-14 15:38 | Outpatient (REF) | payer MEDICAID, SELFPAY ==
[2021-08-14 16:11] LABS: INTERNATIONAL NORM RATIO 2.3 (0.9-1.1); Prothrombin Time 26.3 SEC (9.9-13.0)
[2021-08-14 16:42] LABS: Iron 44 mcg/dL (30-160); Percent Iron Saturation 21 % (15-50); Total Iron Binding Capacity 211 mcg/dL (228-428); Unsaturated Iron Binding 167 ug/dL
[2021-08-14 17:03] LABS: Ferritin 214 ng/mL (10-122); Vitamin D 25-OH Total 38.5 ng/mL (>30)
[2021-08-14 19:48] LABS: Folate 17.6 ng/mL (> or = 4.0); Vitamin B12 928 pg/mL (200-900)
[2021-08-19 07:41] LABS: Zinc 59 mcg/dL (60-130)
[2021-08-21 12:17] LABS: Vitamin B1 <6 nmol/L (8-30)
[2021-08-21 22:15] LABS: Vitamin A 17 mcg/dL (38-98)
== END 2021-08-14 15:39 | disposition home or self-care (01) ==
LOC: HO.LAB 15:38
PROVIDERS: PCP Internal Medicine; Visit Provider Physician Assistant Surgical
DX: E66.9 Obesity, unspecified (principal); K55.069 Acute infarction of intestine, part and extent unspecified; I81 Portal vein thrombosis; Z98.84 Bariatric surgery status
CPT/HCPCS: 36415; 82306; 82607; 82728; 82746; 83540; 84425; 84590; 84630; 85610

== ENCOUNTER → 2021-08-16 15:27 | Outpatient (BNVA) | payer MEDICAID, SELFPAY | PROVIDERS: PCP Internal Medicine; Visit Provider Physician Assistant Surgical | DX: E66.9 Obesity, unspecified (principal); I81 Portal vein thrombosis; Z68.36 Body mass index [BMI] 36.0-36.9, adult | CPT/HCPCS: 99212 ==

== ENCOUNTER → 2021-08-27 10:24 | Outpatient (BNVA) | payer MEDICAID, SELFPAY | PROVIDERS: PCP Internal Medicine; Visit Provider Internal Medicine | DX: K55.069 Acute infarction of intestine, part and extent unspecified (principal); I81 Portal vein thrombosis; Z51.81 Encounter for therapeutic drug level monitoring; Z79.01 Long term (current) use of anticoagulants | CPT/HCPCS: 85610; 99211 ==

== ENCOUNTER → 2021-09-09 08:01 | Outpatient (BNVA) | payer MEDICAID, SELFPAY | PROVIDERS: PCP Internal Medicine; Visit Provider Dietitian, Registered | DX: E66.9 Obesity, unspecified (principal); Z68.35 Body mass index [BMI] 35.0-35.9, adult | CPT/HCPCS: 97803 ==

== ENCOUNTER → 2021-09-10 13:04 | Outpatient (BNVA) | payer MEDICAID, SELFPAY | PROVIDERS: PCP Internal Medicine; Visit Provider Internal Medicine | DX: I81 Portal vein thrombosis (principal); K55.069 Acute infarction of intestine, part and extent unspecified; Z51.81 Encounter for therapeutic drug level monitoring; Z79.01 Long term (current) use of anticoagulants | CPT/HCPCS: 85610; 99211 ==

== ENCOUNTER → 2021-10-01 13:02 | Outpatient (BNVA) | payer MEDICAID, SELFPAY | PROVIDERS: PCP Internal Medicine; Visit Provider Internal Medicine | DX: I81 Portal vein thrombosis (principal); K55.069 Acute infarction of intestine, part and extent unspecified; Z51.81 Encounter for therapeutic drug level monitoring; Z79.01 Long term (current) use of anticoagulants | CPT/HCPCS: 85610; 99211 ==

== ENCOUNTER → 2021-10-15 13:05 | Outpatient (BNVA) | payer MEDICAID, SELFPAY | PROVIDERS: PCP Internal Medicine; Visit Provider Internal Medicine | DX: I81 Portal vein thrombosis (principal); K55.069 Acute infarction of intestine, part and extent unspecified; Z51.81 Encounter for therapeutic drug level monitoring; Z79.01 Long term (current) use of anticoagulants | CPT/HCPCS: 85610; 99211 ==

== ENCOUNTER → 2021-10-18 15:27 | Outpatient (BNVA) | payer MEDICAID, SELFPAY | PROVIDERS: PCP Internal Medicine; Visit Provider Physician Assistant Surgical | DX: E66.9 Obesity, unspecified (principal); K91.2 Postsurgical malabsorption, not elsewhere classified; K55.069 Acute infarction of intestine, part and extent unspecified; Z90.3 Acquired absence of stomach [part of]; Z68.34 Body mass index [BMI] 34.0-34.9, adult | CPT/HCPCS: 99212 ==

== ENCOUNTER 2021-10-26 07:06 | Outpatient (REF) | payer MEDICAID, SELFPAY ==
[2021-10-26 08:03] LABS: Iron 124 mcg/dL (30-160); Percent Iron Saturation 64 % (15-50); Total Iron Binding Capacity 193 mcg/dL (228-428); Unsaturated Iron Binding 69 ug/dL
[2021-10-28 04:15] LABS: Folate 19.4 ng/mL (> or = 4.0); Vitamin B12 608 pg/mL (200-900)
[2021-10-29 16:02] LABS: Zinc 64 mcg/dL (60-130)
[2021-10-30 14:41] LABS: Vitamin B1 41 nmol/L (8-30)
[2021-10-30 15:01] LABS: Vitamin A 18 mcg/dL (38-98)
== END 2021-10-26 07:07 | disposition home or self-care (01) ==
LOC: HO.LAB 07:06
PROVIDERS: PCP Internal Medicine; Visit Provider Physician Assistant Surgical
DX: K91.2 Postsurgical malabsorption, not elsewhere classified (principal); E66.9 Obesity, unspecified; Z90.3 Acquired absence of stomach [part of]
CPT/HCPCS: 36415; 82306; 82607; 82746; 83540; 84425; 84590; 84630

== ENCOUNTER → 2021-10-31 13:02 | Outpatient (BNVA) | payer MEDICAID, SELFPAY | PROVIDERS: PCP Internal Medicine; Visit Provider Internal Medicine | DX: I81 Portal vein thrombosis (principal); K55.069 Acute infarction of intestine, part and extent unspecified; Z51.81 Encounter for therapeutic drug level monitoring; Z79.01 Long term (current) use of anticoagulants | CPT/HCPCS: 85610; 99211 ==

== ENCOUNTER → 2021-11-11 13:06 | Outpatient (BNVA) | payer MEDICAID, SELFPAY | PROVIDERS: PCP Internal Medicine; Visit Provider Internal Medicine | DX: I81 Portal vein thrombosis (principal); K55.069 Acute infarction of intestine, part and extent unspecified; Z51.81 Encounter for therapeutic drug level monitoring; Z79.01 Long term (current) use of anticoagulants | CPT/HCPCS: 85610 ==

== ENCOUNTER → 2021-11-13 08:18 | Outpatient (BNVA) | payer MEDICAID, SELFPAY | PROVIDERS: PCP Internal Medicine; Visit Provider Dietitian, Registered | DX: E66.9 Obesity, unspecified (principal); Z68.33 Body mass index [BMI] 33.0-33.9, adult | CPT/HCPCS: 97803 ==

== ENCOUNTER → 2021-11-22 13:00 | Outpatient (BNVA) | payer MEDICAID, SELFPAY | PROVIDERS: PCP Internal Medicine; Visit Provider Internal Medicine | DX: I81 Portal vein thrombosis (principal); K55.069 Acute infarction of intestine, part and extent unspecified; Z51.81 Encounter for therapeutic drug level monitoring; Z79.01 Long term (current) use of anticoagulants | CPT/HCPCS: 85610; 99211 ==

== ENCOUNTER → 2021-12-05 13:04 | Outpatient (BNVA) | payer MEDICAID, SELFPAY | PROVIDERS: PCP Internal Medicine; Visit Provider Internal Medicine | DX: I81 Portal vein thrombosis (principal); K55.069 Acute infarction of intestine, part and extent unspecified; Z51.81 Encounter for therapeutic drug level monitoring; Z79.01 Long term (current) use of anticoagulants | CPT/HCPCS: 85610; 99211 ==

== ENCOUNTER 2022-01-24 15:28 | Outpatient (REF) | payer MEDICAID, SELFPAY ==
[2022-01-29 20:42] LABS: Vitamin A 21 mcg/dL (38-98)
== END 2022-01-24 15:29 | disposition home or self-care (01) ==
LOC: HO.LAB 15:28
PROVIDERS: PCP Internal Medicine; Visit Provider Physician Assistant Surgical
DX: E66.9 Obesity, unspecified (principal); E50.9 Vitamin A deficiency, unspecified; D58.0 Hereditary spherocytosis
CPT/HCPCS: 36415; 84590; 99212

== ENCOUNTER → 2022-05-02 15:25 | Outpatient (BNVA) | payer MEDICAID, SELFPAY | PROVIDERS: PCP Internal Medicine; Visit Provider Physician Assistant Surgical | DX: E66.9 Obesity, unspecified (principal); Z68.30 Body mass index [BMI] 30.0-30.9, adult; Z98.84 Bariatric surgery status | CPT/HCPCS: 99212 ==

== ENCOUNTER 2022-05-17 07:39 | Outpatient (REF) | payer MEDICAID, SELFPAY ==
[2022-05-17 07:59] LABS: MANUAL DIFF FLAG NO
[2022-05-17 08:49] LABS: Basophils Percent Auto 0.6 % (0-2); Eosinophils Absolute Auto 0.2 X10*3/uL (0.0-0.4); Eosinophils Percent Auto 3.2 % (0-4); Hematocrit 34.8 % (37.0-47.0); Hemoglobin 11.9 g/dl (12.0-16.0); Imm Gran Abs Auto 0.04 X10*3/uL (0.00-0.03); Imm Gran Pct Auto 0.6 % (0.0-0.4); Lymphocytes Absolute Auto 1.7 X10*3/uL (1.2-4.9); Lymphocytes Percent Auto 25.8 % (20-40); Mean Corpuscular HGB Conc 34.2 g/dl (31.0-35.0); Mean Corpuscular Hemoglobin 31.7 pg (27.0-33.0); Mean Corpuscular Volume 92.8 fL (80.0-98.0); Mean Platelet Volume 10.3 fL (9.4-12.3); Monocytes Absolute Auto 0.9 X10*3/uL (0.1-1.2); Neutrophils Absolute Auto 3.7 x10*3/uL (2.0-8.3); Neutrophils Percent Auto 56.8 % (45-73); Platelet Count 339 X10*3/uL (160-400); Red Blood Count 3.75 X10*6/uL (4.20-5.50); Red Cell Distribution Width 12.9 % (11.0-16.0); White Blood Count 6.5 X10*3/uL (4.8-10.8)
[2022-05-17 08:59] LABS: Estimated Average Glucose 82 mg/dL; Hemoglobin A1c % 4.5 %
[2022-05-17 09:30] LABS: Alanine Aminotransferase 16 U/L (0-31); Alkaline Phosphatase 64 U/L (39-117); Anion Gap 14 (12-20); Aspartate Amino Transferase 15 U/L (5-31); Blood Urea Nitrogen 14 mg/dL (9-16); C Reactive Protein 0.38 mg/dL (< or = 0.50); Calcium 9.1 mg/dL (8.4-10.2); Carbon Dioxide 24 mmol/L (22-29); Chloride 107 mmol/L (96-108); Cholesterol 163 mg/dL; Estimated Glomerular Filt Rate > 60; Glucose Random 88 mg/dL (60-115); HDL Cholesterol 59 mg/dL; Iron 199 mcg/dL (30-160); LDL Cholesterol Calculated 97 mg/dl; Potassium 4.5 mmol/L (3.3-5.1); Sodium 140 mmol/L (135-145); Total Iron Binding Capacity < 216 mcg/dL (228-428); Total Protein 7.1 g/dL (6.5-8.0); Triglycerides 35 mg/dL; Unsaturated Iron Binding < 17 ug/dL
[2022-05-17 09:40] LABS: Bilirubin Total 2.9 mg/dL (0.0-1.0)
[2022-05-17 10:12] LABS: Folate 14.6 ng/mL (> or = 4.0); Vitamin B12 530 pg/mL (200-900)
[2022-05-17 10:37] LABS: Ferritin 145 ng/mL (10-122); Insulin 3 uU/mL (2-29); TSH reflex Free T4 1.12 uIU/mL (0.32-4.0)
[2022-05-17 11:07] LABS: Vitamin D 25-OH Total 29.3 ng/mL (>30)
[2022-05-19 20:32] LABS: PTHI 28 pg/mL (16-77)
[2022-05-22 04:22] LABS: Zinc 82 mcg/dL (60-130)
[2022-05-22 09:36] LABS: Vitamin A 26 mcg/dL (38-98)
[2022-05-24 12:36] LABS: Vitamin B1 11 nmol/L (8-30)
== END 2022-05-17 07:40 | disposition home or self-care (01) ==
LOC: HO.LAB 07:39
PROVIDERS: PCP Internal Medicine; Visit Provider Physician Assistant Surgical
DX: E66.9 Obesity, unspecified (principal); Z98.84 Bariatric surgery status
CPT/HCPCS: 36415; 80053; 80061; 82306; 82607; 82728; 82746; 83036; 83525; 83540; 83970; 84425; 84443; 84590; 84630; 85025; 86140

== ENCOUNTER 2022-10-22 08:48 | Outpatient (REF) | payer OTHER, SELFPAY ==
--- NOTE | ~2022-10-22 | US_ITS ---
EXAMINATION: US ABDOMEN LIMITED CLINICAL INFORMATION: Right upper quadrant pain. COMPARISON: CT abdomen and pelvis with contrast 07/22/2021. Ultrasound abdomen limited 05/01/2021. TECHNIQUE: Real-time imaging of the right upper quadrant abdominal viscera. FINDINGS: PANCREAS: Obscured by overlying bowel gas LIVER: The liver is normal in size. The liver contour is normal. Mild increased echogenicity of the liver parenchyma. No focal hepatic lesion. There is no intrahepatic biliary duct dilatation seen. 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 GALLBLADDER: Echogenic bile sludge with small stones. COMMON BILE DUCT: Normal in caliber measuring 0.4 cm in diameter. RIGHT KIDNEY: Normal. No hydronephrosis. No renal calculi or focal parenchymal lesions. The kidney measures 12.1 cm in maximum dimension. FREE FLUID: None. US/US abdomen limited IMPRESSION: 1. Echogenic bile sludge with small stones. No sonographic findings of acute cholecystitis. 2. 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
== END 2022-10-22 08:49 | disposition home or self-care (01) ==
LOC: HO.HMGCX 08:48
PROVIDERS: PCP Internal Medicine; Visit Provider Physician Assistant Surgical
DX: R10.11 Right upper quadrant pain (principal)
CPT/HCPCS: 76705

== ENCOUNTER → 2023-02-06 15:06 | Outpatient (BNVA) | payer OTHER, SELFPAY | PROVIDERS: PCP Internal Medicine; Visit Provider Physician Assistant Surgical ==

== ENCOUNTER 2023-04-08 08:21 | Outpatient (AMB) | payer OTHER, SELFPAY ==
--- NOTE | 2023-04-08 08:23 | A.OFFVIS_ITS ---
Intake VS Expanded 04/08/23 08:24 Height 5 ft 4 in Weight 171 lb 3.2 oz BMI 29.4 BP 111/63 Blood Pressure Location Rt brachial Blood Pressure Position Sitting Pulse 77 Pulse Source Pulse Oximeter Temp 97.3 F Temperature Source Tympanic Pulse Oximetry 100 Oxygen Delivery Method Room Air Body Fat 54.8 Body Fat Percentage 32.1 Free Fat Mass 116.2 Muscle Mass 110.2 Visceral Mass 5.0 Water Mass 83.4 BMR 1,588 Intake Visit Reasons: (OV) PO LSG 04/19/21 Allergies cefaclor [From Ceclor] Allergy (Severe, Verified 04/08/23 08:27) Rash dichloralphenazone [From Midrin] Allergy (Severe, Verified 04/08/23 08:27) Shortness of Breath isometheptene [From Midrin] Allergy (Severe, Verified 04/08/23 08:27) Shortness of Breath midodrine Allergy (Severe, Verified 04/08/23 08:27) Shortness of Breath Medication List - Last Reconciled 04/08/[address] biotin 1,000 mcg PO DAILY vitamin A palmitate 10,000 units PO DAILY HPI HPI Comments History of Present Illness Details This?is a?32?yo female who is s/p LSG 04/19/2021. Presents for 2 year post op visit. Weight at last visit on 02/06/2023 was 165 pounds with a BMI of 28.3, weight today is 171.2 pounds, representing a 6.2 pound weight gain with a BMI today of 29.4.? No complaints of nausea, emesis, abdominal pain or reflux, or constipation. Episodes of abdominal pain have not returned. Has been a bit stressed with health issues with her son but has not had to be rehospitalized. Follows with hematology at [facility]- Dr. Camacho. Present meal plan includes: 6:30am breakfast- protein shake, Premier premade 30g or 2 eggs 10am- cucumbers 1pm- shake or bar dinner- 2oz protein, 2oz veg- will eat half to 75% of what is on plate All meals last 20 - 30 minutes and does not drink and eat at the same time. Exercise routine includes: has been going for more walks now that it is summertime Pt reports excess skin of upper arms and abdomen. Regarding arms, has to wear tight sleeves to prevent discomfort and friction from loose skin. During exercise, excess skin of the arms limits range of motion and mobility. Excess skin causes pain and discomfort due to how heavy it is, and makes it difficult for her to lift arms up high. She has also noticed increased chafing of inner upper arms when the skin rubs against her body, due to the hotter weather. Also gets rashes in umbilicus for which she has to use clotrimazole ointment which has not completely resolved the issue. Rashes have worsened over the summer with increased heat and sweating. Excess moisture has an unpleasant odor and pt has to wash frequently, especially in umbilicus. Excess skin of belly feels very heavy and uncomfortable. Has to wear a compressive garment to hold skin in place, but with hot weather the tight clothing tends to worsen the rashes due to moisture trapping. Did the patient ever have any of these conditions and are they resolved or still being treated? GERD: occasional, occurred before surgery, only with triggering foods WAQAR:? n/a DM:? n/a HTN:? n/a Hyperlipidemia:?n/a ? Post op complications:? SMV thrombosis [facility] Medical History BMI 50.0-59.9, adult Depression Hereditary spherocytosis Morbid obesity Portal vein thrombosis Vitamin D deficiency Surgical History History of repair of hiatal hernia Hx of splenectomy Hx of wisdom tooth extraction Status post laparoscopic sleeve gastrectomy Family History Mother Sleep apnea Depression Fibromyalgia Migraine Degenerative disk disease Hypertension Father Sleep apnea Hypertension Brother Hyperlipidemia Spherocytosis Son No problems noted. Daughter No problems noted. Maternal Grandmother Lung cancer Social History Household Members: Family Housing: Apartment Are you a primary child care centre director to a significant other at home: No Do you presently have visiting nurse or other home services: No Alcohol intake: former Patient Tobacco Use Status: Former Tobacco user Quit Date: 01/29/2021 Tobacco use type: Cigarette service: No Current occupational status: employed Physical Exam Vital Signs: Last Vital Signs Temp 97.3 F 04/08/23 08:24 Pulse 77 04/08/23 08:24 BP 111/63 04/08/23 08:24 Pulse Ox 100 04/08/23 08:24 Oxygen Delivery Method Room Air 04/08/23 08:24 BMI result Body Mass Index 29.4 Const General: cooperative, comfortable and no acute distress Orientation/consciousness: patient oriented x3 GI Other: soft, nontender, nondistended, incisions well healed including previous open splenectomy scar, no hernia, no masses Grade II pannus, scattered erythema around umbilicus Neuro General: patient oriented x3 Assessment & Plan Assessment & Plan (1) Overweight: Code(s): E66.3 - Overweight (2) Excess skin: Code(s): L98.7 - Excessive and redundant skin and subcutaneous tissue (3) Status post laparoscopic sleeve gastrectomy: Code(s): Z98.84 - Bariatric surgery status (4) Hereditary spherocytosis: Code(s): D58.0 - Hereditary spherocytosis Plan Labs previously ordered, pt plans to have drawn. Continue clotrimazole ointment for rashes of excess skin. Pt's excess skin of arms is causing issues with skin chafing discomfort, and is limiting her range of motion and physical function, including exercise which is necessary to maintain her weight loss. She would benefit from definitive treatment of bilateral brachioplasty to restore function and improve pain and discomfort. She is also experiencing compromise to the integrity of her skin on abdomen, resulting in rashes refractory to topical Rx treatment. Excess skin of abdomen is limiting her range of motion and physical function, including exercise which is necessary to maintain her weight loss. She would benefit from definitive treatment of panniculectomy to restore physical function and improve the integrity of the skin by eliminating painful rashes. Discussed additional weight loss prior to consideration of skin removal surgery. Goal of 165lbs before submission. RTC 2-3 months, at which time if pt is able to achieve additional weight loss, can submit to insurance. Patient is overweight and with ongoing issues of excess skin of abdomen and arms, and is not considered stable at this time. I spent a total of [] minutes reviewing/updating records, examining the patient and counseling the patient on weight management as detailed above. Coding Level of Care Code Est Pt Level 4 (07550) Diagnoses Overweight E66.3 Excess skin L98.7 Status post laparoscopic sleeve gastrectomy Z98.84 Hereditary spherocytosis D58.0
[2023-04-08 08:24] VITALS: BP 111/63; PULSE 77; TEMP 36.3; O2SAT 100; BMI 29.4
== END 2023-04-08 09:29 | disposition home or self-care (01) ==
PROVIDERS: PCP Internal Medicine; Visit Provider Physician Assistant Surgical
DX: L98.7 Excessive and redundant skin and subcutaneous tissue (principal); E66.3 Overweight; Z68.29 Body mass index [BMI] 29.0-29.9, adult; Z90.3 Acquired absence of stomach [part of]; Z98.84 Bariatric surgery status; D58.0 Hereditary spherocytosis
CPT/HCPCS: 99214

== ENCOUNTER → 2023-04-08 08:21 | Outpatient (BNVA) | payer OTHER, SELFPAY | PROVIDERS: PCP Internal Medicine; Visit Provider Physician Assistant Surgical ==

== ENCOUNTER 2023-04-11 07:06 | Outpatient (REF) | payer OTHER, SELFPAY ==
[2023-04-11 07:22] LABS: MANUAL DIFF FLAG NO
[2023-04-11 07:35] LABS: Basophils Absolute Auto 0.1 X10*3/uL (0.0-0.2); Basophils Percent Auto 0.6 % (0-2); Eosinophils Absolute Auto 0.3 X10*3/uL (0.0-0.4); Eosinophils Percent Auto 3.2 % (0-4); Hematocrit 35.9 % (37.0-47.0); Hemoglobin 12.5 g/dl (12.0-16.0); Imm Gran Abs Auto 0.06 X10*3/uL (0.00-0.03); Imm Gran Pct Auto 0.7 % (0.0-0.4); Lymphocytes Absolute Auto 2.1 X10*3/uL (1.2-4.9); Lymphocytes Percent Auto 25.7 % (20-40); Mean Corpuscular HGB Conc 34.8 g/dl (31.0-35.0); Mean Corpuscular Hemoglobin 33.1 pg (27.0-33.0); Mean Platelet Volume 9.7 fL (9.4-12.3); Monocytes Percent Auto 12.7 % (2-11); Neutrophils Absolute Auto 4.6 x10*3/uL (2.0-8.3); Neutrophils Percent Auto 57.1 % (45-73); Platelet Count 325 X10*3/uL (160-400); Red Blood Count 3.78 X10*6/uL (4.20-5.50); Red Cell Distribution Width 13.1 % (11.0-16.0)
[2023-04-11 07:43] LABS: Estimated Average Glucose 77 mg/dL; Hemoglobin A1c % 4.3 %
[2023-04-11 07:59] LABS: Alanine Aminotransferase 20 U/L (0-31); Alkaline Phosphatase 67 U/L (39-117); Anion Gap 12 (12-20); Aspartate Amino Transferase 15 U/L (5-31); Bilirubin Total 2.3 mg/dL (0.0-1.0); Blood Urea Nitrogen 16 mg/dL (9-16); C Reactive Protein 0.25 mg/dL (< or = 0.50); Calcium 8.8 mg/dL (8.4-10.2); Carbon Dioxide 24 mmol/L (22-29); Chloride 110 mmol/L (96-108); Cholesterol 162 mg/dL; Estimated Glomerular Filt Rate > 60; Glucose Random 90 mg/dL (60-115); HDL Cholesterol 67 mg/dL; Iron 142 mcg/dL (30-160); LDL Cholesterol Calculated 88 mg/dl; Percent Iron Saturation 67 % (15-50); Potassium 4.1 mmol/L (3.3-5.1); Sodium 142 mmol/L (135-145); Total Iron Binding Capacity 212 mcg/dL (228-428); Triglycerides 39 mg/dL; Unsaturated Iron Binding 70 ug/dL
[2023-04-11 08:19] LABS: Ferritin 166 ng/mL (10-122); Insulin 3 uU/mL (2-29); TSH reflex Free T4 1.36 uIU/mL (0.32-4.0); Vitamin D 25-OH Total 26.2 ng/mL (>30)
[2023-04-11 09:05] LABS: Vitamin B12 575 pg/mL (200-900)
[2023-04-14 13:59] LABS: Calcium (PTHI) 9.2 mg/dL (8.6-10.2); PTHI 10 pg/mL (16-77)
[2023-04-15 04:59] LABS: Zinc 74 mcg/dL (60-130)
[2023-04-15 14:58] LABS: Vitamin B1 6 nmol/L (8-30)
[2023-04-16 16:48] LABS: Vitamin A 29 mcg/dL (38-98)
== END 2023-04-11 07:07 | disposition home or self-care (01) ==
LOC: HO.LAB 07:06
PROVIDERS: PCP Internal Medicine; Visit Provider Physician Assistant Surgical
DX: K91.2 Postsurgical malabsorption, not elsewhere classified (principal); Z98.84 Bariatric surgery status
CPT/HCPCS: 36415; 80053; 80061; 82306; 82607; 82728; 82746; 83036; 83525; 83540; 83970; 84425; 84443; 84590; 84630; 85025; 86140

== ENCOUNTER 2023-06-11 12:43 | Outpatient (AMB) | payer OTHER, SELFPAY ==
--- NOTE | 2023-06-11 12:46 | MHC.OFFVISWM ---
Intake VS Expanded 06/11/23 12:51 BP 116/70 Blood Pressure Location Rt brachial Blood Pressure Position Sitting Pulse 82 Pulse Source Pulse Oximeter Temp 97.9 F Temperature Source Tympanic Pulse Oximetry 99 Oxygen Delivery Method Room Air Height 5 ft 4 in Weight 165 lb 12.8 oz BMI 28.5 Body Fat % 31.6 Body Fat Mass 52.4 Fat Free Mass 113.4 Visceral Fat Rating 5.0 Body Water % 49.1 Body Water Mass 81.4 Muscle Mass/Score 107.6 Basal Metabolic Rate/Score 1,549 Intake Visit Reasons: (OV) PO LSG 04/19/21 Allergies cefaclor [From Ceclor] Allergy (Severe, Verified 06/11/23 12:50) Rash dichloralphenazone [From Midrin] Allergy (Severe, Verified 06/11/23 12:50) Shortness of Breath isometheptene [From Midrin] Allergy (Severe, Verified 06/11/23 12:50) Shortness of Breath midodrine Allergy (Severe, Verified 06/11/23 12:50) Shortness of Breath Medication List - Last Reconciled 06/11/[address] biotin 1,000 mcg PO DAILY cholecalciferol (vitamin D3) 50 mcg PO DAILY thiamine HCl (vitamin B1) 100 mg PO DAILY vitamin A palmitate 10,000 units PO DAILY HPI HPI Comments History of Present Illness Details This?is a?32?yo female who is s/p LSG 04/19/2021. Presents for 2 year 3 month post op visit. Weight at last visit on 04/08/2023 was 171.2 pounds with a BMI of 29.4, weight today is 165.8 pounds, representing a 5.4 pound weight loss with a BMI today of 28.5.? No complaints of nausea, emesis, abdominal pain or reflux, or constipation. Not currently on any blood thinners. Has hereditary spherocytosis. Present meal plan includes: 2 bars a day, sometimes a shake also dinner- 2oz protein, 2oz veg- will eat half to 75% of what is on plate All meals last 20 - 30 minutes and does not drink and eat at the same time. Exercise routine includes: walking, started Pilates Pt reports excess skin of upper arms and abdomen. Regarding arms, has to wear tight sleeves to prevent discomfort and friction from loose skin. During walking and exercise, excess skin of the arms limits range of motion and mobility. Excess skin causes pain and discomfort due to how heavy it is, and makes it difficult for her to lift arms up high. She has also noticed increased chafing of inner upper arms when the skin rubs against her body, during hotter weather. Also gets rashes in umbilicus for which she has to use clotrimazole ointment which has not completely resolved the issue. Rashes worsened over the summer with increased heat and sweating. Excess moisture has an unpleasant odor and pt has to wash frequently, especially in umbilicus. Excess skin of belly feels very heavy and uncomfortable. Has to wear a compressive garment to hold skin in place, but with hot weather the tight clothing tends to worsen the rashes due to moisture trapping. [facility] Medical History BMI 50.0-59.9, adult Depression Hereditary spherocytosis Morbid obesity Portal vein thrombosis Vitamin D deficiency Surgical History History of repair of hiatal hernia Status post laparoscopic sleeve gastrectomy Hx of wisdom tooth extraction Hx of splenectomy Family History Mother Sleep apnea Depression Fibromyalgia Migraine Degenerative disk disease Hypertension Father Sleep apnea Hypertension Brother Hyperlipidemia Spherocytosis Son No problems noted. Daughter No problems noted. Maternal Grandmother Lung cancer Social History Household Members: Family Housing: Apartment Are you a primary long term care social worker to a significant other at home: No Do you presently have visiting nurse or other home services: No Alcohol intake: former Patient Tobacco Use Status: Former Tobacco user Quit Date: 01/29/2021 Tobacco use type: Cigarette service: No Current occupational status: employed Physical Exam Const General: cooperative, comfortable and no acute distress Orientation/consciousness: patient oriented x3 GI Other: soft, nontender, nondistended, incisions well healed, no hernia, no masses Grade II pannus Neuro General: patient oriented x3 Assessment & Plan Assessment & Plan (1) Overweight: Code(s): E66.3 - Overweight (2) Excess skin: Code(s): L98.7 - Excessive and redundant skin and subcutaneous tissue (3) Status post laparoscopic sleeve gastrectomy: Code(s): Z98.84 - Bariatric surgery status Plan Continue clotrimazole ointment for rashes of excess skin. Pt's excess skin of arms is causing issues with skin chafing discomfort, and is limiting her range of motion and physical function, including exercise which is necessary to maintain her weight loss. She would benefit from definitive treatment of bilateral brachioplasty to restore function, improve pain and discomfort, and resolve issues of skin integrity. She is also experiencing compromise to the integrity of her skin on abdomen, resulting in rashes refractory to topical Rx treatment. Excess skin of abdomen is limiting her range of motion and physical function, including exercise which is necessary to maintain her weight loss. She would benefit from definitive treatment of panniculectomy to restore physical function and improve the integrity of the skin by eliminating painful rashes. 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 If approved, will also arrange hematology follow up to discuss anticoagulation in the perioperative period. RTC in mid-late November for photos and submission to insurance. Patient is overweight and with ongoing issues of excess skin of abdomen and arms, and is not considered stable at this time. I spent a total of 30 minutes reviewing/updating records, examining the patient and counseling the patient on weight management as detailed above. Coding Level of Care Code Est Pt Level 4 (42789) Diagnoses Overweight E66.3 Excess skin L98.7 Status post laparoscopic sleeve gastrectomy Z98.84
[2023-06-11 12:51] VITALS: BP 116/70; PULSE 82; TEMP 36.6; O2SAT 99; BMI 28.5
== END 2023-06-11 13:17 | disposition home or self-care (01) ==
PROVIDERS: PCP Internal Medicine; Visit Provider Physician Assistant Surgical
DX: E66.3 Overweight (principal); Z68.28 Body mass index [BMI] 28.0-28.9, adult; L98.7 Excessive and redundant skin and subcutaneous tissue; Z98.84 Bariatric surgery status
CPT/HCPCS: 99214

== ENCOUNTER → 2023-06-11 12:43 | Outpatient (BNVA) | payer OTHER, SELFPAY | PROVIDERS: PCP Internal Medicine; Visit Provider Physician Assistant Surgical ==

== ENCOUNTER 2023-07-04 07:23 | Outpatient (REF) | payer OTHER, SELFPAY ==
[2023-07-04 07:42] LABS: MANUAL DIFF FLAG NO
[2023-07-04 08:02] LABS: Basophils Absolute Auto 0.1 X10*3/uL (0.0-0.2); Basophils Percent Auto 0.7 % (0-2); Eosinophils Absolute Auto 0.3 X10*3/uL (0.0-0.4); Eosinophils Percent Auto 3.3 % (0-4); Hematocrit 34.7 % (37.0-47.0); Hemoglobin 12.4 g/dl (12.0-16.0); Imm Gran Pct Auto 1.1 % (0.0-0.4); Lymphocytes Percent Auto 22.1 % (20-40); Mean Corpuscular HGB Conc 35.7 g/dl (31.0-35.0); Mean Corpuscular Hemoglobin 33.9 pg (27.0-33.0); Mean Corpuscular Volume 94.8 fL (80.0-98.0); Mean Platelet Volume 9.9 fL (9.4-12.3); Neutrophils Absolute Auto 5.7 x10*3/uL (2.0-8.3); Neutrophils Percent Auto 61.8 % (45-73); Platelet Count 325 X10*3/uL (160-400); Red Blood Count 3.66 X10*6/uL (4.20-5.50); Red Cell Distribution Width 12.8 % (11.0-16.0); White Blood Count 9.2 X10*3/uL (4.8-10.8)
[2023-07-04 08:08] LABS: Prothrombin Time 12.2 SEC (11.1-13.3)
[2023-07-04 08:31] LABS: Alanine Aminotransferase 12 U/L (0-31); Albumin Level 3.9 g/dL (3.5-5.0); Alkaline Phosphatase 66 U/L (39-117); Anion Gap 10 (12-20); Aspartate Amino Transferase 17 U/L (5-31); Bilirubin Total 2.1 mg/dL (0.0-1.0); Blood Urea Nitrogen 15 mg/dL (9-16); Calcium 8.9 mg/dL (8.4-10.2); Carbon Dioxide 25 mmol/L (22-29); Chloride 109 mmol/L (96-108); Cholesterol 150 mg/dL (<200); Estimated Glomerular Filt Rate > 60; Glucose Random 89 mg/dL (60-115); HDL Cholesterol 66 mg/dL (>40); LDL Cholesterol Calculated 78 mg/dL (<100); Potassium 4.4 mmol/L (3.3-5.1); Sodium 140 mmol/L (135-145); Total Protein 6.9 g/dL (6.5-8.0); Triglycerides 33 mg/dL (<150)
== END 2023-07-04 07:24 | disposition home or self-care (01) ==
LOC: HO.LAB 07:23
PROVIDERS: PCP Internal Medicine; Visit Provider Internal Medicine
DX: Z13.220 Encounter for screening for lipoid disorders (principal); I81 Portal vein thrombosis; D58.0 Hereditary spherocytosis
CPT/HCPCS: 36415; 80053; 80061; 85025; 85610

== ENCOUNTER 2023-07-18 07:18 | Outpatient (REF) | payer OTHER, SELFPAY ==
[2023-07-18 08:53] LABS: Iron 98 mcg/dL (30-160); Percent Iron Saturation 48 % (15-50); Total Iron Binding Capacity 204 mcg/dL (228-428); Unsaturated Iron Binding 106 ug/dL
[2023-07-18 09:07] LABS: Ferritin 157 ng/mL (10-122)
== END 2023-07-18 07:19 | disposition home or self-care (01) ==
LOC: HO.LAB 07:18
PROVIDERS: PCP Internal Medicine; Visit Provider Physician Assistant
DX: D64.9 Anemia, unspecified (principal)
CPT/HCPCS: 36415; 82728; 83540

== ENCOUNTER 2023-10-13 08:12 | Outpatient (REF) | payer OTHER, SELFPAY ==
--- NOTE | ~2023-10-13 | US_ITS ---
EXAMINATION: US COMPLETE ABDOMEN WITH LIVER ELASTOGRAPHY CLINICAL INFORMATION: Gallstones and biliary sludge; right upper quadrant pain. COMPARISON: Abdominal ultrasound dated 10/22/2022; CT abdomen and pelvis dated 07/22/2023. TECHNIQUE: Real-time imaging of the abdominal viscera. Noninvasive ultrasound liver fibrosis assessment is performed using Laz ElastPQ point quantification shear wave elastography (2D-SWE) with a C5-2 MHz transducer. Multiple elastography samples are obtained. FINDINGS: PANCREAS: Normal. The visualized pancreatic head and body are normal in appearance. The remainder of the pancreas is obscured from visualization by the overlying bowel gas. ABDOMINAL AORTA: The proximal, middle, and distal aortic segments are normal in caliber. INFERIOR VENA CAVA: Visualized portions are normal. LIVER: The liver demonstrates normal size, contour and heterogeneous, mildly increased echogenicity. No focal lesion or intrahepatic biliary duct dilatation. The right lobe measures 15.8 cm in length. The left lobe measures 10.2 cm in length. Portal flow is towards the liver (hepatopetal). Again, there is cavernous transformation of the portal vein. Shear wave liver elastography median stiffness is 2.55 m/s (reference: normal median stiffness is 1.3 m/s or less). IQR/median stiffness to assess sampling precision is 0.04 (reference: good quality data set is IQR/median stiffness of 0.15 or less). GALLBLADDER: Again, there polyps, wall thickening or pericholecystic fluid. COMMON BILE DUCT: Normal in caliber measuring 0.7 cm in diameter. RIGHT KIDNEY: Normal. No hydronephrosis. No renal calculi or focal parenchymal lesions. The kidney measures 11.8 cm in maximum dimension. LEFT KIDNEY: Normal. No hydronephrosis. No renal calculi or focal parenchymal lesions. The kidney measures 11.2 cm in maximum dimension. SPLEEN: Surgically absent. FREE FLUID: None. 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 US/US abdomen comp w elastography IMPRESSION: 1. There is generalized increase in hepatic echotexture, consistent with fatty infiltration or hepatocellular disease. Please correlate clinically. No focal hepatic mass or intrahepatic biliary dilatation is seen. 2. There is cavernous transformation of the portal vein. 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 3. Liver elastography: Measuremensts are consistent with compensated advanced chronic liver disease. 4. Echogenic biliary sludge and tiny calculi are redemonstrated. Again, there is no acute cholecystitis. 5. The spleen is surgically absent. REFERENCE: Society of Radiologists in Ultrasound Liver Stiffness Thresholds (2020): LIVER STIFFNESS THRESHOLDS: *Liver Stiffness equal or less than 1.3 m/s: High probability of being normal. *Liver Stiffness less than 1.7 m/s: In the absence of other known clinical signs, rules out compensated advanced chronic liver disease. *Liver Stiffness 1.7-2.1 m/s: Suggestive of compensated advanced chronic liver disease but need further test for confirmation. *Liver Stiffness over 2.1 m/s: Rules in compensated advanced chronic liver disease. *Liver Stiffness over 2.4 m/s: Suggestive of clinically significant portal hypertension. QUALITY OF DATA SET: *IQR/Median value equal or less than 0.15 implies a quality data set. *IQR/Median value over 0.15 implies a poor quality data set. SIGNIFICANT CHANGE FROM PRIOR EXAM: Significant change if liver stiffness measurement is 10% or greater from prior exam. OTHER CONSIDERATIONS: The stage of liver fibrosis may be overestimated in the setting of acute hepatitis, liver inflammation, elevated liver function tests, hepatic vascular congestion, obstructive cholestasis, non-fasting state, and infiltrative diseases such as amyloidosis and lymphoma. In some patients with NAFLD, the liver stiffness thresholds for compensated advanced chronic liver disease may be lower. In causes other than viral hepatitis and NAFLD, liver stiffness thresholds are not well established.
== END 2023-10-13 08:13 | disposition home or self-care (01) ==
LOC: HO.US 08:12
PROVIDERS: PCP Internal Medicine; Visit Provider Physician Assistant Surgical
DX: R10.11 Right upper quadrant pain (principal)
CPT/HCPCS: 76700; 76981

== ENCOUNTER 2023-11-04 15:41 | Outpatient (REF) | payer OTHER, SELFPAY ==
--- NOTE | ~2023-11-04 | CT_ITS ---
EXAMINATION: CT ABDOMEN AND PELVIS WITH CONTRAST CLINICAL INFORMATION: Portal vein thrombosis COMPARISON: Ultrasound abdomen 10/13/2023 and 10/22/2022. CT abdomen and pelvis 07/22/2021. TECHNIQUE: Multidetector volumetric images were obtained from the superior aspect of the liver through the pubic symphysis following administration 85 mL of Omnipaque 350 intravenous contrast. Sagittal and coronal reformatted images were obtained on the technologist's workstation. Oral contrast: No This CT examination was performed using dose optimization techniques as appropriate, variously including the following: *Automated exposure control *Adjustment of mA and/or kV according to patient size (this includes techniques or standardized protocols for targeted exams where dose is matched to indication/reason for exam; i.e. extremities or head) *Use of iterative reconstruction technique DLP: 403 mGy-cm FINDINGS: LUNG BASES: The visualized lung bases are unremarkable aside from the presence of a 3 mm left lower lobe pulmonary nodule unchanged from prior (6:57, compare prior 4:63). LIVER, GALLBLADDER, AND BILIARY TREE: The liver is normal in size and shape but demonstrates mild heterogeneity. Again seen is occlusion of the main portal vein with cavernous transformation. The superior mesenteric vein remains occluded as seen previously. No focal hepatic lesion or biliary ductal dilatation is present. The gallbladder is contracted with some layering high density seen consistent with the tiny gallstones imaged on prior ultrasound studies. There are no pericholecystic inflammatory changes. PANCREAS: Unremarkable. SPLEEN: Absent ADRENAL GLANDS: Unremarkable. KIDNEYS AND URETERS: The kidneys are normal in size, shape, and attenuation. No hydronephrosis, hydroureter, or calculi seen. No perinephric stranding. BLADDER: Unremarkable. GASTROINTESTINAL TRACT: Again noted are changes of gastric sleeve. The small and large bowel are unremarkable. The appendix is not seen seen but there is no evidence of appendicitis. ABDOMINAL WALL: No significant hernia is appreciated. LYMPH NODES: Normal. VASCULAR: Please see discussion above regarding portal vein thrombosis and cavernous transformation with occluded SMV. The aorta and iliofemoral vessels appear unremarkable aside from some minimal calcification at the aortic bifurcation. The IVC is distended. The left renal vein is retroaortic. PELVIC VISCERA: The uterus and adnexa are unremarkable. No ascites. OSSEOUS STRUCTURES: Unremarkable. CT/CT abdomen pelvis w IV con IMPRESSION: 1. Chronic portal vein thrombosis with cavernous transformation and occluded SMV, unchanged from prior. 2. Other incidental findings as described above including cholelithiasis Fleischner guidelines were followed.
[2023-11-04] MEDS: iohexoL 350 MG/ML 100 ML INFUS..BTL IV (16:35)
== END 2023-11-04 15:42 | disposition home or self-care (01) ==
LOC: HO.CT 15:41
PROVIDERS: PCP Internal Medicine; Visit Provider Physician Assistant Surgical
DX: I81 Portal vein thrombosis (principal)
CPT/HCPCS: 74177; Q9967

== ENCOUNTER 2023-12-15 15:17 | Outpatient (AMB) | payer OTHER, SELFPAY ==
--- NOTE | 2023-12-15 15:20 | MHC.OFFVISWM ---
Intake VS Expanded 12/15/23 15:27 BP 112/57 L Blood Pressure Location Rt brachial Blood Pressure Position Sitting Pulse 86 Pulse Source Pulse Oximeter Temp 97.1 F Temperature Source Temporal Artery Scan Pulse Oximetry 99 Oxygen Delivery Method Room Air Height 5 ft 3.5 in Weight 169 lb 6.4 oz BMI 29.5 Body Fat % 30.1 Body Fat Mass 51.4 Fat Free Mass 118.0 Visceral Fat Rating 5.0 Body Water % 50.0 Body Water Mass 84.6 Muscle Mass/Score 112.0 Basal Metabolic Rate/Score 2,626 Intake Visit Reasons: (OV) PO LSG 04/19/21 Allergies cefaclor [From Ceclor] Allergy (Severe, Verified 12/15/23 15:21) Rash dichloralphenazone [From Midrin] Allergy (Severe, Verified 12/15/23 15:21) Shortness of Breath isometheptene [From Midrin] Allergy (Severe, Verified 12/15/23 15:21) Shortness of Breath midodrine Allergy (Severe, Verified 12/15/23 15:21) Shortness of Breath Medication List - Last Reconciled 12/15/23 by MARTA Sosa biotin 1,000 mcg PO DAILY cholecalciferol (vitamin D3) 50 mcg PO DAILY thiamine HCl (vitamin B1) 100 mg PO DAILY vitamin A palmitate 10,000 units PO DAILY HPI HPI Comments History of Present Illness Details This?is a?33?yo female who is s/p LSG 04/19/2021. Presents for 2 year 8 month post op visit. Weight today is 169.4 pounds with a BMI of 29.1.? No complaints of nausea, emesis, abdominal pain or reflux, or constipation. Not currently on any blood thinners. Has hereditary spherocytosis. She has a history of biliary colic and and gallstones. Due to the complexity of her vascularity of her gallbladder she has been [facility] she [facility] an appointment on December 31. Would like to streamline her meal plan a bit. Hasn't noticed any change to her GB pain with only shakes or shakes and one meal. She has learned what triggers to avoid. Present meal plan includes: 2 RTD Equate shakes, split in 1/2 and expanded w almond milk, 30 gm each at 7, 10, 2, 4 meal at 5 pm not measuring by weight, approx 4 forks protein, 4 forks veg Drinking 84-100 oz water not including shakes Exercise routine includes: maxi climber 7 days per week, 12 min of 20 min routine (up from 5 min) and zoomba on sundays Pt reports excess skin of upper arms and abdomen. Regarding arms, has to wear tight sleeves to prevent discomfort and friction from loose skin. During walking and exercise, excess skin of the arms limits range of motion and mobility. Excess skin causes pain and discomfort due to how heavy it is, and makes it difficult for her to lift arms up high. She has also noticed increased chafing of inner upper arms when the skin rubs against her body, during hotter weather. Also gets rashes in umbilicus for which she has to use clotrimazole ointment which has not completely resolved the issue. Rashes worsened over the summer with increased heat and sweating. Excess moisture has an unpleasant odor and pt has to wash frequently, especially in umbilicus. Excess skin of belly feels very heavy and uncomfortable. Has to wear a compressive garment to hold skin in place, but with hot weather the tight clothing tends to worsen the rashes due to moisture trapping. REPLACED BY [facility] Medical History BMI 50.0-59.9, adult Depression Hereditary spherocytosis Morbid obesity Portal vein thrombosis Vitamin D deficiency Surgical History History of repair of hiatal hernia Status post laparoscopic sleeve gastrectomy Hx of wisdom tooth extraction Hx of splenectomy Family History Mother Sleep apnea Depression Fibromyalgia Migraine Degenerative disk disease Hypertension Father Sleep apnea Hypertension Brother Hyperlipidemia Spherocytosis Son No problems noted. Daughter No problems noted. Maternal Grandmother Lung cancer Social History Household Members: Family Housing: Apartment Are you a primary urgent care physician assistant to a significant other at home: No Do you presently have visiting nurse or other home services: No Alcohol intake: former Comment: aware of trip hazard Patient Tobacco Use Status: Former Tobacco user Quit Date: 01/29/2021 Tobacco use type: Cigarette service: No Current occupational status: employed Physical Exam Const General: healthy appearing and no acute distress Resp Effort & Inspection: normal respiratory effort Auscultation: clear to auscultation bilaterally Cardio Rate: regular rate Rhythm: regular rhythm GI Auscultation: normal bowel sounds Extrem General: Yes normal to inspection Assessment & Plan Assessment & Plan (1) Overweight: Code(s): E66.3 - Overweight Plan: Streamline meal plan to include 1 full strength RTD equate shake and 2 meals with 5 forks protein and 5 forks veggies each. Or if any symptoms of fullness or GB pain with the full strength shake, will split in 1/2 and expand with 4 oz almond milk. Decrease fluids to 80- oz daily Begin to incorporate yoga for balance, mindfulness, strength. RTC yamel Castro in 6 weeks (2) Excess skin: Code(s): L98.7 - Excessive and redundant skin and subcutaneous tissue Plan: She has more discomfort with her arms versus her abdomen. Both cause her discomfort however arms are more concerning. Given her ongoing gallbladder problems and upcoming appointment on December 31, she likely will address her gallbladder and then consider skin removal surgery. Coding Level of Care Code Est Pt Level 3 (55801) Diagnoses Overweight E66.3 Excess skin L98.7
[2023-12-15 15:27] VITALS: BP 112/57; PULSE 86; TEMP 36.2; O2SAT 99; BMI 29.5
== END 2023-12-15 16:00 | disposition home or self-care (01) ==
PROVIDERS: PCP Internal Medicine; Visit Provider Physician Assistant Surgical
DX: E66.3 Overweight (principal); Z68.29 Body mass index [BMI] 29.0-29.9, adult; L98.7 Excessive and redundant skin and subcutaneous tissue
CPT/HCPCS: 99213

== ENCOUNTER → 2023-12-15 15:17 | Outpatient (BNVA) | payer OTHER, SELFPAY | PROVIDERS: PCP Internal Medicine; Visit Provider Physician Assistant Surgical ==

== ENCOUNTER 2023-12-28 15:46 | Outpatient (REF) | payer OTHER, SELFPAY ==
[2023-12-28 18:28] LABS: Prothrombin Time 12.6 SEC (11.1-13.3)
[2023-12-30 20:23] LABS: Cardiolipin IgG Ab <2.0 GPL-U/mL; Cardiolipin IgM Ab <2.0 MPL-U/mL
[2024-01-01 00:03] LABS: Anti-Thrombin III Activity 92 % normal (80-135); Protein C Activity 114 % normal (70-180); Protein S Activity rflx Tot&Fr 46 % normal (60-140)
[2024-01-02 07:14] LABS: PTT (LAC) Screen 36 sec (<=40)
[2024-01-03 13:39] LABS: Protein S Free Antigen 32 % normal (50-147); Protein S Total (Antigenic) 66 % normal (70-140)
[2024-01-04 21:59] LABS: Factor V Leiden NEGATIVE
== END 2023-12-28 15:47 | disposition home or self-care (01) ==
LOC: HO.MANLDS 15:46
PROVIDERS: Visit Provider Internal Medicine
DX: D68.59 Other primary thrombophilia (principal)
CPT/HCPCS: 36415; 81241; 85300; 85302; 85303; 85305; 85306; 85597; 85598; 85610; 85613; 85730; 86147

== ENCOUNTER 2024-02-17 09:58 | Outpatient (AMB) | payer OTHER, SELFPAY ==
--- NOTE | 2024-02-17 10:01 | A.OFFVIS_ITS ---
VS Expanded 02/17/24 10:11 BP 106/65 Blood Pressure Location Rt brachial Blood Pressure Position Sitting Pulse 73 Pulse Source Pulse Oximeter Temp 98.2 F Temperature Source Temporal Artery Scan Pulse Oximetry 100 Oxygen Delivery Method Room Air Height 5 ft 3.5 in Weight 173 lb 3.2 oz BMI 30.2 Body Fat % 33.0 Body Fat Mass 57.0 Fat Free Mass 116.0 Visceral Fat Rating 6.0 Body Water % 48.0 Body Water Mass 83.2 Muscle Mass/Score 110.0 Basal Metabolic Rate/Score 1,587 Intake Visit Reasons: (OV) PO LSG 04/19/21 Allergies cefaclor [From Ceclor] Allergy (Severe, Verified 02/17/24 10:06) Rash dichloralphenazone [From Midrin] Allergy (Severe, Verified 02/17/24 10:06) Shortness of Breath isometheptene [From Midrin] Allergy (Severe, Verified 02/17/24 10:06) Shortness of Breath midodrine Allergy (Severe, Verified 02/17/24 10:06) Shortness of Breath Medication List - Last Reconciled 02/17/[address] biotin 1,000 mcg PO DAILY cholecalciferol (vitamin D3) 50 mcg PO DAILY thiamine HCl (vitamin B1) 100 mg PO DAILY vitamin A palmitate 10,000 units PO DAILY HPI Comments Details: This?is a?33?yo female who is s/p LSG 04/19/2021. Presents for 2 year 8 month post op visit. Weight today is 169.4 pounds with a BMI of 29.1.? No complaints of nausea, emesis, abdominal pain or reflux, or constipation. Not currently on any blood thinners. Has hereditary spherocytosis. She has a history of biliary colic and and gallstones. Due to the complexity of her vascularity of her gallbladder she was referred to Dr. Brumfield in [place], however reports he declined to operate on her due to her difficult anatomy and risk of surgery. Has not had any episodes of pain recently. Present meal plan includes: 1 full strength RTD equate shake and 2 meals with 5 forks protein and 5 forks veggies each did like this meal plan but noticed weight gain with it Exercise routine includes: maxi climber 7 days per week, 12-17 min (up from 5 min) and lukas on sundays Pt reports excess skin of upper arms and abdomen. Regarding arms, has to wear tight sleeves to prevent discomfort and friction from loose skin. During walking and exercise, excess skin of the arms limits range of motion and mobility. Excess skin causes pain and discomfort due to how heavy it is, and makes it dif ficult for her to lift arms up high. She has also noticed increased chafing of inner upper arms when the skin rubs against her body, during hotter weather. Also gets rashes in umbilicus for which she has to use clotrimazole ointment which has not completely resolved the issue. Rashes worsened over the summer with increased heat and sweating. Excess moisture has an unpleasant odor and pt has to wash frequently, especially in umbilicus. Excess skin of belly feels very heavy and uncomfortable. Has to wear a compressive garment to hold skin in place, but with hot weather the tight clothing tends to worsen the rashes due to moisture trapping. [facility] Medical History BMI 50.0-59.9, adult Depression Hereditary spherocytosis Morbid obesity Portal vein thrombosis Vitamin D deficiency Surgical History History of repair of hiatal hernia Status post laparoscopic sleeve gastrectomy Hx of wisdom tooth extraction Hx of splenectomy Family History Mother Sleep apnea Depression Fibromyalgia Migraine Degenerative disk disease Hypertension Father Sleep apnea Hypertension Brother Hyperlipidemia Spherocytosis Son No problems noted. Daughter No problems noted. Maternal Grandmother Lung cancer Social History Household Members: Family Housing: Apartment Are you a primary technical healthcare consultant to a significant other at home: No Do you presently have visiting nurse or other home services: No Alcohol intake: former Comment: aware of trip hazard Patient Tobacco Use Status: Former Tobacco user Tobacco use type: Cigarette service: No Current occupational status: employed Physical Exam Vital Signs: Last Vital Signs Temp 98.2 F 02/17/24 10:11 Pulse 73 02/17/24 10:11 BP 106/65 02/17/24 10:11 Pulse Ox 100 02/17/24 10:11 Oxygen Delivery Method Room Air 02/17/24 10:11 BMI result Body Mass Index 30.2 Assessment & Plan Assessment & Plan (1) Excess skin: Code(s): L98.7 - Excessive and redundant skin and subcutaneous tissue Category: Medical (2) Obesity (BMI 30-39.9): Code(s): E66.9 - Obesity, unspecified Category: Medical (3) Status post laparoscopic sleeve gastrectomy: Code(s): Z98.84 - Bariatric surgery status Category: Surgical (4) Hereditary spherocytosis: Code(s): D58.0 - Hereditary spherocytosis Category: Medical (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 Each day have 1 30g protein shake, 1.5 Pure protein bars, and one meal 4f/4f. Track calories burned- goal 2000/week. Continue clotrimazole ointment for rashes of excess skin. Will update Dr. Laura on decision not to proceed with surgery by hepatobiliary surgeon. RTC 6 weeks, provided my cell phone # for pt to text weekly weights if she desires for accountability. Patient is obese and is not considered stable at this time. I spent a total of 30 minutes reviewing/updating records, examining the patient and counseling the patient on weight management as detailed above.
[2024-02-17 10:11] VITALS: BP 106/65; PULSE 73; TEMP 36.8; O2SAT 100; BMI 30.2
== END 2024-02-17 10:59 | disposition home or self-care (01) ==
PROVIDERS: PCP Internal Medicine; Visit Provider Physician Assistant Surgical
DX: L98.7 Excessive and redundant skin and subcutaneous tissue (principal); E66.9 Obesity, unspecified; Z98.84 Bariatric surgery status; Z68.30 Body mass index [BMI] 30.0-30.9, adult; D58.0 Hereditary spherocytosis; K55.069 Acute infarction of intestine, part and extent unspecified; I81 Portal vein thrombosis
CPT/HCPCS: 99214

== ENCOUNTER → 2024-02-17 09:58 | Outpatient (BNVA) | payer OTHER, SELFPAY | PROVIDERS: PCP Internal Medicine; Visit Provider Physician Assistant Surgical ==

== ENCOUNTER 2024-04-12 12:25 | Outpatient (AMB) | payer BC, SELFPAY ==
--- NOTE | 2024-04-12 12:27 | MHC.OFFVISWM ---
VS Expanded 04/12/24 12:33 BP 115/59 L Blood Pressure Location Rt brachial Blood Pressure Position Sitting Pulse 85 Pulse Source Pulse Oximeter Temp 97.2 F Temperature Source Temporal Artery Scan Pulse Oximetry 100 Oxygen Delivery Method Room Air Height 5 ft 3.5 in Weight 171 lb BMI 29.8 Body Fat % 32.8 Body Fat Mass 56 Fat Free Mass 114.8 Visceral Fat Rating 5 Body Water % 48.1 Body Water Mass 82.2 Muscle Mass/Score 109.2 Basal Metabolic Rate/Score 1,571 Intake Visit Reasons: (OV) PO LSG 04/19/21 Allergies cefaclor [From Ceclor] Allergy (Severe, Verified 04/12/24 12:37) Rash dichloralphenazone [From Midrin] Allergy (Severe, Verified 04/12/24 12:37) Shortness of Breath isometheptene [From Midrin] Allergy (Severe, Verified 04/12/24 12:37) Shortness of Breath midodrine Allergy (Severe, Verified 04/12/24 12:37) Shortness of Breath Medication List - Last Reconciled 04/12/24 by Merlin Shah RN biotin 1,000 mcg PO DAILY cholecalciferol (vitamin D3) 50 mcg PO DAILY thiamine HCl (vitamin B1) 100 mg PO DAILY ursodiol 300 mg PO BID vitamin A palmitate 10,000 units PO DAILY HPI Comments Details: This?is a?33?yo female who is s/p LSG 04/19/2021. Presents for 3 year post op visit. Weight at last visit on 02/17/2024 was 173.2 pounds with a BMI of 30.2, weight today is 171 pounds, representing a 2.2 pound weight loss with a BMI today of 29.8.? No complaints of nausea, emesis, abdominal pain or reflux, or constipation. Snacking is better- trying to find distractions instead of eating. Started ursodiol by GI. No episodes of abdominal pain since last visit. Also started hyoscyamine but hasn't needed for spasmodic pain. Her son recently had his spleen and gallbladder out in January, did well. Present meal plan includes: 1 30g protein shake, 1.5 Pure protein bars, and one meal 4f/4f if feels hungry- will snack on cucumbers Exercise routine includes: maxi climber 7 days per week, 12-17 min (up from 5 min) and lukas on sundays pt does exercise bike in evening [address] Pt reports excess skin of upper arms and abdomen. Regarding arms, has to wear tight sleeves to prevent discomfort and friction from loose skin. During walking and exercise, excess skin of the arms limits range of motion and mobility. Excess skin causes pain and discomfort due to how heavy it is, and makes it difficult for her to lift arms up high. She has also noticed increased chafing of inner upper arms when the skin rubs against her body, during hotter weather. Also gets rashes in umbilicus for which she has to use clotrimazole ointment which has not completely resolved the issue. Rashes worsened over the summer with increased heat and sweating. Excess moisture has an unpleasant odor and pt has to wash frequently, especially in umbilicus. Excess skin of belly feels very heavy and uncomfortable. Has to wear a compressive garment to hold skin in place, but with hot weather the tight clothing tends to worsen the rashes due to moisture trapping. [facility] Medical History BMI 50.0-59.9, adult Depression Hereditary spherocytosis Morbid obesity Portal vein thrombosis Vitamin D deficiency Surgical History History of repair of hiatal hernia Status post laparoscopic sleeve gastrectomy Hx of wisdom tooth extraction Hx of splenectomy Family History Mother Sleep apnea Depression Fibromyalgia Migraine Degenerative disk disease Hypertension Father Sleep apnea Hypertension Brother Hyperlipidemia Spherocytosis Son No problems noted. Daughter No problems noted. Maternal Grandmother Lung cancer Social History Household Members: Family Housing: Apartment Are you a primary medical care administrator to a significant other at home: No Do you presently have visiting nurse or other home services: No Alcohol intake: former Comment: aware of trip hazard Patient Tobacco Use Status: Former Tobacco user Tobacco use type: Cigarette service: No Current occupational status: employed Assessment & Plan Assessment & Plan (1) Overweight: Code(s): E66.3 - Overweight Category: Medical (2) Excess skin: Code(s): L98.7 - Excessive and redundant skin and subcutaneous tissue Category: Medical (3) Status post laparoscopic sleeve gastrectomy: Code(s): Z98.84 - Bariatric surgery status Category: Medical (4) Hereditary spherocytosis: Code(s): D58.0 - Hereditary spherocytosis Category: Medical Plan Pt will continue same meal plan and exercise regimen. Annual labs ordered. Goal weight 155 prior to skin removal surgery. Continue clotrimazole ointment for rashes of excess skin. RTC 3 months. I spent a total of 30 minutes reviewing/updating records, examining the patient and counseling the patient on weight management as detailed above. Orders: Orders Insulin Today Z98.84 - Bariatric surgery status Hemoglobin A1c Today Z98.84 - Bariatric surgery status Complete Blood Count Auto Diff Today Z98.84 - Bariatric surgery status Lipid Panel Today Z98.84 - Bariatric surgery status IRON PROFILE Today Z98.84 - Bariatric surgery status Vitamin B1 Today Z98.84 - Bariatric surgery status Comprehensive Met. Panel Today Z.84 - Bariatric surgery status Vitamin B12 and Folate Today Z98.84 - Bariatric surgery status Zinc Today Z98.84 - Bariatric surgery status C Reactive Protein Today Z98.84 - Bariatric surgery status Vitamin A Today Z98.84 - Bariatric surgery status TSH reflex Free T4 Today Z98.84 - Bariatric surgery status Ferritin Today Z98.84 - Bariatric surgery status Vitamin D 25-OH Total Today Z98.84 - Bariatric surgery status
[2024-04-12 12:33] VITALS: BP 115/59; PULSE 85; TEMP 36.2; O2SAT 100; BMI 29.8
== END 2024-04-12 13:04 | disposition home or self-care (01) ==
PROVIDERS: PCP Internal Medicine; Visit Provider Physician Assistant Surgical
DX: E66.3 Overweight (principal); Z68.29 Body mass index [BMI] 29.0-29.9, adult; Z98.84 Bariatric surgery status; L98.7 Excessive and redundant skin and subcutaneous tissue; D58.0 Hereditary spherocytosis
CPT/HCPCS: 99214

== ENCOUNTER → 2024-04-12 12:25 | Outpatient (BNVA) | payer BC, SELFPAY | PROVIDERS: PCP Internal Medicine; Visit Provider Physician Assistant Surgical ==

== ENCOUNTER 2024-04-16 09:46 | Outpatient (REF) | payer BC, SELFPAY ==
[2024-04-16 10:04] LABS: MANUAL DIFF FLAG NO
[2024-04-16 10:10] LABS: Basophils Absolute Auto 0.1 X10*3/uL (0.0-0.2); Basophils Percent Auto 0.8 % (0-2); Eosinophils Absolute Auto 0.2 X10*3/uL (0.0-0.4); Eosinophils Percent Auto 3.1 % (0-4); Hematocrit 35.2 % (37.0-47.0); Hemoglobin 12.4 g/dl (12.0-16.0); Imm Gran Abs Auto 0.06 X10*3/uL (0.00-0.03); Imm Gran Pct Auto 0.8 % (0.0-0.4); Lymphocytes Absolute Auto 1.8 X10*3/uL (1.2-4.9); Lymphocytes Percent Auto 24.2 % (20-40); Mean Corpuscular HGB Conc 35.2 g/dl (31.0-35.0); Mean Corpuscular Hemoglobin 33.7 pg (27.0-33.0); Mean Corpuscular Volume 95.7 fL (80.0-98.0); Mean Platelet Volume 9.8 fL (9.4-12.3); Monocytes Absolute Auto 0.9 X10*3/uL (0.1-1.2); Monocytes Percent Auto 11.9 % (2-11); Neutrophils Absolute Auto 4.3 x10*3/uL (2.0-8.3); Neutrophils Percent Auto 59.2 % (45-73); Platelet Count 284 X10*3/uL (160-400); Red Blood Count 3.68 X10*6/uL (4.20-5.50); Red Cell Distribution Width 12.8 % (11.0-16.0); White Blood Count 7.3 X10*3/uL (4.8-10.8)
[2024-04-16 10:31] LABS: Estimated Average Glucose 80 mg/dL; Hemoglobin A1c % 4.4 % (<6.0)
[2024-04-16 10:35] LABS: Alanine Aminotransferase 13 U/L (0-31); Alkaline Phosphatase 65 U/L (39-117); Anion Gap 13 (12-20); Aspartate Amino Transferase 17 U/L (5-31); Bilirubin Total 2.5 mg/dL (0.0-1.0); Blood Urea Nitrogen 13 mg/dL (9-16); C Reactive Protein 0.24 mg/dL (< or = 0.50); Calcium 9.3 mg/dL (8.4-10.2); Carbon Dioxide 25 mmol/L (22-29); Chloride 109 mmol/L (96-108); Cholesterol 138 mg/dL (<200); Estimated Glomerular Filt Rate > 60; Glucose Random 91 mg/dL (60-115); HDL Cholesterol 68 mg/dL (>40); Iron 140 mcg/dL (30-160); LDL Cholesterol Calculated 63 mg/dL (<100); Percent Iron Saturation 67 % (15-50); Potassium 4.4 mmol/L (3.3-5.1); Sodium 143 mmol/L (135-145); Total Iron Binding Capacity 208 mcg/dL (228-428); Triglycerides 36 mg/dL (<150); Unsaturated Iron Binding 68 ug/dL
[2024-04-16 10:49] LABS: Ferritin 137 ng/mL (10-122); Insulin 2 uU/mL (2-29); TSH reflex Free T4 0.95 uIU/mL (0.32-4.0); Vitamin D 25-OH Total 22.5 ng/mL (>30)
[2024-04-16 11:04] LABS: Folate 9.6 ng/mL (> or = 4.0); Vitamin B12 496 pg/mL (200-900)
[2024-04-21 08:39] LABS: Vitamin A 27 mcg/dL (38-98)
[2024-04-24 05:24] LABS: Vitamin B1 14 nmol/L (8-30)
== END 2024-04-16 09:47 | disposition home or self-care (01) ==
LOC: HO.LAB 09:46
PROVIDERS: PCP Internal Medicine; Visit Provider Physician Assistant Surgical
DX: Z98.84 Bariatric surgery status (principal); Z13.1 Encounter for screening for diabetes mellitus
CPT/HCPCS: 36415; 80053; 80061; 82306; 82607; 82728; 82746; 83036; 83525; 83540; 84425; 84443; 84590; 84630; 85025; 86140

== ENCOUNTER 2024-07-04 15:20 | Outpatient (REF) | payer BC, SELFPAY ==
[2024-07-04 17:44] LABS: MANUAL DIFF FLAG NO
[2024-07-04 17:51] LABS: Basophils Absolute Auto 0.1 X10*3/uL (0.0-0.2); Eosinophils Absolute Auto 0.4 X10*3/uL (0.0-0.4); Eosinophils Percent Auto 3.9 % (0-4); Hematocrit 34.7 % (37.0-47.0); Hemoglobin 11.8 g/dl (12.0-16.0); Imm Gran Abs Auto 0.06 X10*3/uL (0.00-0.03); Imm Gran Pct Auto 0.6 % (0.0-0.4); Lymphocytes Absolute Auto 3.3 X10*3/uL (1.2-4.9); Lymphocytes Percent Auto 34.9 % (20-40); Mean Corpuscular Hemoglobin 33.5 pg (27.0-33.0); Mean Corpuscular Volume 98.6 fL (80.0-98.0); Mean Platelet Volume 10.5 fL (9.4-12.3); Neutrophils Absolute Auto 4.6 x10*3/uL (2.0-8.3); Neutrophils Percent Auto 48.6 % (45-73); Platelet Count 277 X10*3/uL (160-400); Red Blood Count 3.52 X10*6/uL (4.20-5.50); Red Cell Distribution Width 12.3 % (11.0-16.0); White Blood Count 9.4 X10*3/uL (4.8-10.8)
[2024-07-04 18:39] LABS: Iron 59 mcg/dL (30-160); Percent Iron Saturation 28 % (15-50); Total Iron Binding Capacity 208 mcg/dL (228-428); Unsaturated Iron Binding 149 ug/dL
[2024-07-04 18:45] LABS: Ferritin 109 ng/mL (10-122)
[2024-07-04 19:08] LABS: Folate 6.6 ng/mL (> or = 4.0); Vitamin B12 441 pg/mL (200-900)
== END 2024-07-04 15:21 | disposition home or self-care (01) ==
LOC: HO.MANLDS 15:20
PROVIDERS: PCP Internal Medicine; Visit Provider Internal Medicine
DX: D64.9 Anemia, unspecified (principal)
CPT/HCPCS: 36415; 82607; 82728; 82746; 83540; 85025

== ENCOUNTER 2024-07-18 13:15 | Outpatient (AMB) | payer BC, SELFPAY ==
--- NOTE | 2024-07-18 13:17 | MHC.OFFVISWM ---
VS Expanded 07/18/24 13:24 BP 121/61 Blood Pressure Location Rt brachial Blood Pressure Position Sitting Pulse 84 Pulse Source Pulse Oximeter Temp 98.4 F Temperature Source Temporal Artery Scan Pulse Oximetry 100 Oxygen Delivery Method Room Air Height 5 ft 3.5 in Weight 176 lb 9.6 oz BMI 30.8 Body Fat % 34.5 Body Fat Mass 60.8 Fat Free Mass 115.8 Visceral Fat Rating 6.0 Body Water % 46.9 Body Water Mass 82.8 Muscle Mass/Score 109.8 Basal Metabolic Rate/Score 1,590 Intake Visit Reasons: (OV) PO LSG 04/19/21 Allergies cefaclor [From Ceclor] Allergy (Severe, Verified 07/18/24 13:21) Rash dichloralphenazone [From Midrin] Allergy (Severe, Verified 07/18/24 13:21) Shortness of Breath isometheptene [From Midrin] Allergy (Severe, Verified 07/18/24 13:21) Shortness of Breath midodrine Allergy (Severe, Verified 07/18/24 13:21) Shortness of Breath Medication List - Last Reconciled 07/18/[address] biotin 1,000 mcg PO DAILY cholecalciferol (vitamin D3) 50 mcg PO DAILY thiamine HCl (vitamin B1) 100 mg PO DAILY ursodiol 300 mg PO BID vitamin A palmitate 10,000 units PO DAILY HPI Comments Details: This?is a?33?yo female who is s/p LSG 04/19/2021. Presents for 3 year 3 month post op visit. Weight at last visit on 04/12/2024 was 171 pounds with a BMI of 29.8, weight today is 176.6 pounds, representing a 5.6 pound weight loss with a BMI today of 30.8.? No complaints of nausea, emesis, abdominal pain or reflux, or constipation. Just got back from [place]. Had one episode of abdominal pain after eating eggs, took antispasmodic drug and resolved, continues on ursodiol. Present meal plan includes: 1 30g protein shake, 1.5 Pure protein bars, and one meal 4f/4f if feels hungry- will snack on cucumbers Exercise routine includes: maxi climber 7 days per week, 12-17 min (up from 5 min) and lukas on sundays pt does exercise bike in evening 300 [address] Pt reports excess skin of upper arms and abdomen. Regarding arms, has to wear tight sleeves to prevent discomfort and friction from loose skin. During walking and exercise, excess skin of the arms limits range of motion and mobility. Excess skin causes pain and discomfort due to how heavy it is, and makes it difficult for her to lift arms up high. She has also noticed increased chafing of inner upper arms when the skin rubs against her body, during hotter weather. Also gets rashes in umbilicus for which she has to use clotrimazole ointment which has not completely resolved the issue. Rashes worsened over the summer with increased heat and sweating. Excess moisture has an unpleasant odor and pt has to wash frequently, especially in umbilicus. Excess skin of belly feels very heavy and uncomfortable. Has to wear a compressive garment to hold skin in place, but with hot weather the tight clothing tends to worsen the rashes due to moisture trapping. [facility] Medical History BMI 50.0-59.9, adult Depression Hereditary spherocytosis Morbid obesity Portal vein thrombosis Vitamin D deficiency Surgical History History of repair of hiatal hernia Status post laparoscopic sleeve gastrectomy Hx of wisdom tooth extraction Hx of splenectomy Family History Mother Sleep apnea Depression Fibromyalgia Migraine Degenerative disk disease Hypertension Father Sleep apnea Hypertension Brother Hyperlipidemia Spherocytosis Son No problems noted. Daughter No problems noted. Maternal Grandmother Lung cancer Social History Household Members: Family Housing: Apartment Are you a primary plant health care technician to a significant other at home: No Do you presently have visiting nurse or other home services: No Alcohol intake: former Comment: aware of trip hazard Patient Tobacco Use Status: Former Tobacco user Tobacco use type: Cigarette service: No Current occupational status: employed Assessment & Plan Assessment & Plan (1) Excess skin: Code(s): L98.7 - Excessive and redundant skin and subcutaneous tissue Category: Medical (2) Status post laparoscopic sleeve gastrectomy: Code(s): Z98.84 - Bariatric surgery status Category: Surgical (3) Superior mesenteric vein thrombosis: Code(s): K55.069 - Acute infarction of intestine, part and extent unspecified Category: Medical Plan Gave pt access to [employer] flores to create a meal plan to help with weight loss. Discussed the importance of exercise in weight loss/maintenance, pt is limited by time now due to 2 young children at home, 11 year old son with chronic health issues and recent breakup from her partner of 16 years and father of her children. Continue clotrimazole ointment for rashes of excess skin. Pt may be interested in plastic surgery consult with outside office. RTC 3 months. I spent a total of 30 minutes reviewing/updating records, examining the patient and counseling the patient on weight management as detailed above.
[2024-07-18 13:24] VITALS: BP 121/61; PULSE 84; TEMP 36.9; O2SAT 100; BMI 30.8
== END 2024-07-18 13:48 | disposition home or self-care (01) ==
PROVIDERS: PCP Internal Medicine; Visit Provider Physician Assistant Surgical
DX: L98.7 Excessive and redundant skin and subcutaneous tissue (principal); Z98.84 Bariatric surgery status; K55.069 Acute infarction of intestine, part and extent unspecified
CPT/HCPCS: 99214

== ENCOUNTER 2024-11-08 13:03 | Outpatient (AMB) | payer BC, SELFPAY ==
--- NOTE | 2024-11-08 13:12 | A.OFFVIS_ITS ---
VS Expanded 11/08/24 13:16 BP 107/65 Blood Pressure Location Rt brachial Blood Pressure Position Sitting Pulse 77 Pulse Source Pulse Oximeter Temp 98.2 F Temperature Source Temporal Artery Scan Pulse Oximetry 100 Oxygen Delivery Method Room Air Height 5 ft 3.5 in Weight 185 lb 12.8 oz BMI 32.4 Body Fat % 34.8 Body Fat Mass 64.6 Fat Free Mass 121.0 Visceral Fat Rating 7.0 Body Water % 46.7 Body Water Mass 86.6 Muscle Mass/Score 114.8 Basal Metabolic Rate/Score 1,660 Intake Visit Reasons: (OV) PO LSG 04/19/21 Allergies cefaclor [From Ceclor] Allergy (Severe, Verified 11/08/24 13:14) Rash dichloralphenazone [From Midrin] Allergy (Severe, Verified 11/08/24 13:14) Shortness of Breath isometheptene [From Midrin] Allergy (Severe, Verified 11/08/24 13:14) Shortness of Breath midodrine Allergy (Severe, Verified 11/08/24 13:14) Shortness of Breath Medication List - Last Reconciled 11/08/[address] biotin 1,000 mcg PO DAILY cholecalciferol (vitamin D3) 50 mcg PO DAILY thiamine HCl (vitamin B1) 100 mg PO DAILY ursodiol 300 mg PO BID vitamin A palmitate 10,000 units PO DAILY HPI Comments Details: This is a 33 yo female who is s/p LSG 04/19/2021. Weight at last visit on 07/18/2024 was 176.6 pounds with a BMI of 30.8, weight today is 185.8 pounds, representing a 9.2 pound weight gain with a BMI today of 32.4. Present meal plan includes: 8am-10am- half bottle Premier shake mixed with 4oz unsweetened almond, coconut, or oat milk 11am-1pm- half bottle Premier shake mixed with 4oz unsweetened almond, coconut, or oat milk 2pm-4pm- half Pure Protein bar 5pm-7pm- half Pure Protein bar 8pm-10pm- half Pure Protein bar Also offered a normal plan which does include a meal- 8am-10am- half bottle Premier shake mixed with 4oz unsweetened almond, coconut, or oat milk 11am-1pm- half bottle Premier shake mixed with 4oz unsweetened almond, coconut, or oat milk 2pm-4pm- half Pure Protein bar 5pm-7pm- 5 forkfuls meat, 5 forkfuls veg/salad 8pm-10pm- half Pure Protein bar Tried moderate plan- felt hungry. noticed she ended up snacking a lot. Exercise routine includes: maxi climber 7 days per week, 12-17 min (up from 5 min) and lukas on sundays pt does exercise bike in evening [address] Pt reports excess skin of upper arms and abdomen. Regarding arms, has to wear tight sleeves to prevent discomfort and friction from loose skin. During walking and exercise, excess skin of the arms limits range of motion and mobility. Excess skin causes pain and discomfort due to how heavy it is, and makes it difficult for her to lift arms up high. She has also noticed increased chafing of inner upper arms when the skin rubs against her body, during hotter weather. Also gets rashes in umbilicus for which she has to use clotrimazole ointment which has not completely resolved the issue. Rashes worsened over the summer with increased heat and sweating. Excess moisture has an unpleasant odor and pt has to wash frequently, especially in umbilicus. Excess skin of belly feels very heavy and uncomfortable. Has to wear a compressive garment to hold skin in place, but with hot weather the tight clothing tends to worsen the rashes due to moisture trapping. [facility] Medical History BMI 50.0-59.9, adult Depression Hereditary spherocytosis Morbid obesity Portal vein thrombosis Vitamin D deficiency Surgical History History of repair of hiatal hernia Status post laparoscopic sleeve gastrectomy Hx of wisdom tooth extraction Hx of splenectomy Family History Mother Sleep apnea Depression Fibromyalgia Migraine Degenerative disk disease Hypertension Father Sleep apnea Hypertension Brother Hyperlipidemia Spherocytosis Son No problems noted. Daughter No problems noted. Maternal Grandmother Lung cancer Social History Household Members: Family Housing: Apartment Are you a primary direct care supervisor to a significant other at home: No Do you presently have visiting nurse or other home services: No Alcohol intake: former Comment: aware of trip hazard Patient Tobacco Use Status: Former Tobacco user Tobacco use type: Cigarette service: No Current occupational status: employed Assessment & Plan Assessment & Plan (1) Excess skin: Code(s): L98.7 - Excessive and redundant skin and subcutaneous tissue Category: Medical (2) Obesity (BMI 30-39.9): Code(s): E66.9 - Obesity, unspecified Category: Medical (3) Status post laparoscopic sleeve gastrectomy: Code(s): Z98.84 - Bariatric surgery status Category: Surgical Plan Discussed additional options for weight loss. Due to pt's complex gallbladder issues, I would like to hold off on GLP1s at this time. I think she is a good candidate for phentermine for appetite suppression. No hx HTN. She has midodrine listed in her allergies which came up as a conflict but she does not recall ever taking this- may be mistaken for Midrin to which she does have an allergy. She will monitor herself closely when she starts this medication, will not start it alone, will monitor her BP daily with home BP cuff and check in with me once a week to ensure she is doing well. Emphasized adequate protein intake of 75g per day. RTC 3mo, texted pt with my phone # and encouraged her to contact me/office with any concerns. Medications: New phentermine must administer 2 hours after breakfast 30 mg PO DAILY 30 caps 0RF
[2024-11-08 13:16] VITALS: BP 107/65; PULSE 77; TEMP 36.8; O2SAT 100; BMI 32.4
--- OUTSIDE RECORDS SUMMARY | 2024-11-08 15:51 | XMS_ITS | Data Portability ---
Author Organization [facility] Address [address] [place] [address] Assessment Encounter Date Assessment Date Assessment LastModified by Organization Details LastModified Time 12/28/2023 12/28/2023 [id number] [place] [id number] (TALENT SCOUT) [facility] MODERATE MUST MEET 2 OUT OF 3 ELEMENTS: PROBLEMS, DATA OR RISK ELEMENT 1: PROBLEMS ADDRESSED 1 OR MORE CHRONIC ILLNESS WITH EXACERBATION OR 2 OR MORE STABLE CHRONIC ILLNESSES OR 1 UNDIAGNOSED NEW PROBLEM OR 1 ACUTE ILLNESS W/SYMPTOMS OR 1 ACUTE COMPLICATED INJURY ELEMENT 2: DATA MUST MEET 1 OF 3 CATEGORIES CATEGORY 1: REVIEW OF PRIOR EXTERNAL NOTES, REVIEW OF RESULTS, ORDERING OF EACH TEST, ASSESSMENT REQUIRING INDEPENDENT HISTORIAN OR CATEGORY 2: INDEPENDENT INTERPRETATION OF TESTS BY ANOTHER PHYSICIAN OR SPECIALIST OR CATEGORY 3: DISCUSSION OF MGT OR TEST INTERPRETATION W/EXTERNAL PHYSICIAN OR SPECIALIST ELEMENT 3: RISK RISK OF COMPLICATIONS AND/OR MORBIDITY OR MORTALITY OF PATIENT MANAGEMENT PROVIDER MUST THOROUGHLY DOCUMENT EACH ELEMENT THAT IS COVERED Not available 12/28/2023 15:35:45 02/22/2024 02/22/2024 [id number] [place] [id number] (TALENT SCOUT) [facility] MODERATE MUST MEET 2 OUT OF 3 ELEMENTS: PROBLEMS, DATA OR RISK ELEMENT 1: PROBLEMS ADDRESSED 1 OR MORE CHRONIC ILLNESS WITH EXACERBATION OR 2 OR MORE STABLE CHRONIC ILLNESSES OR 1 UNDIAGNOSED NEW PROBLEM OR 1 ACUTE ILLNESS W/SYMPTOMS OR 1 ACUTE COMPLICATED INJURY ELEMENT 2: DATA MUST MEET 1 OF 3 CATEGORIES CATEGORY 1: REVIEW OF PRIOR EXTERNAL NOTES, REVIEW OF RESULTS, ORDERING OF EACH TEST, ASSESSMENT REQUIRING INDEPENDENT HISTORIAN OR CATEGORY 2: INDEPENDENT INTERPRETATION OF TESTS BY ANOTHER PHYSICIAN OR SPECIALIST OR CATEGORY 3: DISCUSSION OF MGT OR TEST INTERPRETATION W/EXTERNAL PHYSICIAN OR SPECIALIST ELEMENT 3: RISK RISK OF COMPLICATIONS AND/OR MORBIDITY OR MORTALITY OF PATIENT MANAGEMENT PROVIDER MUST THOROUGHLY DOCUMENT EACH ELEMENT THAT IS COVERED Not available 02/22/2024 15:47:12 03/25/2024 03/25/2024 [id number] [place] [address] (TALENT SCOUT) [facility] MODERATE MUST MEET 2 OUT OF 3 ELEMENTS: PROBLEMS, DATA OR RISK ELEMENT 1: PROBLEMS ADDRESSED 1 OR MORE CHRONIC ILLNESS WITH EXACERBATION OR 2 OR MORE STABLE CHRONIC ILLNESSES OR 1 UNDIAGNOSED NEW PROBLEM OR 1 ACUTE ILLNESS W/SYMPTOMS OR 1 ACUTE COMPLICATED INJURY ELEMENT 2: DATA MUST MEET 1 OF 3 CATEGORIES CATEGORY 1: REVIEW OF PRIOR EXTERNAL NOTES, REVIEW OF RESULTS, ORDERING OF EACH TEST, ASSESSMENT REQUIRING INDEPENDENT HISTORIAN OR CATEGORY 2: INDEPENDENT INTERPRETATION OF TESTS BY ANOTHER PHYSICIAN OR SPECIALIST OR CATEGORY 3: DISCUSSION OF MGT OR TEST INTERPRETATION W/EXTERNAL PHYSICIAN OR SPECIALIST ELEMENT 3: RISK RISK OF COMPLICATIONS AND/OR MORBIDITY OR MORTALITY OF PATIENT MANAGEMENT PROVIDER MUST THOROUGHLY DOCUMENT EACH ELEMENT THAT IS COVERED Not available 03/25/2024 12:13:45 06/27/2024 06/27/2024 [id number] [place] [address] (TALENT SCOUT) [facility] MODERATE MUST MEET 2 OUT OF 3 ELEMENTS: PROBLEMS, DATA OR RISK ELEMENT 1: PROBLEMS ADDRESSED 1 OR MORE CHRONIC ILLNESS WITH EXACERBATION OR 2 OR MORE STABLE CHRONIC ILLNESSES OR 1 UNDIAGNOSED NEW PROBLEM OR 1 ACUTE ILLNESS W/SYMPTOMS OR 1 ACUTE COMPLICATED INJURY ELEMENT 2: DATA MUST MEET 1 OF 3 CATEGORIES CATEGORY 1: REVIEW OF PRIOR EXTERNAL NOTES, REVIEW OF RESULTS, ORDERING OF EACH TEST, ASSESSMENT REQUIRING INDEPENDENT HISTORIAN OR CATEGORY 2: INDEPENDENT INTERPRETATION OF TESTS BY ANOTHER PHYSICIAN OR SPECIALIST OR CATEGORY 3: DISCUSSION OF MGT OR TEST INTERPRETATION W/EXTERNAL PHYSICIAN OR SPECIALIST ELEMENT 3: RISK RISK OF COMPLICATIONS AND/OR MORBIDITY OR MORTALITY OF PATIENT MANAGEMENT PROVIDER MUST THOROUGHLY DOCUMENT EACH ELEMENT THAT IS COVERED Not available 06/27/2024 15:52:57 09/05/2024 09/05/2024 [id number] [place] [id number] (TALENT SCOUT) [facility] MODERATE MUST MEET 2 OUT OF 3 ELEMENTS: PROBLEMS, DATA OR RISK ELEMENT 1: PROBLEMS ADDRESSED 1 OR MORE CHRONIC ILLNESS WITH EXACERBATION OR 2 OR MORE STABLE CHRONIC ILLNESSES OR 1 UNDIAGNOSED NEW PROBLEM OR 1 ACUTE ILLNESS W/SYMPTOMS OR 1 ACUTE COMPLICATED INJURY ELEMENT 2: DATA MUST MEET 1 OF 3 CATEGORIES CATEGORY 1: REVIEW OF PRIOR EXTERNAL NOTES, REVIEW OF RESULTS, ORDERING OF EACH TEST, ASSESSMENT REQUIRING INDEPENDENT HISTORIAN OR CATEGORY 2: INDEPENDENT INTERPRETATION OF TESTS BY ANOTHER PHYSICIAN OR SPECIALIST OR CATEGORY 3: DISCUSSION OF MGT OR TEST INTERPRETATION W/EXTERNAL PHYSICIAN OR SPECIALIST ELEMENT 3: RISK RISK OF COMPLICATIONS AND/OR MORBIDITY OR MORTALITY OF PATIENT MANAGEMENT PROVIDER MUST THOROUGHLY DOCUMENT EACH ELEMENT THAT IS COVERED Not available 09/05/2024 12:11:38 Plan of Treatment Reminders Order Date Submit Date Provider Last Modified By Organization Details Last Modified Time Details Appointments FOLLOW UP 15 2024 03:30P M DR HERNANDEZ Not available Not available Not available Lab iron + TIBC + ferritin, serum 2023 024 [email or web address] [facility], [address] [place] [address], [id number], 07/05/2024 11:31:13 CBC w/ auto diff 2023 024 [facility], [address] [place] [address], [id number], 06/27/2024 16:01:14 vitamin B12 + folate, serum or blood 2023 024 [facility], [address] [place] [address], [id number], 06/27/2024 16:01:14 PT/INR 2023 024 [facility], [address] [place] [address], [id number], 12/29/2023 11:18:56 antithrom bin activity, plasma 2023 024 [facility], [address] [place] [address], [id number], 12/28/2023 15:37:41 factor V mutation, blood or tissue 2023 024 [facility], [address] [place] [address], [id number], 01/05/2024 11:17:24 protein S activity, plasma 2023 024 [facility], [address] [place] [address], [id number], 01/06/2024 11:36:53 anticardi olipin igg+igm+i ga Ab, serum 2023 024 [facility], [address] [place] [address], [id number], 12/31/2023 18:54:22 protein C activity, plasma 2023 024 [facility], [address] [place] [address], [id number], 01/01/2024 11:14:05 lupus anticoagu lant, plasma 2023 024 [facility], [address] [place] [address], [id number], 12/28/2023 15:37:42 Referral gastroent erologist referral - considera tion for actigall [place] surgeon note please 2023 024 satish Núñez MD, [address] [place] [id number], [id number], 02/23/2024 09:16:02 Procedures None recorded. Surgeries None recorded. Imaging None recorded. Medication Orders None recorded. Patient TargetsNo targets recorded. Patient Instructions Encounter Date Encounter Id Patient Instructions Last Modified By Organization Details Last Modified Time 06/27/2024 [id number] anemia: care instructions Not available 06/27/2024 15:53:53 learning about mood disorders Not available 06/27/2024 15:53:53 09/05/2024 [id number] anemia: care instructions Not available 09/05/2024 12:13:55 Reason for Referral Quality Facilitator Referral for Cholelithiasis without obstruction consideration for actigall [place] surgeon note please Referring Physician: Shadi Hernandez, Internal Medicine, Encounter Date: 02/22/2024 Results Created Date Observation Date Name Description Value Unit Range Abnormal Flag Note LastModifiedBy Organization Detail LastModifiedTime Result Notes None recorded. Problems Name Problem SNOMED Code Status Onset Date Resolution Date Notes Provider Name and Address Organization Details Recorded Time Migraine 71559834 [facility] History of chickenp ox 154667578 Active 2019 [facility] 4 10:04:57 Heredita ry spherocy tosis 34788902 Active 2017 asplenic [facility] 4 10:04:57 Depressi ve disorder 31102352 Active 2017 [facility] 4 10:04:57 Obesity 002143362 Completed 202006/17/2023 Removal Reason: s/p surg Shadi Hernandez, DO [address] [place] [address], [phone], [facility] 3 15:49:36 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 [facility] 4 10:04:57 Hypercoa gulabili ty state 92724549 Active 2021 Shadi Hernandez, [address] [place] [address], [phone], [facility] 2 14:11:52 Lacerati on of finger 211645435 Active 2021 [facility] 4 10:05:08 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 [facility] 4 10:04:56 Bacteria l conjunct ivitis 657632226 Active 2022 [facility] 4 10:05:08 Anemia 388487496 Active 2022 [facility] 4 10:04:56 Chronic cholecys titis 59910279 Active 2023 [facility] 4 10:04:56 Cholelit hiasis without obstruct ion 54045850 Active 2023 Shadi Hernandez DO [address] [place], [address], [facility] 4 15:47:46 COVID-19 908339287 Active 2023 Shadi Hernandez DO [address] [place] [address], [phone], [facility] 4 23:03:05 Seasonal allergy 567568292 Active 2017 Shadi Hernandez DO [address] [place] [address], [phone], [facility] 8 10:00:54 Alopecia 37484937 Active 2017 Shadi Hernandez DO [address] [place] [address], [phone], [facility] 8 16:25:45 Problem Notes None recorded. Procedures Surgical History Date Name Laterality Status Provider Name and Address Organization Details Recorded Time 10/02/19 18 Colposcopy completed Bridget L[facility] 11/30/2019 11:28:28 Appendectomy completed Bridget [facility] 11/30/2019 11:27:32 Splenectomy completed Bridget [facility] 11/30/2019 11:27:39 extraction of wisdom tooth completed Bridget [facility] 11/30/2019 11:27:45 Imaging Results None recorded. Procedure Notes None recorded. Medical Equipment None Reported. Allergies Allergen ID Allergen Name Allergen Category Reaction Reaction Severity Criticality Documentation Date Start Date Code Code System Note Provider Name and Address Organization Details Recorded Time 355 Ceclor medicatio n Not available Not available Not available 11/04/201745825 5 [facility] 8 08:52:07 356 Midrin medicatio n Not available Not available Not available 11/04/2017 15105 Rx[facility] 8 08:52:13 Medications Name Sig Start Date Stop Date Status Note LastModified by Organization Details LastModified Time vitamin d3 (delma) 50mcg cap TAKE 1 CAPSULE BY MOUTH ONCE DAILY 06/27 completed Not Available Not Available Not Available amoxicillin 500 mg capsule Take 2 capsules every day by oral route. 12/06 completed Not Available Not Available Not Available Carafate 1 gram tablet Take 1 tablet twice a day by oral route. 09/06 completed Not Available Not Available Not Available ondansetron HCl 4 mg tablet TAKE 1 TABLET BY MOUTH EVERY 6 HOURS NEEDED FOR NAUSEA OR VOMITING 06/26 completed Not Available Not Available Not Available thiamine HCl (vitamin B1) 100 mg tablet TAKE 1 TABLET BY MOUTH ONCE DAILY active Not Available Not Available No t Available warfarin 2.5 mg tablet TAKE 2 TABLET BY MOUTH EVERY DAY DIRECTED BY 02/07 completed Not Available Not Available Not Available acetaminoph en 500 mg tablet TAKE 2 CAPSULE BY MOUTH EVERY 6 HOURS NEEDED 06/26 completed Not Available Not Available Not Available Mi-Acid Gas Relief (simethicon e) 80 mg chewable tablet TAKE 1 TABLET BY MOUTH 3 TO 4 TIMES A DAY NEEDED 11/19 completed Not Available Not Available Not Available famotidine 20 mg tablet TAKE 1 TABLET BY MOUTH DAILY 06/26 completed Not Available Not Available Not Available vitamin A 3,000 mcg (10,000 unit) capsule TAKE 1 CAPSULE BY MOUTH ONCE DAILY active Not Available Not Available No t Available meclizine 25 mg tablet Take 1 tablet 3 times a day by oral route. 01/15 completed Not Available Not Available Not Available erythromyci n 5 mg/gram (0.5 %) eye ointment APPLY 1 CM RIBBON INTO THE LOWER CONJUNCTI LAINEY SAC(S) IN THE AFFECTED EYE(S) BY OPHTHALMI C ROUTE 3 TIMES PER DAY 06/17 completed Not Available Not Available Not Available mirtazapine 30 mg tablet TAKE 1/2 TABLET (30 MG) BY ORAL ROUTE ONCE DAILY BEFORE BEDTIME 08/07 completed Not Available Not Available Not Available hyoscyamine 0.125 mg sublingual tablet DISSOLVE 1 TABLET UNDER THE TONGUE AND ALLOW TO DISSOLVE UP TO THREE TIMES DAILY NEEDED FOR PAIN active Not Available Not Available No t Available ursodiol 300 mg capsule TAKE 1 CAPSULE BY MOUTH TWICE DAILY active Not Available Not Available No t Available polymyxin B sulfate 10,000 unit-trimet hoprim 1 mg/mL eye drops INSTILL 1 DROP INTO AFFECTED EYE(S) BY OPHTHALMI C ROUTE EVERY 6 HOURS 09/06 completed Not Available Not Available Not Available docusate sodium 100 mg capsule TAKE 1 CAPSULE BY MOUTH TWICE DAILY 06/26 completed Not Available Not Available Not Available mirtazapine 15 mg tablet TAKE 1 TABLET BY MOUTH EVERY DAY AT BEDTIME 12/04 completed Not Available Not Available Not Available Cheratussin AC 10 mg-100 mg/5 mL oral liquid Take 10 mL every 4 hours by oral route for 7 days. 12/06 completed Not Available Not Available Not Available ondansetron 4 mg disintegrat ing tablet DISSOLVE 1 TABLET ON THE TONGUE EVERY 8 HOURS FOR 5 DAYS NEEDED FOR NAUSEA OR VOMITING 11/19 completed Not Available Not Available Not Available clotrimazol e 1 % topical cream APPLY CREAM TOPICALLY TWICE DAILY active Not Available Not Available No t Available sertraline 50 mg tablet TAKE 1 T PO D 08/07 completed Not Available Not Available Not Available doxycycline hyclate 100 mg tablet TAKE 1 TABLET BY MOUTH TWICE DAILY FOR 7 DAYS 06/17 completed Not Available Not Available Not Available modafinil 100 mg tablet TAKE 1 TABLET BY MOUTH EVERY DAY IN THE MORNING 12/04 completed Not Available Not Available Not Available Bactrim DS 800 mg-160 mg tablet Take 1 tablet every 12 hours by oral route. 09/06 completed Not Available Not Available Not Available enoxaparin 100 mg/mL subcutaneou s syringe 06/26 completed Not Available Not Available Not Available heparin lock flush (porcine) 100 unit/mL intravenous solution 06/26 completed Not Available Not Available Not Available calcium 1,000 MG DAILY 12/27 completed Not Available Not Available Not Available biotin active Not Available Not Availa ble Not Available multivitami n 03/12 completed Not Available Not Available Not Available cholecalcif juliana (vitamin D3) 1,250 mcg (50,000 unit) capsule TAKE 1 CAPSULE BY MOUTH EVERY WEEK 04/24 completed Not Available Not Available Not Available M-M-R II (PF) 1,000-12,50 0 TCID50/0.5 mL subcutaneou s solution ADM 0.5ML SC UTD 08/07 completed Not Available Not Available Not Available Vitamin D3 50 mcg (2,000 unit) capsule TAKE 1 CAPSULE BY MOUTH ONCE DAILY active Not Available Not Available No t Available Flintstones Complete (iron) 18 mg iron chewable tablet Take 2 tablets every day by oral route. 09/05 completed Not Available Not Available Not Available Flintstones Complete 2 Tablets once a day 06/01 completed Not Available Not Available Not Available Bariatric Multivitami ns 45 mg iron-800 mcg-120 mcg capsule Take 1 capsule every day by oral route. 11/19 completed Not Available Not Available Not Available [employer] At-Home COVID-19 Test kit TEST DIRECTED TODAY 06/17 completed Not Available Not Available Not Available Paxlovid 300 mg (150 mg x 2)-100 mg tablets in a dose pack TAKE 3 TABLETS TOGETHER (TWO 150 MG NIRMATREL VIR TABLETS AND ONE 100 MG RITONAVIR TABLET) BY MOUTH TWICE DAILY FOR 5 DAYS. 06/27 completed Not Available Not Available Not Available Vitals Date Recorded Body height Body mass index (BMI) Body weight Heart rate Oxygen saturation Oxygen saturation in Arterial blood by Pulse oximetry Systolic blood pressure Diastolic blood pressure Provider Name and Address Organization Details Last Updated DateTime 4 162.56 cm 30.1 kg/m2 47830.7 4 g 72 /min 96 % 96 % 108 mm[Hg] 62 mm[Hg] Shadi Hernandez, DO [address] [place], [address] [place] [address] Internal Medicine 4 15:22:49 Date Recorded Body height Body mass index (BMI) Body weight Heart rate Oxygen saturation Oxygen saturation in Arterial blood by Pulse oximetry Systolic blood pressure Diastolic blood pressure Provider Name and Address Organization Details Last Updated DateTime 4 162.56 cm 30.3 kg/m2 55989.7 7 g 69 /min 100 % 100 % 102 mm[Hg] 68 mm[Hg] Maritza Jacome [facility] 4 15:32:58 Date Recorded Body height Body mass index (BMI) Body weight Heart rate Oxygen saturation Oxygen saturation in Arterial blood by Pulse oximetry Systolic blood pressure Diastolic blood pressure Provider Name and Address Organization Details Last Updated DateTime 4 162.56 cm 29.6 kg/m2 62571.4 g 69 /min 100 % 100 % 102 mm[Hg] 68 mm[Hg] Maritza Jacome [facility] 4 11:48:50 Date Recorded Body height Body mass index (BMI) Body weight Heart rate Oxygen saturation Oxygen saturation in Arterial blood by Pulse oximetry Systolic blood pressure Diastolic blood pressure Provider Name and Address Organization Details Last Updated DateTime 4 162.56 cm 30.5 kg/m2 17348 g 94 /min 100 % 100 % 124 mm[Hg] 56 mm[Hg] Asimvanessa Monte [facility] 4 15:25:21 Date Recorded Body height Body mass index (BMI) Body weight Heart rate Oxygen saturation Oxygen saturation in Arterial blood by Pulse oximetry Systolic blood pressure Diastolic blood pressure Provider Name and Address Organization Details Last Updated DateTime 5 162.56 cm 29.7 kg/m2 37274.4 8 g 74 /min 100 % 100 % 120 mm[Hg] 64 mm[Hg] Ambreen Osman [facility] 5 11:45:15 Social History Question Answer Notes LastModified by Organizat ion Details LastModified Time Tobacco Smoking Status Former Smoker Not Available [facility] 07/03/2020 03:36:23 What Was The Date Of Your Most Recent Tobacco Screening? 09/05/2024 [email or web address] Information not available 09/05/2024 How Many Years Have You Smoked Tobacco? 2 [id number] Information not available 07/03/2020 Do You Or Have You Ever Used Any Other Forms Of Tobacco Or Nicotine? No [email or web address] Information not available 06/17/2023 Sex: Unknown Functional Status None recorded. Mental Status None recorded. Family History Relationship Description Onset Age of this Age Resolved Age Notes LastModified by Organization Details LastModified Time Father Hypertensive disorder [email or web address] Not available 2019 11:29:38 Father Fibromyalgia [id number] Not a vailable 02/22/2024 15:10:33 Mother Hypertensive disorder [email or web address] Not available 2019 11:29:38 Brother Hyperlipidem ia [email or web address] Not available 15:10:33 Paternal Aunt Atrial fibrillation Not available 02/22/2024 15:10:33 Paternal Grandmother Cerebrovascu lar accident [email or web address] Not available 08/2019 11:30:22 Medical History No medical history recorded. Gynecological HistoryNo gynecological history recorded. Obstetrics History GPAL:G 0 P 0 0 0 0 Immunizations Vaccine Type Date Status Note Provider Nam e and Address Organization Details Recorded Time Tdap 2 completed Antonieta helm [facility] 02/05/2022 08:39:57 Influenza, split virus, quadrivalent, preservative 0 completed Katrin helm [facility] 06/17/2023 15:09:27 COVID-19, mRNA, LNP-S, PF, 30 mcg/0.3 mL dose 1 completed Katrin helm [facility] 06/17/2023 15:09:27 COVID-19, mRNA, LNP-S, PF, 30 mcg/0.3 mL dose 1 completed Katrin helm [facility] 06/17/2023 15:09:27 Past Encounters Encounter ID Performer Location Encounter Start Date Encounter Closed Date Diagnosis/Indication Diagnosis SNOMED-CT Code Diagnosis ICD10 Code Diagnosis Note [id number] November MIMI Gee [facility] [address] [facility] [address] 12/09/2017 14:55:58 12/09/2017 16:02:40 Dizziness 350252581 R42 cmp- handwritte n order Nausea 313995969 R11.0 in setting of mild RUQ ttp, ? gall bladder disease vs fatty liver Anemia 023725463 D64.9 has h/o anemia, she is s/p splenectom y will check cbc, iron levels - hand written order [id number] Shadi Hernandez DO [facility] [address] [facility] [address] 01/15/2018 09:21:54 01/15/2018 13:49:38 Abdominal pain 18692409 R10.9 will need to order HIDA scan US reported as normal believe this could represent a functional gb illness Seasonal allergy 7159152 04 J30.2 otc discus [id number] Shadi Hernandez DO [place] [facility] [address] [facility] [address] 02/01/2018 15:34:28 02/01/2018 16:45:47 Hereditary spherocytosis 06157998 D58.0 no current issues and no issues Seasonal allergy 7512936 04 J30.2 otc discuss will use prn Right uppe r quadrant pain 537053884 R10.11 only other option is to CT the area [id number] Shadi Hernandez DO [place] [facility] [address] [facility] [address] 03/12/2018 15:19:27 03/15/2018 15:03:43 Alopecia 57380759 L65.9 will be referring to dermatolog y Gastro-eso phageal reflux disease with esophagitis 112952217 K21.0 dx by egd and noted lack of response to ppi tx has to try carafate prior to seeing GI [id number] November MIMI Gee [facility] [address] [facility] [address] 03/16/2018 14:46:08 03/16/2018 16:00:58 Acute pharyngitis 478398110 J02.9 in setting of likely viral URI - take mucinex - dm for cough sudafed for nasal congestion s lots of fluid/rest tylenol/ib uprofen for discomfort or fever f/u if sx change or worsen Acute conjunctivitis 537 68873 H10.33 likely viral, and at this point seems resolved there are no residual sx suggestive of conjunctiv itis at the time of the visit monitor for sx change or worsening [id number] Shadi Hernandez DO [facility] [address] [facility] [address] 10/15/2018 10:54:11 10/15/2018 11:48:40 Streptococcal sore throat 19723895 J02.0 finishing her amox in next couple days add mucinex Cough 60714486 R05 will provide med [id number] Cristina Olguin NP, S [facility] [address] [facility] [address] 12/06/2018 11:22:08 12/06/2018 12:49:50 Acute pharyngitis 343138013 J02.9 just off amox Acute conjunctivitis 537 19535 H10.31 [id number] Shadi Hernandez DO [facility] [address] [facility] [address] 09/06/2019 15:11:16 09/06/2019 15:43:08 Depressive disorder 66497543 F32.9 Feeling much worse right now Will try mirtazapin e 15 mg and recheck Postcalcan eal bursitis 449442644 M77.31 Pain ongoing since January Rec thick heel pads and will let us know if it worsens Obstructiv e sleep apnea syndrome 04373411 G47.33 Sleep has been poor with excessive snoring Tired daily despite adequate sleep [id number] Shadi Hernandez DO [facility] [address] [facility] [address] 10/10/2019 15:13:01 10/10/2019 15:59:48 52261430 Z33.1 will follow bp and leg edema will see in about a month Hereditary spherocytosis 12629851 D58.0 no current issues and no issues Depressive disorder 3548 9007 F32.9 have stopped the mirtazapin e as she is preg and she is doing well overall [id number] Shadi Hernandez DO [facility] [address] [facility], [place] [address] 11/09/2019 15:13:37 11/09/2019 15:37:23 Depressive disorder 92735273 F32.9 have stopped the mirtazapin e as she is preg and she is doing well overall Seasonal allergy 7468163 04 J30.2 otc discuss will use prn Alopecia 36294245 L65.9 seems to have stabilized Hereditary spherocytosis 66434044 D58.0 no current issues and no issues but 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 [id number] Shadi Hernandez DO [place] [facility] [address] [facility],[place] [address] 03/30/2020 09:06:22 03/30/2020 10:21:05 Depressive disorder 36656499 F32.9 have stopped the mirtazapin e as she is preg and she is doing well overall Hereditary spherocytosis 07485767 D58.0 no current issues and no issues but 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 Seasonal allergy [id number] 04 J30.2 otc discuss will use prn Active or passive immunization [id number] Z23 [id number] Shadi Hernandez [facility] Medicine [address] [facility] [address] [address] 06/01/2020 09:52:46 06/01/2020 10:37:27 Depressive disorder 22872542 F32.9 have been placed back on mirtazapin e will have r stay on 15 mg if need will have her increase Hereditary spherocytosis 43506310 D58.0 no current issues and no issues new also has this [id number] Shadi Hernandez DO [facility] Internal Medicine [address] [facility] [address],[place] [address] 08/07/2020 14:16:33 08/07/2020 15:11:05 Depressive disorder 75381724 F32.9 have been placed back on mirtazapin e will have stay on 15 mg but is having the fatigue after the next day from work she tried decreasing dose on those work days but did not feel any better the next day Migraine 79849938 G43.90 9 states has only had 1 headache over the last 4 mo [id number] Shadi Hernandez [facility] Internal Medicine [address] [facility] [address] [address] 10/30/2020 13:38:03 10/30/2020 14:23:46 Depressive disorder 75108145 F32.9 have been placed back on mirtazapin e will have stay on 7.5 mg (taking 1/2 tab of 15mg) but is having the fatigue after the next day from work she tried decreasing dose on those work days but did not feel any better the next day Excessive daytime sleepiness - normal night sleep 767596530 G47.19 long detailed discussion sh seems to have excessive daytime sleepiness out of proportion to the sleep pattern she describes (which is good) if this works well we will be ABLE to wean off the mirtazap/? Migraine 67726882 G43.90 9 states has only had 1 headache over the last 4 mo doing great again [id number] Shadi Hernandez DO [facility] Internal Medicine [address] [facility] [address] [facility] [place] [address] 12/04/2020 13:32:19 12/04/2020 14:21:48 Depressive disorder 23209801 F32.9 is overall doing ok and is wondering if we can try her off the mirtazapin e given she is only taking 7.5 mg iu agree to just have her stop Excessive daytime sleepiness - normal night sleep 049217836 G47.19 modafnil caused too much of side effect ] but we are going to keep her of f thi s med type for now and see how she does she does have tachy right now certainly from the modafanil Obesity 971228170 E66.9 will refer to [facility] Skin lesion 95778874 L98 .9 large irritating lesion on inner left thigh [id number] Shadi Hernandez DO [facility] Internal Medicine [address] [facility],[place] [address] 01/15/2021 16:13:55 01/15/2021 16:56:42 Obesity 086284792 E66.9 we will cont to move forward with the program she is clearly a good candidate for this program and i believe she will do quite well . we will need to set up a CPE, she has no contraindi cations at this time [id number] Shadi Hernandez DO [facility] Internal Medicine [address] [facility] [address] [facility] [place] [address] 02/13/2021 15:02:14 02/13/2021 16:12:19 Active or passive immunization 019408991 Z23 Adult heal th examination 394149926 Z00.00 doing well continues to lose weight and is motivatedn o current issues nor restrictio ns Hereditary spherocytosis 52333759 D58.0 stable without complicati ons [id number] Shadi Hernandez [facility] Internal Medicine [address] [facility] [facility] [place] [address] 04/24/2021 10:31:59 04/24/2021 11:35:43 Postoperative state 93707763 Z98.890 doing better eating diff now with the gastric sleeve placedwoun ds are evalshe linette watch aforementi oned incision site for signs of infection Obesity 034768605 E66.9 we will cont to move forward with the program she is doing great and has had procedure and overall is down to 254 from > 320 [id number] Shadi Bruce Alicia [facility] Internal Medicine [address] [facility],[place] [address] 05/22/2021 08:33:25 05/22/2021 12:10:03 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 has been stabilized with anticoag iv hep and now lovenox she is doing better now but is npofor the time being gettting tpn through a pick lineshe will have a appt with surg after the follow up CT A on thursdayunti l then sh ei is to cont lovenox sq 100mg q 12 Depressive disorder 5287 9007 F32.9 she will get a list of active providers and we will help pick out [id number] Shadi Bruce Alicia [facility] Internal Medicine [address] [facility] [facility] [place] [address] 06/26/2021 12:03:34 06/26/2021 14:47:46 Migraine 37757850 G43.909 states has only had 1 headache over the last 4 mo doing great again Alopecia 43830259 L65.9 seems to have stabilized but has lost more due to the diet she is on Hereditary spherocytosis 81032899 D58.0 stable without complicati ons Superior m esenteric vein thrombosis 628724652 K55.059 has been stabilized with anticoagan d is at the coumadin and doing okfollowed by the hematologi st for clotting disordersh as a follow up ct scan in jul of abdomen [id number] Shadi Teo Hernandez [facility] Internal Medicine [address] [facility],[place] [address] 09/24/2021 08:17:32 09/24/2021 15:34:20 Hereditary spherocytosis 29005021 D58.0 stable now but she is wondering about the future and having a hypercaog statedoes she need terminal carman medication for anticoag Superior m esenteric vein thrombosis 568014258 K55.059 has been stabilized with anticoag and is still on the warfarin until presumably in november or december when she sees the hematologi stand is at the coumadin and doing okfollowed by the hematologi st for clotting disordersh as a follow up ct scan of abdomen and is not avail at this [id number] Shadi Hernandez [facility] Internal Medicine [address] [facility],[place] [address] 11/19/2021 14:22:21 11/19/2021 16:13:51 Depressive disorder 13596418 F32.9 she will get a list of active providers and we will help pick out Superior m esenteric vein thrombosis 907679711 K55.059 she will be referred to another hematologi st for question re need to cont the warfarin instead of discont at 6 mo [id number] MARTA MARTINEZ [facility] Internal Medicine [address] [facility] [address] 02/07/2022 14:30:09 02/10/2022 09:24:52 Laceration of finger 839190210 S61.210A will start on doxy for infection after laceration to the nails, tips of the fingers and nails [id number] Shadi Hernandez [facility] Medicine [address] [facility] [address] [address] 02/18/2022 08:53:30 02/21/2022 09:10:02 Portal vein thrombosis 22383668 I81 now with collateral s surroundin g no longer on anticoagul ationper surgery and henatology no longer having any discomfort associated bp stableno need for further follow up or need for clotting work up as this was felt to be a direct result of her surgery . [id number] MARTA MARTINEZ [facility] Internal Medicine [address] [facility] [address] 11/17/2022 09:53:45 11/17/2022 14:09:57 Bacterial conjunctivitis 265266458 H10.011 will start on medication Hereditary spherocytosis 11183852 D58.0 stable Superior m esenteric vein thrombosis 978577472 K55.059 stable [id number] Shadi Hernandez [facility] Internal Medicine [address] [facility] [address] 03/18/2023 10:00:11 03/18/2023 11:08:08 Migraine 53097064 G43.909 still states has only had 1 headache over the last 8 mo doing great again Hereditary spherocytosis 12991644 D58.0 stable now but she is wondering about the future and having a hypercaog statedoes she need shelter medication for anticoag Depressive disorder 3548 9007 F32.9 overall is stable despite the severe stresswill get a list of counselors [id number] Shadi Hernandez [facility] Internal Medicine [address] [facility] [address] 06/17/2023 15:07:52 06/17/2023 16:21:00 Portal vein thrombosis 16440122 I81 now with collateral s surroundin g no longer on anticoagul ationper surgery and henatology no longer having any discomfort associated bp stableno need for further follow up or need for clotting work up as this was felt to be a direct result of her surgery . Hereditary spherocytosis 29929158 D58.0 stable now but she is wondering about the future and having a hypercoag statedoes she need shelter medication for anticoag this will be a need to addressed Hyperlipid emia screening 808833363 Z13.220 [id number] Shadi Hernandez [facility] Internal Medicine [address] [facility] [address] [address] 12/28/2023 15:18:03 12/28/2023 16:29:53 Depressive disorder 17709245 F32.9 overall is stable despite the severe stresswill get a list of counselors Hereditary spherocytosis 37555710 D58.0 stable now but she is wondering about the future and having a hypercoag statedoes she need terminal carman medication for anticoag this will be a need to addressed Portal vei n thrombosis 99294975 I81 now with collateral s surroundin g no longer on anticoagul ationper surgery and henatology no longer having any discomfort associated bp stableno need for further follow up or need for clotting work up as this was felt to be a direct result of her surgery . Hypercoagu lability state 91960109 D68.59 do not see any of these lab so we will order will need for [facility] eval Chronic cholecystitis 20 353364 K81.1 [id number] Shadi Hernandez [facility] Internal [facility] [address] [facility] [address] [facility] [place] [address] 02/22/2024 15:09:51 02/22/2024 16:48:27 Depression screening 001555491 Z13.31 SCREENING NEGATIVE Cholelithi asis without obstruction 25541597 K80.20 must consider actigall Portal vei n thrombosis 87841194 I81 now with collateral s surroundin g no longer on anticoagul ationper surgery and henatology no longer having any discomfort associated bp stableno need for further follow up or need for clotting work up as this was felt to be a direct result of her surgery . [id number] Shadi Hernandez [facility] Medicine [address] [facility] [facility] [place] [address] 03/25/2024 11:34:20 03/25/2024 14:02:57 Cholelithiasis without obstruction 58790957 K80.20 must consider actigall urosidil [id number] Shadi Hernandez [facility] Internal Medicine [address] [facility],[place] [address] 06/27/2024 15:18:51 06/27/2024 16:01:05 Depressive disorder 12129015 F32.9 overall is stable despite the severe stresswill get a list of counselors Anemia 625995937 D64.9 will need rechlk Cholelithi asis without obstruction 54127063 K80.20 stable no major issues Migraine 31664508 G43.90 9 still states has only had 1 headache over the last 8 mo doing great again [id number] Shadi Hernandez [facility] Internal Medicine [address] [facility] [address],[place] [address] 09/05/2024 11:35:33 09/05/2024 12:27:19 Depressive disorder 08298196 F32.9 overall is stable despite the severe stresswicaron get a list of counselors Hereditary spherocytosis 71784644 D58.0 stable now but she is wondering about the future and having a hypercoag statedoes she need shelter medication for anticoag this will be a need to addressed Anemia 655643519 D64.9 will need rechk and follow hgb was 11.8 will follow Health Concerns Section Related Observation LastModified by Organization Detai ls LastModified Time None Recorded Concern Status LastModified by Organization Details LastModified Time None Recorded Advance Directives Directive None Recorded Payers Encounter Date Sequence Insurance Name Policy Number Policy Loera Covered Member ID Loera Member ID Guarantor Name 12/28/2023 1 [facility] [id number] Alida Delgadillo [id number] Alidahelen Delgadillo 02/22/2024 1 [facility] [id number] Alida Delgadillo [id number] Alida Delgadillo 03/25/2024 1 [place] [facility] [id number] Alida Delgadillo [id number] Alida Delgadillo 06/27/2024 1 [place] [facility] [id number] Alida Delgadillo [id number] Alida Delgadillo 09/05/2024 1 [place] [facility] [id number] Alida Delgadillo [id number] Alida Delgadillo Notes Date Note Type Note Provider Name a nd Address Organization Details Recorded Time 4 text/html here for rechk has ongoing gall stone issues but surgeons here in [place] do not want to operated due to her ongoing issues with chronic portal vein thrombosis and cavernousr transformationshe does have an ongoing hyper coag state and is on Shadi Hernandez DO [address] [facility], [place], [address], [facility] 12/28/2023 15:40:23 4 text/html here for rechk following the surg e [facility] felt that likely was GB but thatshe would be a t high risk for the surgery due to the SMV and protal vein thrombosis Shadi Hernandez DO [address] [place], [address], [facility] 02/22/2024 15:52:31 4 text/html here for rechk visit to gastro due to choliethiasis and she si now on urosidol and has been asymptomatic sincealso has hycosiamineis beigncareful Shadi Hernandez DO [address] [place], [address], [facility] Internal [facility] 03/25/2024 12:17:19 4 text/html here for rechdoing ok feels well overall states overall is doing good Shadi Hernandez DO [address] [place], [address], [facility] 06/27/2024 15:55:42 5 text/html here for rechk and is doing good and no major issuesshe is pretty well physically and mentallysh has met someone and is quite happy Shadi Hernandez DO [address] [place], [address], [facility] Internal [facility] 09/05/2024 12:15:37 OBGyn Episode No OBEpisode recorded.
== END 2024-11-08 14:04 | disposition home or self-care (01) ==
LOC: HO.HBS 13:04
PROVIDERS: PCP Internal Medicine; Visit Provider Physician Assistant Surgical
DX: L98.7 Excessive and redundant skin and subcutaneous tissue (principal); E66.811 Obesity, class 1; Z68.32 Body mass index [BMI] 32.0-32.9, adult; Z98.84 Bariatric surgery status
CPT/HCPCS: 99214

== ENCOUNTER 2025-01-31 13:13 | Outpatient (AMB) | payer BC, SELFPAY ==
--- NOTE | 2025-01-31 13:25 | A.OFFVIS_ITS ---
VS Expanded 01/31/25 13:34 BP 116/69 Blood Pressure Location Rt brachial Blood Pressure Position Sitting Pulse 86 Pulse Source Pulse Oximeter Temp 98.0 F Temperature Source Temporal Artery Scan Pulse Oximetry 100 Oxygen Delivery Method Room Air Height 5 ft 3.5 in Weight 179 lb 3.2 oz BMI 31.2 Body Fat % 35.8 Body Fat Mass 64.2 Fat Free Mass 114.8 Visceral Fat Rating 7.0 Body Water % 45.9 Body Water Mass 82.2 Muscle Mass/Score 109.2 Basal Metabolic Rate/Score 1,583 Intake Visit Reasons: (OV) PO LSG 04/19/21 Allergies cefaclor [From Ceclor] Allergy (Severe, Verified 01/31/25 13:28) Rash dichloralphenazone [From Midrin] Allergy (Severe, Verified 01/31/25 13:28) Shortness of Breath isometheptene [From Midrin] Allergy (Severe, Verified 01/31/25 13:28) Shortness of Breath midodrine Allergy (Severe, Verified 01/31/25 13:28) Shortness of Breath Medication List - Last Reconciled 01/31/[address] biotin 1,000 mcg PO DAILY cholecalciferol (vitamin D3) 50 mcg PO DAILY phentermine 15 mg PO DAILY thiamine HCl (vitamin B1) 100 mg PO DAILY ursodiol 300 mg PO BID vitamin A palmitate 10,000 units PO DAILY HPI Comments Details: This is a 33 yo female who is s/p LSG 04/19/2021. Weight loss of 6.6lbs since last OV 3mo ago. On phentermine, reports some instances where she feels spacey in the afternoon, felt irritable when she missed doses. BP well controlled at home. Present meal plan includes: 8am-10am- half bottle Premier shake mixed with 4oz unsweetened almond, coconut, or oat milk 11am-1pm- half bottle Premier shake mixed with 4oz unsweetened almond, coconut, or oat milk 2pm-4pm- half Pure Protein bar 5pm-7pm- half Pure Protein bar 8pm-10pm- half Pure Protein bar Also offered a normal plan which does include a meal- 8am-10am- half bottle Premier shake mixed with 4oz unsweetened almond, coconut, or oat milk 11am-1pm- half bottle Premier shake mixed with 4oz unsweetened almond, coconut, or oat milk 2pm-4pm- half Pure Protein bar 5pm-7pm- 5 forkfuls meat, 5 forkfuls veg/salad 8pm-10pm- half Pure Protein bar lately has been taking 3 Pure Protein bars per day plus one meal Exercise routine includes: maxi climber 7 days per week, 12-17 min (up from 5 min) and lukas on sundays pt does exercise bike in evening 300 [address] Pt reports excess skin of upper arms and abdomen. Regarding arms, has to wear tight sleeves to prevent discomfort and friction from loose skin. During walking and exercise, excess skin of the arms limits range of motion and mobility. Excess skin causes pain and discomfort due to how heavy it is, and makes it difficult for her to lift arms up high. She has also noticed increased chafing o f inner upper arms when the skin rubs against her body, during hotter weather. Also gets rashes in umbilicus for which she has to use clotrimazole ointment which has not completely resolved the issue. Rashes worsened over the summer with increased heat and sweating. Excess moisture has an unpleasant odor and pt has to wash frequently, especially in umbilicus. Excess skin of belly feels very heavy and uncomfortable. Has to wear a compressive garment to hold skin in place, but with hot weather the tight clothing tends to worsen the rashes due to moisture trapping. COUNTS INCLUDE 234 BEDS AT THE [facility] Medical History BMI 50.0-59.9, adult Depression Hereditary spherocytosis Morbid obesity Portal vein thrombosis Vitamin D deficiency Surgical History History of repair of hiatal hernia Status post laparoscopic sleeve gastrectomy Hx of wisdom tooth extraction Hx of splenectomy Family History Mother Sleep apnea Depression Fibromyalgia Migraine Degenerative disk disease Hypertension Father Sleep apnea Hypertension Brother Hyperlipidemia Spherocytosis Son No problems noted. Daughter No problems noted. Maternal Grandmother Lung cancer Social History Household Members: Family Housing: Apartment Are you a primary intensive care nurse to a significant other at home: No Do you presently have visiting nurse or other home services: No Alcohol intake: former Comment: aware of trip hazard Patient Tobacco Use Status: Former Tobacco user Tobacco use type: Cigarette service: No Current occupational status: employed Assessment & Plan Assessment & Plan (1) Obesity (BMI 30-39.9): Code(s): E66.9 - Obesity, unspecified Category: Medical (2) Excess skin: Code(s): L98.7 - Excessive and redundant skin and subcutaneous tissue Category: Medical (3) Status post laparoscopic sleeve gastrectomy: Code(s): Z98.84 - Bariatric surgery status Category: Medical Plan Pt would like to discontinue phentermine. Will decrease to 15mg x1 week then QOD dosing x1 week. Will discuss options for anxiety management with her PCP; suggested asking about Wellbutrin or Contrave as options for better chance at weight loss. Pt will message me via portal with BP readings next week and any questions/concerns between visits. RTC 3 mo. Medications: New phentermine must administer 2 hours after breakfast Take daily for 7 days, then take every other day for 3 days 15 mg PO DAILY 10 caps 0RF Discontinued phentermine must administer 2 hours after breakfast Discontinued Reason: Doctor's Order 30 mg PO DAILY 30 caps 0RF
[2025-01-31 13:34] VITALS: BP 116/69; PULSE 86; TEMP 36.7; O2SAT 100; BMI 31.2
--- OUTSIDE RECORDS SUMMARY | 2025-01-31 14:45 | XMS_ITS | Data Portability ---
Author Organization [facility] Home Service Address [address] [place] [address] Assessment Encounter Date Assessment Date Assessment LastModified by Organization Details LastModified Time 02/22/2024 02/22/2024 [id number] [place] [id number] (SAMPLE MAKER HAND) [facility] MODERATE MUST MEET 2 OUT OF 3 [...] COVERED Not available 02/22/2024 15:47:12 03/25/2024 03/25/2024 [address] [place] [address] (SAMPLE MAKER HAND) [facility] MODERATE MUST MEET 2 OUT OF 3 [...] COVERED Not available 03/25/2024 12:13:45 06/27/2024 06/27/2024 [address] [place] [address] (SAMPLE MAKER HAND) [facility] MODERATE MUST MEET 2 OUT OF 3 [...] COVERED Not available 06/27/2024 15:52:57 09/05/2024 09/05/2024 [address] [place] [address] (SAMPLE MAKER HAND) [facility] MODERATE MUST MEET 2 OUT OF 3 [...] THAT IS COVERED Not available 09/05/2024 12:11:38 12/07/2024 12/07/2024 [address] [place] [address] (SAMPLE MAKER HAND) [facility] MODERATE MUST MEET 2 OUT OF 3 [...] EACH ELEMENT THAT IS COVERED Not available 12/07/2024 15:52:02 Plan of Treatment Reminders Order Date Submit Date Provider Last Modified By Organization Details Last Modified Time Details Appointments FOLLOW UP 15 2024 03:45P M DR HERNANDEZ Not available Not available Not available FOLLOW UP 15 2024 04:00P M DR HERNANDEZ Not available Not available Not available Lab iron + TIBC + ferritin, serum 2023 [email or web address] [facility], [address] [place] [address], [place], [address], 07/05/2024 11:31:13 CBC w/ auto diff 2023 [facility], [address] [place] [address], [place], [address], 06/27/2024 16:01:14 vitamin B12 + folate, serum or blood 2023 [facility], [address] [place] [address], [place], [address], 06/27/2024 16:01:14 Referral gastroent erologist referral - considera tion for actigall see [place] surgeon note please 2023 024 satish Núñez MD, [address] [place] [address], [address], 02/23/2024 09:16:02 Procedures None recorded. Surgeries None recorded. Imaging None recorded. Medication Orders None recorded. Patient TargetsNo targets recorded. Patient Instructions Encounter Date Encounter Id Patient Instructions Last Modified By Organization Details Last Modified Time 06/27/2024 [id number] anemia: care instructions Not available 06/27/2024 15:53:53 learning about mood disorders Not available 06/27/2024 15:53:53 09/05/2024 [id number] anemia: care instructions Not available 09/05/2024 12:13:55 12/07/2024 [id number] hair loss from alopecia areata: care instructions Not available 12/07/2024 15:52:57 Reason for Referral Skiver Blockers Referral for Cholelithiasis without obstruction consideration for actigall see [place] surgeon note please Referring Physician: Shadi Hernandez, Internal Medicine, Encounter Date: 02/22/2024 Results Created Date Observation Date Name Description Value Unit Range Abnormal Flag Note LastModifiedBy Organization Detail LastModifiedTime Result Notes None recorded. Problems Name Problem SNOMED Code Status Onset Date Resolution Date Notes Provider Name and Address Organization Details Recorded Time Migraine 02337390 Active 2019 Maritza helm [facility] 4 10:04:57 History of chickenp ox 981331627 Active 2019 Maritza helm [facility] 4 10:04:57 Heredita ry spherocy tosis 35395815 Active 2017 asplenic Maritza helm [facility] 4 10:04:57 Depressi ve disorder 14598223 Active 2017 Maritza helm [facility] 4 10:04:57 Obesity 723651146 Completed 202006/17/2023 Removal Reason: s/p surg Shadi Hernandez, [address] [place], [address], [facility] Internal [facility] 3 15:49:36 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 Maritza helm [facility] 4 10:04:57 Hypercoa gulabili ty state 68036744 Active 2021 Shadi Hernandez DO [address] [place], [address], [facility] 2 14:11:52 Lacerati on of finger 759497379 Active 2021 Maritza helm [facility] 4 10:05:08 Portal vein thrombos is 30676906 Active 2021 Maritza Jacome volodymyr, [facility] 4 10:04:56 Bacteria l conjunct ivitis 607119996 Active 2022 Maritza Ayaz helm, [facility] 4 10:05:08 Anemia 130308570 Active 2022 Maritzajeffrey helm, [facility] 4 10:04:56 Chronic cholecys titis 87373632 Active 2023 Maritza Drew null, [facility] 4 10:04:56 Cholelit hiasis without obstruct ion 92107853 Active 2023 Shadi Hernandez DO [address] [place] [address], [address], [facility] 4 15:47:46 COVID-19 256134672 Active 2023 Shadi Hernandez DO [address] [place] [address], [address], [facility] 4 23:03:05 Seasonal allergy 616248179 Active 2017 Shadi Hernandez DO [address] [place] [address], [address], [facility] 8 10:00:54 Alopecia 95514388 Active 2017 Shadi Hernandez DO [address] [place] [address], [address], [facility] Internal [facility] 8 16:25:45 Problem Notes None recorded. Procedures Surgical History Date Name Laterality Status Provider Name and Address Organization Details Recorded Time 10/02/19 18 Colposcopy completed Bridget Lomeli [facility] Internal [facility] 11/30/2019 11:28:28 Appendectomy completed Bridget Lomeli [facility] Internal [facility] 11/30/2019 11:27:32 Splenectomy completed Bridget Lomeli [facility] 11/30/2019 11:27:39 extraction of wisdom tooth completed Bridget Lomeli [facility] 11/30/2019 11:27:45 Imaging Results None recorded. Procedure Notes None recorded. Medical Equipment None Reported. Allergies Allergen ID Allergen Name Allergen Category Reaction Reaction Severity Criticality Documentation Date Start Date Code Code System Note Provider Name and Address Organization Details Recorded Time 355 Ceclor medicatio n Not available Not available Not available 11/04/2017 08313 5 RxNorm Bridget helm [facility] Internal [facility] 8 08:52:07 356 Midrin medicatio n Not available Not available Not available 11/04/2017 02139 RxNorm Bridget helm [facility] Internal [facility] 8 08:52:13 Medications Name Sig Start Date [...] completed Not Available Not Available Not Available phentermine 30 mg capsule TAKE 1 CAPSULE BY MOUTH ONCE DAILY 2 HOURS AFTER BREAKFAST active Not Available Not Available No t Available Mi-Acid Gas Relief (simethicon e) 80 [...] Updated DateTime 5 162.56 cm 29.7 kg/m2 67725.4 8 g 74 /min 100 % 100 % 120 mm[Hg] 64 mm[Hg] Ambreen [facility] 5 11:45:15 Date Recorded Body height Body mass index (BMI) Body weight Heart rate Systolic blood pressure Diastolic blood pressure Provider Name and Address Organization Details Last Updated DateTime 5 162.56 cm 29.7 kg/m2 64213.4 8 g 100 /min 110 mm[Hg] 64 mm[Hg] Ambreen Osman [facility] 5 15:38:34 Date Recorded Body height Body mass index (BMI) Body weight Heart rate Oxygen saturation Oxygen saturation in Arterial blood by Pulse oximetry Systolic blood pressure Diastolic blood pressure Provider Name and Address Organization Details Last Updated DateTime 4 162.56 cm 30.3 kg/m2 26987.7 7 g 69 /min 100 % 100 % 102 mm[Hg] 68 mm[Hg] Maritza Jacome [facility] 4 15:32:58 Date Recorded Body height Body mass index (BMI) Body weight Heart rate Oxygen saturation Oxygen saturation in Arterial blood by Pulse oximetry Systolic blood pressure Diastolic blood pressure Provider Name and Address Organization Details Last Updated DateTime 4 162.56 cm 29.6 kg/m2 54525.4 g 69 /min 100 % 100 % 102 mm[Hg] 68 mm[Hg] Maritza Jacome [facility] 4 11:48:50 Date Recorded Body height Body mass index (BMI) Body weight Heart rate Oxygen saturation Oxygen saturation in Arterial blood by Pulse oximetry Systolic blood pressure Diastolic blood pressure Provider Name and Address Organization Details Last Updated DateTime 4 162.56 cm 30.5 kg/m2 44710 g 94 /min 100 % 100 % 124 mm[Hg] 56 mm[Hg] Asim Monte [facility] 4 15:25:21 Social History Question Answer Notes LastModified by Organizat ion Details LastModified Time Tobacco Smoking Status [facility] Smoker Not Available [facility] 07/03/2020 03:36:23 What Was The Date Of Your Most Recent Tobacco Screening? 12/07/2024 [email or web address] Information not available 12/07/2024 How Many Years Have You Smoked Tobacco? 2 [id number] Information not available 07/03/2020 Sex: Unknown Functional Status Question Answer Note LastModified by Organization D etails LastModified Time Do you or have you ever used any other forms of tobacco or nicotine? No [email or web address] Information not available 06/17/2023 Mental Status None recorded. Family History Relationship Description Onset Age of this Age Resolved Age Notes LastModified by Organization Details LastModified Time Father Hypertensive disorder [email or web address] Not available 2019 11:29:38 Father Fibromyalgia [email or web address] Not a vailable 02/22/2024 15:10:33 Mother Hypertensive disorder [email or web address] Not available 2019 11:29:38 Brother Hyperlipidem ia [email or web address] Not available 15:10:33 Paternal Aunt Atrial fibrillation Not available 02/22/2024 15:10:33 Paternal Grandmother Cerebrovascu lar accident [email or web address] Not available 08/2019 11:30:22 Medical History No medical history recorded. Gynecological HistoryNo gynecological history recorded. Obstetrics History GPAL:G 0 P 0 0 0 0 Immunizations Vaccine Type Date Status Note Provider Nam e and Address Organization Details Recorded Time Tdap 2 completed Antonieta helm [facility] 02/05/2022 08:39:57 Influenza, split virus, quadrivalent, preservative 0 completed Katrin helm [facility] Internal [facility] 06/17/2023 15:09:27 COVID-19, mRNA, LNP-S, PF, 30 mcg/0.3 mL dose 1 completed Katrin helm [facility] 06/17/2023 15:09:27 COVID-19, mRNA, LNP-S, PF, 30 mcg/0.3 mL dose 1 completed Katrin helm [facility] 06/17/2023 15:09:27 Past Encounters Encounter ID Performer Location Encounter Start Date Encounter Closed Date Diagnosis/Indication Diagnosis SNOMED-CT Code Diagnosis ICD10 Code Diagnosis Note [id number] Shadi Hernandez [facility] [address] [facility] [address] 12/09/2017 14:55:58 12/09/2017 16:02:40 Dizziness 530490499 R42 cmp- handwritte n order Nausea 997353211 R11.0 in setting of mild RUQ ttp, ? gall bladder disease vs fatty liver Anemia 752723217 D64.9 has h/o anemia, she is s/p splenectom y will check cbc, iron levels - hand written order [id number] Shadi Hernandez DO [facility] [address] [facility], [place] [address] 01/15/2018 09:21:54 01/15/2018 13:49:38 Abdominal pain 29738807 R10.9 will need to order HIDA scan US reported as normal believe this could represent a functional gb illness Seasonal allergy 2750988 04 J30.2 otc discus [id number] Shadi Hernandez DO [facility] [address] [facility] [address] 02/01/2018 15:34:28 02/01/2018 16:45:47 Hereditary spherocytosis 79791075 D58.0 no current issues and no issues Seasonal allergy 0110591 04 J30.2 otc discuss will use prn Right uppe r quadrant pain 584365265 R10.11 only other option is to CT the area [id number] Shadi Hernandez DO [facility] [address] [facility] [address] 03/12/2018 15:19:27 03/15/2018 15:03:43 Alopecia 46546866 L65.9 will be referring to dermatolog y Gastro-eso phageal reflux disease with esophagitis 649323275 K21.0 dx by egd and noted lack of response to ppi tx has to try carafate prior to seeing GI [id number] Shadi Hernandez [facility] [address] [facility] [address] 03/16/2018 14:46:08 03/16/2018 16:00:58 Acute pharyngitis 403062796 J02.9 in setting of likely viral URI - take mucinex - dm for cough sudafed for nasal congestion s lots of fluid/rest tylenol/ib uprofen for discomfort or fever f/u if sx change or worsen Acute conjunctivitis 537 53063 H10.33 likely viral, and at this point seems resolved there are no residual sx suggestive of conjunctiv itis at the time of the visit monitor for sx change or worsening [id number] Shadi Hernandez [facility] [address] [facility] [address] 10/15/2018 10:54:11 10/15/2018 11:48:40 Streptococcal sore throat 95438765 J02.0 finishing her amox in next couple days add mucinex Cough 68339149 R05 will provide med [id number] Shadi Hernandez [facility] Internal [facility] [address] [facility] [address] 12/06/2018 11:22:08 12/06/2018 12:49:50 Acute pharyngitis 415304130 J02.9 just off amox Acute conjunctivitis 537 35779 H10.31 [id number] Shadi Hernandez [facility] [address] [facility] [address] 09/06/2019 15:11:16 09/06/2019 15:43:08 Depressive disorder 63506889 F32.9 Feeling much worse right now Will try mirtazapin e 15 mg and recheck Postcalcan eal bursitis 505694736 M77.31 Pain ongoing since January Rec thick heel pads and will let us know if it worsens Obstructiv e sleep apnea syndrome 52381254 G47.33 Sleep has been poor with excessive snoring Tired daily despite adequate sleep [id number] Shadi Hernandez [facility] [address] [facility] [address] 10/10/2019 15:13:01 10/10/2019 15:59:48 58051457 Z33.1 will follow bp and leg edema will see in about a month Hereditary spherocytosis 89656506 D58.0 no current issues and no issues Depressive disorder 3548 9007 F32.9 have stopped the mirtazapin e as she is preg and she is doing well overall [id number] Shadi Hernandez [facility] [address] [facility] [address],[place] [address] 11/09/2019 15:13:37 11/09/2019 15:37:23 Depressive disorder 57877424 F32.9 have stopped the mirtazapin e as she is preg and she is doing well overall Seasonal allergy 2628852 04 J30.2 otc discuss will use prn Alopecia 35950706 L65.9 seems to have stabilized Hereditary spherocytosis 97680990 D58.0 no current issues and no issues but will send info to feeder catcher tobacco [id number] Shadi Hernandez [facility] [address] [facility] [address] [address] 03/30/2020 09:06:22 03/30/2020 10:21:05 Depressive disorder 30548095 F32.9 have stopped the mirtazapin e as she is preg and she is doing well overall Hereditary spherocytosis 18351282 D58.0 no current issues and no issues but will send info to [employer] Seasonal allergy 3887192 04 J30.2 otc discuss will use prn Active or passive immunization 074138813 Z23 [id number] Shadi Hernandez [facility] [address] [facility] [address] [address] 06/01/2020 09:52:46 06/01/2020 10:37:27 Depressive disorder 32831760 F32.9 have been placed back on mirtazapin e will have r stay on 15 mg if need will have her increase Hereditary spherocytosis 37684203 D58.0 no current issues and no issues new infant also has this [id number] Shadi Hernandez DO [facility] [address] [facility] [address],[place] [address] 08/07/2020 14:16:33 08/07/2020 15:11:05 Depressive disorder 85775651 F32.9 have been placed back on mirtazapin e will have stay on 15 mg but is having the fatigue after the next day from work she tried decreasing dose on those work days but did not feel any better the next day Migraine 37692315 G43.90 9 states has only had 1 headache over the last 4 mo [id number] Shadi Hernandez [facility] [address] [facility] [address] 10/30/2020 13:38:03 10/30/2020 14:23:46 Depressive disorder 11201771 F32.9 have been placed back on mirtazapin e will have stay on 7.5 mg (taking 1/2 tab of 15mg) but is having the fatigue after the next day from work she tried decreasing dose on those work days but did not feel any better the next day Excessive daytime sleepiness - normal night sleep 504684998 G47.19 long detailed discussion sh seems to have excessive daytime sleepiness out of proportion to the sleep pattern she describes (which is good) if this works well we will be ABLE to wean off the mirtazap/? Migraine 45404987 G43.90 9 states has only had 1 headache over the last 4 mo doing great again [id number] Shadi Hernandez DO [facility] [address] [facility] [address] 12/04/2020 13:32:19 12/04/2020 14:21:48 Depressive disorder 35153494 F32.9 is overall doing ok and is wondering if we can try her off the mirtazapin e given she is only taking 7.5 mg iu agree to just have her stop Excessive daytime sleepiness - normal night sleep 285975026 G47.19 modafnil caused too much of side effect ] but we are going to keep her of f thi s med type for now and see how she does she does have tachy right now certainly from the modafanil Obesity 689343403 E66.9 will refer to [facility] Skin lesion 48397445 L98 .9 large irritating lesion on inner left thigh [id number] Shadi Hernandez DO [facility] [address] [facility] [address] 01/15/2021 16:13:55 01/15/2021 16:56:42 Obesity 484326179 E66.9 we will cont to move forward with the program she is clearly a good candidate for this program and i believe she will do quite well . we will need to set up a CPE, she has no contraindi cations at this time [id number] Shadi Hernandez, [facility] [address] [facility] [address] [address] 02/13/2021 15:02:14 02/13/2021 16:12:19 Active or passive immunization 569830274 Z23 Adult heal th examination 126502967 Z00.00 doing well continues to lose weight and is motivatedn o current issues nor restrictio ns Hereditary spherocytosis 27003006 D58.0 stable without complicati ons [id number] Shadi Hernandez DO [facility] [address] [facility] [address] [address] 04/24/2021 10:31:59 04/24/2021 11:35:43 Postoperative state 08799723 Z98.890 doing better eating diff now with the gastric sleeve placedwoun ds are evalshe linette watch aforementi oned incision site for signs of infection Obesity 434862986 E66.9 we will cont to move forward with the program she is doing great and has had procedure and overall is down to 254 from > 320 [id number] Shadi AyeshaNikhil Alicia [facility] [address] [facility] [address] 05/22/2021 08:33:25 05/22/2021 12:10:03 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 has been stabilized with anticoag iv hep and now lovenox she is doing better now but is npofor the time being gettting tpn through a pick lineshe will have a appt with surg after the follow up CT A on thursdayunti l then sh ei is to cont lovenox sq 100mg q 12 Depressive disorder 1765 5087 F32.9 she will get a list of active providers and we will help pick out [id number] Shadi Hernandez [facility] [address] [facility] [address] [address] 06/26/2021 12:03:34 06/26/2021 14:47:46 Migraine 64791866 G43.909 states has only had 1 headache over the last 4 mo doing great again Alopecia 06088333 L65.9 seems to have stabilized but has lost more due to the diet she is on Hereditary spherocytosis 00971264 D58.0 stable without complicati ons Superior m esenteric vein thrombosis 105096954 K55.059 has been stabilized with anticoagan d is at the coumadin and doing okfollowed by the hematologi st for clotting disordersh as a follow up ct scan in jul of abdomen [id number] Shadi Hernandez [facility] [address] [facility] [address] [address] 09/24/2021 08:17:32 09/24/2021 15:34:20 Hereditary spherocytosis 93670819 D58.0 stable now but she is wondering about the future and having a hypercaog statedoes she need correction medication for anticoag Superior m esenteric vein thrombosis 288521202 K55.059 has been stabilized with anticoag and is still on the warfarin until presumably in november or december when she sees the hematologi stand is at the coumadin and doing okfollowed by the hematologi st for clotting disordersh as a follow up ct scan of abdomen and is not avail at this [id number] Shadi Hernandez [facility] [address] [facility] [address] 11/19/2021 14:22:21 11/19/2021 16:13:51 Depressive disorder 45965817 F32.9 she will get a list of active providers and we will help pick out Superior m esenteric vein thrombosis 194716179 K55.059 she will be referred to another hematologi st for question re need to cont the warfarin instead of discont at 6 mo [id number] Shadi Hernandez DO [facility] Medicine [address] [facility] [address] [address] 02/07/2022 14:30:09 02/10/2022 09:24:52 Laceration of finger 543449436 S61.210A will start on doxy for infection after laceration to the nails, tips of the fingers and nails [id number] Shadi Hernandez [facility] [address] [facility] [address] [address] 02/18/2022 08:53:30 02/21/2022 09:10:02 Portal vein thrombosis 57953266 I81 now with collateral s surroundin g no longer on anticoagul ationper surgery and henatology no longer having any discomfort associated bp stableno need for further follow up or need for clotting work up as this was felt to be a direct result of her surgery . [id number] Shadi Hernandez [facility] [address] [facility], [place] [address] 11/17/2022 09:53:45 11/17/2022 14:09:57 Bacterial conjunctivitis 170885945 H10.011 will start on medication Hereditary spherocytosis 86354115 D58.0 stable Superior m esenteric vein thrombosis 808976119 K55.059 stable [id number] Shadi Hernandez [facility] [address] [facility], [address] [place] [address] 03/18/2023 10:00:11 03/18/2023 11:08:08 Migraine 49328479 G43.909 still states has only had 1 headache over the last 8 mo doing great again Hereditary spherocytosis 87166458 D58.0 stable now but she is wondering about the future and having a hypercaog statedoes she need termite exterminator medication for anticoag Depressive disorder 3548 9007 F32.9 overall is stable despite the severe stresswill get a list of counselors [id number] [facility] [address] [facility], [place] [address] 06/17/2023 15:07:52 06/17/2023 16:21:00 Portal vein thrombosis 39479362 I81 now with collateral s surroundin g no longer on anticoagul ationper surgery and henatology no longer having any discomfort associated bp stableno need for further follow up or need for clotting work up as this was felt to be a direct result of her surgery . Hereditary spherocytosis [id number] D58.0 stable now but she is wondering about the future and having a hypercoag statedoes she need termite exterminator medication for anticoag this will be a need to addressed Hyperlipid emia screening [id number] Z13.220 [id number] Shadi Hernandez [facility] [address] [facility] [address] [address] 12/28/2023 15:18:03 12/28/2023 16:29:53 Depressive disorder [id number] F32.9 overall is stable despite the severe stresswill get a list of counselors Hereditary spherocytosis 09317563 D58.0 stable now but she is wondering about the future and having a hypercoag statedoes she need termite exterminator medication for anticoag this will be a need to addressed Portal vei n thrombosis [id number] I81 now with collateral s surroundin g no longer on anticoagul ationper surgery and henatology no longer having any discomfort associated bp stableno need for further follow up or need for clotting work up as this was felt to be a direct result of her surgery . Hypercoagu lability state [id number] D68.59 do not see any of these lab so we will order will need for [facility] eval Chronic cholecystitis 20 781962 K81.1 [id number] Shadi Hernandez [facility] [address] [facility],[place] [address] 02/22/2024 15:09:51 02/22/2024 16:48:27 Depression screening [id number] Z13.31 SCREENING NEGATIVE Cholelithi asis without obstruction 90083399 K80.20 must consider actigall Portal vei n thrombosis 61047461 I81 now with collateral s surroundin g no longer on anticoagul ationper surgery and henatology no longer having any discomfort associated bp stableno need for further follow up or need for clotting work up as this was felt to be a direct result of her surgery . [id number] Shadi Hernandez [facility] [address] [facility] [address] [address] 03/25/2024 11:34:20 03/25/2024 14:02:57 Cholelithiasis without obstruction [id number] K80.20 must consider actigall urosidil [id number] Shadi Hernandez [facility] [address] [facility] [address] [address] 06/27/2024 15:18:51 06/27/2024 16:01:05 Depressive disorder 91486381 F32.9 overall is stable despite the severe stresswill get a list of counselors Anemia 227011759 D64.9 will need rechlk Cholelithi asis without obstruction 85286457 K80.20 stable no major issues Migraine 93843249 G43.90 9 still states has only had 1 headache over the last 8 mo doing great again [id number] Shadi Hernandez [facility] [address] [facility] [facility] [place] [address] 09/05/2024 11:35:33 09/05/2024 12:27:19 Depressive disorder 18941337 F32.9 overall is stable despite the severe stresswill get a list of counselors Hereditary spherocytosis 72689811 D58.0 stable now but she is wondering about the future and having a hypercoag statedoes she need correction medication for anticoag this will be a need to addressed Anemia 707122507 D64.9 will need rechk and follow hgb was 11.8 will follow [id number] Shadi Hernandez [facility] [address] [facility] [employer] [place] [address] 12/07/2024 15:27:13 12/07/2024 16:10:18 Depressive disorder 49808019 F32.9 overall is stable despite the severe stresswill get a list of counselors Anemia 064182383 D64.9 will need rechk and follow hgb was 11.8 will follow Depression screening 171 659497 Z13.31 SCREENING NEGATIVE Hereditary spherocytosis 92824484 D58.0 stable now but she is wondering about the future and having a hypercoag statedoes she need termite exterminator medication for anticoag this will be a need to addressed Alopecia 85630948 L65.9 seems to have stabilized Health Concerns Section Related Observation LastModified by Organization Detai ls LastModified Time None Recorded Concern Status LastModified by Organization Details LastModified Time None Recorded Advance Directives Directive None Recorded Payers Encounter Date Sequence Insurance Name Policy Number Policy Loera Covered Member ID Loera Member ID Guarantor Name 02/22/[address] [place] [address] [id number] Alida Delgadillo [id number] Alida Delgadillo 03/25/2024 1 [place] [facility] [id number] lAida Delgadillo [id number] Alida Delgadillo 06/27/2024 1 [place] [facility] [id number] Alida Delgadillo [id number] Alida Delgadillo 09/05/2024 1 [place] [facility] [id number] Alida Delgadillo [id number] Alida Delgadillo 12/07/2024 1 [place] [facility] [id number] Alida Delgadillo [id number] Alida Delgadillo Notes Date Note Type Note Provider Name a nd Address Organization Details Recorded Time 4 text/html here for rechk following [facility] surg [facility] felt that likely was [facility] but thatshe would be a t high risk for the surgery due to the SMV and protal vein thrombosis Shadi Hernandez DO [address] [place], [address], [facility] 02/22/2024 15:52:31 4 text/html here for rechk visit to gastro due to choliethiasis and she si now on urosidol and has been asymptomatic sincealso has hycosiamineis beigncareful Shadi Hernandez DO [address] [place], [address], [facility] 03/25/2024 12:17:19 4 text/html here for rechdoing ok feels well overall states overall is doing good Shadi Hernandez DO [address] [place], [address], [facility] 06/27/2024 15:55:42 5 text/html here for rechk and is doing good and no major issuesshe is pretty well physically and mentallysh has met someone and is quite happy Shadi Hernandez DO [address] [place], [address], [facility] 09/05/2024 12:15:37 5 text/html AnemiaReported bypatient.Timing:bet ter Associated Symptoms:no shortness of breath; no chest pain; no abdominal pain; no nausea; no vomiting; no melena; no blood in stool; no weakness; no fatigue; no palpitations; no excessive sweating; normal nails; tolerant of cold; no nonfood cravings; no behavior problems; no symptoms of peripheral neuropathy; normal balance; no jaundice; no pallor; no weight lossAnxiety/Depressi onReported bypatient.Severity:d enies suicidal ideations; able to maintain relationships; does not interfere with activities of daily living Context:no major life stressors Associated Symptoms:denies homicidal ideations; no significant weight gain; no significant weight loss; no visual/auditory hallucinations; no delusions; no shortness of breath; mood good; no anxiety; no crying spells; no panic; no isolation; sleeping well; appetite good; energy good; no apathy; maintaining functionality here for rechk and is doing well relates that [facility] put her on phenterminelong discussion with pt re this and what to watch for with sx and bp etcpt is actually doing relaly well with a marked reduction in her anxiety Shadi Hernandez, DO [address] [facility], [place], [address], [facility] 12/07/2024 15:53:48 OBGyn Episode No OBEpisode recorded.
== END 2025-01-31 14:00 | disposition home or self-care (01) ==
LOC: HO.HBS 13:14
PROVIDERS: PCP Internal Medicine; Visit Provider Physician Assistant Surgical
DX: E66.9 Obesity, unspecified (principal); Z68.31 Body mass index [BMI] 31.0-31.9, adult; L98.7 Excessive and redundant skin and subcutaneous tissue; Z98.84 Bariatric surgery status
CPT/HCPCS: 99214

== ENCOUNTER → 2025-01-31 13:13 | Outpatient (BNVA) | payer BC, SELFPAY | PROVIDERS: PCP Internal Medicine; Visit Provider Physician Assistant Surgical ==